=== PATIENT | female | born 1970 | race Caucasian/White ===

== ENCOUNTER 2023-05-10 13:56 | Emergency (ER) | payer OTHER, SELFPAY ==
[2023-05-10 13:59] VITALS: BP 140/86; PULSE 85; RESP 20; TEMP 37; O2SAT 98; BMI 35.7
--- NOTE | 2023-05-10 14:07 | XR_ITS ---
The [address] [address] Patient Name: GAIL GIBBS MRN: [id number] date: 1970 Sex: F Assigned Patient Location: ER Current Patient Location: Accession/Order Number: [id number] Exam Date: 05/10/2023 14:30 Report Date: 05/10/2023 15:11 At the request of: KETURAH RIVERA Procedure: XR toe RT min 2V EXAM: XR toe RT min 2V HISTORY: Purple second digit COMPARISON: None. TECHNIQUE: 3 views FINDINGS: IMPRESSION: Dorsal angulated fracture of the second proximal phalanx base. Associated soft tissue edema. Joint spaces are unremarkable. Atherosclerosis of the vascular structures. Electronically authenticated by: OWEN SINGH Date: 05/10/2023 15:11
--- NOTE | 2023-05-10 14:09 | ED_ITS ---
HPI - Extremity Injury (Lower) General Chief Complaint: Extremity Injury, Lower Stated Complaint: LOWER EXTREMITY BRUISE ON FOOT Time Seen by Provider: 05/10/23 14:07 Source: patient Mode of arrival: walk-in Limitations: no limitations History of Present Illness HPI Narrative: 52-year-old female presents with discoloration to her right second toe that she noticed today. She has neuropathy in her bilateral lower extremities and states that she does not have feeling, so she is not sure if she had injury. She called her family doctor today and they directed her to the ER. Denies swelling, temp or sensation changes Relieving factors: Reports nothing Exacerbating factors: Reports nothing Related Data Home Medications Medication Instructions Recorded Confirmed amlodipine 5 mg tablet 5 mg PO DAILY 05/10/23 05/10/23 atorvastatin 80 mg tablet 80 mg PO DAILY 05/10/23 05/10/23 empagliflozin 10 mg tablet 10 mg PO DAILY 05/10/23 05/10/23 (Jardiance) fluoxetine 20 mg capsule 20 mg PO DAILY 05/10/23 05/10/23 gabapentin 100 mg capsule 100 mg PO Q12H 05/10/23 05/10/23 gabapentin 300 mg capsule 300 mg PO Q8H 05/10/23 05/10/23 insulin glargine 100 unit/mL (3 10 unit subcut .am 05/10/23 05/10/23 mL) subcutaneous pen (Lantus Solostar U-100 Insulin) lisinopril 10 mg tablet 10 mg PO DAILY 05/10/23 05/10/23 Allergies Allergy/AdvReac Type Severity Reaction Status Date / Time Penicillins Allergy Intermediate Verified 05/10/23 14:10 Review of Systems ROS Status of ROS 10 or more systems reviewed and unremarkable except as noted in history and below [facility] Medical History (Updated 05/10/23 @ 14:53 by CAMPBELL Márquez) Exam Narrative Exam Narrative: General: A&Ox3, no distress, talking in full an complete sentences skin: warm, dry, intact, right second toe with a sharply demarcated blue ecchymosis from the proximal to mid toe, distal phalanx of the right second toe excluding ecchymosis, minimally delayed capillary refill, but this is consistent throughout both feet head: normocephalic, atraumatic eyes: EOMI nose: nares patent neck: supple, trachea midline respiratory: non-labored extremities: FROM x 4, strength +5/5 neuro: A&Ox3 psych: appropriate mood and affect, cooperative MDM - Extremity Injury (Lower) MDM Narrative Medical decision making narrative: Prelim x-ray shows a fracture to the right proximal phalanx of the second toe will be kermit taped and follow-up family doctor and Ortho. Fracture care initiated in ER and neurovascular intact. afebrile, not tachycardic, not hypoxic, tolerating PO, non toxic appearing and ambulating at baseline and hemodynamically stable to be d/c. answered all questions. pt in agreement with tx. educated when to return to ER. Differential Diagnosis Differential diagnosis: Likely other (toe strain) Discharge Plan Discharge Chief Complaint: Extremity Injury, Lower Clinical Impression: Fracture of toe of right foot Qualifiers: Encounter type: initial encounter Toe: lesser toe Fracture type: closed Phalanx: proximal Fracture alignment: nondisplaced Qualified Code(s): S92.514A - Nondisplaced fracture of proximal phalanx of right lesser toe(s), initial encounter for closed fracture Patient Disposition: Home, Self-Care Time of Disposition Decision: 14:53 Condition: Good Mode of Transportation: Private Vehicle Prescriptions / Home Meds: No Action amlodipine 5 mg tablet 5 mg PO DAILY atorvastatin 80 mg tablet 80 mg PO DAILY Jardiance 10 mg tablet 10 mg PO DAILY fluoxetine 20 mg capsule 20 mg PO DAILY gabapentin 100 mg capsule 100 mg PO Q12H gabapentin 300 mg capsule 300 mg PO Q8H insulin glargine [Lantus Solostar U-100 Insulin] 100 unit/mL (3 mL) insulin pen 10 unit SUBCUT .am lisinopril 10 mg tablet 10 mg PO DAILY Instructions: Toe Fracture (ED) Stand Alone Forms: Portal Instructions Referrals: Physician,Non-Staff, MD [Primary Care Provider] - 1 week
== END 2023-05-10 15:07 | disposition home or self-care (01) ==
PROVIDERS: Emergency Provider Emergency Medicine Emergency Medical Services
DX: S92.514A Nondisplaced fracture of proximal phalanx of right lesser toe(s), initial encounter for closed fracture (principal); G62.9 Polyneuropathy, unspecified; Z79.899 Other long term (current) drug therapy; Z79.4 Long term (current) use of insulin; X58.XXXA Exposure to other specified factors, initial encounter
CPT/HCPCS: 73660; 99283

== ENCOUNTER 2023-05-18 12:45 | Observation (INO) | payer OTHER, SELFPAY ==
[2023-05-18] VITALS (13 sets, daily range): BP systolic 118–180; BP diastolic 73–105; PULSE 78–94; RESP 16–18; TEMP 36.4–36.6; O2SAT 94–98; BMI 35.7; BMI 36.7
--- NOTE | 2023-05-18 13:05 | ECG_ITS ---
The [facility] Test Date: 2023-05-18 Pat Name: GAIL GIBBS Department: Room: - Gender: Female Manager User Experience: : 1970 Requested By: [id number] Order Number: [id number] Reading MD: JANIS GROSS Measurements Intervals [place] Rate: 84 P: 53 RI: 182 QRS: -22 QRSD: 80 T: 75 QT: 394 QTc: 434 Interpretive Statements 1100 Sinus rhythm 4068 Nonspecific [place] abnormality 7202 Moderate left axis deviation 9130 borderline ECG No previous ECG available for comparison Electronically Signed On 05-19-2023 7:33:23 EDT by JANIS GROSS
--- NOTE | 2023-05-18 13:13 | XR_ITS ---
The [address] [address] Patient Name: GAIL GIBBS MRN: [id number] date: 1970 Sex: F Assigned Patient Location: ER Current Patient Location: ER Accession/Order Number: [id number] Exam Date: 05/18/2023 13:35 Report Date: 05/18/2023 14:04 At the request of: STAN HERRING Procedure: XR chest 2V EXAMINATION: XR chest 2V HISTORY: Syncope COMPARISON: 08/02/2021 TECHNIQUE: PA and lateral FINDINGS: LUNGS: No significant pulmonary parenchymal abnormalities. VASCULATURE: No increased pulmonary vasculature. PLEURA: No pneumothorax, effusion, or pleural thickening. CARDIAC: No cardiomegaly or cardiac silhouette abnormality. MEDIASTINUM: No visible mass or adenopathy. BONES: No fracture or visible bone lesion. OTHER: Negative. XR/XR chest 2V IMPRESSION: No acute disease. Electronically authenticated by: OWEN HOWELL Date: 05/18/2023 14:04
--- NOTE | 2023-05-18 13:13 | CT_ITS ---
The [address] [address] Patient Name: GAIL GIBBS MRN: [id number] date: 1970 Sex: F Assigned Patient Location: ER Current Patient Location: ER Accession/Order Number: [id number] Exam Date: 05/18/2023 13:35 Report Date: 05/18/2023 14:11 At the request of: STAN HERRING Procedure: CT head/brain wo con EXAMINATION: CT head/brain wo con, 05/18/2023 1:35 PM EDT HISTORY: Syncope COMPARISON: None. TECHNIQUE: CT scan of the head was performed without IV contrast. CT dose reduction technique was used, including Automated Exposure Control. HISTORY: Syncope FINDINGS: BRAIN: Moderate white matter hypoattenuation with scattered areas of lacunar infarcts primarily on the left. No acute hemorrhage or mass. CSF SPACES: No hydrocephalus, subarachnoid hemorrhage, or mass. Appropriate for age. SKULL: No fracture, mass, or other significant visible lesion. SINUSES: No significant mucosal thickening or fluid on the limited views. ORBITS: No appreciable abnormality on the limited views. OTHER: Negative CT/CT head/brain wo con IMPRESSION: Moderate white matter disease. Chronic small vessel ischemic changes are favored Electronically authenticated by: OWEN HOWELL Date: 05/18/2023 14:11
[2023-05-18] MEDS: 0.9 % SODIUM CHLORIDE 1,000 ML 1000 ML IV (13:22)
--- NOTE | 2023-05-18 13:24 | ED_ITS ---
HPI - Syncope General Chief Complaint: Syncope Stated Complaint: FALL Time Seen by Provider: 05/18/23 13:12 Source: patient Mode of arrival: ambulance Limitations: no limitations History of Present Illness HPI narrative: patient is a 52-year-old female to history of diabetes who presents to the emergency department for the evaluation of a syncopal episode and dizziness that occurred prior to arrival. Patient states for the last two days she has had abnormal blood sugars that are running high. She has not had any fevers, chills, vomiting or diarrhea. She states she does feel nauseous. Today she was sitting at a table when she went to stand up to get her shorts and felt dizzy, she states she fell back into her chair and passed out for several seconds. She called an ambulance for herself. She had no fall to the ground or associated injuries. She denies chest pain, shortness of breath. No headache or visual changes. She has chronic peripheral paresthesia to the lower extremities. She states she feels weak, mildly dizzy and has a dry mouth at arrival to the Emergency Room. Related Data Home Medications Medication Instructions Recorded Confirmed amlodipine 5 mg tablet 5 mg PO DAILY 05/10/23 05/10/23 atorvastatin 80 mg tablet 80 mg PO DAILY 05/10/23 05/10/23 empagliflozin 10 mg tablet 10 mg PO DAILY 05/10/23 05/10/23 (Jardiance) fluoxetine 20 mg capsule 20 mg PO DAILY 05/10/23 05/10/23 gabapentin 100 mg capsule 100 mg PO Q12H 05/10/23 05/10/23 gabapentin 300 mg capsule 300 mg PO Q8H 05/10/23 05/10/23 insulin glargine 100 unit/mL (3 10 unit subcut .am 05/10/23 05/10/23 mL) subcutaneous pen (Lantus Solostar U-100 Insulin) lisinopril 10 mg tablet 10 mg PO DAILY 05/10/23 05/10/23 Allergies Allergy/AdvReac Type Severity Reaction Status Date / Time Penicillins Allergy Intermediate Verified 05/10/23 14:10 Review of Systems 2 ROS Constitutional Denies: fever or chills Ears, nose, mouth, and throat Denies: throat pain Cardiovascular Denies: chest pain Respiratory Denies: shortness of breath or cough Gastrointestinal Reports: nausea; Denies: abdominal pain or vomiting Genitourinary Denies: painful urination Musculoskeletal Denies: back pain Integumentary/Breast Denies: rash Neurological Reports: dizziness; Denies: headache Endocrine Reports: excessive thirst; Denies: excessive urination Hematologic/Lymphatic Denies: easy bruising [facility] Medical History (Updated 05/18/23 @ 15:31 by CAMPBELL Salas) Social History Smoking status: Former smoker Exam Narrative Exam Narrative: Gen.: Awake, alert, in no distress Head: Normocephalic, atraumatic ENT: Moist mucous membranes, no evidence of facial or dental injury, C-spine nontender Respiratory: No respiratory distress, lungs clear bilaterally Cardio: Regular rate and rhythm Gastrointestinal: Abdomen is soft, nondistended and nontender to palpation Extremities: Moves extremities equally, no injuries noted Psych: Normal mood and affect Neuro: No focal neuro deficit Skin: Warm, dry, intact Constitutional Vital Signs, click to edit/add: Last Vital Signs Temp 97.8 F 05/18/23 12:46 Pulse 79 05/18/23 12:46 Resp 16 05/18/23 12:46 BP 180/105 H 05/18/23 14:30 Pulse Ox 98 05/18/23 13:18 O2 Del Method Room Air 05/18/23 13:18 Course Vital Signs Vital signs: Vital Signs Temperature 97.8 F 05/18/23 12:46 Pulse Rate 79 05/18/23 12:46 Respiratory Rate 16 05/18/23 12:46 Blood Pressure 139/88 H 05/18/23 12:46 Pulse Oximetry 97 05/18/23 12:46 Oxygen Delivery Method Room Air 05/18/23 12:46 Temperature 97.8 F 05/18/23 12:46 Pulse Rate 79 05/18/23 12:46 Respiratory Rate 16 05/18/23 12:46 Blood Pressure 180/105 H 05/18/23 14:30 Pulse Oximetry 98 05/18/23 13:18 Oxygen Delivery Method Room Air 05/18/23 13:18 MDM - Syncope MDM Narrative Medical decision making narrative: patient noted to have stable vital signs on arrival to the Emergency Room, treated with IV fluids. She had no episodes of emesis in the Emergency Room, she complains of generalized weakness and lightheadedness with no vertigo-type symptoms. Zofran given as well. CT of the rain, chest x-ray, lab studies show mild urinary tract infection with stable, chronic kidney disease and mild hyperkalemia. Patient will be treated with Rocephin and Kayexalate. We attempted to ambulate the patient to determine if she could be discharged home, patient is unable to ambulate due to generalized weakness and lightheadedness. She is admitted for IV fluids, antibiotics. Stable at time of admission to hospitalist. Medical Records Attestation: I reviewed the patient's medical records. Lab Data Attestation: I reviewed the patient's lab results. Labs: Lab Results 05/18/23 05/18/23 Range/Units 13:30 13:33 WBC 8.5 (4.0-11.0) 10^3/uL RBC 4.90 (4.20-5.40) 10^6/uL Hgb 13.5 (12.0-16.0) g/dL Hct 42.3 (36.0-48.0) % MCV 86.3 (81.0-99.0) fL MCH 27.6 (26.7-34.0) pg MCHC 31.9 (29.9-35.2) g/dL RDW 15.1 H (11.0-15.0) % Plt Count 337 (150-450) 10^3/uL MPV 10.6 (9.5-13.5) fL Neut % (Auto) 80.4 H (43.0-75.0) % Lymph % (Auto) 15.7 L (20.5-60.0) % [place] % (Auto) 2.8 (1.7-12.0) % Eos % (Auto) 0.7 L (0.9-7.0) % Baso % (Auto) 0.2 (0.2-2.0) % Neut # (Auto) 6.8 H (1.4-6.5) 10^3/uL Lymph # (Auto) 1.3 (1.2-3.8) 10^3/uL [place] # (Auto) 0.2 L (0.3-0.8) 10^3/uL Eos # (Auto) 0.1 (0.0-0.7) 10^3/uL Baso # (Auto) 0.0 (0.0-0.1) 10^3/uL Abs Immat Gran (auto) 0.02 (0.00-0.03) 10^3/uL Imm/Tot Granulo (auto) 0.2 (0.0-0.5) % Sodium 135 L (136-145) mmol/L Potassium 5.8 H (3.5-5.1) mmol/L Chloride 102 (98-107) mmol/L Carbon Dioxide 25.2 (21.0-32.0) mmol/L Anion Gap 13.6 BUN 46.0 H (7.0-18.0) mg/dL Creatinine 1.99 H (0.55-1.02) mg/dL Est GFR ( Amer) 32 L (>=60) Est GFR (Non-Af Amer) 26 L (>=60) BUN/Creatinine Ratio 23.1 Glucose 288 H (74-106) mg/dL Lactate 1.7 (0.4-2.0) mmol/L Calcium 9.5 (8.5-10.1) mg/dL Total Bilirubin 0.7 (0.2-1.0) mg/dL AST 33 (15-37) U/L ALT 20 (14-59) U/L Alkaline Phosphatase 95 (46-116) U/L Troponin I High Sens 14.4 (4.0-51.3) pg/mL Total Protein 8.5 H (6.4-8.2) g/dL Albumin 3.9 (3.4-5.0) g/dL Globulin 4.6 g/dL Albumin/Globulin Ratio 0.8 TSH 0.725 (0.358-3.740) uIU/mL Urine Color Lt. yellow (YELLOW) Urine Clarity Clear (CLEAR) Urine pH 5.5 (5.0-9.0) Ur Specific [place] 1.020 (1.005-1.025) Urine Protein 100 A (NEG/TRACE) mg/dL Urine Glucose (UA) >=1000 A (NEGATIVE) mg/dL Urine Ketones Negative (NEGATIVE) mg/dL Urine Occult Blood Trace-i (NEGATIVE) Urine Nitrite Negative (NEGATIVE) Urine Bilirubin Negative (NEGATIVE) Urine Urobilinogen 0.2 (0.2-1.0) EU/dL Ur Leukocyte Esterase Small A (NEGATIVE) Urine RBC 2-5 A (0-2) #/HPF Urine WBC 10-20 A (NONE SEEN) #/HPF Ur Squamous Epith Cells Moderate A (NONE/RARE) #/LPF Urine Crystals None seen (None Seen) #/HPF Urine Bacteria Trace A (NONE SEEN) #/HPF Urine Casts None seen (NONE SEEN) #/LPF Urine Mucus None seen (NONE SEEN) Ur Culture Indicated? Yes Acetone, Qual Negative (NEGATIVE) Imaging Data Chest x-ray: Attestation: I have reviewed the pertinent imaging results. Radiologist's impression: ? MRN: [id number]? ? date: 1970? ? Sex: F Assigned Patient Location: ER Current Patient Location: ER Accession/Order Number: [id number] Exam Date: 05/18/2023? 13:35? ? Report Date: 05/18/2023? 14:04 ? At the request of: STAN? NIMA? ? Procedure:? XR chest 2V ? EXAMINATION: XR chest 2V ? HISTORY: Syncope ? COMPARISON: 08/02/2021 ? TECHNIQUE: PA and lateral ? FINDINGS: LUNGS: No significant pulmonary parenchymal abnormalities. VASCULATURE: No increased pulmonary vasculature. PLEURA: No pneumothorax, effusion, or pleural thickening. CARDIAC: No cardiomegaly or cardiac silhouette abnormality. MEDIASTINUM: No visible mass or adenopathy. BONES: No fracture or visible bone lesion. OTHER: Negative. ? XR/XR chest 2V IMPRESSION: ? No acute disease. ? CT scan - head: Attestation: I have reviewed the pertinent imaging results. Radiologist's impression: Procedure: CT head/brain wo con EXAMINATION: CT head/brain wo con, 05/18/2023 1:35 PM EDT HISTORY: Syncope COMPARISON: None. TECHNIQUE: CT scan of the head was performed without IV contrast. CT dose reduction technique was used, including Automated Exposure Control. HISTORY: Syncope FINDINGS: BRAIN: Moderate white matter hypoattenuation with scattered areas of lacunar infarcts primarily on the left. No acute hemorrhage or mass. CSF SPACES: No hydrocephalus, subarachnoid hemorrhage, or mass. Appropriate for age. SKULL: No fracture, mass, or other significant visible lesion. SINUSES: No significant mucosal thickening or fluid on the limited views. ORBITS: No appreciable abnormality on the limited views. OTHER: Negative IMPRESSION: Moderate white matter disease. Chronic small vessel ischemic changes are favored Electronically authenticated by: OWEN HOWELL Date: 05/18/2023 14:11 ECG Data Attestation: I personally reviewed and interpreted this ECG as follows: (normal sinus rhythm at a rate of eighty-four, no acute ST elevation or ectopy. EKG reviewed by attending physician) ECG interpretation date: 05/18/23 ECG interpretation time: 14:00 Discharge Plan Discharge Chief Complaint: Syncope Clinical Impression: UTI (urinary tract infection), Syncope, Weakness, Acute hyperkalemia Patient Disposition: Admitted as Observation Time of Disposition Decision: 15:31 Condition: Good
[2023-05-18 13:40] LABS: Hematocrit 42.3 % (36.0-48.0); Hemoglobin 13.5 g/dL (12.0-16.0); Mean Corpuscular HGB Conc 31.9 g/dL (29.9-35.2); Mean Corpuscular Hemoglobin 27.6 pg (26.7-34.0); Mean Corpuscular Volume 86.3 fL (81.0-99.0); Mean Platelet Volume 10.6 fL (9.5-13.5); Neutrophils Percent Auto 80.4 % (43.0-75.0); Platelet Count 337 10^3/uL (150-450); Red Cell Distribution Width 15.1 % (11.0-15.0); White Blood Count 8.5 10^3/uL (4.0-11.0)
[2023-05-18 13:41] LABS: Basophils Percent Auto 0.2 % (0.2-2.0); Eosinophils Absolute Auto 0.1 10^3/uL (0.0-0.7); Eosinophils Percent Auto 0.7 % (0.9-7.0); Immature Granulocytes Abs Auto 0.02 10^3/uL (0.00-0.03); Immature Granulocytes Pct Auto 0.2 % (0.0-0.5); Lymphocytes Absolute Auto 1.3 10^3/uL (1.2-3.8); Lymphocytes Percent Auto 15.7 % (20.5-60.0); Monocytes Absolute Auto 0.2 10^3/uL (0.3-0.8); Monocytes Percent Auto 2.8 % (1.7-12.0); Neutrophils Absolute Auto 6.8 10^3/uL (1.4-6.5)
[2023-05-18 13:48] LABS: Bilirubin Urine NEGATIVE (NEGATIVE); Blood Urine TRACE-I (NEGATIVE); Clarity Urine CLEAR (CLEAR); Color Urine LT. YELLOW (YELLOW); Glucose Urine UA >=1000 mg/dL (NEGATIVE); Ketones Urine NEGATIVE (NEGATIVE); Leukocyte Esterase Urine SMALL (NEGATIVE); Nitrite Urine NEGATIVE (NEGATIVE); Protein Urine 100 mg/dL (NEG/TRACE); Urobilinogen Urine 0.2 EU/dL (0.2-1.0); pH Urine 5.5 (5.0-9.0)
[2023-05-18] MEDS: ONDANSETRON PF 4 MG/2 ML VIAL IV (13:49)
[2023-05-18 13:50] LABS: Acetone NEGATIVE (NEGATIVE)
[2023-05-18 13:50] LABS: Urine Microscopic Indicated YES
[2023-05-18 13:57] LABS: Bacteria Urine TRACE #/HPF (NONE SEEN); Mucus Urine NONE SEEN (NONE SEEN)
[2023-05-18 13:58] LABS: Cast Seen? NONE SEEN #/LPF (NONE SEEN); Crystals Seen? None Seen #/HPF (None Seen); Squamous Epithelial Cell Urine MODERATE #/LPF (NONE/RARE); Urine Culture Indicated YES
[2023-05-18 13:59] LABS: Lactate/Lactic Acid 1.7 mmol/L (0.4-2.0)
[2023-05-18 14:06] LABS: Alanine Aminotransferase 20 U/L (14-59); Albumin Globulin Ratio 0.8; Albumin Level 3.9 g/dL (3.4-5.0); Alkaline Phosphatase 95 U/L (46-116); Anion Gap 13.6; Aspartate Amino Transferase 33 U/L (15-37); BUN Creatinine Ratio 23.1; Bilirubin Total 0.7 mg/dL (0.2-1.0); Calcium 9.5 mg/dL (8.5-10.1); Carbon Dioxide 25.2 mmol/L (21.0-32.0); Chloride 102 mmol/L (98-107); Estimated GFR (African America 32 (>=60); Estimated GFR (Non-African Ame 26 (>=60); Globulin 4.6 g/dL; Glucose 288 mg/dL (74-106); Potassium 5.8 mmol/L (3.5-5.1); Sodium 135 mmol/L (136-145); Total Protein 8.5 g/dL (6.4-8.2)
[2023-05-18 14:07] LABS: Thyroid Stimulating Hormone 0.725 uIU/mL (0.358-3.740); Troponin I High Sensitivity 14.4 pg/mL (4.0-51.3)
--- NOTE | 2023-05-18 14:57 | PC.NURSE ---
pt unable to stand at length to attempt to ambulate down the hallway states she feels too wobbly pa notified and
[2023-05-18] MEDS: CEFTRIAXONE 1,000 MG in 0.9 % SODIUM CHLORIDE 50 ML 100 MG IV (15:40)
--- NOTE | 2023-05-18 16:29 | P.HP_ITS ---
H&P: HPI History of Present Illness Chief complaint: FALL, Syncope, UTI, Hyperkalemia, Weakness Narrative: patient is a 52 y.o with past medical history of insulin dep type 2 diabetes, HTN, HLD, neuropathy, depression who presented to the ER today for weakness and some AMS. In the ER she was found to have UTI, DANISHA, elevated potassium and could not walk without assistance. She was admitted for further evaluation. She reports she felt unsteady on her feet when standing and transitioning from her chair to her bed. She fell back into her bed, No LOC, no bladder incontinence, no head trauma. She states she frequently gets dizzy when she stands and has to take it slow . she denies any chest pain, shortness of breath, says sugars have been running higher. She sees Endocrinology and her PCP regularly. Review of Systems ROS Narrative ROS: a complete review of systems were reviewed with patient and are positive as below or listed in History of Chief Complaint. General: no fever, chills, night sweats Head: no headache, trauma, visual changes, nausea or vomiting Skin: no reported rashes, itching or sores Eyes: no blurriness of vision Ears: no reported hearing loss, vertigo, earache, or tinnitus Throat: no sore throat, hoarseness, swelling of neck, or tongue pain Heart: no chest pain Lungs: no shortness of breath or cough GI: no diarrhea or vomiting/nausea Urinary:no urinary urgency, some frequency no pain Neuro: no numbness or tingling HEM: no bleeding issues or bruising ENDO: no thyroid problems Psych: anxiety or depression PFSH PFSH Medical History (Updated 05/18/23 @ 16:35 by Kait Munguia DO) Family History (Updated 05/18/23 @ 16:44 by Janette Ribeiro) Father Family history of cancer Family history of CHF (congestive heart failure) Family history of diabetes mellitus Mother Family history of diabetes mellitus Family history of hypertension Social History Smoking status: Former smoker Meds Home Medications and Allergies Home Medications Medication Instructions Recorded Confirmed Type amlodipine 5 mg tablet 5 mg PO DAILY 05/10/23 05/18/23 History atorvastatin 80 mg tablet 80 mg PO DAILY 05/10/23 05/18/23 History empagliflozin 10 mg tablet 10 mg PO DAILY 05/10/23 05/18/23 History (Jardiance) fluoxetine 20 mg capsule 20 mg PO DAILY 05/10/23 05/18/23 History gabapentin 100 mg capsule 100 mg PO Q12H 05/10/23 05/18/23 History gabapentin 300 mg capsule 300 mg PO Q8H 05/10/23 05/18/23 History insulin glargine 100 unit/mL (3 10 unit subcut .am 05/10/23 05/18/23 History mL) subcutaneous pen (Lantus Solostar U-100 Insulin) lisinopril 10 mg tablet 10 mg PO DAILY 05/10/23 05/18/23 History lisinopril 20 mg tablet mg 05/18/23 History Allergies Allergy/AdvReac Type Severity Reaction Status Date / Time Penicillins Allergy Intermediate Verified 05/10/23 14:10 Exam Narrative Exam Narrative: General: Patient is alert, and oriented to person, place and time with normal affect, proper hygiene Skin: no visible rashes, or ulcers Head: atraumatic, acephalic Eyes: PERRLA, no nystagmus present, conjunctiva clear, no scleral icterus Ears: normal Tympanic Membrane, normal gross auditory acuity Nose: symmetric, no discharge, no maxillary or frontal sinus tenderness Mouth/Throat: no erythema, exudate, or tonsillar enlargement, normal dentition Neck: no masses palpated, normal thyroid, no JVD or audible carotid bruits Heart: Normal rate and rhythm, no murmurs/rubs/gallops Lungs: no audible wheezes, crackles and normal breath sounds all lung molina Abdomen: Normal audible bowel sounds, no distension, No palpable masses, no organomegaly, no rebound/guarding/ or rigidity Musculoskeletal: muscle atrophy noted, ROM is limited due to being in hospital bed, no swelling bilateral lower extremities Vascular: Normal carotid, radial, femoral, posterior tibial, and dorsalis pedis pulses Lymph: no supraclavicular, axillary, or anterior/posterior cervical adenopathy Neuro: CN II-X grossly intact, normal sensation upper and lower extremities Constitutional Vital Signs, click to edit/add: Last Vital Signs Temp 97.8 F 05/18/23 12:46 Pulse 87 05/18/23 16:01 Resp 18 05/18/23 16:01 BP 144/76 H 05/18/23 16:01 Pulse Ox 98 05/18/23 16:01 O2 Del Method Room Air 05/18/23 16:01 Results Labs Labs: Short CBC 05/18/23 Range/Units 13:30 WBC 8.5 (4.0-11.0) 10^3/uL Hgb 13.5 (12.0-16.0) g/dL Hct 42.3 (36.0-48.0) % Plt Count 337 (150-450) 10^3/uL BMP 05/18/23 13:30 Sodium 135 L Potassium 5.8 H Chloride 102 Carbon Dioxide 25.2 BUN 46.0 H Creatinine 1.99 H Glucose 288 H Calcium 9.5 Liver Function 05/18/23 Range/Units 13:30 Total Bilirubin 0.7 (0.2-1.0) mg/dL AST 33 (15-37) U/L ALT 20 (14-59) U/L Alkaline Phosphatase 95 (46-116) U/L Albumin 3.9 (3.4-5.0) g/dL Urine 05/18/23 Range/Units 13:33 Urine Color Lt. yellow (YELLOW) Urine Clarity Clear (CLEAR) Urine pH 5.5 (5.0-9.0) Ur Specific [place] 1.020 (1.005-1.025) Urine Protein 100 A (NEG/TRACE) mg/dL Urine Glucose (UA) >=1000 A (NEGATIVE) mg/dL Assessment and Plan Assessment and Plan (1) UTI (urinary tract infection): Assessment and Plan: will place on rocephin, pending urine culture (2) DANISHA (acute kidney injury): Assessment and Plan: IVF with LR at 125 ml/hr; may have ckd, but no baseline (3) Acute hyperkalemia: Assessment and Plan: 5.8, will give kayexalate, hold lisinopril (4) Weakness: Assessment and Plan: most likely secondary to #1, normal CT head (5) Diabetes: Assessment and Plan: continue SSI and long acting insulin, FSBS qachs (6) High cholesterol: Assessment and Plan: continue statin (7) Hypertension: Assessment and Plan: continue amlodipine Plan full code lovenox for DVT prophylaxis patient is observation status and is not expected to stay more than 2 midnights
[2023-05-18] MEDS: SODIUM POLYSTYRENE SULFON 15 GM/60 ML ORAL.SUSP KAYEXALATE 30 GM PO (17:46)
[2023-05-18] MEDS: LACTATED RINGER'S SOLUTION 1,000 ML 125 ML IV (17:47)
[2023-05-18] MEDS: ENOXAPARIN SODIUM 40 MG/0.4 ML SYRINGE SUBQ (18:13)
--- NOTE | 2023-05-18 19:44 | PC.NURSE ---
Patient has dexcom on her L arm
--- NOTE | 2023-05-18 20:44 | PC.NURSE ---
Ambulation/ d/t patient unsteadiness she will be using the bed hawkins until evaluated with PT/OT.
--- NOTE | 2023-05-18 20:47 | PC.NURSE ---
Eye Doctor-Was told by PCP needed to make an Eye doctor appointment d/t catarcts.
[2023-05-18] MEDS: INSULIN ASPART 300 UNIT/3 ML PEN SUBQ (21:05)
[2023-05-18] MEDS: ACETAMINOPHEN 325 MG TABLET 650 MG PO (21:06)
[2023-05-18] MEDS: GABAPENTIN 100 MG CAPSULE PO (21:07)
[2023-05-19] VITALS (13 sets, daily range): BP systolic 128–154; BP diastolic 80–88; PULSE 72–88; RESP 18; TEMP 36.5; O2SAT 91; BMI 36.7
[2023-05-19] MEDS: LACTATED RINGER'S SOLUTION 1,000 ML 125 ML IV ×2 (01:36→10:25)
[2023-05-19 04:44] LABS: Basophils Absolute Auto 0.1 10^3/uL (0.0-0.1); Basophils Percent Auto 0.8 % (0.2-2.0); Eosinophils Absolute Auto 0.2 10^3/uL (0.0-0.7); Hematocrit 35.1 % (36.0-48.0); Hemoglobin 11.3 g/dL (12.0-16.0); Immature Granulocytes Abs Auto 0.01 10^3/uL (0.00-0.03); Immature Granulocytes Pct Auto 0.1 % (0.0-0.5); Lymphocytes Absolute Auto 2.8 10^3/uL (1.2-3.8); Lymphocytes Percent Auto 36.5 % (20.5-60.0); Mean Corpuscular HGB Conc 32.2 g/dL (29.9-35.2); Mean Corpuscular Hemoglobin 28.3 pg (26.7-34.0); Mean Corpuscular Volume 87.8 fL (81.0-99.0); Mean Platelet Volume 10.9 fL (9.5-13.5); Monocytes Absolute Auto 0.5 10^3/uL (0.3-0.8); Monocytes Percent Auto 6.6 % (1.7-12.0); Platelet Count 280 10^3/uL (150-450); Red Cell Distribution Width 15.5 % (11.0-15.0); White Blood Count 7.6 10^3/uL (4.0-11.0)
[2023-05-19 05:04] LABS: Estimated Average Glucose 174 mg/dL; Glycohemoglobin A1C 7.7 % (4.5-6.2)
[2023-05-19 05:10] LABS: Alanine Aminotransferase 21 U/L (14-59); Albumin Globulin Ratio 0.7; Albumin Level 2.8 g/dL (3.4-5.0); Alkaline Phosphatase 79 U/L (46-116); Anion Gap 13.6; Aspartate Amino Transferase 14 U/L (15-37); BUN Creatinine Ratio 25.2; Bilirubin Total 0.3 mg/dL (0.2-1.0); Calcium 8.3 mg/dL (8.5-10.1); Carbon Dioxide 25.3 mmol/L (21.0-32.0); Chloride 109 mmol/L (98-107); Estimated GFR (African America 40 (>=60); Estimated GFR (Non-African Ame 33 (>=60); Globulin 3.9 g/dL; Glucose 162 mg/dL (74-106); Potassium 3.9 mmol/L (3.5-5.1); Sodium 144 mmol/L (136-145); Total Protein 6.7 g/dL (6.4-8.2)
[2023-05-19] MEDS: CEFTRIAXONE 1,000 MG in 0.9 % SODIUM CHLORIDE 50 ML 100 MG IV (05:28)
--- NOTE | 2023-05-19 09:19 | P.DS_ITS ---
DS: Providers Provider Date of admission: 05/18/23 16:17 Primary care physician: Non-Staff Physician, Admitting clinician: Kait Munguia Consults: 05/18/23 16:04 Occupational Therapy Eval and Treat Routine Physical Therapy Eval and Treat Routine Attending physician on discharge: Kait Munguia DS: Diagnosis Discharge Diagnosis (1) UTI (urinary tract infection): (2) DANISHA (acute kidney injury): (3) Acute hyperkalemia: (4) Weakness: (5) Diabetes: (6) High cholesterol: (7) Hypertension: DS: Summary Hospital Course Hospital Course: patient was placed on rocephin for UTI, cultures negative but seemed to improve on this. WBC's normal this morning. Will place on cipro as outpatient. DANISHA seemed to improve with IVF. Potassium level was 3.8 down from 5.8 with kayexalate, continue to hold lisinopril as outpatient. resume all other home meds. Patient feels much better today. Weakness has improved. up in chair and asking to go home. Status at Discharge Functional status at discharge: independent ambulation Overall status at discharge: patient is back to baseline Time Spent with Patient Time attestation: Total time spent providing and/or coordinating discharge services: Exam Narrative Exam Narrative: General: Patient is alert, and oriented to person, place and time with normal affect, proper hygiene Skin: no visible rashes, or ulcers Head: atraumatic, acephalic Eyes: PERRLA, no nystagmus present, conjunctiva clear, no scleral icterus Ears: normal Tympanic Membrane, normal gross auditory acuity Nose: symmetric, no discharge, no maxillary or frontal sinus tenderness Mouth/Throat: no erythema, exudate, or tonsillar enlargement, normal dentition Neck: no masses palpated, normal thyroid, no JVD or audible carotid bruits Heart: Normal rate and rhythm, no murmurs/rubs/gallops Lungs: no audible wheezes, crackles and normal breath sounds all lung molina Abdomen: Normal audible bowel sounds, no distension, No palpable masses, no organomegaly, no rebound/guarding/ or rigidity Musculoskeletal: muscle atrophy noted, ROM is limited due to being in hospital bed, no swelling bilateral lower extremities Vascular: Normal carotid, radial, femoral, posterior tibial, and dorsalis pedis pulses Lymph: no supraclavicular, axillary, or anterior/posterior cervical adenopathy Neuro: CN II-X grossly intact, normal sensation upper and lower extremities Constitutional Vital Signs, click to edit/add: Last Vital Signs Temp 97.7 F 05/19/23 05:41 Pulse 79 05/19/23 08:14 Resp 18 05/19/23 05:41 BP 128/80 H 05/19/23 05:41 Pulse Ox 91 L 05/19/23 05:41 O2 Del Method Room Air 05/19/23 05:41 DS: Data Data Completed and Pending Labs on day of discharge: Labs from last 24 hours 05/19/23 05/18/23 05/18/23 04:00 13:33 13:30 WBC 7.6 8.5 RBC 4.00 L 4.90 Hgb 11.3 L 13.5 Hct 35.1 L 42.3 MCV 87.8 86.3 MCH 28.3 27.6 MCHC 32.2 31.9 RDW 15.5 H 15.1 H Plt Count 280 337 MPV 10.9 10.6 Neut % (Auto) 53.0 80.4 H Lymph % (Auto) 36.5 15.7 L [place] % (Auto) 6.6 2.8 Eos % (Auto) 3.0 0.7 L Baso % (Auto) 0.8 0.2 Neut # (Auto) 4.0 6.8 H Lymph # (Auto) 2.8 1.3 [place] # (Auto) 0.5 0.2 L Eos # (Auto) 0.2 0.1 Baso # (Auto) 0.1 0.0 Abs Immat Gran (auto) 0.01 0.02 Imm/Tot Granulo (auto) 0.1 0.2 Sodium 144 135 L Potassium 3.9 5.8 H Chloride 109 H 102 Carbon Dioxide 25.3 25.2 Anion Gap 13.6 13.6 BUN 41.0 H 46.0 H Creatinine 1.63 H 1.99 H Est GFR ( Amer) 40 L 32 L Est GFR (Non-Af Amer) 33 L 26 L BUN/Creatinine Ratio 25.2 23.1 Glucose 162 H 288 H Estimat Average Glucose 174 Hemoglobin A1c 7.7 H Lactate 1.7 Calcium 8.3 L 9.5 Total Bilirubin 0.3 0.7 AST 14 L 33 ALT 21 20 Alkaline Phosphatase 79 95 Troponin I High Sens 14.4 Total Protein 6.7 8.5 H Albumin 2.8 L 3.9 Globulin 3.9 4.6 Albumin/Globulin Ratio 0.7 0.8 TSH 0.725 Urine Color Lt. yellow Urine Clarity Clear Urine pH 5.5 Ur Specific [place] 1.020 Urine Protein 100 A Urine Glucose (UA) >=1000 A Urine Ketones Negative Urine Occult Blood Trace-i Urine Nitrite Negative Urine Bilirubin Negative Urine Urobilinogen 0.2 Ur Leukocyte Esterase Small A Urine RBC 2-5 A Urine WBC 10-20 A Ur Squamous Epith Cells Moderate A Urine Crystals None seen Urine Bacteria Trace A Urine Casts None seen Urine Mucus None seen Ur Culture Indicated? Yes Acetone, Qual Negative Discharge Plan Discharge Disposition: Home, Self-Care (OBS FBC) Condition: Good Discharge Medications: New ciprofloxacin HCl 500 mg tablet 500 mg PO Q12H 7 Days Qty: 14 0RF Continued amlodipine 5 mg tablet 5 mg PO DAILY atorvastatin 80 mg tablet 80 mg PO DAILY Jardiance 10 mg tablet 10 mg PO DAILY fluoxetine 20 mg capsule 20 mg PO DAILY gabapentin 100 mg capsule 100 mg PO Q12H gabapentin 300 mg capsule 300 mg PO Q8H insulin glargine [Lantus Solostar U-100 Insulin] 100 unit/mL (3 mL) insulin pen 18 unit SUBCUT .am Discontinued lisinopril 20 mg tablet lisinopril 10 mg tablet 10 mg PO DAILY Activity: increase activity as tolerated Diet: advance to your usual diet and diabetic diet Follow Up Appointments: Follow up appt. with Dr. Garcia on May 23 @ 2pm Office #: [phone] please discuss medication alternatives to Lisinopril
[2023-05-19] MEDS: AMLODIPINE BESYLATE 5 MG TABLET PO (10:26)
[2023-05-19] MEDS: ATORVASTATIN CALCIUM 40 MG TABLET 80 MG PO (10:26)
[2023-05-19] MEDS: CANAGLIFLOZIN 100 MG TABLET PO (10:26)
[2023-05-19] MEDS: FLUOXETINE HCL 20 MG CAPSULE PO (10:27)
[2023-05-19] MEDS: GABAPENTIN 100 MG CAPSULE PO (10:32)
[2023-05-19] MEDS: INSULIN DETEMIR 300 UNIT/3 ML INSULN.PEN 10 UNIT SUBQ (10:42)
--- NOTE | 2023-05-19 13:42 | CM.NOTE ---
Rounds made with Dr. Munguia. Ms. Tao states feels much better today. Plan for discharge to home. Ms. Tao in agreement.
[2023-05-19] MEDS: INSULIN ASPART 300 UNIT/3 ML PEN SUBQ (14:42)
--- NOTE | 2023-05-23 15:12 | CM.DCFOLLOWU ---
Second attempt at discharge follow up call made. No answer.
--- NOTE | 2023-05-24 12:52 | CM.DCFOLLOWU ---
Person spoke with: patient How are you feeling? ok How is your pain? none Did you understand your discharge instructions? yes but i was not given any paper instructions. I had two nurses doing my stuff and I think they both thought the other one gave them to me. Do you have any questions about your discharge instructions? not based on what they told me Were you given any prescriptions at discharge? yes Were you able to get your prescriptions filled? yes Do you understand how to take your medications as ordered? yes Do you have any questions about your follow up appointment and do you plan to keep your follow up appointment? appointment was yesterday and the person I saw did not understand why they took me off my BP meds. Explained why the patient came in and they wanted this to be addressed at the follow up appointment. Pt. states her primary care provider did not put her on anything else at this. I informed the patient that we had made attempts prior to today to contact her to review her discharge instructions with no answer on phone. I highly encouraged her to re-contact her primary care provider to discuss her concerns regarding her blood pressure medications. The patient voiced understanding. Is there anything else that you would like to discuss? Complained that she was not given a denture cup or denture glue. Questions/Comments/Concerns/Other: none.
== END 2023-05-19 18:12 | disposition home or self-care (01) ==
LOC: ER 15:31 → MS 16:24
PROVIDERS: Physician Assistant; Admitting Provider Family Medicine; Emergency Provider Emergency Medicine Emergency Medical Services; Visit Provider Family Medicine
DX: N39.0 Urinary tract infection, site not specified (principal); N17.9 Acute kidney failure, unspecified; E87.5 Hyperkalemia; R53.1 Weakness; E11.9 Type 2 diabetes mellitus without complications; E78.00 Pure hypercholesterolemia, unspecified; I10 Essential (primary) hypertension; R55 Syncope and collapse; Z79.899 Other long term (current) drug therapy; Z79.4 Long term (current) use of insulin; Z87.891 Personal history of nicotine dependence
CPT/HCPCS: 36415; 70450; 71046; 80053; 81003; 81015; 82009; 83036; 83605; 84443; 84484; 85025; 87086; 93005; 96361; 96365; 96366; 96372; 96375; 97162; 97165; 97530; 99285; G0378

== ENCOUNTER 2023-12-30 15:05 | Emergency (ER) | payer MEDICARE, MEDICAID, SELFPAY ==
[2023-12-30] VITALS (29 sets, daily range): BP systolic 130–185; BP diastolic 80–110; PULSE 78–92; RESP 9–35; TEMP 37.5; O2SAT 91–99; BMI 34.8
--- NOTE | 2023-12-30 15:26 | ECG_ITS ---
[facility] Test Date: 2023-12-30 Pat Name: GAIL GIBBS Department: Room: - Gender: Female Mortgage Or Loan Underwriter: : 1970 Requested By: [id number] Order Number: [id number] Reading MD: CONNOR JACKSON Measurements Intervals [place] Rate: 84 P: 31 [place]: 160 QRS: -17 QRSD: 82 T: 85 QT: 394 QTc: 435 Interpretive Statements 1100 Sinus rhythm [address] depression 4564 [place] abnormality, possible High lateral ischemia 9150 abnormal ECG Compared to ECG 05/18/2023 12:57:01 ST (T wave) deviation now present Possible ischemia now present Left-axis deviation no longer present Electronically Signed On 01-02-2024 5:55:23 EST by CONNOR JACKSON
--- NOTE | 2023-12-30 15:33 | ED_ITS ---
Documented by User: CAMPBELL Salas 12/30/23 18:22 HPI - Nausea/Vomiting/Diarrhea General Chief complaint: Nausea/Vomiting/Diarrhea Stated complaint: POSS MS FLARE UP Time Seen by Provider: 12/30/23 15:26 Source: patient Mode of arrival: ambulance Limitations: no limitations History of Present Illness HPI Narrative: Patient is a 53-year-old female with a history of MS who presents to the emergency department for the evaluation of vomiting and diarrhea with generalized weakness that began last night. She believes she is having an MS exacerbation in addition to illness. She has had hot and cold chills with no objective fevers. Multiple family members are sick with upper respiratory symptoms. Patient denies abdominal pain, difficulty breathing, significant cough or chest congestion. She states she has had equal vomiting and diarrhea since last night, her urine is dark but she has not had any burning or blood with her urination. No falls or injuries. No medications taken prior to arrival. Related Data Home Medications Medication Instructions Recorded Confirmed amlodipine 5 mg tablet 5 mg PO DAILY 05/10/23 05/18/23 atorvastatin 80 mg tablet 80 mg PO DAILY 05/10/23 12/30/23 empagliflozin 10 mg tablet 10 mg PO DAILY 05/10/23 05/18/23 (Jardiance) fluoxetine 20 mg capsule 20 mg PO DAILY 05/10/23 12/30/23 gabapentin 100 mg capsule 100 mg PO Q12H 05/10/23 12/30/23 gabapentin 300 mg capsule 300 mg PO Q8H 05/10/23 12/30/23 insulin glargine 100 unit/mL (3 18 unit subcut .am 05/10/23 05/19/23 mL) subcutaneous pen (Lantus Solostar U-100 Insulin) aspirin 81 mg chewable tablet 1 tab PO DAILY 12/30/23 12/30/23 bumetanide 1 mg tablet 1 mg PO DAILY 12/30/23 12/30/23 calcium carbonate 500 mg calcium 500 mg PO BID 12/30/23 12/30/23 (1,250 mg) tablet (Oyster Shell Calcium 500) clopidogrel 75 mg tablet 75 mg PO DAILY 12/30/23 12/30/23 hydralazine 50 mg tablet 50 mg PO Q8H 12/30/23 12/30/23 insulin aspart U-100 100 unit/mL subcut 12/30/23 (3 mL) subcutaneous pen isosorbide dinitrate 20 mg tablet 20 mg PO DAILY 12/30/23 12/30/23 magnesium oxide 400 mg (241.3 mg 400 mg PO DAILY 12/30/23 12/30/23 magnesium) tablet metoprolol succinate 50 mg 50 mg PO DAILY 12/30/23 12/30/23 tablet,extended release 24 hr spironolactone 25 mg tablet 25 mg PO DAILY 12/30/23 12/30/23 Previous Rx's Medication Instructions Recorded ciprofloxacin HCl 500 mg tablet 500 mg PO Q12H 7 days #14 tabs 05/19/23 cephalexin 500 mg capsule 500 mg PO Q8H 10 days #30 caps 12/30/23 ondansetron 4 mg disintegrating 4 mg PO Q6H PRN nausea and 12/30/23 tablet vomiting #12 tabs Allergies Allergy/AdvReac Type Severity Reaction Status Date / Time Penicillins Allergy Intermediate Verified 05/10/23 14:10 Review of Systems ROS Constitutional Reports: chills; Denies: fever Eyes Denies: change in vision Ears, nose, mouth, and throat Denies: throat pain or nasal congestion Cardiovascular Denies: chest pain Respiratory Denies: shortness of breath or cough Gastrointestinal Reports: nausea, vomiting and diarrhea; Denies: abdominal pain Genitourinary Denies: painful urination Musculoskeletal Denies: back pain or neck pain Integumentary/Breast Denies: rash Neurological Denies: headache Endocrine Denies: excessive urination [facility] Medical History (Updated 12/30/23 @ 18:20 by CAMPBELL Salas) High cholesterol ?E78.00 - Pure hypercholesterolemia, unspecified (ICD-10) Hypertension ?I10 - Essential (primary) hypertension (ICD-10) Diabetes ?E11.9 - Type 2 diabetes mellitus without complications (ICD-10) Family History (Updated 05/18/23 @ 16:44 by Janette Ribeiro) Father Family history of cancer Family history of CHF (congestive heart failure) Family history of diabetes mellitus Mother Family history of diabetes mellitus Family history of hypertension Social History Smoking status: Current every day smoker Exam Narrative Exam Narrative: Gen.: Awake, alert, in no distress Head: Normocephalic, atraumatic ENT: Dry mucous membranes Respiratory: No respiratory distress, lungs clear bilaterally Cardio: Regular rate and rhythm Gastrointestinal: Abdomen is soft, nondistended and nontender to palpation Extremities: Moves extremities equally Psych: Normal mood and affect Neuro: No focal neuro deficit Skin: Warm, dry, intact Constitutional Vital Signs, click to edit/add: Last Vital Signs Temp 99.5 F 12/30/23 15:09 Pulse 86 12/30/23 18:20 Resp 14 12/30/23 18:20 BP 156/80 H 12/30/23 18:19 Pulse Ox 96 12/30/23 18:20 O2 Del Method Room Air 12/30/23 15:21 Course Vital Signs Vital signs: Vital Signs Temperature 99.5 F 12/30/23 15:09 Pulse Rate 84 12/30/23 15:09 Respiratory Rate 18 12/30/23 15:09 Blood Pressure 165/105 H 12/30/23 15:09 Pulse Oximetry 96 12/30/23 15:09 Oxygen Delivery Method Room Air 12/30/23 15:09 Temperature 99.5 F 12/30/23 15:09 Pulse Rate 86 12/30/23 18:20 Respiratory Rate 14 12/30/23 18:20 Blood Pressure 156/80 H 12/30/23 18:19 Pulse Oximetry 96 12/30/23 18:20 Oxygen Delivery Method Room Air 12/30/23 15:21 MDM - Nausea/Vomiting/Diarrhea MDM Narrative Medical decision making narrative: Labs show the patient has slightly elevated white blood cell count, she is positive for strep. The remainder of viral testing is negative. Chest x-ray with no evidence of significant fluid overload or pleural effusions. Patient did initially have an elevated troponin, she has no complaints of chest pain or shortness of breath in the ER. She has not had any dizziness or syncope. She has no EKG changes, she maintains normal cardiac monitoring and a repeat troponin with the addition of a BNP shows elevated BNP, patient was recently jenny ad on Bumex and spironolactone and she told me that she is also on fluid restrictions at home. She has no wheezing or shortness of breath. Repeat troponin has decreased significantly. Patient was reevaluated by attending physician. She feels better after IV fluids and Zofran and will be discharged home on antibiotics, nausea medication for home. First dose of antibiotics for strep throat given in the ER. Medical Records Attestation: I reviewed the patient's medical records. Lab Data Attestation: I reviewed the patient's lab results. Labs: Lab Results 12/30/23 12/30/23 12/30/23 Range/Units 15:15 15:37 17:06 WBC 15.0 H (4.0-11.0) 10^3/uL RBC 5.17 (4.20-5.40) 10^6/uL Hgb 14.7 (12.0-16.0) g/dL Hct 46.0 (36.0-48.0) % MCV 89.0 (81.0-99.0) fL MCH 28.4 (26.7-34.0) pg MCHC 32.0 (29.9-35.2) g/dL RDW 15.8 H (11.0-15.0) % Plt Count 212 (150-450) 10^3/uL MPV 11.5 (9.5-13.5) fL Neut % (Auto) 80.5 H (43.0-75.0) % Lymph % (Auto) 12.7 L (20.5-60.0) % [place] % (Auto) 6.2 (1.7-12.0) % Eos % (Auto) 0.0 L (0.9-7.0) % Baso % (Auto) 0.2 (0.2-2.0) % Neut # (Auto) 12.1 H (1.4-6.5) 10^3/uL Lymph # (Auto) 1.9 (1.2-3.8) 10^3/uL [place] # (Auto) 0.9 H (0.3-0.8) 10^3/uL Eos # (Auto) 0.0 (0.0-0.7) 10^3/uL Baso # (Auto) 0.0 (0.0-0.1) 10^3/uL Abs Immat Gran (auto) 0.06 H (0.00-0.03) 10^3/uL Imm/Tot Granulo (auto) 0.4 (0.0-0.5) % ESR 96 H (<=30) mm/hr PT 10.3 (9.0-11.6) sec INR 0.97 Sodium 138 (136-145) mmol/L Potassium 4.2 (3.5-5.1) mmol/L Chloride 103 (98-107) mmol/L Carbon Dioxide 24.3 (21.0-32.0) mmol/L Anion Gap 14.9 BUN 36.0 H (7.0-18.0) mg/dL Creatinine 1.86 H (0.55-1.02) mg/dL Est GFR ( Amer) 34 L (>=60) Est GFR (Non-Af Amer) 28 L (>=60) BUN/Creatinine Ratio 19.4 Glucose 243 H (74-106) mg/dL Lactate 2.0 (0.4-2.0) mmol/L Calcium 9.6 (8.5-10.1) mg/dL Magnesium 2.2 (1.8-2.4) mg/dL Total Bilirubin 0.5 (0.2-1.0) mg/dL AST 35 (15-37) U/L ALT 41 (14-59) U/L Alkaline Phosphatase 81 (46-116) U/L Troponin I High Sens 107.0 H* 89.8 H* (4.0-51.3) pg/mL C-Reactive Protein 6.17 H (<=0.50) mg/dL NT-Pro-B Natriuret Pep 6104.0 H* (<=900.0) pg/mL Total Protein 8.9 H (6.4-8.2) g/dL Albumin 3.5 (3.4-5.0) g/dL Globulin 5.4 g/dL Albumin/Globulin Ratio 0.6 TSH 0.774 (0.358-3.740) uIU/mL Influenza Type A Ag Negative Influenza Type B Ag Negative SARS-CoV-2 Ag (CV2AG) Negative (NEGATIVE) Streptococcus Screen Positive A Imaging Data Chest x-ray: Attestation: I personally reviewed and interpreted this imaging study as follows: My impression: NAD Radiologist's impression: ITS Impressions Chest X-Ray 12/30/23 16:44 Impression: No radiographic evidence of acute cardiopulmonary process. Electronically authenticated by: ANANT TURNER Date: 12/30/2023 18:53 ECG Data Attestation: I personally reviewed and interpreted this ECG as follows: (Normal sinus rhythm at a rate of 84, minimal ST depression with no acute ST elevation or ectopy. EKG reviewed by attending physician) Discharge Plan Discharge Chief Complaint: Nausea/Vomiting/Diarrhea Clinical Impression: Nausea, vomiting and diarrhea, Elevated brain natriuretic peptide (BNP) level, Elevated troponin, Weakness, Acute streptococcal pharyngitis Patient Disposition: Home, Self-Care Time of Disposition Decision: 18:20 Condition: Good Prescriptions / Home Meds: New cephalexin 500 mg capsule 500 mg PO Q8H 10 Days Qty: 30 0RF ondansetron 4 mg tablet,disintegrating 4 mg PO Q6H PRN (Reason: nausea and vomiting) Qty: 12 0RF No Action ciprofloxacin HCl 500 mg tablet 500 mg PO Q12H 7 Days Qty: 14 0RF aspirin 81 mg tablet,chewable 1 tab PO DAILY bumetanide 1 mg tablet 1 mg PO DAILY calcium carbonate [Oyster Shell Calcium 500] 500 mg calcium (1,250 mg) tablet 500 mg PO BID clopidogrel 75 mg tablet 75 mg PO DAILY hydralazine 50 mg tablet 50 mg PO Q8H isosorbide dinitrate 20 mg tablet 20 mg PO DAILY insulin aspart U-100 100 unit/mL (3 mL) insulin pen SUBCUT magnesium oxide 400 mg (241.3 mg magnesium) tablet 400 mg PO DAILY metoprolol succinate 50 mg tablet extended release 24 hr 50 mg PO DAILY spironolactone 25 mg tablet 25 mg PO DAILY amlodipine 5 mg tablet 5 mg PO DAILY atorvastatin 80 mg tablet 80 mg PO DAILY Jardiance 10 mg tablet 10 mg PO DAILY fluoxetine 20 mg capsule 20 mg PO DAILY gabapentin 100 mg capsule 100 mg PO Q12H gabapentin 300 mg capsule 300 mg PO Q8H insulin glargine [Lantus Solostar U-100 Insulin] 100 unit/mL (3 mL) insulin pen 18 unit SUBCUT .am Instructions: Strep Throat (ED), Acute Nausea and Vomiting (ED), Weakness (ED) Referrals: Physician,Non-Staff, MD [Primary Care Provider] - 1 week Discharge Date/Time: 12/30/23 18:58 Stand Alone Forms: Portal Instructions Documented by User: Leonides Moore MD 12/30/23 19:49 HPI - Nausea/Vomiting/Diarrhea General Chief complaint: Nausea/Vomiting/Diarrhea Stated complaint: POSS MS FLARE UP Time Seen by Provider: 12/30/23 15:26 Related Data Home Medications Medication Instructions Recorded Confirmed amlodipine 5 mg tablet 5 mg PO DAILY 05/10/23 05/18/23 atorvastatin 80 mg tablet 80 mg PO DAILY 05/10/23 12/30/23 empagliflozin 10 mg tablet 10 mg PO DAILY 05/10/23 05/18/23 (Jardiance) fluoxetine 20 mg capsule 20 mg PO DAILY 05/10/23 12/30/23 gabapentin 100 mg capsule 100 mg PO Q12H 05/10/23 12/30/23 gabapentin 300 mg capsule 300 mg PO Q8H 05/10/23 12/30/23 insulin glargine 100 unit/mL (3 18 unit subcut .am 05/10/23 05/19/23 mL) subcutaneous pen (Lantus Solostar U-100 Insulin) aspirin 81 mg chewable tablet 1 tab PO DAILY 12/30/23 12/30/23 bumetanide 1 mg tablet 1 mg PO DAILY 12/30/23 12/30/23 calcium carbonate 500 mg calcium 500 mg PO BID 12/30/23 12/30/23 (1,250 mg) tablet (Oyster Shell Calcium 500) clopidogrel 75 mg tablet 75 mg PO DAILY 12/30/23 12/30/23 hydralazine 50 mg tablet 50 mg PO Q8H 12/30/23 12/30/23 insulin aspart U-100 100 unit/mL subcut 12/30/23 (3 mL) subcutaneous pen isosorbide dinitrate 20 mg tablet 20 mg PO DAILY 12/30/23 12/30/23 magnesium oxide 400 mg (241.3 mg 400 mg PO DAILY 12/30/23 12/30/23 magnesium) tablet metoprolol succinate 50 mg 50 mg PO DAILY 12/30/23 12/30/23 tablet,extended release 24 hr spironolactone 25 mg tablet 25 mg PO DAILY 12/30/23 12/30/23 Previous Rx's Medication Instructions Recorded ciprofloxacin HCl 500 mg tablet 500 mg PO Q12H 7 days #14 tabs 05/19/23 cephalexin 500 mg capsule 500 mg PO Q8H 10 days #30 caps 12/30/23 ondansetron 4 mg disintegrating 4 mg PO Q6H PRN nausea and 12/30/23 tablet vomiting #12 tabs Allergies Allergy/AdvReac Type Severity Reaction Status Date / Time Penicillins Allergy Intermediate Verified 05/10/23 14:10 PFSH PFSH Medical History (Updated 12/30/23 @ 18:20 by CAMPBELL Salas) High cholesterol ?E78.00 - Pure hypercholesterolemia, unspecified (ICD-10) Hypertension ?I10 - Essential (primary) hypertension (ICD-10) Diabetes ?E11.9 - Type 2 diabetes mellitus without complications (ICD-10) Family History (Updated 05/18/23 @ 16:44 by Janette Ribeiro) Father Family history of cancer Family history of CHF (congestive heart failure) Family history of diabetes mellitus Mother Family history of diabetes mellitus Family history of hypertension Social History Smoking status: Current every day smoker Exam Constitutional Vital Signs, click to edit/add: Last Vital Signs Temp 99.5 F 12/30/23 15:09 Pulse 86 12/30/23 18:20 Resp 14 12/30/23 18:20 BP 156/80 H 12/30/23 18:19 Pulse Ox 96 12/30/23 18:20 O2 Del Method Room Air 12/30/23 15:21 Course Vital Signs Vital signs: Vital Signs Temperature 99.5 F 12/30/23 15:09 Pulse Rate 84 12/30/23 15:09 Respiratory Rate 18 12/30/23 15:09 Blood Pressure 165/105 H 12/30/23 15:09 Pulse Oximetry 96 12/30/23 15:09 Oxygen Delivery Method Room Air 12/30/23 15:09 Temperature 99.5 F 12/30/23 15:09 Pulse Rate 86 12/30/23 18:20 Respiratory Rate 14 12/30/23 18:20 Blood Pressure 156/80 H 12/30/23 18:19 Pulse Oximetry 96 12/30/23 18:20 Oxygen Delivery Method Room Air 12/30/23 15:21 MDM - Nausea/Vomiting/Diarrhea MDM Narrative Medical decision making narrative: Labs show the patient has slightly elevated white blood cell count, she is positive for strep. The remainder of viral testing is negative. Chest x-ray with no evidence of significant fluid overload or pleural effusions. Patient did initially have an elevated troponin, she has no complaints of chest pain or shortness of breath in the ER. She has not had any dizziness or syncope. She has no EKG changes, she maintains normal cardiac monitoring and a repeat troponin with the addition of a BNP shows elevated BNP, patient was recently placed on Bumex and spironolactone and she told me that she is also on fluid restrictions at home. She has no wheezing or shortness of breath. Repeat troponin has decreased significantly. Patient was reevaluated by attending physician. She feels better after IV fluids and Zofran and will be discharged home on antibiotics, nausea medication for home. First dose of antibiotics for strep throat given in the ER. I, Dr Moore, have reviewed the above progress note and course of action in the ER; agree with the above. I have personally seen and evaluated this patient, gone over history and physical, and discussed disposition and treatment plan with the patient. Patient feels much better at discharge. Patient asked for a gabapentin prior to discharge which is a normal medication that she takes at home. Patient feels much better after IV fluids. Patient has chronic kidney disease. Patient's troponin improved, she has no chest pain or shortness of breath. Patient does not appear to be in any type of MS flare, no steroids indicated at this time. Patient will follow-up with her specialist. Patient will be sent home with antibiotic for positive strep test. Lab Data Labs: Lab Results 12/30/23 12/30/23 12/30/23 Range/Units 15:15 15:37 17:06 WBC 15.0 H (4.0-11.0) 10^3/uL RBC 5.17 (4.20-5.40) 10^6/uL Hgb 14.7 (12.0-16.0) g/dL Hct 46.0 (36.0-48.0) % MCV 89.0 (81.0-99.0) fL MCH 28.4 (26.7-34.0) pg MCHC 32.0 (29.9-35.2) g/dL RDW 15.8 H (11.0-15.0) % Plt Count 212 (150-450) 10^3/uL MPV 11.5 (9.5-13.5) fL Neut % (Auto) 80.5 H (43.0-75.0) % Lymph % (Auto) 12.7 L (20.5-60.0) % [place] % (Auto) 6.2 (1.7-12.0) % Eos % (Auto) 0.0 L (0.9-7.0) % Baso % (Auto) 0.2 (0.2-2.0) % Neut # (Auto) 12.1 H (1.4-6.5) 10^3/uL Lymph # (Auto) 1.9 (1.2-3.8) 10^3/uL [place] # (Auto) 0.9 H (0.3-0.8) 10^3/uL Eos # (Auto) 0.0 (0.0-0.7) 10^3/uL Baso # (Auto) 0.0 (0.0-0.1) 10^3/uL Abs Immat Gran (auto) 0.06 H (0.00-0.03) 10^3/uL Imm/Tot Granulo (auto) 0.4 (0.0-0.5) % ESR 96 H (<=30) mm/hr PT 10.3 (9.0-11.6) sec INR 0.97 Sodium 138 (136-145) mmol/L Potassium 4.2 (3.5-5.1) mmol/L Chloride 103 (98-107) mmol/L Carbon Dioxide 24.3 (21.0-32.0) mmol/L Anion Gap 14.9 BUN 36.0 H (7.0-18.0) mg/dL Creatinine 1.86 H (0.55-1.02) mg/dL Est GFR ( Amer) 34 L (>=60) Est GFR (Non-Af Amer) 28 L (>=60) BUN/Creatinine Ratio 19.4 Glucose 243 H (74-106) mg/dL Lactate 2.0 (0.4-2.0) mmol/L Calcium 9.6 (8.5-10.1) mg/dL Magnesium 2.2 (1.8-2.4) mg/dL Total Bilirubin 0.5 (0.2-1.0) mg/dL AST 35 (15-37) U/L ALT 41 (14-59) U/L Alkaline Phosphatase 81 (46-116) U/L Troponin I High Sens 107.0 H* 89.8 H* (4.0-51.3) pg/mL C-Reactive Protein 6.17 H (<=0.50) mg/dL NT-Pro-B Natriuret Pep 6104.0 H* (<=900.0) pg/mL Total Protein 8.9 H (6.4-8.2) g/dL Albumin 3.5 (3.4-5.0) g/dL Globulin 5.4 g/dL Albumin/Globulin Ratio 0.6 TSH 0.774 (0.358-3.740) uIU/mL Influenza Type A Ag Negative Influenza Type B Ag Negative SARS-CoV-2 Ag (CV2AG) Negative (NEGATIVE) Streptococcus Screen Positive A Imaging Data Chest x-ray: Radiologist's impression: ITS Impressions Chest X-Ray 12/30/23 16:44 Impression: No radiographic evidence of acute cardiopulmonary process. Electronically authenticated by: ANANT TURNER Date: 12/30/2023 18:53 Discharge Plan Discharge Chief Complaint: Nausea/Vomiting/Diarrhea Clinical Impression: Nausea, vomiting and diarrhea, Elevated brain natriuretic peptide (BNP) level, Elevated troponin, Weakness, Acute streptococcal pharyngitis Patient Disposition: Home, Self-Care Time of Disposition Decision: 18:20 Condition: Good Prescriptions / Home Meds: New cephalexin 500 mg capsule 500 mg PO Q8H 10 Days Qty: 30 0RF ondansetron 4 mg tablet,disintegrating 4 mg PO Q6H PRN (Reason: nausea and vomiting) Qty: 12 0RF No Action ciprofloxacin HCl 500 mg tablet 500 mg PO Q12H 7 Days Qty: 14 0RF aspirin 81 mg tablet,chewable 1 tab PO DAILY bumetanide 1 mg tablet 1 mg PO DAILY calcium carbonate [Oyster Shell Calcium 500] 500 mg calcium (1,250 mg) tablet 500 mg PO BID clopidogrel 75 mg tablet 75 mg PO DAILY hydralazine 50 mg tablet 50 mg PO Q8H isosorbide dinitrate 20 mg tablet 20 mg PO DAILY insulin aspart U-100 100 unit/mL (3 mL) insulin pen SUBCUT magnesium oxide 400 mg (241.3 mg magnesium) tablet 400 mg PO DAILY metoprolol succinate 50 mg tablet extended release 24 hr 50 mg PO DAILY spironolactone 25 mg tablet 25 mg PO DAILY amlodipine 5 mg tablet 5 mg PO DAILY atorvastatin 80 mg tablet 80 mg PO DAILY Jardiance 10 mg tablet 10 mg PO DAILY fluoxetine 20 mg capsule 20 mg PO DAILY gabapentin 100 mg capsule 100 mg PO Q12H gabapentin 300 mg capsule 300 mg PO Q8H insulin glargine [Lantus Solostar U-100 Insulin] 100 unit/mL (3 mL) insulin pen 18 unit SUBCUT .am Instructions: Strep Throat (ED), Acute Nausea and Vomiting (ED), Weakness (ED) Referrals: Physician,Non-Staff, MD [Primary Care Provider] - 1 week Discharge Date/Time: 12/30/23 18:58 Stand Alone Forms: Portal Instructions
[2023-12-30] MEDS: ONDANSETRON PF 4 MG/2 ML VIAL IV (15:46)
[2023-12-30] MEDS: 0.9 % SODIUM CHLORIDE 1,000 ML 1000 ML IV (15:46)
[2023-12-30 15:47] LABS: Internal Control Within Normal Limits; SARS-CoV-2 Ag NEGATIVE (NEGATIVE); Strep A Antigen Screen Positive
[2023-12-30 15:51] LABS: Basophils Percent Auto 0.2 % (0.2-2.0); Hemoglobin 14.7 g/dL (12.0-16.0); Immature Granulocytes Abs Auto 0.06 10^3/uL (0.00-0.03); Immature Granulocytes Pct Auto 0.4 % (0.0-0.5); Lymphocytes Absolute Auto 1.9 10^3/uL (1.2-3.8); Lymphocytes Percent Auto 12.7 % (20.5-60.0); Mean Corpuscular Hemoglobin 28.4 pg (26.7-34.0); Mean Platelet Volume 11.5 fL (9.5-13.5); Monocytes Absolute Auto 0.9 10^3/uL (0.3-0.8); Monocytes Percent Auto 6.2 % (1.7-12.0); Neutrophils Absolute Auto 12.1 10^3/uL (1.4-6.5); Neutrophils Percent Auto 80.5 % (43.0-75.0); Platelet Count 212 10^3/uL (150-450); Red Blood Count 5.17 10^6/uL (4.20-5.40); Red Cell Distribution Width 15.8 % (11.0-15.0)
[2023-12-30 15:56] LABS: Influenza Virus A Antigen Negative; Influenza Virus B Antigen Negative; Internal Control Within Normal Limits
[2023-12-30 16:00] LABS: INR 0.97; Prothrombin Time 10.3 sec (9.0-11.6)
[2023-12-30 16:01] LABS: Erythrocyte Sedimentation Rate 96 mm/hr (<=30)
[2023-12-30 16:03] LABS: Alanine Aminotransferase 41 U/L (14-59); Albumin Globulin Ratio 0.6; Albumin Level 3.5 g/dL (3.4-5.0); Alkaline Phosphatase 81 U/L (46-116); Anion Gap 14.9; Aspartate Amino Transferase 35 U/L (15-37); BUN Creatinine Ratio 19.4; Bilirubin Total 0.5 mg/dL (0.2-1.0); Calcium 9.6 mg/dL (8.5-10.1); Carbon Dioxide 24.3 mmol/L (21.0-32.0); Chloride 103 mmol/L (98-107); Estimated GFR (African America 34 (>=60); Estimated GFR (Non-African Ame 28 (>=60); Globulin 5.4 g/dL; Glucose 243 mg/dL (74-106); Potassium 4.2 mmol/L (3.5-5.1); Sodium 138 mmol/L (136-145); Total Protein 8.9 g/dL (6.4-8.2)
[2023-12-30 16:12] LABS: C Reactive Protein 6.17 mg/dL (<=0.50); Magnesium 2.2 mg/dL (1.8-2.4); Thyroid Stimulating Hormone 0.774 uIU/mL (0.358-3.740)
--- NOTE | 2023-12-30 16:44 | XR_ITS ---
The [address] [address] Patient Name: GAIL GIBBS MRN: [id number] date: 1970 Sex: F Assigned Patient Location: ER Current Patient Location: ED.MAIN Accession/Order Number: [id number] Exam Date: 12/30/2023 18:00 Report Date: 12/30/2023 18:53 At the request of: STNA HERRIGN Procedure: XR chest 1V EXAM: XR chest 1V HISTORY: Weakness COMPARISON: 05/18/2023 TECHNIQUE: Chest X-ray AP, 1 view FINDINGS: Support devices: None. Lungs/pleura: No consolidation, effusion, or pneumothorax. Heart and mediastinum: Normal contours. Bones: No acute abnormality identified. XR/XR chest 1V Impression: No radiographic evidence of acute cardiopulmonary process. Electronically authenticated by: ANANT TURNER Date: 12/30/2023 18:53
[2023-12-30 17:53] LABS: Troponin I High Sensitivity 89.8 pg/mL (4.0-51.3)
[2023-12-30] MEDS: GABAPENTIN 300 MG CAPSULE PO (18:17)
[2023-12-30] MEDS: CEPHALEXIN 500 MG CAPSULE PO (18:24)
== END 2023-12-30 18:58 | disposition home or self-care (01) ==
PROVIDERS: Physician Assistant; Emergency Provider Emergency Medicine
DX: J02.0 Streptococcal pharyngitis (principal); R11.2 Nausea with vomiting, unspecified; R19.7 Diarrhea, unspecified; R79.89 Other specified abnormal findings of blood chemistry; R53.1 Weakness; G35 Multiple sclerosis; Z79.899 Other long term (current) drug therapy; Z79.4 Long term (current) use of insulin; E78.00 Pure hypercholesterolemia, unspecified; I10 Essential (primary) hypertension; E11.9 Type 2 diabetes mellitus without complications; F17.210 Nicotine dependence, cigarettes, uncomplicated; Z20.822 Contact with and (suspected) exposure to COVID-19
CPT/HCPCS: 36415; 71045; 80053; 83605; 83735; 83880; 84443; 84484; 85025; 85610; 85652; 86140; 87804; 87811; 87880; 93005; 96361; 96374; 99285

== ENCOUNTER 2024-03-14 15:19 | Emergency (ER) | payer MEDICARE, MEDICAID, SELFPAY ==
[2024-03-14 15:29] VITALS: BP 194/120; PULSE 98; TEMP 37; O2SAT 98; BMI 32.9
--- NOTE | 2024-03-14 15:50 | ED.LOWEXI1 ---
HPI HPI - Extremity Injury (Lower) General Chief Complaint: Extremity Injury, Lower Stated Complaint: fall last 2 days Time Seen by Provider: 03/14/24 15:31 Source: patient Mode of arrival: walk-in Limitations: physical limitation History of Present Illness HPI Narrative: Patient is a 53-year-old female with a history of MS who drove herself to the emergency department for an abrasion on the back of her right calf. She states that she slipped in the shower yesterday and scraped the back of her ankle. She has no bony tenderness and is not concerned for any fractures. She states she is concerned because she had a wound just inferior to this area That was very slow to heal. She does not want this abrasion to progress to that point. She has not had any fevers or drainage from the area. No medications taken prior to arrival. Related Data Home Medications ?Medication ?Instructions ?Recorded ?Confirmed amlodipine 5 mg tablet 5 mg PO DAILY 05/10/23 05/18/23 atorvastatin 80 mg tablet 80 mg PO DAILY 05/10/23 12/30/23 empagliflozin 10 mg tablet 10 mg PO DAILY 05/10/23 05/18/23 (Jardiance) fluoxetine 20 mg capsule 20 mg PO DAILY 05/10/23 12/30/23 gabapentin 100 mg capsule 100 mg PO Q12H 05/10/23 12/30/23 gabapentin 300 mg capsule 300 mg PO Q8H 05/10/23 12/30/23 insulin glargine 100 unit/mL (3 18 unit subcut .am 05/10/23 05/19/23 mL) subcutaneous pen (Lantus Solostar U-100 Insulin) aspirin 81 mg chewable tablet 1 tab PO DAILY 12/30/23 12/30/23 bumetanide 1 mg tablet 1 mg PO DAILY 12/30/23 12/30/23 calcium carbonate (Oyster Shell 500 mg PO BID 12/30/23 12/30/23 Calcium 500) clopidogrel 75 mg tablet 75 mg PO DAILY 12/30/23 12/30/23 hydralazine 50 mg tablet 50 mg PO Q8H 12/30/23 12/30/23 insulin aspart U-100 100 unit/mL subcut 12/30/23 (3 mL) subcutaneous pen isosorbide dinitrate 20 mg tablet 20 mg PO DAILY 12/30/23 12/30/23 magnesium oxide 400 mg (241.3 mg 400 mg PO DAILY 12/30/23 12/30/23 magnesium) tablet metoprolol succinate 50 mg 50 mg PO DAILY 12/30/23 12/30/23 tablet,extended release 24 hr spironolactone 25 mg tablet 25 mg PO DAILY 12/30/23 12/30/23 Previous Rx's ?Medication ?Instructions ?Recorded ciprofloxacin HCl 500 mg tablet 500 mg PO Q12H 7 days #14 tabs 05/19/23 cephalexin 500 mg capsule 500 mg PO Q8H 10 days #30 caps 12/30/23 ondansetron 4 mg disintegrating 4 mg PO Q6H PRN nausea and 12/30/23 tablet vomiting #12 tabs cephalexin 500 mg capsule 500 mg PO Q8H 10 days #30 caps 03/14/24 hydrocodone 5 mg-acetaminophen 325 1 tab PO Q6H PRN pain 2 days #8 03/14/24 mg tablet tabs Allergies Allergy/AdvReac Type Severity Reaction Status Date / Time Penicillins Allergy Intermediate Verified 03/14/24 15:34 Opioid HPI Opioid Management Most Recent Pain and Opioid Data: Last Pain Scale 2 05/18/23 22:08 Review of Systems ROS Constitutional Denies: fever or chills Ears, nose, mouth, and throat Denies: throat pain or nasal congestion Respiratory Denies: shortness of breath Gastrointestinal Denies: nausea or vomiting Musculoskeletal Denies: back pain Integumentary/Breast Denies: rash Hematologic/Lymphatic Denies: easy bruising or easy bleeding PFS PFSH Medical History (Updated 03/14/24 @ 15:45 by CAMPBELL Salas) High cholesterol ?E78.00 - Pure hypercholesterolemia, unspecified (ICD-10) Hypertension ?I10 - Essential (primary) hypertension (ICD-10) Diabetes ?E11.9 - Type 2 diabetes mellitus without complications (ICD-10) Family History (Updated 05/18/23 @ 16:44 by Janette Ribeiro) Father Family history of cancer Family history of CHF (congestive heart failure) Family history of diabetes mellitus Mother Family history of diabetes mellitus Family history of hypertension Social History Smoking status: Current every day smoker Exam Narrative Exam Narrative: Gen.: Awake, alert, in no distress Head: Normocephalic, atraumatic ENT: Moist mucous membranes Respiratory: No respiratory distress Extremities: Moves extremities equally, No bony tenderness of the medial or lateral malleolus. No bony tenderness of the right tibia. No obvious deformity of the right lower extremity. Patient with a 1 x 2 cm abrasion and superficial skin avulsion over the posterior right ankle, just superior to a well-healed wound. There is no surrounding redness, no subcutaneous tissue exposure or laceration. Psych: Normal mood and affect Neuro: No focal neuro deficit Skin: Warm, dry, intact Constitutional Vital Signs, click to edit/add: Last Vital Signs Temp 98.6 F 03/14/24 15:29 Pulse 98 H 03/14/24 15:29 Resp 16 03/14/24 15:29 BP 194/120 H 03/14/24 15:29 Pulse Ox 98 03/14/24 15:29 Course Vital Signs Vital signs: Vital Signs Temperature 98.6 F 03/14/24 15:29 Pulse Rate 98 H 03/14/24 15:29 Respiratory Rate 16 03/14/24 15:29 Blood Pressure 194/120 H 03/14/24 15:29 Pulse Oximetry 98 03/14/24 15:29 Temperature 98.6 F 03/14/24 15:29 Pulse Rate 98 H 03/14/24 15:29 Respiratory Rate 16 03/14/24 15:29 Blood Pressure 194/120 H 03/14/24 15:29 Pulse Oximetry 98 03/14/24 15:29 MDM - Extremity Injury (Lower) MDM Narrative Medical decision making narrative: Patient with no bony tenderness on exam, soft tissue abrasion noted and the patient will be treated with topical analgesia and antibiotic ointment, dressing applied And the patient remains neurovascularly intact. A short course of analgesics and antibiotics given for home. She was strongly encouraged to follow-up with wound care and return to the ER if symptoms change or worsen. Medical Records Attestation: I reviewed the patient's medical records. Discharge Plan Discharge Stand Alone Forms: Portal Instructions Chief Complaint: Extremity Injury, Lower Clinical Impression: Abrasion of leg, right Patient Disposition: Home, Self-Care Time of Disposition Decision: 15:45 Condition: Good Prescriptions / Home Meds: New cephalexin 500 mg capsule 500 mg PO Q8H 10 Days Qty: 30 0RF hydrocodone-acetaminophen 5-325 mg tablet 1 tab PO Q6H PRN (Reason: pain) 2 Days Qty: 8 0RF Rx Instructions: DX: M25.571 No Action ciprofloxacin HCl 500 mg tablet 500 mg PO Q12H 7 Days Qty: 14 0RF aspirin 81 mg tablet,chewable 1 tab PO DAILY bumetanide 1 mg tablet 1 mg PO DAILY calcium carbonate [Oyster Shell Calcium 500] 500 mg calcium (1,250 mg) tablet 500 mg PO BID clopidogrel 75 mg tablet 75 mg PO DAILY hydralazine 50 mg tablet 50 mg PO Q8H isosorbide dinitrate 20 mg tablet 20 mg PO DAILY insulin aspart U-100 100 unit/mL (3 mL) insulin pen SUBCUT magnesium oxide 400 mg (241.3 mg magnesium) tablet 400 mg PO DAILY metoprolol succinate 50 mg tablet extended release 24 hr 50 mg PO DAILY spironolactone 25 mg tablet 25 mg PO DAILY cephalexin 500 mg capsule 500 mg PO Q8H 10 Days Qty: 30 0RF ondansetron 4 mg tablet,disintegrating 4 mg PO Q6H PRN (Reason: nausea and vomiting) Qty: 12 0RF amlodipine 5 mg tablet 5 mg PO DAILY atorvastatin 80 mg tablet 80 mg PO DAILY Jardiance 10 mg tablet 10 mg PO DAILY fluoxetine 20 mg capsule 20 mg PO DAILY gabapentin 100 mg capsule 100 mg PO Q12H gabapentin 300 mg capsule 300 mg PO Q8H insulin glargine [Lantus Solostar U-100 Insulin] 100 unit/mL (3 mL) insulin pen 18 unit SUBCUT .am Print Language: Mongolian Instructions: Abrasion (ED) Referrals: Physician,Non-Staff, MD [Primary Care Provider] - 1 week Benedicto Fuchs DPM [Physician] - 1 week
--- OUTSIDE RECORDS SUMMARY | 2024-03-14 16:02 | XMS_ITS | CCD ---
Author Organization [facility] Care Team Providers Care Shop Teacher Name Role Phone ROMULOESPINOZA Attending Unavailable Leonides Gann Unavailable KORINA PICKERING Admitting Unavailable KORINA PICKERING Consulting Unavailable KORINA PICKERING Attending Unavailable MISC, DR IRBY Primary Care Unavailable MISC, DR IRBY Consulting Unavailable MISC, DR IRBY Attending Unavailable MISC, DR IRBY Admitting Unavailable MISC, DR IRBY Primary Care Unavailable ZIEBER, DR TAHIRA Olea Consulting Unavailable MISC, DR IRBY Primary Care Unavailable KUBITZ, DR KAREN Olea Attending Unavailable KUBITZ, DR KAREN Olea Admitting Unavailable KUBITMindy, DR KAREN Olea Consulting Unavailable DO Marcos Garcia Attending Provider Nory Galdamez Unavailable DAVID LAM Referring Unavailable PCP, NOT IN SYSTEM Primary Care Unavailable MAMADOU, ESTEFANY Referring Unavailable PCP, NOT IN SYSTEM Primary Care Unavailable MAMADOU, ESTEFANY Referring Unavailable PCP, NOT IN SYSTEM Primary Care Unavailable PREETI SALAZAR A Attending Unavailable MICHEAL SALAZARAMED A Referring Unavailable PCP, NOT IN SYSTEM Primary Care Unavailable JOMAR QUINONES Referring Unavailable PCP, NOT IN SYSTEM Primary Care Unavailable PREETI SALAZAR A Attending Unavailable MICHEAL SALAZARAMED A Referring Unavailable PCP, NOT IN SYSTEM Primary Care Unavailable LUMA BLACKWOOD Referring Unavailable PCP, NOT IN SYSTEM Primary Care Unavailable FARHAN LYMAN Referring Unavailable PCP, NOT IN SYSTEM Primary Care Unavailable MICHEAL SALAZARAMED A Attending Unavailable MARIE, MOHAMED A Referring Unavailable PCP, NOT IN SYSTEM Primary Care Unavailable MELISSA WHITTEN Referring Unavailable PCP, NOT IN SYSTEM Primary Care Unavailable LUMA BLACKWOOD N Referring Unavailable AUSTYN RASCON Referring Unavailable PCP, NOT IN SYSTEM Primary Care Unavailable ADEOLA MIRANDA Referring Unavailable PCP, NOT IN SYSTEM Primary Care Unavailable JOSÉ MANUEL YANG Referring Unavailable PCP, NOT IN SYSTEM Primary Care Unavailable DANIEL, BARRETT R. Admitting Unavailable DANIEL BARRETT RKylah Attending Unavailable LAM, RUQIYYA T Referring Unavailable PCP, NOT IN SYSTEM Primary Care Unavailable BELKIS CHO Consulting Unavailable EDOUARD, SABEENA PRADO Consulting Unavailable PERAZA, AYDE Consulting Unavailable ABDELWASEAN AHMAD W Consulting Unavailable BRONSON, EHAD Consulting Unavailable KUCWAY, BRADY P Consulting Unavailable Pcp, Not In System Primary Care Provider Unavail able Marcos Garcia MD Primary Care Provider RADHA QUIGLEY Attending Unavailable PCP, NOT IN SYSTEM Primary Care Unavailable ISIS SEN Consulting Unavailable OWEN GLASER Attending Unavailable LAM, RUQIYYA Admitting Unavailable PCP, NOT IN SYSTEM Primary Care Unavailable DANIA RICH Consulting Unavailable EDOUARD, SABEENA PRADO Consulting Unavailable [facility] Consulting Unavailable OWEN GLASER Attending Unavailable OWEN GLASER Referring Unavailable PCP, NOT IN SYSTEM Primary Care Unavailable OWEN GLASER Attending Unavailable GLASER, OWEN Referring Unavailable PCP, NOT IN SYSTEM Primary Care Unavailable MICHELLE AGUILAR Attending Unavailable KROTONUR MICHELLE Cecilia Referring Unavailable PCP, NOT IN SYSTEM Primary Care Unavailable MICHELLE AGUILAR Attending Unavailable KRESTEBAN, MICHELLE D Referring Unavailable PCP, NOT IN SYSTEM Primary Care Unavailable DO Marcos Garcia Attending Provider [phone] [facility], Services Primary Care Provider CLYDE STANFORD Attending Unavailable Osorio Lucas Attending Unavailable Osorio Lucas Admitting Unavailable [facility] Primary Care Unavaila ble [facility], Services Primary Care Unavaila Marcos Couch Attending Unavailable Marcos Garcia Admitting Unavailable Mast - FHSEnrico Attending Unavailable Perry - [facility], Enrico Admitting Unavailable Marcos Garcia Referring Unavailable Osorio Lucas Admitting Unavailable Osorio Lucas Attending Unavailable Ronit Alejo Consulting Unavailable [facility], Services Primary Care Unavaila ble Gearheart, Lisa Consulting Unavailable Mattie Holland Consulting Unavailable eYsi Thomas Consulting Unavailable Safia Herbert Consulting Unavailable Essie García Consulting Unavailable Kevin Cohen Consulting Unavailable Kelly Rodriguez Consulting Unavailable Ami Chapin Consulting Unavailable Chet Lomeli Consulting Unavailable Nathen Lopez Consulting UnavailTa Lagunas Consulting Unavailable Hemrila Branham Consulting Unavailable Stephanie Martinez Consulting UnavailKatlyn Alicia Consulting Unavailable Benjamin Rodriguez Consulting Unavailable Irvin Mcelroy Consulting Unavailable Cecil López Consulting Unavailable Blaine Colon Consulting Unavailable Jerome Ortiz Consulting Unavailable Jesus Saravia Consulting Unavailable Destiney Freeman Consulting Unavailable Nitesh Ceballos Consulting UnavailRudy Mercedes Consulting Unavailable Sean Yang Consulting Unavailable Keith Ahn Consulting Unavailable Carol Blackwell Consulting Unavailable Hua Hooks Consulting Unavailable Gregorio Ray Consulting Unavailable Nelsy Rutledge Consulting Unavailable Richard Ceballos Consulting Unavailable RandyomaBlaine oela Consulting Unavailable Nakia David Consulting Unavailable Cori Nina Consulting Unavailable Alahmad, Alaa Consulting Unavailable Marcos Hart Consulting Unavailable Roseanne Summers Consulting Unavailable Colin Null Consulting Unavailable Tania Maya Consulting Unavailable Anastasiia Retana Consulting Unavailable Erika Parry Consulting Unavailable Efrain Edwards Consulting Unavailable Dilan Thorne Consulting Unavailable Chace Brady Consulting Unavailable [facility] Primary Care Provider MD Osorio Lucas Attending Provider Allergies Allergy Classification Reported Allergen(s) Allergy Type Date of Onset Reaction(s) Facility (1 source) Penicillin V Drug Allergy RASH [facility] Other (5 sources) Penicillins; Translations: [PENICILLINS] Drug allergy (disorder) 5 Rash [facility] Repository (1 source) Penicillin Drug Allergy RASH [facility] [employer] Other (3 sources) Penicillins Propensity to adverse reactions to drug 2 Rash [facility] (1 source) Penicillins Drug allergy (disorder) 3 [facility] Rep[facility] Medications Current Medications Medication Drug Class(es) Dates Sig (Normalized) Sig (Original) acetaminophen 500 mg oral tablet (2 sources) Start: 11-20-2023 take 500 mg by mouth every four hours Acetaminophen Active 500 MG PO Q4H 60 November 20, 2023 1:00am amLODIPine 10 mg oral tablet (1 source) Dihydropyridine Calcium Channel Stormy take 1 tablet by mouth once daily amLODIPine Besylate 10 MG 1 tablet Orally Once a day Active aspirin 81 mg chewable tablet (7 sources) Platelet Aggregation Inhibitor, Nonsteroidal Anti-inflammatory Drug Start: 11-07-2023 End: 11-20-2023 take 1 tablet by mouth once daily Aspirin (Children's Aspirin) 81 mg Tablet,Chewable Active 81 MG PO Daily November 20, 2023 1:00am atorvastatin 80 mg oral tablet (10 sources) HMG-CoA Reductase Inhibitor Start: 11-20-2023 take 80 mg by mouth once daily Atorvastatin Active 80 MG PO Daily November 20, 2023 1:00am Start: 08-30-2021 End: 11-20-2023 take 80 mg by mouth once daily Atorvastatin Discontinu ed 80 MG PO Daily August 30, 2021 12:00am November 20, 2023 3:07pm Start: 08-30-2021 take 20 mg by mouth once daily Atorvastatin Active 20 MG PO Daily August 30, 2021 12:00am Atorvastatin Malick cium Active bacitracin 0.5 unt/mg topical ointment (2 sources) Start: 11-20-2023 Bacitracin Act maria 1 APPLIC TOPICAL Daily November 20, 2023 1:00am bumetanide 1 mg oral tablet (7 sources) Loop Diuretic Start: 11-20-2023 take 1 mg by mouth once daily Bumetanide Active 1 MG PO Daily November 20, 2023 1:00am Start: 11-07-2023 End: 11-20-2023 take 1 tablet by mouth once daily Bumetanide (Bumex) 2 mg Tablet Discontinued 2 MG PO Daily November 07, 2023 1:00am November 20, 2023 3:07pm calcium carbonate 1250 mg or al tablet (3 sources) Start: 11-20-2023 Calcium Carbon ate (Oyster Shell Calcium 500) 500 mg calcium (1,250 mg) Tablet Active 500 MG PO After breakfast and supper 60 November 20, 2023 1:00am take 1 tablet by mouth every twe lve hours Calcium 600 MG 1 tablet with meals Orally Twice a day Active clopidogrel 75 mg oral tablet (7 sources) P2Y12 Platelet Inhibitor Start: 11-07-2023 End: 11-20-2023 take 75 mg by mouth once daily Clopidogrel Active 75 MG PO Daily November 20, 2023 1:00am Dexcom G5 Mob/G4 Plat Sensor - (1 source) Dexcom G5 Mob/G4 Plat Sensor - as directed Active Diclofenac (1 source) Nonsteroidal Anti-inflammatory Drug Voltaren 1 % as directed Externally Active empagliflozin 10 mg oral tablet (1 source) Sodium-Glucose Cotransporter 2 Inhibitor take 10 mg by mouth once daily JARDIANCE 10 mg daily orally Active FLUoxetine 20 mg oral capsule (10 sources) Serotonin Reuptake Inhibitor Start: 08-30-2021 End: 11-20-2023 take 20 mg by mouth once daily Fluoxetine Active 20 MG PO Daily November 20, 2023 1:00am PROzac Active gabapentin 100 mg oral capsule (9 sources) Anti-epileptic Agent Start: 11-20-2023 take 100 mg by mouth twice daily Gabapentin Active 100 MG PO BID@0800,1400 60 November 20, 2023 1:00am Start: 11-20-2023 take 300 mg by mouth once daily at bedtime Gabapentin Active 300 MG PO Daily at bedtime November 20, 2023 1:00am Start: 08-30-2021 take 300 mg by mouth three times daily Gabapentin Active 300 MG PO Three times daily August 30, 2021 12:00am Start: 08-30-2021 End: 11-20-2023 take 100 mg by mouth three times daily Gabapentin Discontinued 100 MG PO Three times daily August 30, 2021 12:00am November 20, 2023 3:07pm Gabapentin Activ e hydrALAZINE hydrochloride 50 mg oral tablet (7 sources) Arteriolar Vasodilator Start: 11-20-2023 take 50 mg by mouth every eight hours Hydralazine Active 50 MG PO Every 8 hours 90 November 20, 2023 1:00am Start: 11-07-2023 End: 11-20-2023 take 100 mg by mouth every eight hours Hydralazine Discontinued 100 MG PO Every 8 hours November 07, 2023 1:00am November 20, 2023 3:07pm Insulin Aspart U-100 (Novolog Flexpen U-100 Insulin) 100 unit/mL (3 mL) Insulin Pen (2 sources) Start: 11-20-2023 inject 1 dose by subcutaneous injection before mealtime Insulin Aspart U-100 (Novolog Flexpen U-100 Insulin) 100 unit/mL (3 mL) Insulin Pen Active 1 sliding scale dose SUBCUT Before meals 15 November 20, 2023 1:00am Start: 11-20-2023 inject 1 dose by sub cutaneous injection before mealtime Insulin Aspart U-100 (Novolog Flexpen U-100 Insulin) 100 unit/mL (3 mL) Insulin Pen Active 1 sliding scale dose SUBCUT Before meals 15 November 20, 2023 12:00am 3 ml insulin glargine 100 unt/ml pen injector (10 sources) Insulin Analog Start: 11-20-2023 Insulin Glargi ne (Lantus Solostar U-100 Insulin) 100 unit/mL (3 mL) Insulin Pen Active 37 UNIT SUBCUT Daily 11.1 November 20, 2023 1:00am Start: 11-07-2023 insulin glargi ne (LANTUS, SEMGLEE) 100 unit/mL (3 mL) insulin pen Inject 35 Units under the skin every morning before breakfast. 0 11/07/2023 Active Start: 08-30-2021 End: 01-05-2022 inject 4 [IU] by subcutaneous injection twice daily Insulin Glargine (Lantus Solostar U-100 Insulin) 100 unit/mL (3 mL) Insulin Pen Discontinued 4 UNIT SUBCUT Twice daily August 30, 2021 12:00am January 05, 2022 1:38pm inject 0.1 mL by sub cutaneous injection once daily Lantus 100 UNIT/ML 0.1 ml Subcutaneous Once a day for 30 day(s) Active 3 ml insulin lispro 100 unt/ml pen injector (11 sources) Insulin Analog Start: 11-07-2023 inject 2-8 [IU] by subcutaneous injection once daily insulin lispro (HumaLOG) 100 unit/mL insulin pen Inject 2-8 Units under the skin nightly. 0 11/07/2023 Active Start: 11-07-2023 insulin lispro (HumaLOG) 100 unit/mL insulin pen Inject 4-12 Units under the skin in the morning and 4-12 Units at noon and 4-12 Units in the evening. Inject with meals. 0 11/07/2023 Active Start: 11-07-2023 inject 3-15 [IU] by subcutaneous injection four times daily at mealtime insulin lispro (HumaLOG) 100 unit/mL insulin pen Inject 3-15 Units under the skin 4 (four) times a day with meals and nightly. 0 11/07/2023 Active HumaLOG 100 UNIT /ML as directed Subcutaneous Active isosorbide dinitrate 20 mg oral tablet (7 sources) Nitrate Vasodilator Start: 11-07-2023 End: 11-20-2023 take 20 mg by mouth three times daily Isosorbide Dinitrate Active 20 MG PO Three times daily November 20, 2023 1:00am lidocaine 0.04 mg/mg medicated patch (7 sources) Antiarrhythmic, Amide Local Anesthetic Start: 11-20-2023 apply 1 dose topically once daily Lidocaine (Lidocaine Pain Relief) 4 % Adhesive Patch,Medicated Active 1 PATCH TOPICAL Daily November 20, 2023 1:00am Start: 11-07-2023 apply 1 dose transde rmal route once daily as needed for pain, then apply 1 dose transdermal route every twelve hours as needed for pain lidocaine (LIDODERM) 5 % Place 1 patch on the skin daily as needed for pain. Remove & Discard patch within 12 hours or as directed by 0 11/07/2023 Active Start: 11-07-2023 End: 11-20-2023 apply 1 dose topically once daily Lidocaine Discontinu ed 1 PATCH TOPICAL Daily November 07, 2023 1:00am November 20, 2023 3:07pm leave on most painful area for up to 12 hrs magnesium oxide 400 mg oral tablet (7 sources) Start: 11-07-2023 End: 11-20-2023 take 400 mg by mouth once daily Magnesium Oxide Active 400 MG PO Daily November 20, 2023 1:00am 24 hr metoprolol succinate 50 mg extended release oral tablet (7 sources) beta-Adrenergic Stormy Start: 11-07-2023 take 1 tablet by mouth every twenty-four hours in the morning, then take 1 tablet by mouth at bedtime metoprolol succinate XL (TOPROL XL) 50 mg 24 hr tablet Take 1 tablet (50 mg total) by mouth in the morning and 1 tablet (50 mg total) before bedtime. 0 11/07/2023 Active Start: 11-07-2023 End: 11-20-2023 take 50 mg by mouth twice daily Metoprolol Succinate A ctive 50 MG PO Twice daily 60 November 20, 2023 1:00am nitroglycerin 0.4 mg sublingual tablet (8 sources) Nitrate Vasodilator Start: 11-07-2023 End: 12-07-2023 Nitroglycerin Active 0.4 MG SUBLINGUAL Q5M 0 November 20, 2023 1:00am spironolactone 25 mg oral tablet (7 sources) Aldosterone Antagonist Start: 11-07-2023 End: 11-20-2023 take 25 mg by mouth once daily Spironolactone Active 25 MG PO Daily November 20, 2023 1:00am tiZANidine 4 mg oral tablet (1 source) Central alpha-2 Adrenergic Agonist take 1 tablet by mouth every eight hours tiZANidine HCl 4 MG 1 tablet as needed Orally Three times a day Active Completed/Discontinued Medications Medication Drug Class(es) Dates Sig (Normalized) Sig (Original) azithromycin 250 mg oral tablet (2 sources) Macrolide Antimicrobial Start: 02-05-2015 Zithromax Z-Ronald 250 MG 2 tablets on the first day, then 1 tablet daily for 4 days Orally Once a day for 5 day(s) Jan, Not-Taking benzonatate 100 mg oral capsule (2 sources) Non-narcotic Antitussive Start: 02-05-2015 take 1 capsule by mouth three times daily as needed Tessalon Perles 100 mg 1 capsule as needed Orally Three times a day for 7 days Jan, Not-Taking calcium carbonate 1250 mg / cholecalciferol 600 unt oral tablet (5 sources) Vitamin D Start: 11-07-2023 End: 11-20-2023 take 1 tablet by mouth after breakfast Calcium Carbonate-Vitamin D3 Discontinued 1 TAB PO After breakfast and supper November 07, 2023 1:00am November 20, 2023 3:07pm canagliflozin 300 mg oral tablet (5 sources) Sodium-Glucose Cotransporter 2 Inhibitor Start: 08-30-2021 End: 11-07-2023 take 1 tablet by mouth once daily Canagliflozin (Invokana) 300 mg Tablet Discontinued 300 MG PO Daily August 30, 2021 12:00am November 07, 2023 5:43pm Invokana Active cephalexin 500 mg oral capsule (7 sources) Cephalosporin Antibacterial Start: 10-30-2021 End: 12-22-2021 take 1000 mg by mouth twice daily Cephalexin Discontinued 1000 MG PO Twice daily 28 7 October 30, 2021 1:00am December 22, 2021 3:01pm Start: 06-14-2015 take 1 capsule by mo [facility] four times daily Keflex 500 MG 1 capsule Orally Four times a day,with probiotics for 10 day(s) May, Not-Taking Keflex Not-Takin g Keflex Active citalopram 20 mg oral tablet (2 sources) Serotonin Reuptake Inhibitor take 1 tablet by mouth every twenty-four hours CeleXA 20 MG 1 tablet Orally Once a day for 30 day(s) Not-Taking hydroCHLOROthiazide 12.5 mg / lisinopril 20 mg oral tablet (5 sources) Thiazide Diuretic, Angiotensin Converting Enzyme Inhibitor Start: 2020 End: 2023 Lisinopril-Hydroch lorothiazide Discontinued 0.5 TAB PO Daily August 30, 2021 12:00am November 07, 2023 5:43pm Half a tablet daily take 1 tablet by [facility] every twenty-four hours Lisinopril-hydroCHLOROthiazide 20-25 MG 1 tablet Orally Once a day for 8 days Not-Taking insulin aspart, human (5 sources) Insulin Analog Start: 11-07-2023 End: 11-20-2023 inject 1 dose by subcutaneous injection at bedtime Insulin Aspart U-100 Discontinued 1 sliding scale dose SUBCUT Bedtime November 07, 2023 1:00am November 20, 2023 3:07pm Start: 11-07-2023 End: 11-20-2023 inject 1 dose by subcutaneous injection at bedtime Insulin Aspart U-100 Discontinued 1 sliding scale dose SUBCUT Bedtime November 07, 2023 12:00am November 20, 2023 2:07pm Start: 08-30-2021 End: 11-20-2023 inject 1 dose by subcutaneous injection before mealtime Insulin Aspart U-100 Discontinued 0 sliding scale dose SUBCUT Before meals August 30, 2021 12:00am November 20, 2023 3:07pm Start: 08-30-2021 End: 11-20-2023 inject 1 dose by subcutaneous injection before mealtime Insulin Aspart U-100 Discontinued 0 sliding scale dose SUBCUT Before meals August 29, 2021 11:00pm November 20, 2023 2:07pm Start: 08-30-2021 inject 10 [IU] by morales bcutaneous injection three times daily Insulin Aspart U-100 Active 10 UNIT SUBCUT Three times daily August 30, 2021 12:00am insulin detemir 100 unt/ml injectable solution (3 sources) Insulin Analog Start: 10-30-2021 End: 11-20-2023 inject 35 [IU] by subcutaneous injection once daily Insulin Detemir U-100 (Levemir U-100 Insulin) 100 unit/mL Solution Discontinued 35 UNIT SUBCUT Daily October 30, 2021 1:00am November 20, 2023 3:07pm Start: 10-30-2021 inject 20 [IU] by morales bcutaneous injection once daily Insulin Detemir U-100 (Levemir U-100 Insulin) 100 unit/mL Solution Active 20 UNIT SUBCUT Daily October 30, 2021 1:00am insulin isophane / insulin, regular, human (2 sources) Insulin NovoLIN 70/30 Not-Taking Lisinopril (2 sources) Angiotensin Converting Enzyme Inhibitor Lisinopril Not-Takin g lovastatin 40 mg oral tablet (2 sources) HMG-CoA Reductase Inhibitor take 1 tablet by mouth every twenty-four hours Lovastatin 40 MG 1 tablet with a meal Orally Once a day for 30 day(s) Not-Taking metFORMIN (4 sources) Biguanide take 1 tablet by mouth every twelve hours metFORMIN HCl 1000 MG 1 tablet with meals Orally Twice a day for 30 day(s) Not-Taking metFORMIN HCl No t-Taking Nystatin (2 sources) Polyene Antifungal Start: 06-10-2015 Nystatin [id number] as directed Externally bid for 10 day(s) May, Not-Taking oxyCODONE hydrochloride 5 mg oral tablet (3 sources) Opioid Agonist Start: 10-30-2021 End: 01-05-2022 take 5 mg by mouth every six hours Oxycodone Discontinued 5 MG PO Q6H 15 4 October 30, 2021 January 05, 2022 1:38pm phenazopyridine hydrochloride 200 mg oral tablet (4 sources) Start: 04-05-2018 take 1 tablet by mouth every eight hours Pyridium 200 MG 1 tablet after meals Orally Three times a day for 2 day(s) Mar, Not-Taking Start: 01-10-2015 take 1 tablet by isaac th every eight hours after mealtime as needed Pyridium 100 MG 1 tablet after meals Orally every 8 hours as needed for burning with urination, may discolor her urine for 2 days Dec, Not-Taking pioglitazone 30 mg oral tablet (2 sources) Peroxisome Proliferator Receptor alpha Agonist, Peroxisome Proliferator Receptor gamma Agonist, Thiazolidinedione take 1 tablet by mouth every twenty-four hours Actos 30 MG 1 tablet Orally Once a day for 30 day(s) Not-Taking sulfamethoxazole 800 mg / trimethoprim 160 mg oral tablet (6 sources) Dihydrofolate Reductase Inhibitor Antibacterial, Sulfonamide Antimicrobial Start: 2014 take 1 tablet by mouth every twelve hours Bactrim DS 800-160 MG 1 tablet Orally Twice a day for 7 days Mar, Not-Taking Problems Active Problems Problem Classification Problem Date Documented Da te Episodic/Chronic Acute cerebrovascular disease (4 sources) Cerebrovascular accident; Translations: [Cerebral infarction, unspecified] Onset: 10-20-2023 Resolved: 10-20-2023 10-20-2023 Chronic Acute myocardial infarction (6 sources) Myocardial infarction; Translations: [Non-ST elevation (NSTEMI) myocardial infarction] Onset: 10-20-2023 10-22-2023 Chronic Anxiety disorders (3 sources) Anxiety; Translations: [Anxiety disorder, unspecified] Onset: 10-20-2023 10-22-2023 Chronic Cardiac dysrhythmias (1 source) Tachycardia, unspecified; Translations: [Tachycardia, unspecified] Onset: 10-20-2023 Episodic Chronic kidney disease (6 sources) Chronic kidney disease stage 3B ; Translations: [Stage 3b chronic kidney disease] Onset: 10-20-2023 10-22-2023 Chronic Chronic kidney disease (2 sources) Chronic kidney disease; Translations: [Chronic kidney disease, stage 3b] Onset: 10-22-2023 Chronic ulcer of skin (6 sources) Non-pressure chronic ulcer of other part of right foot with necrosis of muscle; Translations: [Non-pressure chronic ulcer of right heel and midfoot with necrosis of muscle] Onset: 04-07-2022 2 Chronic Congestive heart failure; nonhypertensive (10 sources) Acute on chronic systolic heart failure; Translations: [Acute on chronic systolic (congestive) heart failure] Onset: 10-20-2023 10-22-2023 Chronic Coronary atherosclerosis and other heart disease (10 sources) History of non-ST segment elevation myocardial infarction; Translations: [Old myocardial infarction] Onset: 11-07-2023 12-06-2023 Chronic Deficiency and other anemia (2 sources) Anemia; Translations: [Anemia, unspecified] 11-21-2023 Episodic Diabetes mellitus with complications (15 sources) Type 2 diabetes mellitus with hyperglycemia; Translations: [Type 2 diabetes mellitus with other skin ulcer] Onset: 04-04-2022 Chronic Diabetes mellitus without complication (7 sources) Diabetes mellitus; Translations: [Diabetes mellitus without mention of complication, type II or unspecified, not stated as uncontrolled] Onset: 11-07-2023 10-30-2021 Chronic Diabetes mellitus without complication (1 source) Hyperglycemia, unspecified; Translations: [Hyperglycemia, unspecified] Onset: 11-12-2018 Episodic Disorders of lipid metabolism (9 sources) Mixed hyperlipidemia; Translations: [Hyperlipidemia] Onset: 02-03-2023 09-29-2021 Chronic Essential hypertension (6 sources) Essential (primary) hypertension; Translations: [Hypertensive disorder] Onset: 11-12-2018 10-22-2023 Chronic Genitourinary symptoms and ill-defined conditions (3 sources) Female stress incontinence; Translations: [Stress incontinence (female) (male)] Onset: 10-20-2023 10-22-2023 Chronic Heart valve disorders (2 sources) Non-rheumatic mitral regurgitation ; Translations: [Nonrheumatic mitral (valve) insufficiency] Onset: 12-07-2023 12-06-2023 Chronic Mood disorders (2 sources) Depressive disorder; Translations: [Depression] 11-29-2023 Chronic Multiple sclerosis (9 sources) Multiple sclerosis; Translations: [Multiple sclerosis] Onset: 10-20-2023 10-21-2023 Chronic Nonspecific chest pain (2 sources) Chest pain, unspecified; Translations: [Chest pain, unspecified] Onset: 11-12-2018 Episodic Other aftercare (1 source) long term (current) use of insulin; Translations: [LONG-TERM CURRENT USE OF INSULIN] Onset: 02-03-2023 Episodic Other circulatory disease (1 source) Elevated blood-pressure reading, without diagnosis of hypertension Episodic Other connective tissue disease (3 sources) Pain of right lower leg; Translations: [Pain in right lower leg] 10-30-2021 Episodic Other connective tissue disease (2 sources) Muscle weakness; Translations: [Muscle weakness (generalized)] 11-29-2023 Episodic Other gastrointestinal disorders (3 sources) Diarrhea; Translations: [Diarrhea, unspecified] 07-27-2021 Episodic Other nervous system disorders (3 sources) Neuropathy; Translations: [Polyneuropathy, unspecified] 10-30-2021 Chronic Other nervous system disorders (2 sources) Polyneuropathy, unspecified; Translations: [Mononeuritis of unspecified site] Onset: 11-07-2023 11-07-2023 Chronic Other nutritional; endocrine; and metabolic disorders (3 sources) Obesity caused by energy imbalance; Translations: [Other obesity due to excess calories] Onset: 10-20-2023 10-22-2023 Chronic Other upper respiratory infections (1 source) Acute upper respiratory infection, unspecified Episodic Paralysis (4 sources) Right hemiplegia; Translations: [Hemiplegia, unspecified affecting right dominant side] Onset: 11-07-2023 11-29-2023 Chronic Peripheral and visceral atherosclerosis (5 sources) Peripheral vascular disease, unspecified; Translations: [Peripheral arterial disease] Onset: 12-13-2021 Resolved: 12-13-2021 Chronic Pneumonia (except that caused by tuberculosis or sexually transmitted disease) (3 sources) Infective pneumonia; Translations: [Pneumonia, unspecified organism] Onset: 10-25-2023 10-25-2023 Episodic Residual codes; unclassified (1 source) Patient's noncompliance with other medical treatment and regimen; Translations: [Patient's noncompliance with other medical treatment and regimen] Onset: 11-12-2018 Episodic Residual codes; unclassified (3 sources) Pain; Translations: [Pain, unspecified] 09-29-2021 Episodic Residual codes; unclassified (3 sources) Tobacco user; Translations: [Tobacco use] 08-30-2021 Episodic Respiratory failure; insufficiency; arrest (adult) (4 sources) Acute respiratory failure with hypoxia; Translations: [Acute respiratory failure] Onset: 10-24-2023 10-24-2023 Episodic Screening and history of mental health and substance abuse codes (2 sources) Tobacco use and exposure - finding; Translations: [Personal history of nicotine dependence] Onset: 12-07-2023 12-06-2023 Episodic Unclassified (1 source) LOW BACK PAIN, UNSPECIFIED; Translations: [LOW BACK PAIN, UNSPECIFIED] Onset: 02-03-2023 Unclassified (1 source) new onset ms, elevated troponin Onset: 10-21-2023 Unclassified (1 source) Weakness - Generalized Onset: 10-20-2023 Unclassified (1 source) EMS Onset: 10-20-2023 Unclassified (1 source) Pain in right shoulder; Translations: [Pain in right shoulder] Onset: 10-19-2023 Unclassified (1 source) Encounter for screening for other viral diseases; Translations: [Encounter for screening for other viral diseases] Onset: 04-18-2023 Past or Other Problems Problem Classification Problem Date Documented Date Episodic/Chronic Acute and unspecified renal failure (4 sources) Acute renal failure syndrome; Translations: [Acute kidney failure, unspecified] Onset: 11-07-2023 11-29-2023 Episodic Administrative/socia l admission (4 sources) Other reduced mobility; Translations: [Impaired mobility and activities of daily living] Onset: 11-07-2023 11-29-2023 Episodic Deficiency and other anemia (1 source) Anemia, unspecified; Translations: [Anemia, unspecified] Onset: 11-07-2023 Episodic Immunizations and screening for infectious disease (1 source) Encounter for screening for human immunodeficiency virus [HIV]; Translations: [Encounter for screening for human immunodeficiency virus [HIV]] Onset: 04-18-2023 Episodic Mood disorders (3 sources) Mood disorders Onset: 10-21-2023 10-21-2023 Other connective tissue disease (2 sources) Muscle weakness (generalized); Translations: [Muscle weakness (generalized)] Onset: 11-07-2023 11-07-2023 Episodic Other screening for suspected conditions (not mental disorders or infectious disease) (7 sources) Other specified abnormal findings of blood chemistry; Translations: [Other abnormal blood chemistry] Onset: 04-18-2023 10-22-2023 Episodic Residual codes; unclassified (1 source) Other specified health status; Translations: [Other specified health status] Onset: 11-07-2023 Episodic Residual codes; unclassified (1 source) Flushing; Translations: [Flushing] Onset: 04-18-2023 Episodic Unclassified (3 sources) Wound ; Translations: [Traumatic wound] 09-29-2021 Unclassified (1 source) Contact with and (suspected) exposure to covid-19 Z20.822 Results Test Name Value Interpretation Reference Range Facility Glucose Poct Glucometerson 0 11-21-2023 Glucose [Mass/Vol] 91 mg/dL Normal [facility] Comment on above: Result Comment: [facility] Glucose Reference Range is dependent on time and content of last meal. Glucose of more than 200 mg/dL in a nonstressed, ambulatory subject supports the diagnosis of Diabetes Mellitus. PERFORMED BY: [place] [address] PATHOLOGIST [employer] KELLI LOPEZ M.D. Performed By: #### G LULS #### Point of Care testing , Glucose [Mass/Vol] 113 mg/dL Normal [facility] Comment on above: Result Comment: [facility] Glucose Reference Range is dependent on time and content of last meal. Glucose of more than 200 mg/dL in a nonstressed, ambulatory subject supports the diagnosis of Diabetes Mellitus. PERFORMED BY: [place] [address] PATHOLOGIST [employer] KELLI LOPEZ M.D. Performed By: #### G LULS #### Point of Care testing , Commemt1 Glu2: Cleaned Meter Normal [facility] Comment on above: Result Comment: PERF ORMED BY: [place] [address] PATHOLOGIST [employer] KELLI LOPEZ M.D. Performed By: #### C MP, CBC, PAB #### [address] Glucose [Mass/Vol] 92 mg/dL Normal [facility] Comment on above: Result Comment: [place] Glucose Reference Range is dependent on time and content of last meal. Glucose of more than 200 mg/dL in a nonstressed, ambulatory subject supports the diagnosis of Diabetes Mellitus. Performed By: #### C MP, CBC, PAB #### [facility] [address] [place] [address] Glucose [Mass/Vol] 102 mg/dL Normal [facility] Comment on above: Result Comment: [place] [facility] Glucose Reference Range is dependent on time and content of last meal. Glucose of more than 200 mg/dL in a nonstressed, ambulatory subject supports the diagnosis of Diabetes Mellitus. PERFORMED BY: [place] [address] PATHOLOGIST [employer] KELLI LOPEZ M.D. Performed By: #### G LULS #### Point of Care testing , Glucose [Mass/Vol] 69 mg/dL Normal [facility] Comment on above: Result Comment: [place] [facility] Glucose Reference Range is dependent on time and content of last meal. Glucose of more than 200 mg/dL in a nonstressed, ambulatory subject supports the diagnosis of Diabetes Mellitus. PERFORMED BY: [place] [address] PATHOLOGIST [employer] KELLI LOPEZ M.D. Performed By: #### G LULS #### Point of Care testing , Glucose Poct Glucometerson 0 11-20-2023 Glucose [Mass/Vol] 131 mg/dL Normal [facility] Comment on above: Result Comment: [place] [facility] Glucose Reference Range is dependent on time and content of last meal. Glucose of more than 200 mg/dL in a nonstressed, ambulatory subject supports the diagnosis of Diabetes Mellitus. PERFORMED BY: [place] [address] PATHOLOGIST [employer] KELLI LOPEZ M.D. Performed By: #### C MP, CBC, PAB #### [address] Commemt1 Glu2: Cleaned Meter Normal [facility] Comment on above: Result Comment: PERF ORMED BY: [place] [address] PATHOLOGIST [employer] KELLI LOPEZ M.D. Performed By: #### G LULS #### Point of Care testing , Glucose [Mass/Vol] 82 mg/dL Normal [facility] Comment on above: Result Comment: [place] [facility] Glucose Reference Range is dependent on time and content of last meal. Glucose of more than 200 mg/dL in a nonstressed, ambulatory subject supports the diagnosis of Diabetes Mellitus. Performed By: #### G LULS #### Point of Care testing , Commemt1 Glu2: Cleaned Meter Normal [facility] Comment on above: Result Comment: PERF ORMED BY: [place] [address] PATHOLOGIST [employer] KELLI LOPEZ M.D. Performed By: #### G LULS #### Point of Care testing , Glucose [Mass/Vol] 76 mg/dL Normal [facility] Comment on above: Result Comment: [place] [facility] Glucose Reference Range is dependent on time and content of last meal. Glucose of more than 200 mg/dL in a nonstressed, ambulatory subject supports the diagnosis of Diabetes Mellitus. Performed By: #### G LULS #### Point of Care testing , Commemt1 Glu2: Cleaned Meter Normal [facility] Comment on above: Result Comment: PERF ORMED BY: [place] [address] PATHOLOGIST [employer] KELLI LOPEZ M.D. Performed By: #### G LULS #### Point of Care testing , Glucose [Mass/Vol] 82 mg/dL Normal [facility] Comment on above: Result Comment: [place] [facility] Glucose Reference Range is dependent on time and content of last meal. Glucose of more than 200 mg/dL in a nonstressed, ambulatory subject supports the diagnosis of Diabetes Mellitus. Performed By: #### G LULS #### Point of Care testing , Commemt1 Normal The [facility] Comment on above: Result Comment: Glu2 : WILL NOTIFY DR/RN Performed By: #### C MP, CBC, PAB #### [address] Commemt2 Cleaned Meter Normal The [facility] Comment on above: Performed By: #### C MP, CBC, PAB #### [facility] [address] Commemt3 Will Repeat Test Normal [facility] Comment on above: Result Comment: PERF ORMED BY: [place] [address] PATHOLOGIST [employer] KELLI LOPEZ M.D. Performed By: #### C MP, CBC, PAB #### [address] Glucose [Mass/Vol] 62 mg/dL Normal [facility] Comment on above: Result Comment: [facility] Glucose Reference Range is dependent on time and content of last meal. Glucose of more than 200 mg/dL in a nonstressed, ambulatory subject supports the diagnosis of Diabetes Mellitus. Performed By: #### C MP, CBC, PAB #### [address] Renal Function Panelon 11-20 Albumin [Mass/Vol] 3.7 g/dL Normal 3.5-5.7 [facility] Comment on above: Performed By: #### G LULS #### Point of Care testing , Anion gap [Moles/Vol] 8.7 mmol/L Normal 6.0-15.0 [facility] Comment on above: Performed By: #### G LULS #### Point of Care testing , Calcium [Mass/Vol] 9.2 mg/dL Normal 8.6-10.3 [facility] Comment on above: Performed By: #### G LULS #### Point of Care testing , Chloride [Moles/Vol] 108 mmol/L High 98-107 [facility] Comment on above: Performed By: #### G LULS #### Point of Care testing , CO2 [Moles/Vol] 26.7 mmol/L Normal 21.0-31.0 [facility] Comment on above: Performed By: #### G LULS #### Point of Care testing , Creatinine [Mass/Vol] 1.51 mg/dL High 0.60-1.20 [facility] Comment on above: Performed By: #### G LULS #### Point of Care testing , Creatinine Clr Calc Pharmacy 45.95 Normal [facility] Comment on above: Result Comment: PERF ORMED BY: [facility] [address] PATHOLOGIST [employer] KELLI LOPEZ M.D. Performed By: #### G LULS #### Point of Care testing , GFR/1.73 sq M.predicted MDRD (S/P/Bld) [Vol rate/Area] 41.339 mL/min/{1.73_m2} Normal [facility] Comment on above: Performed By: #### G LULS #### Point of Care testing , Glucose [Mass/Vol] 66 mg/dL Low 70-100 [facility] Comment on above: Result Comment: [facility] Glucose Reference Range is dependent on time and content of last meal. Glucose of more than 200 mg/dL in a nonstressed, ambulatory subject supports the diagnosis of Diabetes Mellitus. ADA recommended reference range Performed By: #### G LULS #### Point of Care testing , Phosphate [Mass/Vol] 4.0 mg/dL Normal 2.5-4.5 [facility] Comment on above: Performed By: #### G LULS #### Point of Care testing , Potassium [Moles/Vol] 4.4 mmol/L Normal 3.5-5.1 [facility] Comment on above: Performed By: #### G LULS #### Point of Care testing , Sodium [Moles/Vol] 139 mmol/L Normal 136-145 [facility] Comment on above: Performed By: #### G LULS #### Point of Care testing , Urea nitrogen [Mass/Vol] 47 mg/dL High 7-25 [facility] Comment on above: Performed By: #### G LULS #### Point of Care testing , Glucose Poct Glucometerson 0 11-19-2023 Glucose [Mass/Vol] 150 mg/dL Normal [facility] Comment on above: Result Comment: [place] [facility] Glucose Reference Range is dependent on time and content of last meal. Glucose of more than 200 mg/dL in a nonstressed, ambulatory subject supports the diagnosis of Diabetes Mellitus. PERFORMED BY: [place] [address] PATHOLOGIST [employer] KELLI LOPEZ M.D. Performed By: #### G LULS #### Point of Care testing , Commemt1 Glu2: Cleaned Meter Normal [facility] Comment on above: Result Comment: PERF ORMED BY: [place] [address] PATHOLOGIST [employer] KELLI LOPEZ M.D. Performed By: #### C MP, CBC, PAB #### [address] Glucose [Mass/Vol] 109 mg/dL Normal [facility] Comment on above: Result Comment: [place] [facility] Glucose Reference Range is dependent on time and content of last meal. Glucose of more than 200 mg/dL in a nonstressed, ambulatory subject supports the diagnosis of Diabetes Mellitus. Performed By: #### C MP, CBC, PAB #### [address] Commemt1 Glu2: Cleaned Meter Normal [facility] Comment on above: Result Comment: PERF ORMED BY: [place] [address] PATHOLOGIST [employer] KELLI LOPEZ M.D. Performed By: #### G LULS #### Point of Care testing , Glucose [Mass/Vol] 117 mg/dL Normal [facility] Comment on above: Result Comment: [place] [facility] Glucose Reference Range is dependent on time and content of last meal. Glucose of more than 200 mg/dL in a nonstressed, ambulatory subject supports the diagnosis of Diabetes Mellitus. Performed By: #### G LULS #### Point of Care testing , Commemt1 Glu2: Cleaned Meter Normal [facility] Comment on above: Result Comment: PERF ORMED BY: [place] [address] PATHOLOGIST [employer] KELLI LOPEZ M.D. Performed By: #### C MP, CBC, PAB #### [address] Glucose [Mass/Vol] 76 mg/dL Normal [facility] Comment on above: Result Comment: [place] [facility] Glucose Reference Range is dependent on time and content of last meal. Glucose of more than 200 mg/dL in a nonstressed, ambulatory subject supports the diagnosis of Diabetes Mellitus. Performed By: #### C MP, CBC, PAB #### [address] Glucose Poct Glucometerson 0 11-18-2023 Glucose [Mass/Vol] 147 mg/dL Normal [facility] Comment on above: Result Comment: [place] [facility] Glucose Reference Range is dependent on time and content of last meal. Glucose of more than 200 mg/dL in a nonstressed, ambulatory subject supports the diagnosis of Diabetes Mellitus. PERFORMED BY: [place] [phone] PATHOLOGIST [employer] KELLI LOPEZ M.D. Performed By: #### C MP, CBC, PAB #### [address] Commemt1 Glu2: Cleaned Meter Normal [facility] Comment on above: Result Comment: PERF ORMED BY: [place] [phone] PATHOLOGIST [employer] KELLI LOPEZ M.D. Performed By: #### G LULS #### Point of Care testing , Glucose [Mass/Vol] 101 mg/dL Normal [facility] Comment on above: Result Comment: [place] [facility] Glucose Reference Range is dependent on time and content of last meal. Glucose of more than 200 mg/dL in a nonstressed, ambulatory subject supports the diagnosis of Diabetes Mellitus. Performed By: #### G LULS #### Point of Care testing , Commemt1 Glu2: Cleaned Meter Normal [facility] Comment on above: Result Comment: PERF ORMED BY: [place] [address] PATHOLOGIST [employer] KELLI LOPEZ M.D. Performed By: #### G LULS #### Point of Care testing , Glucose [Mass/Vol] 90 mg/dL Normal [facility] Comment on above: Result Comment: [place] [facility] Glucose Reference Range is dependent on time and content of last meal. Glucose of more than 200 mg/dL in a nonstressed, ambulatory subject supports the diagnosis of Diabetes Mellitus. Performed By: #### G LULS #### Point of Care testing , Glucose [Mass/Vol] 93 mg/dL Normal [facility] Comment on above: Result Comment: [place] [facility] Glucose Reference Range is dependent on time and content of last meal. Glucose of more than 200 mg/dL in a nonstressed, ambulatory subject supports the diagnosis of Diabetes Mellitus. PERFORMED BY: [place] [address] PATHOLOGIST [employer] KELLI LOPEZ M.D. Performed By: #### C MP, CBC, PAB #### [address] Basic Metabolic Panelon 10-30 Anion gap [Moles/Vol] 10.3 mmol/L Normal 6.0-15.0 [facility] Comment on above: Performed By: #### G LULS #### Point of Care testing , Calcium [Mass/Vol] 8.9 mg/dL Normal 8.6-10.3 [facility] Comment on above: Performed By: #### G LULS #### Point of Care testing , Chloride [Moles/Vol] 110 mmol/L High 98-107 [facility] Comment on above: Performed By: #### G LULS #### Point of Care testing , CO2 [Moles/Vol] 24.4 mmol/L Normal 21.0-31.0 [facility] Comment on above: Performed By: #### G LULS #### Point of Care testing , Creatinine [Mass/Vol] 1.49 mg/dL High 0.60-1.20 [facility] Comment on above: Performed By: #### G LULS #### Point of Care testing , Creatinine Clr Calc Pharmacy 46.39 Normal [facility] Comment on above: Result Comment: PERF ORMED BY: [place] [address] [place] [address] PATHOLOGIST [employer] KELLI LOPEZ M.D. Performed By: #### G LULS #### Point of Care testing , GFR/1.73 sq M.predicted MDRD (S/P/Bld) [Vol rate/Area] 42.006 mL/min/{1.73_m2} Normal [facility] Comment on above: Performed By: #### G LULS #### Point of Care testing , Glucose [Mass/Vol] 70 mg/dL Normal 70-100 [facility] Comment on above: Result Comment: [facility] Glucose Reference Range is dependent on time and content of last meal. Glucose of more than 200 mg/dL in a nonstressed, ambulatory subject supports the diagnosis of Diabetes Mellitus. ADA recommended reference range Performed By: #### G LULS #### Point of Care testing , Potassium [Moles/Vol] 4.7 mmol/L Normal 3.5-5.1 [facility] Comment on above: Performed By: #### G LULS #### Point of Care testing , Sodium [Moles/Vol] 140 mmol/L Normal 136-145 [facility] Comment on above: Performed By: #### G LULS #### Point of Care testing , Urea nitrogen [Mass/Vol] 49 mg/dL High 7-25 [facility] Comment on above: Performed By: #### G LULS #### Point of Care testing , Complete Blood Count Auto Di ffon 11-17-2023 Basophils (Bld) [#/Vol] 0.0 10*3/uL Normal 0.0-0.2 [facility] Comment on above: Result Comment: PERF ORMED BY: [place] [address] [place] [address] PATHOLOGIST [employer] KELLI LOPEZ M.D. Performed By: #### B MP, CBC #### [place] [address] [place] Basophils/100 WBC (Bld) 0.5 % Normal . T dianna [facility] Comment on above: Performed By: #### B MP, CBC #### [address] Eosinophils (Bld) [#/Vol] 0.2 10*3/uL Normal 0.0-0.45 [facility] Comment on above: Performed By: #### B MP, CBC #### [place] [address] [place] Eosinophils/100 WBC (Bld) 4.2 % Normal . The [facility] Comment on above: Performed By: #### B MP, CBC #### [address] Erythrocyte distribution width (RBC) [Ratio] 17.3 % High 11.9-15.[address] [facility] Comment on above: Performed By: #### B MP, CBC #### [address] Hematocrit (Bld) [Volume fraction] 27.4 % Low 34.0-46.4 [facility] Comment on above: Performed By: #### B MP, CBC #### [address] Hemoglobin (Bld) [Mass/Vol] 8.9 g/dL Low 11.8-15.4 [facility] Comment on above: Performed By: #### B MP, CBC #### [place] [address] [place] Lymphocytes (Bld) [#/Vol] 1.6 10*3/uL Normal 1.00-4.8 [facility] Comment on above: Performed By: #### B MP, CBC #### [place] [address] [place] Lymphocytes/100 WBC (Bld) 27.2 % Normal . The [facility] Comment on above: Performed By: #### B MP, CBC #### [address] [place] [address] [place] MCH (RBC) [Entitic mass] 29.0 pg Normal 24.7-34.3 [facility] Comment on above: Performed By: #### B MP, CBC #### [address] MCV (RBC) [Entitic vol] 89.2 fL Normal 80-100 T [facility] Comment on above: Performed By: #### B MP, CBC #### [address] Mean Corpuscular HGB Conc 32.5 g/dL Normal 32.0-35.0 [facility] Comment on above: Performed By: #### B MP, CBC #### [address] Monocytes (Bld) [#/Vol] 0.5 10*3/uL Normal 0.0-0.8 [facility] Comment on above: Performed By: #### B MP, CBC #### [address] Monocytes/100 WBC (Bld) 9.4 % Normal . T [facility] Comment on above: Performed By: #### B MP, CBC #### [address] Neutrophils (Bld) [#/Vol] 3.4 10*3/uL Normal 1.8-7.7 [facility] Comment on above: Performed By: #### B MP, CBC #### [address] Neutrophils/100 WBC (Bld) 58.7 % Normal . The [facility] Comment on above: Performed By: #### B MP, CBC #### [address] NRBC% 0.1 /100{WBC} Normal 0-0.5 The [facility] Comment on above: Performed By: #### B MP, CBC #### [address] Platelet mean volume (Bld) [Entitic vol] 9.0 fL Normal 6.3-10.[address] [facility] Comment on above: Performed By: #### B MP, CBC #### [facility] [address] Platelets (Bld) [#/Vol] 205 10*3/uL Normal 150-450 The [facility] Comment on above: Performed By: #### B MP, CBC #### [address] RBC (Bld) [#/Vol] 3.07 10*6/uL Low 3.60-5.00 The [facility] Comment on above: Performed By: #### B MP, CBC #### [address] WBC (Bld) [#/Vol] 5.8 10*3/uL Normal 3.8-11.6 The [facility] Comment on above: Performed By: #### B MP, CBC #### [address] Glucose Poct Glucometerson 0 11-17-2023 Glucose [Mass/Vol] 161 mg/dL Normal The [facility] Comment on above: Result Comment: [place] Glucose Reference Range is dependent on time and content of last meal. Glucose of more than 200 mg/dL in a nonstressed, ambulatory subject supports the diagnosis of Diabetes Mellitus. PERFORMED BY: [place] [address] PATHOLOGIST ATTENDANT [employer] KELLI LOPEZ M.D. Performed By: #### G MAMIE #### Point of Care testing , Glucose [Mass/Vol] 90 mg/dL Normal The [facility] Comment on above: Result Comment: [facility] Glucose Reference Range is dependent on time and content of last meal. Glucose of more than 200 mg/dL in a nonstressed, ambulatory subject supports the diagnosis of Diabetes Mellitus. PERFORMED BY: [place] [address] PATHOLOGIST ATTENDANT [employer] KELLI LOPEZ M.D. Performed By: #### G LULS #### Point of Care testing , Commemt1 Glu2: Cleaned Meter Normal The [facility] Comment on above: Result Comment: PERF ORMED BY: [place] [address] PATHOLOGIST ATTENDANT [employer] KELLI LOPEZ M.D. Performed By: #### G LULS #### Point of Care testing , Glucose [Mass/Vol] 86 mg/dL Normal The [facility] Comment on above: Result Comment: [place] Glucose Reference Range is dependent on time and content of last meal. Glucose of more than 200 mg/dL in a nonstressed, ambulatory subject supports the diagnosis of Diabetes Mellitus. Performed By: #### G LULS #### Point of Care testing , Glucose [Mass/Vol] 84 mg/dL Normal The [facility] Comment on above: Result Comment: [place] Glucose Reference Range is dependent on time and content of last meal. Glucose of more than 200 mg/dL in a nonstressed, ambulatory subject supports the diagnosis of Diabetes Mellitus. PERFORMED BY: [place] [address] PATHOLOGIST ATTENDANT [employer] KELLI LOPEZ M.D. Performed By: #### G LULS #### Point of Care testing , Glucose Poct Glucometerson 0 11-16-2023 Glucose [Mass/Vol] 178 mg/dL Normal The [facility] Comment on above: Result Comment: [place] Glucose Reference Range is dependent on time and content of last meal. Glucose of more than 200 mg/dL in a nonstressed, ambulatory subject supports the diagnosis of Diabetes Mellitus. PERFORMED BY: [place] [address] PATHOLOGIST ATTENDANT [employer] KELLI LOPEZ M.D. Performed By: #### C MP, CBC, PAB #### [place] [address] [place] Commemt1 Normal The [facility] Comment on above: Result Comment: Glu2 : WILL NOTIFY DR/RN Performed By: #### G LULS #### Point of Care testing , Commemt2 Cleaned Meter Normal The [facility] Comment on above: Result Comment: PERF ORMED BY: [place] [address] PATHOLOGIST ATTENDANT [employer] KELLI LOPEZ M.D. Performed By: #### G LULS #### Point of Care testing , Glucose [Mass/Vol] 123 mg/dL Normal The [facility] Comment on above: Result Comment: [place] Glucose Reference Range is dependent on time and content of last meal. Glucose of more than 200 mg/dL in a nonstressed, ambulatory subject supports the diagnosis of Diabetes Mellitus. Performed By: #### G LULS #### Point of Care testing , Commemt1 Glu2: Cleaned Meter Normal The [facility] Comment on above: Result Comment: PERF ORMED BY: [place] [address] PATHOLOGIST ATTENDANT [employer] KELLI LOPEZ M.D. Performed By: #### C MP, CBC, PAB #### [address] Glucose [Mass/Vol] 130 mg/dL Normal The [facility] Comment on above: Result Comment: [place] Glucose Reference Range is dependent on time and content of last meal. Glucose of more than 200 mg/dL in a nonstressed, ambulatory subject supports the diagnosis of Diabetes Mellitus. Performed By: #### C MP, CBC, PAB #### [address] Glucose [Mass/Vol] 108 mg/dL Normal The [facility] Comment on above: Result Comment: [place] Glucose Reference Range is dependent on time and content of last meal. Glucose of more than 200 mg/dL in a nonstressed, ambulatory subject supports the diagnosis of Diabetes Mellitus. PERFORMED BY: [place] [address] PATHOLOGIST ATTENDANT [employer] KELLI LOPEZ M.D. Performed By: #### C MP, CBC, PAB #### [address] Glucose Poct Glucometerson 0 11-15-2023 Glucose [Mass/Vol] 180 mg/dL Normal The [facility] Comment on above: Result Comment: [place] Glucose Reference Range is dependent on time and content of last meal. Glucose of more than 200 mg/dL in a nonstressed, ambulatory subject supports the diagnosis of Diabetes Mellitus. PERFORMED BY: [place] [address] PATHOLOGIST ATTENDANT [employer] KELLI LOPEZ M.D. Performed By: #### G LULS #### Point of Care testing , Glucose [Mass/Vol] 100 mg/dL Normal The [facility] Comment on above: Result Comment: [facility] Glucose Reference Range is dependent on time and content of last meal. Glucose of more than 200 mg/dL in a nonstressed, ambulatory subject supports the diagnosis of Diabetes Mellitus. PERFORMED BY: [place] [address] PATHOLOGIST ATTENDANT [employer] KELLI LOPEZ M.D. Performed By: #### G LULS #### Point of Care testing , Commemt1 Glu2: Cleaned Meter Normal The [facility] Comment on above: Result Comment: PERF ORMED BY: [place] [address] PATHOLOGIST ATTENDANT [employer] KELLI LOPEZ M.D. Performed By: #### G LULS #### Point of Care testing , Glucose [Mass/Vol] 117 mg/dL Normal The [facility] Comment on above: Result Comment: [place] Glucose Reference Range is dependent on time and content of last meal. Glucose of more than 200 mg/dL in a nonstressed, ambulatory subject supports the diagnosis of Diabetes Mellitus. Performed By: #### G LULS #### Point of Care testing , Commemt1 Glu2: Cleaned Meter Normal The [facility] Comment on above: Result Comment: PERF ORMED BY: [place] [address] PATHOLOGIST ATTENDANT [employer] KELLI LOPEZ M.D. Performed By: #### C MP, CBC, PAB #### [address] [place] [address] [place] Glucose [Mass/Vol] 85 mg/dL Normal The [facility] Comment on above: Result Comment: [facility] Glucose Reference Range is dependent on time and content of last meal. Glucose of more than 200 mg/dL in a nonstressed, ambulatory subject supports the diagnosis of Diabetes Mellitus. Performed By: #### C MP, CBC, PAB #### [address] Renal Function Panelon 11-15 Albumin [Mass/Vol] 3.9 g/dL Normal 3.5-5.7 The [facility] Comment on above: Performed By: #### G LULS #### Point of Care testing , Anion gap [Moles/Vol] 12.5 mmol/L Normal 6.0-15.0 Th e [facility] Comment on above: Performed By: #### G LULS #### Point of Care testing , Calcium [Mass/Vol] 9.4 mg/dL Normal 8.6-10.3 The [facility] Comment on above: Performed By: #### G LULS #### Point of Care testing , Chloride [Moles/Vol] 107 mmol/L Normal 98-107 The [facility] Comment on above: Performed By: #### G LULS #### Point of Care testing , CO2 [Moles/Vol] 26.2 mmol/L Normal 21.0-31.0 The [facility] Comment on above: Performed By: #### G LULS #### Point of Care testing , Creatinine [Mass/Vol] 1.67 mg/dL High 0.60-1.20 The [facility] Comment on above: Performed By: #### G LULS #### Point of Care testing , Creatinine Clr Calc Pharmacy 41.02 Normal The [facility] Comment on above: Result Comment: PERF ORMED BY: [place] [address] PATHOLOGIST ATTENDANT [employer] KELLI LOPEZ M.D. Performed By: #### G LULS #### Point of Care testing , GFR/1.73 sq M.predicted MDRD (S/P/Bld) [Vol rate/Area] 36.634 mL/min/{1.73_m2} Normal The [facility] Comment on above: Performed By: #### G LULS #### Point of Care testing , Glucose [Mass/Vol] 115 mg/dL High 70-100 The [facility] Comment on above: Result Comment: [place] Glucose Reference Range is dependent on time and content of last meal. Glucose of more than 200 mg/dL in a nonstressed, ambulatory subject supports the diagnosis of Diabetes Mellitus. ADA recommended reference range Performed By: #### G LULS #### Point of Care testing , Phosphate [Mass/Vol] 4.3 mg/dL Normal 2.5-4.5 The [facility] Comment on above: Performed By: #### G LULS #### Point of Care testing , Potassium [Moles/Vol] 4.7 mmol/L Normal 3.5-5.1 The [facility] Comment on above: Performed By: #### G LULS #### Point of Care testing , Sodium [Moles/Vol] 141 mmol/L Normal 136-145 The [facility] Comment on above: Performed By: #### G LULS #### Point of Care testing , Urea nitrogen [Mass/Vol] 49 mg/dL High 7-25 The [facility] Comment on above: Performed By: #### G LULS #### Point of Care testing , Glucose Poct Glucometerson 0 11-14-2023 Glucose [Mass/Vol] 203 mg/dL Normal The [facility] Comment on above: Result Comment: [facility] Glucose Reference Range is dependent on time and content of last meal. Glucose of more than 200 mg/dL in a nonstressed, ambulatory subject supports the diagnosis of Diabetes Mellitus. PERFORMED BY: [place] [address] [place] [address] PATHOLOGIST ATTENDANT [employer] KELLI LOPEZ M.D. Performed By: #### G LULS #### Point of Care testing , Glucose [Mass/Vol] 104 mg/dL Normal The [facility] Comment on above: Result Comment: [place] Glucose Reference Range is dependent on time and content of last meal. Glucose of more than 200 mg/dL in a nonstressed, ambulatory subject supports the diagnosis of Diabetes Mellitus. PERFORMED BY: [facility] [address] [place] [address] PATHOLOGIST ATTENDANT [employer] KELLI LOPEZ M.D. Performed By: #### C MP, CBC, PAB #### [address] Commemt1 Glu2: Cleaned Meter Normal The [facility] Comment on above: Result Comment: PERF ORMED BY: [facility] [address] [place] [address] PATHOLOGIST ATTENDANT [employer] KELLI LOPEZ M.D. Performed By: #### G LULS #### Point of Care testing , Glucose [Mass/Vol] 101 mg/dL Normal [facility] Comment on above: Result Comment: [place] Glucose Reference Range is dependent on time and content of last meal. Glucose of more than 200 mg/dL in a nonstressed, ambulatory subject supports the diagnosis of Diabetes Mellitus. Performed By: #### G LULS #### Point of Care testing , Glucose [Mass/Vol] 75 mg/dL Normal [facility] Comment on above: Result Comment: [place] Glucose Reference Range is dependent on time and content of last meal. Glucose of more than 200 mg/dL in a nonstressed, ambulatory subject supports the diagnosis of Diabetes Mellitus. PERFORMED BY: [place] [address] PATHOLOGIST ATTENDANT [employer] KELLI LOPEZ M.D. Performed By: #### G LULS #### Point of Care testing , Glucose Poct Glucometerson 0 11-13-2023 Glucose [Mass/Vol] 130 mg/dL Normal [facility] Comment on above: Result Comment: [place] om Glucose Reference Range is dependent on time and content of last meal. Glucose of more than 200 mg/dL in a nonstressed, ambulatory subject supports the diagnosis of Diabetes Mellitus. PERFORMED BY: [facility] [address] [place] [address] PATHOLOGIST ATTENDANT [employer] KELLI LOPEZ M.D. Performed By: #### G LULS #### Point of Care testing , Glucose [Mass/Vol] 99 mg/dL Normal [facility] Comment on above: Result Comment: [place] Glucose Reference Range is dependent on time and content of last meal. Glucose of more than 200 mg/dL in a nonstressed, ambulatory subject supports the diagnosis of Diabetes Mellitus. PERFORMED BY: [address] [place] [address] PATHOLOGIST ATTENDANT [employer] KELLI LOPEZ M.D. Performed By: #### G LULS #### Point of Care testing , Commemt1 Glu2: Cleaned Meter Normal The [facility] Comment on above: Result Comment: PERF ORMED BY: [address] [place] [address] PATHOLOGIST ATTENDANT [employer] KELLI LOPEZ M.D. Performed By: #### G LULS #### Point of Care testing , Glucose [Mass/Vol] 103 mg/dL Normal The [facility] Comment on above: Result Comment: [place] Glucose Reference Range is dependent on time and content of last meal. Glucose of more than 200 mg/dL in a nonstressed, ambulatory subject supports the diagnosis of Diabetes Mellitus. Performed By: #### G LULS #### Point of Care testing , Glucose [Mass/Vol] 97 mg/dL Normal The [facility] Comment on above: Result Comment: [place] Glucose Reference Range is dependent on time and content of last meal. Glucose of more than 200 mg/dL in a nonstressed, ambulatory subject supports the diagnosis of Diabetes Mellitus. PERFORMED BY: [address] [place] [id number] PATHOLOGIST ATTENDANT [employer]IES KELLI LOPEZ M.D. Performed By: #### G LULS #### Point of Care testing , Renal Function Panelon 11-13 Albumin [Mass/Vol] 3.8 g/dL Normal 3.5-5.7 The [facility] Comment on above: Performed By: #### G LULS #### Point of Care testing , Anion gap [Moles/Vol] 10.5 mmol/L Normal 6.0-15.0 Th e [facility] Comment on above: Performed By: #### G LULS #### Point of Care testing , Calcium [Mass/Vol] 9.4 mg/dL Normal 8.6-10.3 The [facility] Comment on above: Performed By: #### G LULS #### Point of Care testing , Chloride [Moles/Vol] 107 mmol/L Normal 98-107 The [facility] Comment on above: Performed By: #### G LULS #### Point of Care testing , CO2 [Moles/Vol] 27.2 mmol/L Normal 21.0-31.0 The [facility] Comment on above: Performed By: #### G LULS #### Point of Care testing , Creatinine [Mass/Vol] 1.64 mg/dL High 0.60-1.20 The [facility] Comment on above: Performed By: #### G LULS #### Point of Care testing , Creatinine Clr Calc Pharmacy 40.86 Normal The [facility] Comment on above: Result Comment: PERF ORMED BY: [address] [address] PATHOLOGIST ATTENDANT [employer] KELLI LOPEZ M.D. Performed By: #### G LULS #### Point of Care testing , GFR/1.73 sq M.predicted MDRD (S/P/Bld) [Vol rate/Area] 37.438 mL/min/{1.73_m2} Normal The [facility] Comment on above: Performed By: #### G LULS #### Point of Care testing , Glucose [Mass/Vol] 106 mg/dL High 70-100 [facility] Comment on above: Result Comment: [place] Glucose Reference Range is dependent on time and content of last meal. Glucose of more than 200 mg/dL in a nonstressed, ambulatory subject supports the diagnosis of Diabetes Mellitus. ADA recommended reference range Performed By: #### G LULS #### Point of Care testing , Phosphate [Mass/Vol] 4.2 mg/dL Normal 2.5-4.5 The [facility] Comment on above: Performed By: #### G LULS #### Point of Care testing , Potassium [Moles/Vol] 4.7 mmol/L Normal 3.5-5.1 The [facility] Comment on above: Performed By: #### G LULS #### Point of Care testing , Sodium [Moles/Vol] 140 mmol/L Normal 136-145 [facility] Comment on above: Performed By: #### G LULS #### Point of Care testing , Urea nitrogen [Mass/Vol] 60 mg/dL High 7-25 The [facility] Comment on above: Performed By: #### G LULS #### Point of Care testing , Basic Metabolic Panel 10-30 Anion gap [Moles/Vol] 11.1 mmol/L Normal 6.0-15.0 e [facility] Comment on above: Performed By: #### C MP, CBC, PAB #### [facility] [address] Calcium [Mass/Vol] 9.0 mg/dL Normal 8.6-10.3 [facility] Comment on above: Performed By: #### C MP, CBC, PAB #### [facility] [address] [place] [address] [place] Chloride [Moles/Vol] 106 mmol/L Normal 98-107 The [facility] Comment on above: Performed By: #### C MP, CBC, PAB #### [facility] [address] [place] [id number] [place] CO2 [Moles/Vol] 24.5 mmol/L Normal 21.0-31.0 The [facility] Comment on above: Performed By: #### C MP, CBC, PAB #### [facility] [address] [place] [id number] [place] Creatinine [Mass/Vol] 1.84 mg/dL High 0.60-1.20 The [facility] Comment on above: Performed By: #### C MP, CBC, PAB #### [facility] [address] [place] [id number] [place] Creatinine Clr Calc Pharmacy 36.44 Normal The [facility] Comment on above: Result Comment: PERF ORMED BY: [place] [address] PATHOLOGIST ATTENDANT [employer] KELLI LOPEZ M.D. Performed By: #### C MP, CBC, PAB #### [facility] [address] [place] [address] [place] GFR/1.73 sq M.predicted MDRD (S/P/Bld) [Vol rate/Area] 32.610 mL/min/{1.73_m2} Normal The [facility] Comment on above: Performed By: #### C MP, CBC, PAB #### [address] Glucose [Mass/Vol] 163 mg/dL High 70-100 The [facility] Comment on above: Result Comment: [place] Glucose Reference Range is dependent on time and content of last meal. Glucose of more than 200 mg/dL in a nonstressed, ambulatory subject supports the diagnosis of Diabetes Mellitus. ADA recommended reference range Performed By: #### C MP, CBC, PAB #### [address] Potassium [Moles/Vol] 4.6 mmol/L Normal 3.5-5.1 The [facility] Comment on above: Performed By: #### C MP, CBC, PAB #### [address] Sodium [Moles/Vol] 137 mmol/L Normal 136-145 [facility] Comment on above: Performed By: #### C MP, CBC, PAB #### [place] [address] [place] Urea nitrogen [Mass/Vol] 71 mg/dL High 7-25 The [facility] Comment on above: Performed By: #### C MP, CBC, PAB #### [address] Glucose Poct Glucometerson 0 11-12-2023 Commemt1 Glu2: Cleaned Meter Normal The [facility] Comment on above: Result Comment: PERF ORMED BY: [address] [place] [address] PATHOLOGIST ATTENDANT [employer] KELLI LOPEZ M.D. Performed By: #### G LULS #### Point of Care testing , Glucose [Mass/Vol] 83 mg/dL Normal The [facility] Comment on above: Result Comment: [place] Glucose Reference Range is dependent on time and content of last meal. Glucose of more than 200 mg/dL in a nonstressed, ambulatory subject supports the diagnosis of Diabetes Mellitus. Performed By: #### G LULS #### Point of Care testing , Commemt1 Glu2: Cleaned Meter Normal [facility] Comment on above: Result Comment: PERF ORMED BY: [address] [place] [address] PATHOLOGIST ATTENDANT [employer]IES KELLI LOPEZ M.D. Performed By: #### G LULS #### Point of Care testing , Glucose [Mass/Vol] 110 mg/dL Normal The [facility] Comment on above: Result Comment: [place] Glucose Reference Range is dependent on time and content of last meal. Glucose of more than 200 mg/dL in a nonstressed, ambulatory subject supports the diagnosis of Diabetes Mellitus. Performed By: #### G LULS #### Point of Care testing , Commemt1 Glu2: Cleaned Meter Normal [facility] Comment on above: Result Comment: PERF ORMED BY: [address] [place] [place] [address] PATHOLOGIST ATTENDANT [employer]IES KELLI LOPEZ M.D. Performed By: #### G LULS #### Point of Care testing , Glucose [Mass/Vol] 227 mg/dL Normal The [facility] Comment on above: Result Comment: [place] Glucose Reference Range is dependent on time and content of last meal. Glucose of more than 200 mg/dL in a nonstressed, ambulatory subject supports the diagnosis of Diabetes Mellitus. Performed By: #### G LULS #### Point of Care testing , Glucose [Mass/Vol] 158 mg/dL Normal The [facility] Comment on above: Result Comment: [place] Glucose Reference Range is dependent on time and content of last meal. Glucose of more than 200 mg/dL in a nonstressed, ambulatory subject supports the diagnosis of Diabetes Mellitus. PERFORMED BY: [facility] [place] [address] PATHOLOGIST ATTENDANT [employer] KELLI LOPEZ M.D. Performed By: #### G LULS #### Point of Care testing , Basic Metabolic Panel 10-30 Anion gap [Moles/Vol] 12.8 mmol/L Normal 6.0-15.0 Th e [facility] Comment on above: Performed By: #### G LULS #### Point of Care testing , Calcium [Mass/Vol] 9.3 mg/dL Normal 8.6-10.3 [facility] Comment on above: Performed By: #### G LULS #### Point of Care testing , Chloride [Moles/Vol] 105 mmol/L Normal 98-107 The [facility] Comment on above: Performed By: #### G LULS #### Point of Care testing , CO2 [Moles/Vol] 26.4 mmol/L Normal 21.0-31.0 The [facility] Comment on above: Performed By: #### G LULS #### Point of Care testing , Creatinine [Mass/Vol] 1.89 mg/dL High 0.60-1.20 The [facility] Comment on above: Performed By: #### G LULS #### Point of Care testing , Creatinine Clr Calc Pharmacy 35.52 Normal The [facility] Comment on above: Performed By: #### G LULS #### Point of Care testing , GFR/1.73 sq M.predicted MDRD (S/P/Bld) [Vol rate/Area] 31.577 mL/min/{1.73_m2} Normal The [facility] Comment on above: Performed By: #### G LULS #### Point of Care testing , Glucose [Mass/Vol] 165 mg/dL High 70-100 The [facility] Comment on above: Result Comment: [facility] Glucose Reference Range is dependent on time and content of last meal. Glucose of more than 200 mg/dL in a nonstressed, ambulatory subject supports the diagnosis of Diabetes Mellitus. ADA recommended reference range Performed By: #### G LULS #### Point of Care testing , Potassium [Moles/Vol] 5.2 mmol/L High 3.5-5.1 The [facility] Comment on above: Performed By: #### G LULS #### Point of Care testing , Sodium [Moles/Vol] 139 mmol/L Normal 136-145 The [facility] Comment on above: Performed By: #### G LULS #### Point of Care testing , Urea nitrogen [Mass/Vol] 78 mg/dL High 7-25 The [facility] Comment on above: Performed By: #### G LULS #### Point of Care testing , Ferritinon 11-11-2023 Ferritin [Mass/Vol] 43.1 ng/mL Normal 11.0-306.8 The [facility] Comment on above: Performed By: #### G LULS #### Point of Care testing , Glucose Poct Glucometerson 0 11-11-2023 Glucose [Mass/Vol] 180 mg/dL Normal The [facility] Comment on above: Result Comment: [facility] Glucose Reference Range is dependent on time and content of last meal. Glucose of more than 200 mg/dL in a nonstressed, ambulatory subject supports the diagnosis of Diabetes Mellitus. PERFORMED BY: [place] [address] PATHOLOGIST ATTENDANT [employer] KELLI LOPEZ M.D. Performed By: #### G LULS #### Point of Care testing , Glucose [Mass/Vol] 131 mg/dL Normal The [facility] Comment on above: Result Comment: [facility] Glucose Reference Range is dependent on time and content of last meal. Glucose of more than 200 mg/dL in a nonstressed, ambulatory subject supports the diagnosis of Diabetes Mellitus. PERFORMED BY: [place] [address] PATHOLOGIST ATTENDANT [employer] KELLI LOPEZ M.D. Performed By: #### C MP, CBC, PAB #### [address] Commemt1 Glu2: Cleaned Meter Normal The [facility] Comment on above: Result Comment: PERF ORMED BY: [place] [address] PATHOLOGIST ATTENDANT [employer] KELLI LOPEZ M.D. Performed By: #### C MP, CBC, PAB #### [place] [address] [place] Glucose [Mass/Vol] 182 mg/dL Normal The [facility] Comment on above: Result Comment: [place] [facility] Glucose Reference Range is dependent on time and content of last meal. Glucose of more than 200 mg/dL in a nonstressed, ambulatory subject supports the diagnosis of Diabetes Mellitus. Performed By: #### C MP, CBC, PAB #### [address] Glucose [Mass/Vol] 170 mg/dL Normal The [facility] Comment on above: Result Comment: [place] [facility] Glucose Reference Range is dependent on time and content of last meal. Glucose of more than 200 mg/dL in a nonstressed, ambulatory subject supports the diagnosis of Diabetes Mellitus. PERFORMED BY: [place] [address] PATHOLOGIST ATTENDANT [employer] KELLI LOPEZ M.D. Performed By: #### G MAMIE #### Point of Care testing , Hemogram CBC Without Diffon 11-11-2023 Erythrocyte distribution width (RBC) [Ratio] 16.6 % High 11.9-15.[address] [facility] Comment on above: Performed By: #### C MP, CBC, PAB #### [place] [address] [place] Hematocrit (Bld) [Volume fraction] 29.2 % Low 34.0-46.4 The [facility] Comment on above: Performed By: #### C MP, CBC, PAB #### [address] Hemoglobin (Bld) [Mass/Vol] 9.4 g/dL Low 11.8-15.4 The [facility] Comment on above: Performed By: #### C MP, CBC, PAB #### [facility] [address] MCH (RBC) [Entitic mass] 28.2 pg Normal 24.7-34.3 The [facility] Comment on above: Performed By: #### C MP, CBC, PAB #### [address] MCV (RBC) [Entitic vol] 87.3 fL Normal 80-100 T [facility] Comment on above: Performed By: #### C MP, CBC, PAB #### [facility] [address] Mean Corpuscular HGB Conc 32.3 g/dL Normal 32.0-35.0 The [facility] Comment on above: Performed By: #### C MP, CBC, PAB #### [address] Platelet mean volume (Bld) [Entitic vol] 9.6 fL Normal 6.3-10.[address] [facility] Comment on above: Result Comment: PERF ORMED BY: [place] [address] PATHOLOGIST ATTENDANT [employer] KELLI LOPEZ M.D. Performed By: #### C MP, CBC, PAB #### [place] [address] [place] Platelets (Bld) [#/Vol] 391 10*3/uL Normal 150-450 The [facility] Comment on above: Performed By: #### C MP, CBC, PAB #### [place] [address] [place] RBC (Bld) [#/Vol] 3.34 10*6/uL Low 3.60-5.00 The [facility] Comment on above: Performed By: #### C MP, CBC, PAB #### [place] [address] [place] WBC (Bld) [#/Vol] 6.5 10*3/uL Normal 3.8-11.6 The [facility] Comment on above: Performed By: #### C MP, CBC, PAB #### [facility] [address] Iron and TIBC Profileon 10-30 % Iron Saturation 10.1 % Low 20-50 The [facility] Comment on above: Performed By: #### G LULS #### Point of Care testing , Iron [Mass/Vol] 34 ug/dL Low 50-212 The [facility] Comment on above: Performed By: #### G LULS #### Point of Care testing , Total Iron Binding Capacity 336 ug/dL Normal 255-450 The [facility] Comment on above: Performed By: #### G LULS #### Point of Care testing , Transferrin [Mass/Vol] 240 mg/dL Normal 203-362 Th [facility] Comment on above: Performed By: #### G LULS #### Point of Care testing , Vit. B12/Folate Profileon Cobalamin (Vitamin B12) [Mass/Vol] 485 pg/mL Normal 180-914 The [facility] Comment on above: Performed By: #### G LULS #### Point of Care testing , Folate 10.2 ng/mL Normal >5.9 The [facility] Comment on above: Result Comment: Danay te reference range: >5.9 ng/ml The WHO technical consultation on folate and vitamin b12 deficiencies has determined that folate concentrations less than 4 ng/ml are considered deficient. PERFORMED BY: [place] [address] PATHOLOGIST ATTENDANT [employer] KELLI LOPEZ M.D. Performed By: #### G LULS #### Point of Care testing , Basic Metabolic Panelon 10-30 Anion gap [Moles/Vol] 12.9 mmol/L Normal 6.0-15.0 [facility] Comment on above: Performed By: #### C MP, CBC, PAB #### [facility] [address] [place] [id number] [facility] Calcium [Mass/Vol] 9.9 mg/dL Normal 8.6-10.3 The [facility] Comment on above: Performed By: #### C MP, CBC, PAB #### [facility] [address] [place] [address] [place] Chloride [Moles/Vol] 101 mmol/L Normal 98-107 The [facility] Comment on above: Performed By: #### C MP, CBC, PAB #### [address] CO2 [Moles/Vol] 28.8 mmol/L Normal 21.0-31.0 The [facility] Comment on above: Performed By: #### C MP, CBC, PAB #### [address] Creatinine [Mass/Vol] 2.02 mg/dL High 0.60-1.20 The [facility] Comment on above: Performed By: #### C MP, CBC, PAB #### [place] [address] [place] Creatinine Clr Calc Pharmacy 33.21 Normal The [facility] Comment on above: Result Comment: PERF ORMED BY: [place] [address] PATHOLOGIST ATTENDANT [employer] KELLI LOPEZ M.D. Performed By: #### C MP, CBC, PAB #### [place] [address] [place] GFR/1.73 sq M.predicted MDRD (S/P/Bld) [Vol rate/Area] 29.155 mL/min/{1.73_m2} Normal The [facility] Comment on above: Performed By: #### C MP, CBC, PAB #### [place] [address] [place] Glucose [Mass/Vol] 107 mg/dL High 70-100 The [facility] Comment on above: Result Comment: [place] Glucose Reference Range is dependent on time and content of last meal. Glucose of more than 200 mg/dL in a nonstressed, ambulatory subject supports the diagnosis of Diabetes Mellitus. ADA recommended reference range Performed By: #### C MP, CBC, PAB #### [place] [address] [place] Potassium [Moles/Vol] 4.7 mmol/L Normal 3.5-5.1 The [facility] Comment on above: Performed By: #### C MP, CBC, PAB #### [facility] [address] Sodium [Moles/Vol] 138 mmol/L Normal 136-145 The [facility] Comment on above: Performed By: #### C MP, CBC, PAB #### [facility] [address] Urea nitrogen [Mass/Vol] 88 mg/dL High 7-25 The [facility] Comment on above: Performed By: #### C MP, CBC, PAB #### [address] Glucose Poct Glucometerson 0 11-10-2023 Glucose [Mass/Vol] 188 mg/dL Normal The [facility] Comment on above: Result Comment: [facility] Glucose Reference Range is dependent on time and content of last meal. Glucose of more than 200 mg/dL in a nonstressed, ambulatory subject supports the diagnosis of Diabetes Mellitus. PERFORMED BY: [place] [address] PATHOLOGIST ATTENDANT [employer] KELLI LOPEZ M.D. Performed By: #### C MP, CBC, PAB #### [address] Glucose [Mass/Vol] 258 mg/dL Normal The [facility] Comment on above: Result Comment: [place] Glucose Reference Range is dependent on time and content of last meal. Glucose of more than 200 mg/dL in a nonstressed, ambulatory subject supports the diagnosis of Diabetes Mellitus. PERFORMED BY: [place] [address] PATHOLOGIST ATTENDANT [employer] KELLI LOPEZ M.D. Performed By: #### C MP, CBC, PAB #### [facility] [address] Glucose [Mass/Vol] 214 mg/dL Normal The [facility] Comment on above: Result Comment: [place] [facility] Glucose Reference Range is dependent on time and content of last meal. Glucose of more than 200 mg/dL in a nonstressed, ambulatory subject supports the diagnosis of Diabetes Mellitus. PERFORMED BY: [place] [address] PATHOLOGIST ATTENDANT [employer] KELLI LOPEZ M.D. Performed By: #### C MP, CBC, PAB #### [address] Commemt1 Glu2: Cleaned Meter Normal The [facility] Comment on above: Result Comment: PERF ORMED BY: [place] [address] PATHOLOGIST ATTENDANT [employer] KELLI LOPEZ M.D. Performed By: #### C MP, CBC, PAB #### [address] Glucose [Mass/Vol] 139 mg/dL Normal The [facility] Comment on above: Result Comment: [place] [facility] Glucose Reference Range is dependent on time and content of last meal. Glucose of more than 200 mg/dL in a nonstressed, ambulatory subject supports the diagnosis of Diabetes Mellitus. Performed By: #### C MP, CBC, PAB #### [address] Glucose [Mass/Vol] 112 mg/dL Normal The [facility] Comment on above: Result Comment: [place] [facility] Glucose Reference Range is dependent on time and content of last meal. Glucose of more than 200 mg/dL in a nonstressed, ambulatory subject supports the diagnosis of Diabetes Mellitus. PERFORMED BY: [place] [address] PATHOLOGIST ATTENDANT [employer] KELLI LOPEZ M.D. Performed By: #### C MP, CBC, PAB #### [address] Basic Metabolic Panelon 10-30 Anion gap [Moles/Vol] 14.0 mmol/L Normal 6.0-15.0 Th e [facility] Comment on above: Performed By: #### C MP, CBC, PAB #### [address] Calcium [Mass/Vol] 9.4 mg/dL Normal 8.6-10.3 The [facility] Comment on above: Performed By: #### C MP, CBC, PAB #### [facility] [address] [place] [address] [place] Chloride [Moles/Vol] 101 mmol/L Normal 98-107 The [facility] Comment on above: Performed By: #### C MP, CBC, PAB #### [address] CO2 [Moles/Vol] 27.5 mmol/L Normal 21.0-31.0 The [facility] Comment on above: Performed By: #### C MP, CBC, PAB #### [address] Creatinine [Mass/Vol] 1.96 mg/dL High 0.60-1.20 The [facility] Comment on above: Performed By: #### C MP, CBC, PAB #### [place] [address] [place] Creatinine Clr Calc Pharmacy 34.25 Normal The [facility] Comment on above: Result Comment: PERF ORMED BY: [place] [address] PATHOLOGIST ATTENDANT [employer] KELLI LOPEZ M.D. Performed By: #### C MP, CBC, PAB #### [address] GFR/1.73 sq M.predicted MDRD (S/P/Bld) [Vol rate/Area] 30.229 mL/min/{1.73_m2} Normal The [facility] Comment on above: Performed By: #### C MP, CBC, PAB #### [address] Glucose [Mass/Vol] 107 mg/dL High 70-100 The [facility] Comment on above: Result Comment: [place] Glucose Reference Range is dependent on time and content of last meal. Glucose of more than 200 mg/dL in a nonstressed, ambulatory subject supports the diagnosis of Diabetes Mellitus. ADA recommended reference range Performed By: #### C MP, CBC, PAB #### [facility] [address] Potassium [Moles/Vol] 4.5 mmol/L Normal 3.5-5.1 The [facility] Comment on above: Performed By: #### C MP, CBC, PAB #### [facility] [address] [place] [address] [place] Sodium [Moles/Vol] 138 mmol/L Normal 136-145 The [facility] Comment on above: Performed By: #### C MP, CBC, PAB #### [facility] [address] [place] [address] [place] Urea nitrogen [Mass/Vol] 85 mg/dL High 7-25 The [facility] Comment on above: Performed By: #### C MP, CBC, PAB #### [facility] [address] Glucose Poct Glucometerson 0 11-09-2023 Glucose [Mass/Vol] 215 mg/dL Normal The [facility] Comment on above: Result Comment: [facility] Glucose Reference Range is dependent on time and content of last meal. Glucose of more than 200 mg/dL in a nonstressed, ambulatory subject supports the diagnosis of Diabetes Mellitus. PERFORMED BY: [place] [address] PATHOLOGIST ATTENDANT [employer] KELLI LOPEZ M.D. Performed By: #### C MP, CBC, PAB #### [facility] [address] Glucose [Mass/Vol] 138 mg/dL Normal The [facility] Comment on above: Result Comment: [facility] Glucose Reference Range is dependent on time and content of last meal. Glucose of more than 200 mg/dL in a nonstressed, ambulatory subject supports the diagnosis of Diabetes Mellitus. PERFORMED BY: [place] [address] PATHOLOGIST ATTENDANT [employer] KELLI LOPEZ M.D. Performed By: #### C MP, CBC, PAB #### [address] Glucose [Mass/Vol] 112 mg/dL Normal The [facility] Comment on above: Result Comment: [place] [facility] Glucose Reference Range is dependent on time and content of last meal. Glucose of more than 200 mg/dL in a nonstressed, ambulatory subject supports the diagnosis of Diabetes Mellitus. PERFORMED BY: [place] [address] PATHOLOGIST ATTENDANT [employer] KELLI LOPEZ M.D. Performed By: #### C MP, CBC, PAB #### [address] Glucose [Mass/Vol] 124 mg/dL Normal The [facility] Comment on above: Result Comment: [place] [facility] Glucose Reference Range is dependent on time and content of last meal. Glucose of more than 200 mg/dL in a nonstressed, ambulatory subject supports the diagnosis of Diabetes Mellitus. PERFORMED BY: [place] [address] PATHOLOGIST ATTENDANT [employer] KELLI LOPEZ M.D. Performed By: #### G LULS #### Point of Care testing , Glucose [Mass/Vol] 118 mg/dL Normal The [facility] Comment on above: Result Comment: [place] [facility] Glucose Reference Range is dependent on time and content of last meal. Glucose of more than 200 mg/dL in a nonstressed, ambulatory subject supports the diagnosis of Diabetes Mellitus. PERFORMED BY: [place] [address] PATHOLOGIST ATTENDANT [employer] KELLI LOPEZ M.D. Performed By: #### G LULS #### Point of Care testing , Complete Blood Count Auto Di ffon 11-08-2023 Basophils (Bld) [#/Vol] 0.1 10*3/uL Normal 0.0-0.2 The [facility] Comment on above: Result Comment: PERF ORMED BY: [place] [address] PATHOLOGIST ATTENDANT [employer] KELLI LOPEZ M.D. Performed By: #### C MP, CBC, PAB #### [facility] [address] [place] [address] [place] Basophils/100 WBC (Bld) 0.5 % Normal . Francis bustamante [facility] Comment on above: Performed By: #### C MP, CBC, PAB #### [facility] [address] Eosinophils (Bld) [#/Vol] 0.2 10*3/uL Normal 0.0-0.45 The [facility] Comment on above: Performed By: #### C MP, CBC, PAB #### [address] Eosinophils/100 WBC (Bld) 1.7 % Normal . The [facility] Comment on above: Performed By: #### C MP, CBC, PAB #### [address] Erythrocyte distribution width (RBC) [Ratio] 16.1 % High 11.9-15.[address] [facility] Comment on above: Performed By: #### C MP, CBC, PAB #### [address] Hematocrit (Bld) [Volume fraction] 28.3 % Low 34.0-46.4 The [facility] Comment on above: Performed By: #### C MP, CBC, PAB #### [address] Hemoglobin (Bld) [Mass/Vol] 9.2 g/dL Low 11.8-15.4 The [facility] Comment on above: Performed By: #### C MP, CBC, PAB #### [place] [address] [place] Lymphocytes (Bld) [#/Vol] 1.9 10*3/uL Normal 1.00-4.8 The [facility] Comment on above: Performed By: #### C MP, CBC, PAB #### [place] [address] [place] Lymphocytes/100 WBC (Bld) 20.2 % Normal . The [facility] Comment on above: Performed By: #### C MP, CBC, PAB #### [address] MCH (RBC) [Entitic mass] 28.2 pg Normal 24.7-34.3 The [facility] Comment on above: Performed By: #### C MP, CBC, PAB #### [address] MCV (RBC) [Entitic vol] 86.5 fL Normal 80-100 T [facility] Comment on above: Performed By: #### C MP, CBC, PAB #### [address] Mean Corpuscular HGB Conc 32.6 g/dL Normal 32.0-35.0 The [facility] Comment on above: Performed By: #### C MP, CBC, PAB #### [address] Monocytes (Bld) [#/Vol] 0.6 10*3/uL Normal 0.0-0.8 The [facility] Comment on above: Performed By: #### C MP, CBC, PAB #### [address] Monocytes/100 WBC (Bld) 6.5 % Normal . T [facility] Comment on above: Performed By: #### C MP, CBC, PAB #### [address] Neutrophils (Bld) [#/Vol] 6.8 10*3/uL Normal 1.8-7.7 The [facility] Physician [facility] Comment on above: Performed By: #### C MP, CBC, PAB #### [address] Neutrophils/100 WBC (Bld) 71.1 % Normal . The [facility] Comment on above: Performed By: #### C MP, CBC, PAB #### [address] NRBC% 0.1 /100{WBC} Normal 0-0.5 The [facility] Comment on above: Performed By: #### C MP, CBC, PAB #### [address] Platelet mean volume (Bld) [Entitic vol] 9.7 fL Normal 6.3-10.[address] [facility] Comment on above: Performed By: #### C MP, CBC, PAB #### [address] Platelets (Bld) [#/Vol] 401 10*3/uL Normal 150-450 The [facility] Comment on above: Performed By: #### C MP, CBC, PAB #### [address] RBC (Bld) [#/Vol] 3.27 10*6/uL Low 3.60-5.00 The [facility] Comment on above: Performed By: #### C MP, CBC, PAB #### [address] WBC (Bld) [#/Vol] 9.6 10*3/uL Normal 3.8-11.6 The [facility] Comment on above: Performed By: #### C MP, CBC, PAB #### [address] Comprehensive Metabolic Pane chang 11-08-2023 Albumin [Mass/Vol] 3.6 g/dL Normal 3.5-5.7 The [facility] Comment on above: Performed By: #### C MP, CBC, PAB #### [address] Albumin/Globulin [Mass ratio] 1.1 {ratio} Normal The [facility] Comment on above: Performed By: #### C MP, CBC, PAB #### [address] ALP [Catalytic activity/Vol] 81 U/L Normal 34-104 The [facility] Comment on above: Performed By: #### C MP, CBC, PAB #### [address] ALT [Catalytic activity/Vol] 15 U/L Normal 7-52 The [facility] Comment on above: Performed By: #### C MP, CBC, PAB #### [facility] [address] Anion gap [Moles/Vol] 14.6 mmol/L Normal 6.0-15.0 Th [facility] Comment on above: Performed By: #### C MP, CBC, PAB #### [facility] [address] AST [Catalytic activity/Vol] 14 U/L Normal 13-39 The [facility] Comment on above: Performed By: #### C MP, CBC, PAB #### [facility] [address] Bilirubin [Mass/Vol] 0.8 mg/dL Normal 0.3-1.0 The [facility] Comment on above: Performed By: #### C MP, CBC, PAB #### [facility] [address] [place] [address] [place] Calcium [Mass/Vol] 9.4 mg/dL Normal 8.6-10.3 The [facility] Comment on above: Performed By: #### C MP, CBC, PAB #### [facility] [address] [place] [address] [place] Chloride [Moles/Vol] 102 mmol/L Normal 98-107 The [facility] Comment on above: Performed By: #### C MP, CBC, PAB #### [facility] [address] [place] [address] [place] CO2 [Moles/Vol] 27.1 mmol/L Normal 21.0-31.0 The [facility] Comment on above: Performed By: #### C MP, CBC, PAB #### [facility] [address] [place] [id number] [place] Creatinine [Mass/Vol] 1.87 mg/dL High 0.60-1.20 The [facility] Comment on above: Performed By: #### C MP, CBC, PAB #### [facility] [address] [place] [address] [place] Creatinine Clr Calc Pharmacy 35.90 Normal The [facility] Comment on above: Performed By: #### C MP, CBC, PAB #### [facility] [address] GFR/1.73 sq M.predicted MDRD (S/P/Bld) [Vol rate/Area] 31.983 mL/min/{1.73_m2} Normal The [facility] Comment on above: Performed By: #### C MP, CBC, PAB #### [address] Globulin (S) [Mass/Vol] 3.2 g/dL Normal T he [facility] Comment on above: Performed By: #### C MP, CBC, PAB #### [address] Glucose [Mass/Vol] 160 mg/dL High 70-100 [facility] Comment on above: Result Comment: [facility] Glucose Reference Range is dependent on time and content of last meal. Glucose of more than 200 mg/dL in a nonstressed, ambulatory subject supports the diagnosis of Diabetes Mellitus. ADA recommended reference range Performed By: #### C MP, CBC, PAB #### [address] Potassium [Moles/Vol] 4.7 mmol/L Normal 3.5-5.1 [facility] Comment on above: Performed By: #### C MP, CBC, PAB #### [address] Protein [Mass/Vol] 6.8 g/dL Normal 6.4-8.9 [facility] Comment on above: Performed By: #### C MP, CBC, PAB #### [place] [address] [place] Sodium [Moles/Vol] 139 mmol/L Normal 136-145 [facility] Comment on above: Performed By: #### C MP, CBC, PAB #### [place] [address] [place] Urea nitrogen [Mass/Vol] 86 mg/dL High 7-25 [facility] Comment on above: Performed By: #### C MP, CBC, PAB #### [address] Glucose Poct Glucometerson 0 11-08-2023 Glucose [Mass/Vol] 214 mg/dL Normal [facility] Comment on above: Result Comment: [place] [facility] Glucose Reference Range is dependent on time and content of last meal. Glucose of more than 200 mg/dL in a nonstressed, ambulatory subject supports the diagnosis of Diabetes Mellitus. PERFORMED BY: [place] [address] PATHOLOGIST ATTENDANT [employer] KELLI LOPEZ M.D. Performed By: #### G LULS #### Point of Care testing , Glucose [Mass/Vol] 152 mg/dL Normal [facility] Comment on above: Result Comment: [place] [facility] Glucose Reference Range is dependent on time and content of last meal. Glucose of more than 200 mg/dL in a nonstressed, ambulatory subject supports the diagnosis of Diabetes Mellitus. PERFORMED BY: [place] [address] PATHOLOGIST ATTENDANT [employer] KELLI LOPEZ M.D. Performed By: #### G LULS #### Point of Care testing , Glucose [Mass/Vol] 161 mg/dL Normal [facility] Comment on above: Result Comment: [place] [facility] Glucose Reference Range is dependent on time and content of last meal. Glucose of more than 200 mg/dL in a nonstressed, ambulatory subject supports the diagnosis of Diabetes Mellitus. PERFORMED BY: [place] [address] PATHOLOGIST ATTENDANT [employer] KELLI LOPEZ M.D. Performed By: #### G LULS #### Point of Care testing , Commemt1 Glu2: Cleaned Meter Normal The [facility] Comment on above: Result Comment: PERF ORMED BY: [place] [address] PATHOLOGIST ATTENDANT [employer] KELLI LOPEZ M.D. Performed By: #### G LULS #### Point of Care testing , Glucose [Mass/Vol] 166 mg/dL Normal [facility] Comment on above: Result Comment: [place] [facility] Glucose Reference Range is dependent on time and content of last meal. Glucose of more than 200 mg/dL in a nonstressed, ambulatory subject supports the diagnosis of Diabetes Mellitus. Performed By: #### G LULS #### Point of Care testing , Glucose [Mass/Vol] 105 mg/dL Normal [facility] Comment on above: Result Comment: [place] [facility] Glucose Reference Range is dependent on time and content of last meal. Glucose of more than 200 mg/dL in a nonstressed, ambulatory subject supports the diagnosis of Diabetes Mellitus. PERFORMED BY: [facility] [address] [place] [address] PATHOLOGIST ATTENDANT [employer] KELLI LOPEZ M.D. Performed By: #### G LUDYLON #### Point of Care testing , Prealbuminon 11-08-2023 Prealbumin [Mass/Vol] 29.6 mg/dL Normal 17.0-34.0 [facility] Comment on above: Result Comment: PERF ORMED BY: [facility] [address] [place] [address] PATHOLOGIST ATTENDANT [employer] KELLI LOPEZ M.D. Performed By: #### C MP, CBC, PAB #### [address] BASIC METABOLIC PANLon 11-07 Anion gap [Moles/Vol] 10 mmol/L Normal 5-15 [facility] Comment on above: Performed By: #### B ROSALINA, , 2776-10, CBC ####[facility] ([id number])[address] [address] Calcium [Mass/Vol] 9.1 mg/dL Normal 8.5-10.5 [facility] Comment on above: Performed By: #### B ROSALINA, , 2776-10, CBC ####[facility] ([id number])[address] [address] Chloride [Moles/Vol] 103 mmol/L Normal 98-109 [facility] Comment on above: Performed By: #### B ROSALINA, , 2776-10, CBC ####[facility] ([id number])[address], [address], [place] [address] CO2 [Moles/Vol] 24 mmol/L Normal 22-32 [facility] Comment on above: Performed By: #### B ROSALINA, , 2776-10, CBC ####[facility] ([id number])[address], [address] [place] [address] Creatinine [Mass/Vol] 1.65 mg/dL High 0.40-1.00 [facility] Comment on above: Result Comment: METH OD TRACEABLE TO IDMS STANDARD Performed By: #### B ROSALINA, , 2776-10, CBC ####[facility] ([id number])[address], [address] [address] GFR/1.73 sq M.predicted among non-blacks MDRD (S/P/Bld) [Vol rate/Area] 37 mL/min/{1.73_m2} Low >59 [facility] Comment on above: Result Comment: Reported eGFR is based on the CKD-EPI 2020 equation that does not use a race coefficient. Performed By: #### B ROSALINA, , 2776-10, CBC ####[facility] ([id number])[address], [address] [place] [address] Glucose [Mass/Vol] 160 mg/dL High 65-99 [facility] Comment on above: Performed By: #### B ROSALINA, , 2776-10, CBC ####[facility] ([id number])[address], [address] [place] [address] Potassium [Moles/Vol] 4.0 mmol/L Normal 3.5-5.0 [facility] Comment on above: Performed By: #### B ROSALINA, , 2776-10, CBC ####[facility] ([id number])[address] [address] [address] Sodium [Moles/Vol] 137 mmol/L Normal 134-146 [facility] Comment on above: Performed By: #### B ROSALINA, , 2776-10, CBC ####[facility] ([id number])[address] [address] [address] Urea nitrogen [Mass/Vol] 77 mg/dL High 5-23 [facility] Comment on above: Performed By: #### B ROSALINA, , 2776-10, CBC ####[facility] ([id number])[address] [address] [place] [address] COMPLETE BLOOD COUNTon 11-07 Erythrocyte distribution width (RBC) [Ratio] 16.0 % High 11.5-15.0 [facility] Comment on above: Performed By: #### B ROSALINA, , 2776-10, CBC ####[facility] ([id number])[address] [address] [place] [address] Hematocrit (Bld) [Volume fraction] 25.9 % Low 35-47 [facility] Comment on above: Performed By: #### B ROSALINA, , 2776-10, CBC ####[facility] ([id number])[address] [address] Hemoglobin (Bld) [Mass/Vol] 8.7 g/dL Low 11.7-15.5 [facility] Comment on above: Performed By: #### B ROSALINA, , 2776-10, CBC ####[facility] ([id number])[address] [address] [address] MCH (RBC) [Entitic mass] 29.0 pg Normal 27-34 [facility] Comment on above: Performed By: #### B ROSALINA, , 2776-10, CBC ####[facility] ([id number])[address], [address] [place] [address] MCHC (RBC) [Mass/Vol] 33.5 g/dL Normal 32-36 [facility] Comment on above: Performed By: #### B ROSALINA, , 2776-10, CBC ####[facility] ([id number])[address], [address] [place] [address] MCV (RBC) [Entitic vol] 87 fL Normal 80-100 [facility] Comment on above: Performed By: #### B ROSALINA, , 2776-10, CBC ####[facility] ([id number])[address], [address] [place] [address] Platelet mean volume (Bld) [Entitic vol] 9.5 fL Normal 7-12 [facility] Comment on above: Performed By: #### B ROSALINA, , 2776-10, CBC ####[facility] ([id number])[address], [address] [place] [address] Platelets (Bld) [#/Vol] 347 10*3/uL Normal 150-450 [facility] Comment on above: Performed By: #### B ROSALINA, , 2776-10, CBC ####[facility] ([id number])[address], [address] [place] [address] RBC COUNT 2.99 X10E12/L Low 3.80-5.20 [facility] Comment on above: Performed By: #### B ROSALINA, , 2776-10, CBC ####[facility] ([id number])[address], [address] [place] [address] WBC (Bld) [#/Vol] 9.5 10*3/uL Normal 4.0-11.0 [facility] Comment on above: Performed By: #### [place], [address]-3, 2777-1, CBC ####[facility] ([id number])[address], [address] [place] [address] Calcium.ionized (Bld) [Mass/ Vol]on 11-07-2023 IONIZED CALCIUM 4.8 mg/dL Normal 4.5-5.3 [facility] Comment on above: Performed By: #### 3 8230-9 ####[facility] ([id number])[address], [address] [place] [address] Glucose Glucometer (BldC) [M ass/Vol]on 11-07-2023 Glucose [Mass/Vol] 192 mg/dL High 65-99 [facility] Glucose Poct Glucometerson 0 11-07-2023 Glucose [Mass/Vol] 166 mg/dL Normal [facility] Comment on above: Result Comment: [facility] Glucose Reference Range is dependent on time and content of last meal. Glucose of more than 200 mg/dL in a nonstressed, ambulatory subject supports the diagnosis of Diabetes Mellitus. PERFORMED BY: [address] [address] PATHOLOGIST ATTENDANT [employer] KELLI LOPEZ M.D. Performed By: #### G LULS #### Point of Care testing , Glucose [Mass/Vol] 168 mg/dL Normal [facility] Comment on above: Result Comment: [facility] Glucose Reference Range is dependent on time and content of last meal. Glucose of more than 200 mg/dL in a nonstressed, ambulatory subject supports the diagnosis of Diabetes Mellitus. PERFORMED BY: [address] [place] [address] PATHOLOGIST ATTENDANT [employer] KELLI LOPEZ M.D. Performed By: #### G LULS #### Point of Care testing , MAGNESIUMon 11-07-2023 Magnesium [Mass/Vol] 2.1 mg/dL Normal 1.8-2.6 [facility] Comment on above: Performed By: #### B ROSALINA, , 2776-10, CBC ####[facility] ([id number])[address], [address] [place] [address] Natriuretic peptide B [Mass/ Vol]on 11-07-2023 Natriuretic peptide B (Bld) [Mass/Vol] 568 pg/mL High <100.0 [facility] Comment on above: Performed By: #### 3 0934-4 ####[facility] ([id number])[address], [address] [address] PHOSPHORUSon 11-07-2023 Phosphate [Mass/Vol] 5.3 mg/dL High 2.4-4.9 [facility] Comment on above: Performed By: #### B ROSALINA, , 2776-10, CBC ####[facility] ([id number])[address], [address], [place] [address] BASIC METABOLIC PANLon 11-06 Anion gap [Moles/Vol] 7 mmol/L Normal 5-15 [facility] Comment on above: Performed By: #### 1 9122-9, 2777-, BMP, CBC ####[facility] ([id number])[address], [address], [place] [address] Calcium [Mass/Vol] 9.0 mg/dL Normal 8.5-10.5 [facility] Comment on above: Performed By: #### 1 23-9, 2777-, BMP, CBC ####[facility] ([id number])[address], [address], [place] [address] Chloride [Moles/Vol] 104 mmol/L Normal 98-109 [facility] Comment on above: Performed By: #### 1 9123-9, 2777-, BMP, CBC ####[facility] ([id number])[address] [address], [place] [address] CO2 [Moles/Vol] 24 mmol/L Normal 22-32 [facility] Comment on above: Performed By: #### 1 9123-9, 27704-29, [place], CBC ####[facility] ([id number])[address], [address], [place] [address] Creatinine [Mass/Vol] 1.74 mg/dL High 0.40-1.00 [facility] Comment on above: Result Comment: METH OD TRACEABLE TO IDMS STANDARD Performed By: #### 1 9123-9, 2776-10, [place], CBC ####[facility] ([id number])[address] [address], [place] [address] GFR/1.73 sq M.predicted among non-blacks MDRD (S/P/Bld) [Vol rate/Area] 35 mL/min/{1.73_m2} Low >59 [facility] Comment on above: Result Comment: Reported eGFR is based on the CKD-EPI 2020 equation that does not use a race coefficient. Performed By: #### 1 9123-9, 2776-10, [place], CBC ####[facility] ([id number])[address] [address], [place] [address] Glucose [Mass/Vol] 188 mg/dL High 65-99 [facility] Comment on above: Performed By: #### 1 9123-9, 2776-10, [place], CBC ####[facility] ([id number])[address] [address], [place] [address] Potassium [Moles/Vol] 3.8 mmol/L Normal 3.5-5.0 [facility] Comment on above: Performed By: #### 1 9123-9, 277-, [place], CBC ####[facility] ([id number])[address], [address], [place] [address] Sodium [Moles/Vol] 135 mmol/L Normal 134-146 [facility] Comment on above: Performed By: #### 1 9123-06, 2776-10, BMP, CBC ####[facility] ([id number])[address] [address] [place] [address] Urea nitrogen [Mass/Vol] 74 mg/dL High 5-23 [facility] Comment on above: Performed By: #### 1 9123-06, 2776-10, BMP, CBC ####[facility] ([id number])[address] [address] COMPLETE BLOOD COUNTon 11-06 Erythrocyte distribution width (RBC) [Ratio] 15.6 % High 11.5-15.0 [facility] Comment on above: Performed By: #### 1 9123-06, 2776-10, BMP, CBC ####[facility] ([id number])[address] [address] Hematocrit (Bld) [Volume fraction] 25.2 % Low 35-47 [facility] Comment on above: Performed By: #### 1 9123-06, 2776-10, BMP, CBC ####[facility] ([id number])[address] [address] Hemoglobin (Bld) [Mass/Vol] 8.3 g/dL Low 11.7-15.5 [facility] Comment on above: Performed By: #### 1 9122-, 2776-10, BMP, CBC ####[facility] ([id number])[address] [address] MCH (RBC) [Entitic mass] 28.5 pg Normal 27-34 [facility] Comment on above: Performed By: #### 1 9122-, 2776-10, BMP, CBC ####[facility] ([id number])[address], [address] [place] [address], [place] [address] MCHC (RBC) [Mass/Vol] 33.1 g/dL Normal 32-36 [facility] Comment on above: Performed By: #### 1 9123-9, 27704-29, BMP, CBC ####[facility] ([id number])[address], [address] [place] [address] MCV (RBC) [Entitic vol] 86 fL Normal 80-100 [facility] Comment on above: Performed By: #### 1 91-, 2776-10, BMP, CBC ####[facility] ([id number])[address], [address] [place] [address], [place] [address] Platelet mean volume (Bld) [Entitic vol] 9.3 fL Normal 7-12 [facility] Comment on above: Performed By: #### 1 9123-06, 2776-10, BMP, CBC ####[facility] ([id number])[address] [address] [place] [address] Platelets (Bld) [#/Vol] 351 10*3/uL Normal 150-450 [facility] Comment on above: Performed By: #### 1 91-, 2776-10, BMP, CBC ####[facility] ([id number])[address] [address] [place] [address] RBC COUNT 2.92 X10E12/L Low 3.80-5.20 [facility] Comment on above: Performed By: #### 1 9123-, 2776-10, BMP, CBC ####[facility] ([id number])[address] [address] [place] [address], [place] [address] WBC (Bld) [#/Vol] 9.2 10*3/uL Normal 4.0-11.0 [facility] Comment on above: Performed By: #### 1 9123-, 2776-10, BMP, CBC ####[facility] ([id number])[address] [address] Calcium.ionized (Bld) [Mass/ Vol]on 11-06-2023 IONIZED CALCIUM 5.0 mg/dL Normal 4.5-5.3 [facility] Comment on above: Performed By: #### 3 8230-9 ####[facility] ([id number])[address], [address] [place] [address] Glucose Glucometer (BldC) [M ass/Vol]on 11-06-2023 Glucose [Mass/Vol] 165 mg/dL High 65-99 [facility] Glucose [Mass/Vol] 129 mg/dL High 65-99 [facility] Glucose [Mass/Vol] 188 mg/dL High 65-99 [facility] MAGNESIUMon 11-06-2023 Magnesium [Mass/Vol] 2.1 mg/dL Normal 1.8-2.6 [facility] Comment on above: Performed By: #### 1 9123-9, 2777-1, BMP, CBC ####[facility] ([id number])[address] [address] PHOSPHORUSon 11-06-2023 Phosphate [Mass/Vol] 4.5 mg/dL Normal 2.4-4.9 [facility] Comment on above: Performed By: #### 1 9123-9, 2777-1, BMP, CBC ####[facility] ([id number])[address] [place] [address] BASIC METABOLIC PANLon 11-05 Anion gap [Moles/Vol] 12 mmol/L Normal 5-15 [facility] Comment on above: Performed By: #### 1 9123-9, CBC, BMP, 2777-1 ####[facility] ([id number])[address] [place] [address] Calcium [Mass/Vol] 9.0 mg/dL Normal 8.5-10.5 [facility] Comment on above: Performed By: #### 1 9123-9, CBC, BMP, 2776-10 ####[facility] ([id number])[address] [address] Chloride [Moles/Vol] 104 mmol/L Normal 98-109 [facility] Comment on above: Performed By: #### 1 9123-9, CBC, BMP, 2776-10 ####[facility] ([id number])[address] [address] CO2 [Moles/Vol] 23 mmol/L Normal 22-32 [facility] Comment on above: Performed By: #### 1 9123-9, CBC, BMP, 2776-10 ####[facility] ([id number])[address] [place] [address] Creatinine [Mass/Vol] 1.83 mg/dL High 0.40-1.00 [facility] Comment on above: Result Comment: METH OD TRACEABLE TO IDMS STANDARD Performed By: #### 1 9123-9, CBC, BMP, 2776-10 ####[facility] ([id number])[address], [place] [address] GFR/1.73 sq M.predicted among non-blacks MDRD (S/P/Bld) [Vol rate/Area] 33 mL/min/{1.73_m2} Low >59 [facility] Comment on above: Result Comment: Reported eGFR is based on the CKD-EPI 2020 equation that does not use a race coefficient. Performed By: #### 1 9123-9, CBC, BMP, 2776-10 ####[facility] ([id number])[address] [place] [address] Glucose [Mass/Vol] 153 mg/dL High 65-99 [facility] Comment on above: Performed By: #### 1 9123-9, CBC, BMP, 2776-10 ####[facility] ([id number])[address] [address], [place] [address] Potassium [Moles/Vol] 4.1 mmol/L Normal 3.5-5.0 [facility] Comment on above: Performed By: #### 1 9123-9, CBC, BMP, 2776-10 ####[facility] ([id number])[address] [address], [place] [address] Sodium [Moles/Vol] 139 mmol/L Normal 134-146 [facility] Comment on above: Performed By: #### 1 91-9, CBC, BMP, 2776-10 ####[facility] ([id number])[address] [address] [address] Urea nitrogen [Mass/Vol] 77 mg/dL High 5-23 [facility] Comment on above: Performed By: #### 1 9123-9, CBC, BMP, 2776-10 ####[facility] ([id number])[address] [address] [place] [address] COMPLETE BLOOD COUNTon 11-05 Erythrocyte distribution width (RBC) [Ratio] 15.8 % High 11.5-15.0 [facility] Comment on above: Performed By: #### 1 9123-9, CBC, BMP, 2776-10 ####[facility] ([id number])[address] [address] [place] [address] Hematocrit (Bld) [Volume fraction] 27.0 % Low 35-47 [facility] Comment on above: Performed By: #### 1 9123-9, CBC, BMP, 2776-10 ####[facility] ([id number])[address] [address], [place] [address] Hemoglobin (Bld) [Mass/Vol] 8.9 g/dL Low 11.7-15.5 [facility] Comment on above: Performed By: #### 1 9123-9, CBC, BMP, 2776- ####[facility] ([id number])[address] [address] MCH (RBC) [Entitic mass] 28.5 pg Normal 27-34 [facility] Comment on above: Performed By: #### 1 9123-9, CBC, BMP, 2776- ####[facility] ([id number])[address] [address] MCHC (RBC) [Mass/Vol] 32.9 g/dL Normal 32-36 [facility] Comment on above: Performed By: #### 1 9123-9, CBC, BMP, 2776-10 ####[facility] ([id number])[address] [place] [address] MCV (RBC) [Entitic vol] 87 fL Normal 80-100 [facility] Comment on above: Performed By: #### 1 9123-9, CBC, BMP, 2776- ####[facility] ([id number])[address] [address] [place] [address] Platelet mean volume (Bld) [Entitic vol] 9.5 fL Normal 7-12 [facility] Comment on above: Performed By: #### 1 9123-9, CBC, BMP, 2776-10 ####[facility] ([id number])[address] [address] [place] [address] Platelets (Bld) [#/Vol] 376 10*3/uL Normal 150-450 [facility] Comment on above: Performed By: #### 1 9123-9, CBC, BMP, 2776- ####[facility] ([id number])[address], [address] [place] [address] RBC COUNT 3.11 X10E12/L Low 3.80-5.20 [facility] Comment on above: Performed By: #### 1 9123-9, CBC, BMP, 277-1 ####[facility] ([id number])[address], [address] [place] [address] WBC (Bld) [#/Vol] 9.0 10*3/uL Normal 4.0-11.0 [facility] Comment on above: Performed By: #### 1 9123-9, CBC, BMP, 2776-1 ####[facility] ([id number])[address] [facility], [address] [place] [address] Calcium.ionized (Bld) [Mass/ Vol]on 11-05-2023 IONIZED CALCIUM 5.0 mg/dL Normal 4.5-5.3 [facility] Comment on above: Performed By: #### 3 8230-9 ####[facility] ([id number])[address], [address] [place] [address] Glucose Glucometer (BldC) [M ass/Vol]on 11-05-2023 Glucose [Mass/Vol] 192 mg/dL High 65-99 [facility] Glucose [Mass/Vol] 138 mg/dL High 65-99 [facility] Glucose [Mass/Vol] 140 mg/dL High 65-99 [facility] Glucose [Mass/Vol] 177 mg/dL High 65-99 [facility] MAGNESIUMon 11-05-2023 Magnesium [Mass/Vol] 2.1 mg/dL Normal 1.8-2.6 [facility] Comment on above: Performed By: #### 1 9123-9, CBC, BMP, 2771 ####[facility] ([id number])[address], [address] [place] [address] PHOSPHORUSon 11-05-2023 Phosphate [Mass/Vol] 5.0 mg/dL High 2.4-4.9 [facility] Comment on above: Performed By: #### 1 9123-9, CBC, BMP, 2776-1 ####[facility] ([id number])[address], [address] [place] [address] BASIC METABOLIC PANLon 11-04 Anion gap [Moles/Vol] 9 mmol/L Normal 5-15 [facility] Comment on above: Performed By: #### 1 9123-9, 2776-10, BMP, CBC ####[facility] ([id number])[address], [address], [place] [address] Calcium [Mass/Vol] 9.0 mg/dL Normal 8.5-10.5 [facility] Comment on above: Performed By: #### 1 91-9, 2776-10, BMP, CBC ####[facility] ([id number])[address], [address], [place] [address] Chloride [Moles/Vol] 103 mmol/L Normal 98-109 [facility] Comment on above: Performed By: #### 1 91-9, 2776-10, BMP, CBC ####[facility] ([id number])[address] [address], [place] [address] CO2 [Moles/Vol] 23 mmol/L Normal 22-32 [facility] Comment on above: Performed By: #### 1 9123-9, 2776-10, BMP, CBC ####[facility] ([id number])[address] [address] [place] [address] Creatinine [Mass/Vol] 1.96 mg/dL High 0.40-1.00 [facility] Comment on above: Result Comment: METH OD TRACEABLE TO IDMS STANDARD Performed By: #### 1 9123-9, 277-, BMP, CBC ####[facility] ([id number])[address] [address] [place] [address] GFR/1.73 sq M.predicted among non-blacks MDRD (S/P/Bld) [Vol rate/Area] 30 mL/min/{1.73_m2} Low >59 [facility] Comment on above: Result Comment: Reported eGFR is based on the CKD-EPI 2020 equation that does not use a race coefficient. Performed By: #### 1 9123-9, 2777-, BMP, CBC ####[facility] ([id number])[address], [address], [place] [address] Glucose [Mass/Vol] 244 mg/dL High 65-99 [facility] Comment on above: Performed By: #### 1 9123-9, 27704-29, BMP, CBC ####[facility] ([id number])[address], [address], [place] [address] Potassium [Moles/Vol] 4.2 mmol/L Normal 3.5-5.0 [facility] Comment on above: Performed By: #### 1 91-9, 2776-10, BMP, CBC ####[facility] ([id number])[address], [address], [place] [address] Sodium [Moles/Vol] 135 mmol/L Normal 134-146 [facility] Comment on above: Performed By: #### 1 9123-9, 2777, BMP, CBC ####[facility] ([id number])[address], [address], [place] [address] Urea nitrogen [Mass/Vol] 84 mg/dL High 5-23 [facility] Comment on above: Performed By: #### 1 9123-9, 2777-, BMP, CBC ####[facility] ([id number])[address], [address], [place] [address] COMPLETE BLOOD COUNTon 11-04 Erythrocyte distribution width (RBC) [Ratio] 15.5 % High 11.5-15.0 [facility] Comment on above: Performed By: #### 1 91, 04-29, BMP, CBC ####[facility] ([id number])[address] [address] [place] [address] Hematocrit (Bld) [Volume fraction] 26.2 % Low 35-47 [facility] Comment on above: Performed By: #### 1 91-, 2776-10, BMP, CBC ####[facility] ([id number])[address], [address] [place] [address] Hemoglobin (Bld) [Mass/Vol] 8.6 g/dL Low 11.7-15.5 [facility] Comment on above: Performed By: #### 1 91-, 2776-10, BMP, CBC ####[facility] ([id number])[address], [address] [place] [address] MCH (RBC) [Entitic mass] 28.3 pg Normal 27-34 [facility] Comment on above: Performed By: #### 1 91-, 2776-10, BMP, CBC ####[facility] ([id number])[address] [address] [place] [address] MCHC (RBC) [Mass/Vol] 33.0 g/dL Normal 32-36 [facility] Comment on above: Performed By: #### 1 9123-9, 2776-10, BMP, CBC ####[facility] ([id number])[address] [address] [place] [address] MCV (RBC) [Entitic vol] 86 fL Normal 80-100 [facility] Comment on above: Performed By: #### 1 9123-, 2776-10, BMP, CBC ####[facility] ([id number])[address], [address] [place] [address], [place] [address] Platelet mean volume (Bld) [Entitic vol] 9.2 fL Normal 7-12 [facility] Comment on above: Performed By: #### 1 9123-9, 2777-1, BMP, CBC ####[facility] ([id number])[address], [address] [place] [address] Platelets (Bld) [#/Vol] 372 10*3/uL Normal 150-450 [facility] Comment on above: Performed By: #### 1 9123-9, 2777-, BMP, CBC ####[facility] ([id number])[address], [address] [place] [address] RBC COUNT 3.05 X10E12/L Low 3.80-5.20 [facility] Comment on above: Performed By: #### 1 9123-9, 2777-, BMP, CBC ####[facility] ([id number])[address], [address] [place] [address]59 WBC (Bld) [#/Vol] 10.0 10*3/uL Normal 4.0-11.0 [facility] Comment on above: Performed By: #### 1 9123-9, 2777-, BMP, CBC ####[facility] ([id number])[address], [address] [place] [address] Calcium.ionized (Bld) [Mass/ Vol]on 11-04-2023 IONIZED CALCIUM 4.6 mg/dL Normal 4.5-5.3 [facility] Comment on above: Performed By: #### 3 8230-9 ####[facility] ([id number])[address], [address] [place] [address] Glucose Glucometer (BldC) [M ass/Vol]on 11-04-2023 Glucose [Mass/Vol] 146 mg/dL High 65-99 [facility] Glucose [Mass/Vol] 249 mg/dL High 65-99 [facility] Glucose [Mass/Vol] 345 mg/dL High 65-99 [facility] Glucose [Mass/Vol] 271 mg/dL High 65-99 [facility] Glucose [Mass/Vol] 294 mg/dL High 65-99 [facility] MAGNESIUMon 11-04-2023 Magnesium [Mass/Vol] 2.3 mg/dL Normal 1.8-2.6 [facility] Comment on above: Performed By: #### 1 9122-9, 2776-10, BMP, CBC ####[facility] ([id number])[address], [address], [place] [address] PHOSPHORUSon 11-04-2023 Phosphate [Mass/Vol] 3.7 mg/dL Normal 2.4-4.9 [facility] Comment on above: Performed By: #### 1 9123-06, 2776-10, BMP, CBC ####[facility] ([id number])[address], [address], [place] [address] BASIC METABOLIC PANLon 11-03 Anion gap [Moles/Vol] 11 mmol/L Normal 5-15 [facility] Comment on above: Performed By: #### B ROSALINA, , 2776-10, CBC ####[facility] ([id number])[address], [address], [place] [address] Calcium [Mass/Vol] 8.9 mg/dL Normal 8.5-10.5 [facility] Comment on above: Performed By: #### B ROSALINA, , 2776-10, CBC ####[facility] ([id number])[address], [address], [place] [address] Chloride [Moles/Vol] 102 mmol/L Normal 98-109 [facility] Comment on above: Performed By: #### B ROSALINA, , 2776-10, CBC ####[facility] ([id number])[address], [address], [place] [address] CO2 [Moles/Vol] 24 mmol/L Normal 22-32 [facility] Comment on above: Performed By: #### B ROSALINA, , 2776-10, CBC ####[facility] ([id number])[address], [address], [place] [address] Creatinine [Mass/Vol] 1.86 mg/dL High 0.40-1.00 [facility] Comment on above: Result Comment: METH OD TRACEABLE TO IDMS STANDARD Performed By: #### B ROSALINA, , 2776-10, CBC ####[facility] ([id number])[address] [address] [address] GFR/1.73 sq M.predicted among non-blacks MDRD (S/P/Bld) [Vol rate/Area] 32 mL/min/{1.73_m2} Low >59 [facility] Comment on above: Result Comment: Reported eGFR is based on the CKD-EPI 2020 equation that does not use a race coefficient. Performed By: #### B ROSALINA, , 2776-10, CBC ####[facility] ([id number])[address] [address] [address] Glucose [Mass/Vol] 186 mg/dL High 65-99 [facility] Comment on above: Performed By: #### B ROSALINA, , 2776-10, CBC ####[facility] ([id number])[address] [address], [place] [address] Potassium [Moles/Vol] 3.8 mmol/L Normal 3.5-5.0 [facility] Comment on above: Performed By: #### B ROSALINA, , 2776-10, CBC ####[facility] ([id number])[address] [address] [place] [address] Sodium [Moles/Vol] 137 mmol/L Normal 134-146 [facility] Comment on above: Performed By: #### B ROSALINA, , 2776-10, CBC ####[facility] ([id number])[address], [address] [address] Urea nitrogen [Mass/Vol] 78 mg/dL High 5-23 [facility] Comment on above: Performed By: #### B ROSALINA, , 2776-10, CBC ####[facility] ([id number])[address], [address] [place] [address] COMPLETE BLOOD COUNTon 11-03 Erythrocyte distribution width (RBC) [Ratio] 14.7 % Normal 11.5-15.0 [facility] Comment on above: Performed By: #### B ROSALINA, , 2776-10, CBC ####[facility] ([id number])[address] [address] [place] [address] Hematocrit (Bld) [Volume fraction] 26.1 % Low 35-47 [facility] Comment on above: Performed By: #### B ROSALINA, , 2776-10, CBC ####[facility] ([id number])[address] [address] [place] [address] Hemoglobin (Bld) [Mass/Vol] 8.8 g/dL Low 11.7-15.5 [facility] Comment on above: Performed By: #### B ROSALINA, , 2776-10, CBC ####[facility] ([id number])[address] [address] [place] [address] MCH (RBC) [Entitic mass] 28.4 pg Normal 27-34 [facility] Comment on above: Performed By: #### B ROSALINA, , 2776-10, CBC ####[facility] ([id number])[address] [address] [place] [address]54 MCHC (RBC) [Mass/Vol] 33.8 g/dL Normal 32-36 [facility] Comment on above: Performed By: #### B ROSALINA, , 2776-10, CBC ####[facility] ([id number])[address], [address], [place] [address] MCV (RBC) [Entitic vol] 84 fL Normal 80-100 [facility] Comment on above: Performed By: #### B ROSALINA, , 2776-10, CBC ####[facility] ([id number])[address], [address], [place] [address] Platelet mean volume (Bld) [Entitic vol] 9.0 fL Normal 7-12 [facility] Comment on above: Performed By: #### B ROSALINA, , 2776-10, CBC ####[facility] ([id number])[address] [address] [address] Platelets (Bld) [#/Vol] 389 10*3/uL Normal 150-450 [facility] Comment on above: Performed By: #### B ROSALINA, , 2776-10, CBC ####[facility] ([id number])[address] [address] [place] [address], [place] [address] RBC COUNT 3.10 X10E12/L Low 3.80-5.20 [facility] Comment on above: Performed By: #### B ROSALINA, , 2776-10, CBC ####[facility] ([id number])[address] [address] [place] [address], [place] [address] WBC (Bld) [#/Vol] 8.1 10*3/uL Normal 4.0-11.0 [facility] Comment on above: Performed By: #### B ROSALINA, , 2776-10, CBC ####[facility] ([id number])[address], [address], [place] [address] Calcium.ionized (Bld) [Mass/ Vol]on 11-03-2023 IONIZED CALCIUM 4.6 mg/dL Normal 4.5-5.3 [facility] Comment on above: Performed By: #### 3 8230-9 ####[facility] ([id number])[address], [address] [place] [address] Glucose Glucometer (BldC) [M ass/Vol]on 11-03-2023 Glucose [Mass/Vol] 126 mg/dL High 65-99 [facility] Glucose [Mass/Vol] 258 mg/dL High 65-99 [facility] Glucose [Mass/Vol] 189 mg/dL High 65-99 [facility] MAGNESIUMon 11-03-2023 Magnesium [Mass/Vol] 2.1 mg/dL Normal 1.8-2.6 [facility] Comment on above: Performed By: #### B ROSALINA, , 2776-10, CBC ####[facility] ([id number])[address], [address] [place] [address] PHOSPHORUSon 11-03-2023 Phosphate [Mass/Vol] 4.2 mg/dL Normal 2.4-4.9 [facility] Comment on above: Performed By: #### B ROSALINA, , 2776-10, CBC ####[facility] ([id number])[address], [address] [place] [address] BASIC METABOLIC PANLon 11-02 Anion gap [Moles/Vol] 11 mmol/L Normal 5-15 [facility] Comment on above: Performed By: #### B ROSALINA, 2776-10, CBC, ####[facility] ([id number])[address], [address] [place] [address]63 Calcium [Mass/Vol] 9.0 mg/dL Normal 8.5-10.5 [facility] Comment on above: Performed By: #### B ROSALINA, 2777-1, CBC, ####[facility] ([id number])[address] [address], [place] [address] Chloride [Moles/Vol] 99 mmol/L Normal 98-109 [facility] Comment on above: Performed By: #### B ROSALINA, 2777-1, CBC, ####[facility] ([id number])[address], [address], [place] [address] CO2 [Moles/Vol] 26 mmol/L Normal 22-32 [facility] Comment on above: Performed By: #### B ROSALINA, 277-, CBC, ####[facility] ([id number])[address] [address] [address] Creatinine [Mass/Vol] 1.78 mg/dL High 0.40-1.00 [facility] Comment on above: Result Comment: METH OD TRACEABLE TO IDMS STANDARD Performed By: #### B ROSALINA, 2776-, CBC, ####[facility] ([id number])[address] [address] GFR/1.73 sq M.predicted among non-blacks MDRD (S/P/Bld) [Vol rate/Area] 34 mL/min/{1.73_m2} Low >59 [facility] Comment on above: Result Comment: Reported eGFR is based on the CKD-EPI 2020 equation that does not use a race coefficient. Performed By: #### B ROSALINA, 2777-1, CBC, ####[facility] ([id number])[address] [address] [place] [address] Glucose [Mass/Vol] 143 mg/dL High 65-99 [facility] Comment on above: Performed By: #### B ROSALINA, 277-1, CBC, ####[facility] ([id number])[address] [place] [address] Potassium [Moles/Vol] 3.8 mmol/L Normal 3.5-5.0 [facility] Comment on above: Performed By: #### B ROSALINA, 2776-, CBC, ####[facility] ([id number])[address], [address] [address] Sodium [Moles/Vol] 136 mmol/L Normal 134-146 [facility] Comment on above: Performed By: #### B ROSALINA, 2776-, CBC, ####[facility] ([id number])[address] [address] [place] [address] Urea nitrogen [Mass/Vol] 77 mg/dL High 5-23 [facility] Comment on above: Performed By: #### B ROSALINA, 2776-, CBC, ####[facility] ([id number])[address] [address] COMPLETE BLOOD COUNTon 11-02 Erythrocyte distribution width (RBC) [Ratio] 14.7 % Normal 11.5-15.0 [facility] Comment on above: Performed By: #### B ROSALINA, 2776-, CBC, ####[facility] ([id number])[address] [address] Hematocrit (Bld) [Volume fraction] 27.5 % Low 35-47 [facility] Comment on above: Performed By: #### B ROSALINA, 2776-, CBC, ####[facility] ([id number])[address] [address] Hemoglobin (Bld) [Mass/Vol] 9.0 g/dL Low 11.7-15.5 [facility] Comment on above: Performed By: #### B ROSALINA, 2776-, CBC, ####[facility] ([id number])[address] [address], [place] [address] MCH (RBC) [Entitic mass] 28.1 pg Normal 27-34 [facility] Comment on above: Performed By: #### B ROSALINA, 2777-1, CBC, ####[facility] ([id number])[address], [address], [place] [address] MCHC (RBC) [Mass/Vol] 32.8 g/dL Normal 32-36 [facility] Comment on above: Performed By: #### B ROSALINA, 277-, CBC, ####[facility] ([id number])[address] [address], [place] [address] MCV (RBC) [Entitic vol] 86 fL Normal 80-100 [facility] Comment on above: Performed By: #### B ROSALINA, 2776-, CBC, ####[facility] ([id number])[address] [address], [place] [address] Platelet mean volume (Bld) [Entitic vol] 9.3 fL Normal 7-12 [facility] Comment on above: Performed By: #### Adam ROMANO, 2776-, CBC, ####[facility] ([id number])[address] [place] [address] Platelets (Bld) [#/Vol] 365 10*3/uL Normal 150-450 [facility] Comment on above: Performed By: #### B ROSALINA, 277-, CBC, ####[facility] ([id number])[address] [address] [place] [address] RBC COUNT 3.21 X10E12/L Low 3.80-5.20 [facility] Comment on above: Performed By: #### B ROSALINA, 277-, CBC, ####[facility] ([id number])[address], [address] [place] [address] WBC (Bld) [#/Vol] 8.9 10*3/uL Normal 4.0-11.0 [facility] Comment on above: Performed By: #### B MP, 7-1, CBC, 50868-2 ####[facility] ([id number])[address], [address] [place] [address] Calcium.ionized (Bld) [Mass/ Vol]on 11-02-2023 IONIZED CALCIUM 4.6 mg/dL Normal 4.5-5.3 [facility] Comment on above: Performed By: #### 3 8230-9 ####[facility] ([id number])[address], [address] [place] [address] Glucose Glucometer (BldC) [M ass/Vol]on 11-02-2023 Glucose [Mass/Vol] 237 mg/dL High 65-99 [facility] Glucose [Mass/Vol] 225 mg/dL High 65-99 [facility] Glucose [Mass/Vol] 228 mg/dL High 65-99 [facility] Glucose [Mass/Vol] 198 mg/dL High 65-99 [facility] MAGNESIUMon 11-02-2023 Magnesium [Mass/Vol] 2.4 mg/dL Normal 1.8-2.6 [facility] Comment on above: Performed By: #### B MP, 2776-1, CBC, 88887-5 ####[facility] ([id number])[address], [address] [place] [address] MR CARDIAC FOR MORPH W WO CO Non 11-02-2023 MR CARDIAC FOR MORPH W WO CON MR CARDIAC FOR MORPH W WO CON STUDY: Cardiac MRI with and without contrast CLINICAL HISTORY: Left?Ventricle: Systolic function is mildly decreased with an ejection fraction of 45-50%. 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 Recommend cardiac mri for further characterization. COMPARISON: Cardiac echo 10/20/2023. TECHNIQUE: Cardiac MRI was performed utilizing gated steady state free precession imaging prior to and following the uneventful administration of 36 cc ProHance intravenous gadolinium contrast for evaluation of delayed myocardial enhancement. Multiplanar multisequence imaging was performed. FINDINGS: The left ventricle is normal in size. Global systolic left ventricular function is mildly diminished. Global hypokinesis, apical akinesis.. 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 Left ventricular quantitative parameters as follows: Ejection Fraction 44% (normal: male = 49-79 %; female = 52-79 %). End Diastolic Diameter is 51 mm (normal: Male: 42-62-mm, female = 39-59 mm). Stroke Volume 64 mL. End Diastolic Volume 144 mL (normal: male = 95-215 ml; female = 78-167 ml). End Systolic Volume 80 mL (normal: male = 25-85 ml, female = 21-64 ml). Anteroseptal wall thickness: 1.0 cm. Posterolateral wall thickness: 0.8 cm. No significant edema on STIR imaging. Uniform first pass perfusion. Focal transmural apical septal, apical lateral, mid anterior delayed myocardial enhancement. Small focus of subendocardial, mid wall LGE basal inferolateral wall. Left atrium is normal in size. Mild mitral regurgitation. Right ventricle is normal in size. No focal right ventricular wall motion abnormality is identified. No evidence of fibrofatty infiltration of the right ventricular wall. Right atrium is normal in size. No evidence of tricuspid regurgitation. IMPRESSION: Mildly diminished left ventricular function, apical akinesis. Small apical septal aneurysm. Ischemic cardiomyopathy with regions apical, basal inferolateral LGE. The exam was read in conjunction with Dr. Gilliland of the cardiology Department. Finalized by Tahira Huber MD on 11/02/2023 11:23 AM Normal [facility] PHOSPHORUSon 11-02-2023 Phosphate [Mass/Vol] 3.7 mg/dL Normal 2.4-4.9 [facility] Comment on above: Performed By: #### B MP, 2777-1, CBC, 21941-3 ####[facility] ([id number] [facility], [address], [place] [address] BASIC METABOLIC PANLon 11-01 Anion gap [Moles/Vol] 11 mmol/L Normal 5-15 [facility] Comment on above: Performed By: #### 1 9123-9, [place], 2776-, CBC ####[facility] ([id number])[address], [address], [place] [address] Calcium [Mass/Vol] 9.0 mg/dL Normal 8.5-10.5 [facility] Comment on above: Performed By: #### 1 9123-9, [place], 2776-, CBC ####[facility] ([id number])[address], [address], [place] [address] Chloride [Moles/Vol] 95 mmol/L Low 98-109 [facility] Comment on above: Performed By: #### 1 9123-9, [place], 2776-, CBC ####[facility] ([id number])[address], [address], [place] [address] CO2 [Moles/Vol] 28 mmol/L Normal 22-32 [facility] Comment on above: Performed By: #### 1 9123-9, [place], 2776-, CBC ####[facility] ([id number])[address], [address] [address] Creatinine [Mass/Vol] 1.95 mg/dL High 0.40-1.00 [facility] Comment on above: Result Comment: METH OD TRACEABLE TO IDMS STANDARD Performed By: #### 1 9123-9, [place], 2776-, CBC ####[facility] ([id number])[address], [address] [place] [address], [place] [address] GFR/1.73 sq M.predicted among non-blacks MDRD (S/P/Bld) [Vol rate/Area] 30 mL/min/{1.73_m2} Low >59 [facility] Comment on above: Result Comment: Reported eGFR is based on the CKD-EPI 2020 equation that does not use a race coefficient. Performed By: #### 1 91-9, [place], 2776-, CBC ####[facility] ([id number])[address], [address], [place] [address] Glucose [Mass/Vol] 158 mg/dL High 65-99 [facility] Comment on above: Performed By: #### 1 9122-9, [place], 2776-, CBC ####[facility] ([id number])[address] [address] [address] Potassium [Moles/Vol] 3.6 mmol/L Normal 3.5-5.0 [facility] Comment on above: Performed By: #### 1 9122-9, [place], 2776-, CBC ####[facility] ([id number])[address] [address] [address] Sodium [Moles/Vol] 134 mmol/L Normal 134-146 [facility] Comment on above: Performed By: #### 1 9122-9, [place], 2776-10, CBC ####[facility] ([id number])[address] [address], [place] [address] Urea nitrogen [Mass/Vol] 85 mg/dL High 5-23 [facility] Comment on above: Performed By: #### 1 9123-9, [place], 2776-10, CBC ####[facility] ([id number])[address] [address], [place] [address] COMPLETE BLOOD COUNTon 11-01 Erythrocyte distribution width (RBC) [Ratio] 14.5 % Normal 11.5-15.0 [facility] Comment on above: Performed By: #### 1 9123-9, [place], 2776-, CBC ####[facility] ([id number])[address] [place] [address] Hematocrit (Bld) [Volume fraction] 27.1 % Low 35-47 [facility] Comment on above: Performed By: #### 1 9122-9, [facility], 2776-10, CBC ####[facility] ([id number])[address], [address] [place] [address], [place] [address] Hemoglobin (Bld) [Mass/Vol] 9.1 g/dL Low 11.7-15.5 [facility] Comment on above: Performed By: #### 1 9122-9, [facility], 2776-10, CBC ####[facility] ([id number])[address], [address] [address] MCH (RBC) [Entitic mass] 27.8 pg Normal 27-34 [facility] Comment on above: Performed By: #### 1 9122-9, [facility], 2776-10, CBC ####[facility] ([id number])[address], [address] [place] [address] MCHC (RBC) [Mass/Vol] 33.5 g/dL Normal 32-36 [facility] Comment on above: Performed By: #### 1 9122-9, [facility], 2776-10, CBC ####[facility] ([id number])[address] [address] MCV (RBC) [Entitic vol] 83 fL Normal 80-100 [facility] Comment on above: Performed By: #### 1 23-9, [facility], 2776-10, CBC ####[facility] ([id number])[address] [place] [address] Platelet mean volume (Bld) [Entitic vol] 9.3 fL Normal 7-12 [facility] Comment on above: Performed By: #### 1 9122-9, BMP, 2776-10, CBC ####[facility] ([id number])[address] [address] [place] [address] Platelets (Bld) [#/Vol] 359 10*3/uL Normal 150-450 [facility] Comment on above: Performed By: #### 1 9123-9, [facility], 2776-10, CBC ####[facility] ([id number])[address] [address] RBC COUNT 3.27 X10E12/L Low 3.80-5.20 [facility] Comment on above: Performed By: #### 1 9123-9, [facility], 2776-10, CBC ####[facility] ([id number])[address] [address] WBC (Bld) [#/Vol] 8.9 10*3/uL Normal 4.0-11.0 [facility] Comment on above: Performed By: #### 1 9123-9, [facility], 2776-10, CBC ####[facility] ([id number])[address] [address] Calcium.ionized (Bld) [Mass/ Vol]on 11-01-2023 IONIZED CALCIUM 4.7 mg/dL Normal 4.5-5.3 [facility] Comment on above: Performed By: #### 3 8230-9 ####[facility] ([id number])[address] [address] Glucose Glucometer (BldC) [M ass/Vol]on 11-01-2023 Glucose [Mass/Vol] 246 mg/dL High 65-99 [facility] Glucose [Mass/Vol] 197 mg/dL High 65-99 [facility] Glucose [Mass/Vol] 291 mg/dL High 65-99 [facility] Glucose [Mass/Vol] 202 mg/dL High 65-99 [facility] MAGNESIUMon 11-01-2023 Magnesium [Mass/Vol] 2.3 mg/dL Normal 1.8-2.6 [facility] Comment on above: Performed By: #### 1 9123-9, BMP, 2776-, CBC ####[facility] ([id number])[address], [address] [place] [address] PHOSPHORUSon 11-01-2023 Phosphate [Mass/Vol] 3.3 mg/dL Normal 2.4-4.9 [facility] Comment on above: Performed By: #### 1 91-9, BMP, 2776-, CBC ####[facility] ([id number])[address], [address] [place] [address] POTASSIUMon 11-01-2023 Potassium [Moles/Vol] 3.9 mmol/L Normal 3.5-5.0 [facility] Comment on above: Performed By: #### 2 823-3 ####[facility] ([id number])[address], [address] [place] [address] BASIC METABOLIC PANLon 10-31 Anion gap [Moles/Vol] 11 mmol/L Normal 5-15 [facility] Comment on above: Performed By: #### 1 9123-9, BMP, CBC, 2776- ####[facility] ([id number])[address], [address] [place] [address] Calcium [Mass/Vol] 8.7 mg/dL Normal 8.5-10.5 [facility] Comment on above: Performed By: #### 1 9123-9, BMP, CBC, 2776- ####[facility] ([id number])[address], [address] [place] [address] Chloride [Moles/Vol] 95 mmol/L Low 98-109 [facility] Comment on above: Performed By: #### 1 9123-9, BMP, CBC, 2776-1 ####[facility] ([id number])[address], [address] [place] [address] CO2 [Moles/Vol] 27 mmol/L Normal 22-32 [facility] Comment on above: Performed By: #### 1 9123-9, BMP, CBC, 2776- ####[facility] ([id number])[address], [address] [place] [address] Creatinine [Mass/Vol] 2.60 mg/dL High 0.40-1.00 [facility] Comment on above: Result Comment: METH OD TRACEABLE TO IDMS STANDARD Performed By: #### 1 9123-9, [place], CBC, 2776- ####[facility] ([id number])[address] [place] [address] GFR/1.73 sq M.predicted among non-blacks MDRD (S/P/Bld) [Vol rate/Area] 22 mL/min/{1.73_m2} Low >59 [facility] Comment on above: Result Comment: Reported eGFR is based on the CKD-EPI 2020 equation that does not use a race coefficient. Performed By: #### 1 9123-9, [place], CBC, 2776- ####[facility] ([id number])[address] [address], [place] [address] Glucose [Mass/Vol] 170 mg/dL High 65-99 [facility] Comment on above: Performed By: #### 1 9123-9, BMP, CBC, 2776- ####[facility] ([id number])[address] [address] [place] [address] Potassium [Moles/Vol] 4.7 mmol/L Normal 3.5-5.0 [facility] Comment on above: Performed By: #### 1 9123-9, BMP, CBC, 2776-1 ####[facility] ([id number])[address] [address] [place] [address] Sodium [Moles/Vol] 133 mmol/L Low 134-146 [facility] Comment on above: Performed By: #### 1 9122-9, BMP, CBC, 2776- ####[facility] ([id number])[address], [address], [place] [address] Urea nitrogen [Mass/Vol] 91 mg/dL High 5-23 [facility] Comment on above: Performed By: #### 1 9122-9, BMP, CBC, 2776- ####[facility] ([id number])[address], [address], [place] [address] COMPLETE BLOOD COUNTon 10-31 Erythrocyte distribution width (RBC) [Ratio] 14.5 % Normal 11.5-15.0 [facility] Comment on above: Performed By: #### 1 9122-9, BMP, CBC, 2776- ####[facility] ([id number])[address], [place] [address] Hematocrit (Bld) [Volume fraction] 27.0 % Low 35-47 [facility] Comment on above: Performed By: #### 1 9122-9, BMP, CBC, 2776- ####[facility] ([id number])[address] [address], [place] [address] Hemoglobin (Bld) [Mass/Vol] 9.2 g/dL Low 11.7-15.5 [facility] Comment on above: Performed By: #### 1 9122-9, BMP, CBC, 2776- ####[facility] ([id number])[address], [address], [place] [address] MCH (RBC) [Entitic mass] 28.6 pg Normal 27-34 [facility] Comment on above: Performed By: #### 1 9122-9, BMP, CBC, 2776- ####[facility] ([id number])[address], [address], [place] [address] MCHC (RBC) [Mass/Vol] 34.3 g/dL Normal 32-36 [facility] Comment on above: Performed By: #### 1 9123-9, BMP, CBC, 2776- ####[facility] ([id number])[address], [address], [place] [address] MCV (RBC) [Entitic vol] 83 fL Normal 80-100 [facility] Comment on above: Performed By: #### 1 9122-9, BMP, CBC, 2776- ####[facility] ([id number])[address], [address] [address] Platelet mean volume (Bld) [Entitic vol] 9.2 fL Normal 7-12 [facility] Comment on above: Performed By: #### 1 9122-9, BMP, CBC, 2776- ####[facility] ([id number])[address] [address] [place] [address] Platelets (Bld) [#/Vol] 320 10*3/uL Normal 150-450 [facility] Comment on above: Performed By: #### 1 9123-9, BMP, CBC, 2776-10 ####[facility] ([id number])[address] [address] [place] [address], [place] [address] RBC COUNT 3.23 X10E12/L Low 3.80-5.20 [facility] Comment on above: Performed By: #### 1 9123-9, BMP, CBC, 2776- ####[facility] ([id number])[address] [address] [place] [address] WBC (Bld) [#/Vol] 8.4 10*3/uL Normal 4.0-11.0 [facility] Comment on above: Performed By: #### 1 9123-9, BMP, CBC, 2776- ####[facility] ([id number])[address], [address] [place] [address] Calcium.ionized (Bld) [Mass/ Vol]on 10-31-2023 IONIZED CALCIUM 4.0 mg/dL Low 4.5-5.3 [facility] Comment on above: Performed By: #### 3 8230-9 ####[facility] ([id number])[address], [address] [place] [address] Glucose Glucometer (BldC) [M ass/Vol]on 10-31-2023 Glucose [Mass/Vol] 309 mg/dL High 65-99 [facility] Glucose [Mass/Vol] 198 mg/dL High 65-99 [facility] Glucose [Mass/Vol] 210 mg/dL High 65-99 [facility] Glucose [Mass/Vol] 220 mg/dL High 65-99 [facility] Glucose [Mass/Vol] 203 mg/dL High 65-99 [facility] Glucose [Mass/Vol] 162 mg/dL High 65-99 [facility] MAGNESIUMon 10-31-2023 Magnesium [Mass/Vol] 2.3 mg/dL Normal 1.8-2.6 [facility] Comment on above: Performed By: #### 1 9123-9, BMP, CBC, 2777-1 ####[facility] ([id number])[address], [address] [place] [address] PHOSPHORUSon 10-31-2023 Phosphate [Mass/Vol] 4.3 mg/dL Normal 2.4-4.9 [facility] Comment on above: Result Comment: SPEC IMEN HEMOLYZED, RESULTS INCREASED SLIGHTLY HEMOLYZED Performed By: #### 1 9123-9, BMP, CBC, 2777-1 ####[facility] ([id number])[address], [address] [place] [address] XR CHEST 1 VWon 10-31-2023 XR CHEST 1 VW XR CHEST 1 VW Single view chest History: Difficulty breathing, shortness of breath. Comparison: 10/29/2023 Findings: Stable Cardiomediastinal silhouette. Similar patchy and streaky perihilar opacities. Trace effusions. No pneumothorax. Impression: Similar patchy/streaky perihilar opacities Finalized by Blaine Zhou MD on 10/31/2023 5:18 AM Normal [facility] BASIC METABOLIC PANLon 10-30 Anion gap [Moles/Vol] 11 mmol/L Normal 5-15 [facility] Comment on above: Performed By: #### 2 777-1, , CBC, BMP ####[facility] ([id number])[address], [address], [place] [address] Calcium [Mass/Vol] 8.8 mg/dL Normal 8.5-10.5 [facility] Comment on above: Performed By: #### 2 777-1, , CBC, BMP ####[facility] ([id number])[address] [address] Chloride [Moles/Vol] 91 mmol/L Low 98-109 [facility] Comment on above: Performed By: #### 2 777-1, , CBC, BMP ####[facility] ([id number])[address], [place] [address] CO2 [Moles/Vol] 30 mmol/L Normal 22-32 [facility] Comment on above: Performed By: #### 2 777-1, , CBC, BMP ####[facility] ([id number])[address], [address] [address] Creatinine [Mass/Vol] 2.76 mg/dL High 0.40-1.00 [facility] Comment on above: Result Comment: METH OD TRACEABLE TO IDMS STANDARD Performed By: #### 2 777-1, , CBC, BMP ####[facility] ([id number])[address] [address] GFR/1.73 sq M.predicted among non-blacks MDRD (S/P/Bld) [Vol rate/Area] 20 mL/min/{1.73_m2} Low >59 [facility] Comment on above: Result Comment: Reported eGFR is based on the CKD-EPI 2020 equation that does not use a race coefficient. Performed By: #### 2 777-1, , CBC, BMP ####[facility] ([id number])[address] [address] Glucose [Mass/Vol] 162 mg/dL High 65-99 [facility] Comment on above: Performed By: #### 2 777-1, , CBC, BMP ####[facility] ([id number])[address] [address] Potassium [Moles/Vol] 3.7 mmol/L Normal 3.5-5.0 [facility] Comment on above: Performed By: #### 2 777-1, , CBC, BMP ####[facility] ([id number])[address] [address] Sodium [Moles/Vol] 132 mmol/L Low 134-146 [facility] Comment on above: Performed By: #### 2 777-1, , CBC, BMP ####[facility] ([id number])[address] [address] Urea nitrogen [Mass/Vol] 87 mg/dL High 5-23 [facility] Comment on above: Performed By: #### 2 777-1, , CBC, BMP ####[facility] ([id number])[address] [address] COMPLETE BLOOD COUNTon 10-30 Erythrocyte distribution width (RBC) [Ratio] 14.4 % Normal 11.5-15.0 [facility] Comment on above: Performed By: #### 2 777-1, , CBC, BMP ####[facility] ([id number])[address], [address], [place] [address] Hematocrit (Bld) [Volume fraction] 29.4 % Low 35-47 [facility] Comment on above: Performed By: #### 2 777-1, , CBC, BMP ####[facility] ([id number])[address], [address], [place] [address] Hemoglobin (Bld) [Mass/Vol] 9.9 g/dL Low 11.7-15.5 [facility] Comment on above: Performed By: #### 2 777-1, , CBC, BMP ####[facility] ([id number])[address], [address], [place] [address] MCH (RBC) [Entitic mass] 28.2 pg Normal 27-34 [facility] Comment on above: Performed By: #### 2 777-1, , CBC, BMP ####[facility] ([id number])[address], [address] [place] [address], [place] [address] MCHC (RBC) [Mass/Vol] 33.5 g/dL Normal 32-36 [facility] Comment on above: Performed By: #### 2 777-1, , CBC, BMP ####[facility] ([id number])[address], [address], [place] [address] MCV (RBC) [Entitic vol] 84 fL Normal 80-100 [facility] Comment on above: Performed By: #### 2 777-1, , CBC, BMP ####[facility] ([id number])[address] [address] Platelet mean volume (Bld) [Entitic vol] 9.4 fL Normal 7-12 [facility] Comment on above: Performed By: #### 2 777-1, , CBC, BMP ####[facility] ([id number])[address], [address] [place] [address] Platelets (Bld) [#/Vol] 340 10*3/uL Normal 150-450 [facility] Comment on above: Performed By: #### 2 777-1, , CBC, BMP ####[facility] ([id number])[address], [address] [address] RBC COUNT 3.50 X10E12/L Low 3.80-5.20 [facility] Comment on above: Performed By: #### 2 777-1, , CBC, BMP ####[facility] ([id number])[address] [address] [place] [address] WBC (Bld) [#/Vol] 9.8 10*3/uL Normal 4.0-11.0 [facility] Comment on above: Performed By: #### 2 777-1, , CBC, BMP ####[facility] ([id number])[address] [address] Calcium.ionized (Bld) [Mass/ Vol]on 10-30-2023 IONIZED CALCIUM 4.2 mg/dL Low 4.5-5.3 [facility] Comment on above: Performed By: #### 3 8230-9 ####[facility] ([id number])[address] [address] Glucose Glucometer (BldC) [M ass/Vol]on 10-30-2023 Glucose [Mass/Vol] 209 mg/dL High 65-99 [facility] Glucose [Mass/Vol] 290 mg/dL High 65-99 [facility] Glucose [Mass/Vol] 191 mg/dL High 65-99 [facility] Glucose [Mass/Vol] 310 mg/dL High 65-99 [facility] MAGNESIUMon 10-30-2023 Magnesium [Mass/Vol] 2.3 mg/dL Normal 1.8-2.6 [facility] Comment on above: Performed By: #### 2 777-1, 87881-6, CBC, BMP ####[facility] ([id number])[address], [place] [address] PHOSPHORUSon 10-30-2023 Phosphate [Mass/Vol] 5.5 mg/dL High 2.4-4.9 [facility] Comment on above: Performed By: #### 2 777-1, 30461-0, CBC, BMP ####[facility] ([id number])[address] [place] [address] POTASSIUMon 10-30-2023 Potassium [Moles/Vol] 4.1 mmol/L Normal 3.5-5.0 [facility] Comment on above: Performed By: #### 2 823-3 ####[facility] ([id number])[address] [place] [address] Potassium [Moles/Vol] 3.8 mmol/L Normal 3.5-5.0 [facility] Comment on above: Performed By: #### 2 823-3, 63407-8 ####[facility] ([id number])[address] [place] [address] Procalcitonin IA [Mass/Vol]o n 10-30-2023 PROCALCITONIN 0.61 ng/mL High <0.05 [facility] Comment on above: Result Comment: NOTE <0.50 ng/mL - Low risk of severe sepsis and/or septic shock. <2.00 ng/mL - Recommend retesting within 6-24 hours. >2.00 ng/mL - High risk of sepsis and/or septic shock. Performed By: #### 2 823-3, 09603-7 ####[facility] ([id number])[address], [place] [address] BASIC METABOLIC PANLon 10-29 Anion gap [Moles/Vol] 13 mmol/L Normal 5-15 [facility] Comment on above: Performed By: #### Pato VÁZQUEZ, 2776-10, , BMP ####[facility] ([id number])[address] [address] [place] [address] Calcium [Mass/Vol] 8.7 mg/dL Normal 8.5-10.5 [facility] Comment on above: Performed By: #### Pato VÁZQUEZ, 2776-10, , BMP ####[facility] ([id number])[address] [place] [address] Chloride [Moles/Vol] 91 mmol/L Low 98-109 [facility] Comment on above: Performed By: #### Pato VÁZQUEZ, 2776-10, , BMP ####[facility] ([id number])[address] [address], [place] [address] CO2 [Moles/Vol] 32 mmol/L Normal 22-32 [facility] Comment on above: Performed By: #### Pato VÁZQUEZ, 2776-10, , BMP ####[facility] ([id number])[address] [address], [place] [address] Creatinine [Mass/Vol] 2.36 mg/dL High 0.40-1.00 [facility] Comment on above: Result Comment: METH OD TRACEABLE TO IDMS STANDARD Performed By: #### Pato VÁZQUEZ, 2776-10, , BMP ####[facility] ([id number])[address] [address], [place] [address] GFR/1.73 sq M.predicted among non-blacks MDRD (S/P/Bld) [Vol rate/Area] 24 mL/min/{1.73_m2} Low >59 [facility] Comment on above: Result Comment: Reported eGFR is based on the CKD-EPI 2020 equation that does not use a race coefficient. Performed By: #### C , 2776-10, , BMP ####[facility] ([id number])[address], [place] [address] Glucose [Mass/Vol] 134 mg/dL High 65-99 [facility] Comment on above: Performed By: #### Pato VÁZQUEZ, 2776-10, , BMP ####[facility] ([id number])[address] [address], [place] [address] Potassium [Moles/Vol] 3.6 mmol/L Normal 3.5-5.0 [facility] Comment on above: Performed By: #### Pato , 2776-10, , BMP ####[facility] ([id number])[address] [address], [place] [address] Sodium [Moles/Vol] 136 mmol/L Normal 134-146 [facility] Comment on above: Performed By: #### Pato VÁZQUEZ, 2776-10, , BMP ####[facility] ([id number])[address] [address], [place] [address] Urea nitrogen [Mass/Vol] 70 mg/dL High 5-23 [facility] Comment on above: Performed By: #### Pato VÁZQUEZ, 2776-10, , BMP ####[facility] ([id number])[address] [address], [place] [address] COMPLETE BLOOD COUNTon 10-29 Erythrocyte distribution width (RBC) [Ratio] 14.8 % Normal 11.5-15.0 [facility] Comment on above: Performed By: #### Pato , 2776-10, , BMP ####[facility] ([id number])[address] [address] Hematocrit (Bld) [Volume fraction] 27.7 % Low 35-47 [facility] Comment on above: Performed By: #### Pato VÁZQUEZ, 2776-10, , BMP ####[facility] ([id number])[address], [address] [address] Hemoglobin (Bld) [Mass/Vol] 9.2 g/dL Low 11.7-15.5 [facility] Comment on above: Performed By: #### Pato VÁZQUEZ, 2776-10, , BMP ####[facility] ([id number])[address] [address] MCH (RBC) [Entitic mass] 27.9 pg Normal 27-34 [facility] Comment on above: Performed By: #### Pato VÁZQUEZ, 2776-10, , BMP ####[facility] ([id number])[address] [address] [place] [address] MCHC (RBC) [Mass/Vol] 33.2 g/dL Normal 32-36 [facility] Comment on above: Performed By: #### Pato VÁZQUEZ, 2776-10, , BMP ####[facility] ([id number])[address], [address], [place] [address] MCV (RBC) [Entitic vol] 84 fL Normal 80-100 [facility] Comment on above: Performed By: #### Pato VÁZQUEZ, 2776-10, , BMP ####[facility] ([id number])[address], [address], [place] [address] Platelet mean volume (Bld) [Entitic vol] 9.5 fL Normal 7-12 [facility] Comment on above: Performed By: #### Pato , 2776-10, , BMP ####[facility] ([id number])[address], [address] [place] [address] Platelets (Bld) [#/Vol] 274 10*3/uL Normal 150-450 [facility] Comment on above: Performed By: #### Pato VÁZQUEZ, 2776-10, , BMP ####[facility] ([id number])[address], [address] [place] [address] RBC COUNT 3.29 X10E12/L Low 3.80-5.20 [facility] Comment on above: Performed By: #### Pato VÁZQUEZ, 2776-10, , BMP ####[facility] ([id number])[address], [address] [place] [address] WBC (Bld) [#/Vol] 5.4 10*3/uL Normal 4.0-11.0 [facility] Comment on above: Performed By: #### Pato VÁZQUEZ, 2776-10, , BMP ####[facility] ([id number])[address], [address] [place] [address] Calcium.ionized (Bld) [Mass/ Vol]on 10-29-2023 IONIZED CALCIUM 4.4 mg/dL Low 4.5-5.3 [facility] Comment on above: Performed By: #### 3 8230-9 ####[facility] ([id number])[address], [address] [place] [address] Glucose Glucometer (BldC) [M ass/Vol]on 10-29-2023 Glucose [Mass/Vol] 223 mg/dL High 65-99 [facility] Glucose [Mass/Vol] 185 mg/dL High 65-99 [facility] Glucose [Mass/Vol] 133 mg/dL High 65-99 [facility] Glucose [Mass/Vol] 334 mg/dL High 65-99 [facility] MAGNESIUMon 10-29-2023 Magnesium [Mass/Vol] 2.2 mg/dL Normal 1.8-2.6 [facility] Comment on above: Performed By: #### [place], [address]-29, 04187-2, BMP ####[facility] ([id number])[address], [address] [place] [address] PHOSPHORUSon 10-29-2023 Phosphate [Mass/Vol] 4.8 mg/dL Normal 2.4-4.9 [facility] Comment on above: Performed By: #### C BC, 2776-10, , BMP ####[facility] ([id number])[address], [address] [place] [address] POTASSIUMon 10-29-2023 Potassium [Moles/Vol] 4.0 mmol/L Normal 3.5-5.0 [facility] Comment on above: Performed By: #### 2 823-3 ####[facility] ([id number])[address], [address] [place] [address] XR CHEST 1 VWon 10-29-2023 XR CHEST 1 VW XR CHEST 1 VW Clinical History: Pulmonary edema Portable Upright chest: 10/29/2023 Comparison: 10/28/2023 Findings: A single portable view of the chest was obtained. There is vascular prominence centrally with indistinct vascular margins. There is no confluent opacity peripherally. No pneumothorax or pleural effusion is present. IMPRESSION: Pulmonary vascular congestion with no focal infiltrate. Finalized by Jefry Urbina MD on 10/29/2023 7:02 AM Normal [facility] COMPLETE BLOOD COUNTon 10-28 Erythrocyte distribution width (RBC) [Ratio] 14.6 % Normal 11.5-15.0 [facility] Comment on above: Performed By: #### 1 9123-9, 2776-, CMP, CBC ####[facility] ([id number])[address] [address] [place] [address], [place] [address] Hematocrit (Bld) [Volume fraction] 27.4 % Low 35-47 [facility] Comment on above: Performed By: #### 1 91-, 277-, CMP, CBC ####[facility] ([id number])[address] [address] [place] [address] Hemoglobin (Bld) [Mass/Vol] 9.2 g/dL Low 11.7-15.5 [facility] Comment on above: Performed By: #### 1 9122-, 2776-10, CMP, CBC ####[facility] ([id number])[address] [address] MCH (RBC) [Entitic mass] 28.4 pg Normal 27-34 [facility] Comment on above: Performed By: #### 1 9123-06, 2776-10, CMP, CBC ####[facility] ([id number])[address] [address] MCHC (RBC) [Mass/Vol] 33.5 g/dL Normal 32-36 [facility] Comment on above: Performed By: #### 1 91-, 277-, CMP, CBC ####[facility] ([id number])[address] [address] MCV (RBC) [Entitic vol] 85 fL Normal 80-100 [facility] Comment on above: Performed By: #### 1 91-, 27704-29, CMP, CBC ####[facility] ([id number])[address] [address] [place] [address], [place] [address] Platelet mean volume (Bld) [Entitic vol] 10.0 fL Normal 7-12 [facility] Comment on above: Performed By: #### 1 91-, 277-, CMP, CBC ####[facility] ([id number])[address], [address], [place] [address] Platelets (Bld) [#/Vol] 240 10*3/uL Normal 150-450 [facility] Comment on above: Performed By: #### 1 9123-9, 2777-1, CMP, CBC ####[facility] ([id number])[address], [address], [place] [address] RBC COUNT 3.24 X10E12/L Low 3.80-5.20 [facility] Comment on above: Performed By: #### 1 9123-9, 2777-, CMP, CBC ####[facility] ([id number])[address] [address] [place] [address], [place] [address] WBC (Bld) [#/Vol] 7.8 10*3/uL Normal 4.0-11.0 [facility] Comment on above: Performed By: #### 1 9123-9, 2777-, CMP, CBC ####[facility] ([id number])[address], [place] [address] COMPREHENSIVE METABOLIC PANE Chang 10-28-2023 Albumin [Mass/Vol] 3.3 g/dL Normal 3.2-5.3 [facility] Comment on above: Performed By: #### 1 9123-9, 2777-, CMP, CBC ####[facility] ([id number])[address], [address], [place] [address] ALP [Catalytic activity/Vol] 59 U/L Normal 39-130 [facility] Comment on above: Performed By: #### 1 9123-9, 2777-, CMP, CBC ####[facility] ([id number])[address], [address], [place] [address] ALT [Catalytic activity/Vol] 18 U/L Normal 0-31 [facility] Comment on above: Performed By: #### 1 9123-9, 2777-, CMP, CBC ####[facility] ([id number])[address], [address], [place] [address] Anion gap [Moles/Vol] 11 mmol/L Normal 5-15 [facility] Comment on above: Performed By: #### 1 9123-9, 277-, CMP, CBC ####[facility] ([id number])[address], [address], [place] [address] AST [Catalytic activity/Vol] 25 U/L Normal 0-41 [facility] Comment on above: Performed By: #### 1 9123-, 277-, CMP, CBC ####[facility] ([id number])[address], [address], [place] [address] Bilirubin [Mass/Vol] 1.0 mg/dL Normal 0.3-1.2 [facility] Comment on above: Performed By: #### 1 9123-9, 277-, CMP, CBC ####[facility] ([id number])[address], [address], [place] [address] Calcium [Mass/Vol] 9.0 mg/dL Normal 8.5-10.5 [facility] Comment on above: Performed By: #### 1 9123-9, 2777-, CMP, CBC ####[facility] ([id number])[address], [address], [place] [address] Chloride [Moles/Vol] 93 mmol/L Low 98-109 [facility] Comment on above: Performed By: #### 1 9123-, 277-, CMP, CBC ####[facility] ([id number])[address], [address], [place] [address] CO2 [Moles/Vol] 31 mmol/L Normal 22-32 [facility] Comment on above: Performed By: #### 1 9123-9, 2777-, CMP, CBC ####[facility] ([id number])[address] [address], [place] [address] Creatinine [Mass/Vol] 2.20 mg/dL High 0.40-1.00 [facility] Comment on above: Result Comment: METH OD TRACEABLE TO IDMS STANDARD Performed By: #### 1 9123-9, 27704-29, CMP, CBC ####[facility] ([id number])[address] [address], [place] [address] GFR/1.73 sq M.predicted among non-blacks MDRD (S/P/Bld) [Vol rate/Area] 26 mL/min/{1.73_m2} Low >59 [facility] Comment on above: Result Comment: Reported eGFR is based on the CKD-EPI 2020 equation that does not use a race coefficient. Performed By: #### 1 9123-9, 277-, CMP, CBC ####[facility] ([id number])[address] [address], [place] [address] Glucose [Mass/Vol] 176 mg/dL High 65-99 [facility] Comment on above: Performed By: #### 1 9123-9, 277-, CMP, CBC ####[facility] ([id number])[address] [address] [place] [address] Potassium [Moles/Vol] 4.2 mmol/L Normal 3.5-5.0 [facility] Comment on above: Performed By: #### 1 9123-9, 277-, CMP, CBC ####[facility] ([id number])[address] [address] [address] Protein [Mass/Vol] 6.8 g/dL Normal 6.0-8.0 [facility] Comment on above: Performed By: #### 1 9123-9, 277-1, CMP, CBC ####[facility] ([id number])[address], [address], [place] [address] Sodium [Moles/Vol] 135 mmol/L Normal 134-146 [facility] Comment on above: Performed By: #### 1 9123-9, 2777-1, CMP, CBC ####[facility] ([id number])[address], [address], [place] [address] Urea nitrogen [Mass/Vol] 64 mg/dL High 5-23 [facility] Comment on above: Performed By: #### 1 9123-9, 2777-1, CMP, CBC ####[facility] ([id number])[address], [address], [place] [address] Calcium.ionized (Bld) [Mass/ Vol]on 10-28-2023 IONIZED CALCIUM 4.7 mg/dL Normal 4.5-5.3 [facility] Comment on above: Performed By: #### 3 8230-9 ####[facility] ([id number])[address], [place] [address] ELECTROLYTESon 10-28-2023 Anion gap [Moles/Vol] 10 mmol/L Normal 5-15 [facility] Comment on above: Performed By: #### E LEC ####[facility] ([id number])[address], [address], [place] [address] Chloride [Moles/Vol] 92 mmol/L Low 98-109 [facility] Comment on above: Performed By: #### E LEC ####[facility] ([id number])[address], [address], [place] [address] CO2 [Moles/Vol] 29 mmol/L Normal 22-32 [facility] Comment on above: Performed By: #### E LEC ####[facility] ([id number])[address], [address], [place] [address] Potassium [Moles/Vol] 3.7 mmol/L Normal 3.5-5.0 [facility] Comment on above: Performed By: #### E LEC ####[facility] ([id number])[address], [address] [place] [address] Sodium [Moles/Vol] 131 mmol/L Low 134-146 [facility] Comment on above: Performed By: #### E LEC ####[facility] ([id number])[address], [address] [place] [address] Glucose Glucometer (BldC) [M ass/Vol]on 10-28-2023 Glucose [Mass/Vol] 165 mg/dL High 65-99 [facility] Glucose [Mass/Vol] 164 mg/dL High 65-99 [facility] Glucose [Mass/Vol] 177 mg/dL High 65-99 [facility] MAGNESIUMon 10-28-2023 Magnesium [Mass/Vol] 2.2 mg/dL Normal 1.8-2.6 [facility] Comment on above: Performed By: #### 1 9123-9, 2777-1, CMP, CBC ####[facility] ([id number])[address], [address] [place] [address] MR MRA HEAD WO CONTon 2022 MR MRA HEAD WO CONT MR MRA HEAD WO CONT HISTORY: A 53-year-old female with the history of TIA. Technique: MR cerebral angiogram is performed by using 3-D apkd-ro-ynohzl technique. Maximum intensity intensity projection and 3-D images are reformatted. COMPARISON: Comparison is made with MRI examination of brain of 10/22/2023. FINDINGS: Examination is compromised due to poor scfloc-wj-twjar ratio. Both internal carotid and cavernous carotid arteries are patent without evidence of significant stenosis. Both vertebral and basilar arteries are patent without evidence of significant stenosis. The anterior, middle and posterior cerebral arteries are patent without evidence of significant stenosis. There is no evidence of aneurysm or arteriovenous malformation. IMPRESSION: 1. No evidence of significant stenosis or occlusion of the large vessels. 2. No evidence of aneurysm or arteriovenous malformation. Finalized by Arash Hillman MD on 10/28/2023 4:41 PM Normal [facility] PHOSPHORUSon 10-28-2023 Phosphate [Mass/Vol] 4.5 mg/dL Normal 2.4-4.9 [facility] Comment on above: Performed By: #### 1 9123-9, 2777-1, CMP, CBC ####[facility] ([id number])[address], [address] [place] [address] XR CHEST 1 VWon 10-28-2023 XR CHEST 1 VW XR CHEST 1 VW History: CHF Technique: A portable single frontal view the chest was obtained. Comparison: 08/25/2023 Findings: Congestive changes persist and appear to have increased slightly since the prior study. Underlying infiltrate cannot be excluded. The heart size is enlarged and appears of increased in size since the prior study. Impression: Worsening congestive changes and increasing cardiomegaly since the previous examination dated 08/25/2023. Finalized by Owen Guntre MD on 10/28/2023 4:34 AM Normal [facility] COMPLETE BLOOD COUNTon 10-27 Erythrocyte distribution width (RBC) [Ratio] 14.7 % Normal 11.5-15.0 [facility] Comment on above: Performed By: #### 3 274-8 #### [facility] ([id number]) [address] [address] [place] [address] Hematocrit (Bld) [Volume fraction] 26.3 % Low 35-47 [facility] Comment on above: Performed By: #### 3 274-8 #### [facility] ([id number]) [address] [facility] [address] [place] [address] Hemoglobin (Bld) [Mass/Vol] 8.7 g/dL Low 11.7-15.5 [facility] Comment on above: Performed By: #### 3 274-8 #### [facility] ([id number]) [address], [address] [place] [address] MCH (RBC) [Entitic mass] 28.1 pg Normal 27-34 [facility] Comment on above: Performed By: #### 3 274-8 #### [facility] ([id number]) [address], [address] [place] [address] MCHC (RBC) [Mass/Vol] 33.3 g/dL Normal 32-36 [facility] Comment on above: Performed By: #### 3 274-8 #### [facility] ([id number]) [address], [address] [place] [address] MCV (RBC) [Entitic vol] 84 fL Normal 80-100 [facility] Comment on above: Performed By: #### 3 274-8 #### [facility] ([id number]) [address], [address] [place] [address] Platelet mean volume (Bld) [Entitic vol] 9.8 fL Normal 7-12 [facility] Comment on above: Performed By: #### 3 274-8 #### [facility] ([id number]) [address], [address] [place] [address] Platelets (Bld) [#/Vol] 189 10*3/uL Normal 150-450 [facility] Comment on above: Performed By: #### 3 274-8 #### [facility] ([id number]) [address], [address] [place] [address] RBC COUNT 3.11 X10E12/L Low 3.80-5.20 [facility] Comment on above: Performed By: #### 3 274-8 #### [facility] ([id number]) [address], [address] [place] [address] WBC (Bld) [#/Vol] 8.6 10*3/uL Normal 4.0-11.0 [facility] Comment on above: Performed By: #### 3 274-8 #### [facility] ([id number]) [address], [address] [place] [address] COMPREHENSIVE METABOLIC PANE Chang 10-27-2023 Albumin [Mass/Vol] 3.2 g/dL Normal 3.2-5.3 [facility] Comment on above: Performed By: #### [place], [address]-8, CMP, 2777-1 ####[facility] ([id number])[address], [address], [place] [address] ALP [Catalytic activity/Vol] 52 U/L Normal 39-130 [facility] Comment on above: Performed By: #### Pato VÁZQUEZ, 41137-8, CMP, 2777-1 ####[facility] ([id number])[address], [place] [address] ALT [Catalytic activity/Vol] 19 U/L Normal 0-31 [facility] Comment on above: Performed By: #### Pato VÁZQUEZ, 74049-6, CMP, 2777-1 ####[facility] ([id number])[address], [address], [place] [address] Anion gap [Moles/Vol] 10 mmol/L Normal 5-15 [facility] Comment on above: Performed By: #### Pato VÁZQUEZ, 73846-9, CMP, 2777-1 ####[facility] ([id number])[address], [address], [place] [address] AST [Catalytic activity/Vol] 19 U/L Normal 0-41 [facility] Comment on above: Performed By: #### [place], [address]-9, CMP, 2777-1 ####[facility] ([id number])[address], [address], [place] [address] Bilirubin [Mass/Vol] 1.1 mg/dL Normal 0.3-1.2 [facility] Comment on above: Performed By: #### Pato VÁZQUEZ, , CMP, 2776- ####[facility] ([id number])[address] [address], [place] [address] Calcium [Mass/Vol] 8.7 mg/dL Normal 8.5-10.5 [facility] Comment on above: Performed By: #### Pato VÁZQUEZ, , CMP, 2776- ####[facility] ([id number])[address] [address] [place] [address] Chloride [Moles/Vol] 95 mmol/L Low 98-109 [facility] Comment on above: Performed By: #### Pato VÁZQUEZ, , CMP, 2776- ####[facility] ([id number])[address] [address] [place] [address] CO2 [Moles/Vol] 30 mmol/L Normal 22-32 [facility] Comment on above: Performed By: #### Pato VÁZQUEZ, , CMP, 2776- ####[facility] ([id number])[address] [address], [place] [address] Creatinine [Mass/Vol] 2.07 mg/dL High 0.40-1.00 [facility] Comment on above: Result Comment: METH OD TRACEABLE TO IDMS STANDARD Performed By: #### Pato VÁZQUEZ, , CMP, 2776- ####[facility] ([id number])[address] [address] [place] [address] GFR/1.73 sq M.predicted among non-blacks MDRD (S/P/Bld) [Vol rate/Area] 28 mL/min/{1.73_m2} Low >59 [facility] Comment on above: Result Comment: Reported eGFR is based on the CKD-EPI 2020 equation that does not use a race coefficient. Performed By: #### Pato VÁZQUEZ, , CMP, 2776- ####[facility] ([id number])[address], [place] [address] Glucose [Mass/Vol] 203 mg/dL High 65-99 [facility] Comment on above: Performed By: #### Pato VÁZQUEZ, 53285-0, CMP, 2777-1 ####[facility] ([id number])[address], [place] [address] Potassium [Moles/Vol] 3.3 mmol/L Low 3.5-5.0 [facility] Comment on above: Performed By: #### Pato VÁZQUEZ, , CMP, 277- ####[facility] ([id number])[address], [place] [address] Protein [Mass/Vol] 6.5 g/dL Normal 6.0-8.0 [facility] Comment on above: Performed By: #### Pato VÁZQUEZ, , CMP, 2776- ####[facility] ([id number])[address], [place] [address] Sodium [Moles/Vol] 135 mmol/L Normal 134-146 [facility] Comment on above: Performed By: #### Pato VÁZQUEZ, , CMP, 277- ####[facility] ([id number])[address], [place] [address] Urea nitrogen [Mass/Vol] 57 mg/dL High 5-23 [facility] Comment on above: Performed By: #### Pato VÁZQUEZ, , CMP, 277- ####[facility] ([id number])[address], [place] [address] Calcium.ionized (Bld) [Mass/ Vol]on 10-27-2023 IONIZED CALCIUM 4.5 mg/dL Normal 4.5-5.3 [facility] Comment on above: Performed By: #### 3 8230-9 ####[facility] ([id number])[address], [place] [address] ELECTROLYTESon 10-27-2023 Anion gap [Moles/Vol] 10 mmol/L Normal 5-15 [facility] Comment on above: Performed By: #### E LEC ####[facility] ([id number])[address], [place] [address] Chloride [Moles/Vol] 92 mmol/L Low 98-109 [facility] Comment on above: Performed By: #### E LEC ####[facility] ([id number])[address], [place] [address] CO2 [Moles/Vol] 29 mmol/L Normal 22-32 [facility] Comment on above: Performed By: #### E LEC ####[facility] ([id number])[address], [place] [address] Potassium [Moles/Vol] 3.8 mmol/L Normal 3.5-5.0 [facility] Comment on above: Performed By: #### E LEC ####[facility] ([id number])[address], [place] [address] Sodium [Moles/Vol] 131 mmol/L Low 134-146 [facility] Comment on above: Performed By: #### E LEC ####[facility] ([id number])[address], [place] [address] Glucose Glucometer (BldC) [M ass/Vol]on 10-27-2023 Glucose [Mass/Vol] 393 mg/dL High 65-99 [facility] Glucose [Mass/Vol] 284 mg/dL High 65-99 [facility] Glucose [Mass/Vol] 184 mg/dL High 65-99 [facility] MAGNESIUMon 10-27-2023 Magnesium [Mass/Vol] 2.1 mg/dL Normal 1.8-2.6 [facility] Comment on above: Performed By: #### C KATHIE, , CMP, 2777-1 ####[facility] ([id number])[address], [place] [address] PHOSPHORUSon 10-27-2023 Phosphate [Mass/Vol] 3.1 mg/dL Normal 2.4-4.9 [facility] Comment on above: Performed By: #### C KATHIE, , CMP, 277-1 ####[facility] ([id number])[address] [address] POTASSIUMon 10-27-2023 Potassium [Moles/Vol] 3.7 mmol/L Normal 3.5-5.0 [facility] Comment on above: Performed By: #### 2 823-3 ####[facility] ([id number])[address], [address], [place] [address] COMPLETE BLOOD COUNTon 10-26 Erythrocyte distribution width (RBC) [Ratio] 15.1 % High 11.5-15.0 [facility] Comment on above: Performed By: #### Pato VÁZQUEZ, , CMP, 2777-1 ####[facility] ([id number])[address] [address] [address] Hematocrit (Bld) [Volume fraction] 28.2 % Low 35-47 [facility] Comment on above: Performed By: #### C KATHIE, , CMP, 2777-1 ####[facility] ([id number])[address] [address], [place] [address] Hemoglobin (Bld) [Mass/Vol] 9.4 g/dL Low 11.7-15.5 [facility] Comment on above: Performed By: #### Pato VÁZQUEZ, , CMP, 277-1 ####[facility] ([id number])[address] [address], [place] [address] MCH (RBC) [Entitic mass] 28.3 pg Normal 27-34 [facility] Comment on above: Performed By: #### Pato VÁZQUEZ, 50538-8, CMP, 2777- ####[facility] ([id number])[address], [address], [place] [address] MCHC (RBC) [Mass/Vol] 33.3 g/dL Normal 32-36 [facility] Comment on above: Performed By: #### Pato VÁZQUEZ, 93988-7, CMP, 2776- ####[facility] ([id number])[address] [address], [place] [address] MCV (RBC) [Entitic vol] 85 fL Normal 80-100 [facility] Comment on above: Performed By: #### Pato VÁZQUEZ, , CMP, 2776- ####[facility] ([id number])[address] [address], [place] [address] Platelet mean volume (Bld) [Entitic vol] 10.0 fL Normal 7-12 [facility] Comment on above: Performed By: #### Pato VÁZQUEZ, , CMP, 2776- ####[facility] ([id number])[address] [address], [place] [address] Platelets (Bld) [#/Vol] 179 10*3/uL Normal 150-450 [facility] Comment on above: Performed By: #### Pato VÁZQUEZ, 36642-3, CMP, 2776- ####[facility] ([id number])[address] [address] [place] [address] RBC COUNT 3.31 X10E12/L Low 3.80-5.20 [facility] Comment on above: Performed By: #### Pato VÁZQUEZ, 98068-7, CMP, 2776- ####[facility] ([id number])[address] [place] [address] WBC (Bld) [#/Vol] 10.1 10*3/uL Normal 4.0-11.0 [facility] Comment on above: Performed By: #### Pato VÁZQUEZ, 33743-1, CMP, 277-1 ####[facility] ([id number])[address], [place] [address] COMPREHENSIVE METABOLIC PANE Chang 10-26-2023 Albumin [Mass/Vol] 3.6 g/dL Normal 3.2-5.3 [facility] Comment on above: Performed By: #### Pato VÁZQUEZ, 24953-1, CMP, 2776- ####[facility] ([id number])[address] [place] [address] ALP [Catalytic activity/Vol] 54 U/L Normal 39-130 [facility] Comment on above: Performed By: #### Pato VÁZQUEZ, 21258-3, CMP, 2776- ####[facility] ([id number])[address], [address], [place] [address] ALT [Catalytic activity/Vol] 21 U/L Normal 0-31 [facility] Comment on above: Performed By: #### Pato VÁZQUEZ, 31367-8, CMP, 2776- ####[facility] ([id number])[address], [address], [place] [address] Anion gap [Moles/Vol] 11 mmol/L Normal 5-15 [facility] Comment on above: Performed By: #### Pato VÁZQUEZ, 27941-1, CMP, 2776- ####[facility] ([id number])[address], [address], [place] [address] AST [Catalytic activity/Vol] 26 U/L Normal 0-41 [facility] Comment on above: Performed By: #### Pato VÁZQUEZ, , CMP, 2776- ####[facility] ([id number])[address], [address], [place] [address] Bilirubin [Mass/Vol] 1.0 mg/dL Normal 0.3-1.2 [facility] Comment on above: Performed By: #### Pato VÁZQUEZ, , CMP, 2776- ####[facility] ([id number])[address], [address], [place] [address] Calcium [Mass/Vol] 9.1 mg/dL Normal 8.5-10.5 [facility] Comment on above: Performed By: #### Pato VÁZQUEZ, , CMP, 2776- ####[facility] ([id number])[address] [address], [place] [address] Chloride [Moles/Vol] 103 mmol/L Normal 98-109 [facility] Comment on above: Performed By: #### Pato VÁZQUEZ, , CMP, 2776- ####[facility] ([id number])[address] [address], [place] [address] CO2 [Moles/Vol] 28 mmol/L Normal 22-32 [facility] Comment on above: Performed By: #### Pato VÁZQUEZ, , CMP, 2776- ####[facility] ([id number])[address] [address], [place] [address] Creatinine [Mass/Vol] 1.85 mg/dL High 0.40-1.00 [facility] Comment on above: Result Comment: METH OD TRACEABLE TO IDMS STANDARD Performed By: #### Pato VÁZQUEZ, , CMP, 2776-1 ####[facility] ([id number])[address] [address], [place] [address] GFR/1.73 sq M.predicted among non-blacks MDRD (S/P/Bld) [Vol rate/Area] 32 mL/min/{1.73_m2} Low >59 [facility] Comment on above: Result Comment: Reported eGFR is based on the CKD-EPI 2020 equation that does not use a race coefficient. Performed By: #### Pato VÁZQUEZ, , CMP, 277- ####[facility] ([id number])[address], [address], [place] [address] Glucose [Mass/Vol] 153 mg/dL High 65-99 [facility] Comment on above: Performed By: #### Pato VÁZQUEZ, , [facility], 2776- ####[facility] ([id number])[address], [address], [place] [address] Potassium [Moles/Vol] 3.8 mmol/L Normal 3.5-5.0 [facility] Comment on above: Performed By: #### Pato VÁZQUEZ, , CMP, 2776- ####[facility] ([id number])[address], [address], [place] [address] Protein [Mass/Vol] 6.7 g/dL Normal 6.0-8.0 [facility] Comment on above: Performed By: #### Pato VÁZQUEZ, , CMP, 2776- ####[facility] ([id number])[address], [address], [place] [address] Sodium [Moles/Vol] 142 mmol/L Normal 134-146 [facility] Comment on above: Performed By: #### Ptao VÁZQUEZ, , CMP, 2776- ####[facility] ([id number])[address] [address], [place] [address] Urea nitrogen [Mass/Vol] 50 mg/dL High 5-23 [facility] Comment on above: Performed By: #### Pato VÁZQUEZ, , CMP, 2776- ####[facility] ([id number])[address], [place] [address] Calcium.ionized (Bld) [Mass/ Vol]on 10-26-2023 IONIZED CALCIUM 4.7 mg/dL Normal 4.5-5.3 [facility] Comment on above: Performed By: #### 3 8230-9 ####[facility] ([id number])[address], [place] [address] ELECTROLYTESon 10-26-2023 Anion gap [Moles/Vol] 10 mmol/L Normal 5-15 [facility] Comment on above: Performed By: #### 3 274-8 #### [facility] ([id number]) [address] [place] [address] Chloride [Moles/Vol] 95 mmol/L Low 98-109 [facility] Comment on above: Performed By: #### 3 274-8 #### [facility] ([id number]) [address] [place] [address] CO2 [Moles/Vol] 28 mmol/L Normal 22-32 [facility] Comment on above: Performed By: #### 3 274-8 #### [facility] ([id number]) [address] [place] [address] Potassium [Moles/Vol] 3.5 mmol/L Normal 3.5-5.0 [facility] Comment on above: Performed By: #### 3 274-8 #### [facility] ([id number]) [address] [place] [address] Sodium [Moles/Vol] 133 mmol/L Low 134-146 [facility] Comment on above: Performed By: #### 3 274-8 #### [facility] ([id number]) [address] [place] [address] Anion gap [Moles/Vol] 9 mmol/L Normal 5-15 [facility] Comment on above: Performed By: #### 3 274-8 #### [facility] ([id number]) [address] [place] [address] Chloride [Moles/Vol] 103 mmol/L Normal 98-109 [facility] Comment on above: Performed By: #### 3 274-8 #### [facility] ([id number]) [address] [place] [address] CO2 [Moles/Vol] 28 mmol/L Normal 22-32 [facility] Comment on above: Performed By: #### 3 274-8 #### [facility] ([id number]) [address] [place] [address] Sodium [Moles/Vol] 140 mmol/L Normal 134-146 [facility] Comment on above: Performed By: #### 3 274-8 #### [facility] ([id number]) [address] [place] [address] Glucose Glucometer (dC) [M ass/Vol]on 10-26-2023 Glucose [Mass/Vol] 320 mg/dL High 65-99 [facility] Glucose [Mass/Vol] 230 mg/dL High 65-99 [facility] Glucose [Mass/Vol] 333 mg/dL High 65-99 [facility] Glucose [Mass/Vol] 190 mg/dL High 65-99 [facility] MAGNESIUMon 10-26-2023 Magnesium [Mass/Vol] 2.2 mg/dL Normal 1.8-2.6 [facility] Comment on above: Performed By: #### 3 274-8 #### [facility] ([id number]) [address] [place] [address] PHOSPHORUSon 10-26-2023 Phosphate [Mass/Vol] 3.4 mg/dL Normal 2.4-4.9 [facility] Comment on above: Performed By: #### 3 274-8 #### [facility] ([id number]) [address] [place] [address] POTASSIUMon 10-26-2023 Potassium [Moles/Vol] 4.1 mmol/L Normal 3.5-5.0 [facility] Comment on above: Performed By: #### 3 274-8 #### [facility] ([id number]) [address] [place] [address] COMPLETE BLOOD COUNTon 10-25 Erythrocyte distribution width (RBC) [Ratio] 14.8 % Normal 11.5-15.0 [facility] Comment on above: Performed By: #### C ROSALINA, 2777-1, 47287-4, 72499-7, CBC ####[facility] ([id number])[address] [address] Hematocrit (Bld) [Volume fraction] 29.2 % Low 35-47 [facility] Comment on above: Performed By: #### C ROSALINA, 7-1, 33233-2, 92465-8, CBC ####[facility] ([id number])[address] [address] [address] Hemoglobin (Bld) [Mass/Vol] 9.7 g/dL Low 11.7-15.5 [facility] Comment on above: Performed By: #### C ROSALINA, 2777-1, 10035-9, 43915-2, CBC ####[facility] ([id number])[address] [address] MCH (RBC) [Entitic mass] 28.2 pg Normal 27-34 [facility] Comment on above: Performed By: #### C ROSALINA, 2777-1, 73772-8, 32075-9, CBC ####[facility] ([id number])[address] [address] MCHC (RBC) [Mass/Vol] 33.1 g/dL Normal 32-36 [facility] Comment on above: Performed By: #### C ROSALINA, 2777-1, 76976-3, 11591-5, CBC ####[facility] ([id number])[address], [address] [place] [address] MCV (RBC) [Entitic vol] 85 fL Normal 80-100 [facility] Comment on above: Performed By: #### C ROSALINA, 7-1, 31009-9, 51334-1, CBC ####[facility] ([id number])[address], [address] [place] [address] Platelet mean volume (Bld) [Entitic vol] 10.2 fL Normal 7-12 [facility] Comment on above: Performed By: #### C ROSALINA, 7-, 18404-0, 58358-1, CBC ####[facility] ([id number])[address] [address] [place] [address] Platelets (Bld) [#/Vol] 188 10*3/uL Normal 150-450 [facility] Comment on above: Performed By: #### C ROSALINA, 7-, 20091-3, 49004-0, CBC ####[facility] ([id number])[address], [address] [place] [address] RBC COUNT 3.43 X10E12/L Low 3.80-5.20 [facility] Comment on above: Performed By: #### C ROSALINA, 7-1, 43047-6, 57527-8, CBC ####[facility] ([id number])[address], [address], [place] [address] WBC (Bld) [#/Vol] 12.0 10*3/uL High 4.0-11.0 [facility] Comment on above: Performed By: #### C ROSALINA, 2777-1, 31171-3, 81083-0, CBC ####[facility] ([id number])[address], [address], [place] [address] COMPREHENSIVE METABOLIC PANE Chang 10-25-2023 Albumin [Mass/Vol] 3.2 g/dL Normal 3.2-5.3 [facility] Comment on above: Performed By: #### C ROSALINA, 2777-1, 16209-8, 97325-0, CBC ####[facility] ([id number])[address], [address], [place] [address] ALP [Catalytic activity/Vol] 53 U/L Normal 39-130 [facility] Comment on above: Performed By: #### C ROSALINA, 2777-1, 27249-0, 56010-1, CBC ####[facility] ([id number])[address], [address], [place] [address] ALT [Catalytic activity/Vol] 27 U/L Normal 0-31 [facility] Comment on above: Performed By: #### C ROSALINA, 2777-1, 01033-8, 95178-2, CBC ####[facility] ([id number])[address], [address], [place] [address] Anion gap [Moles/Vol] 7 mmol/L Normal 5-15 [facility] Comment on above: Performed By: #### C ROSALINA, 2777-1, 96662-2, 24614-3, CBC ####[facility] ([id number])[address] [place] [address] AST [Catalytic activity/Vol] 29 U/L Normal 0-41 [facility] Comment on above: Performed By: #### C ROSALINA, 2777-1, 97413-9, 64178-4, CBC ####[facility] ([id number])[address] [place] [address] Bilirubin [Mass/Vol] 0.8 mg/dL Normal 0.3-1.2 [facility] Comment on above: Performed By: #### C ROSALINA, 2777-1, 52492-7, 38189-0, CBC ####[facility] ([id number])[address], [place] [address] Calcium [Mass/Vol] 8.9 mg/dL Normal 8.5-10.5 [facility] Comment on above: Performed By: #### C ROSALINA, 7-, 86468-5, 39180-8, CBC ####[facility] ([id number])[address] [address], [place] [address] Chloride [Moles/Vol] 104 mmol/L Normal 98-109 [facility] Comment on above: Performed By: #### C ROSALINA, 2776-, , 12490-8, CBC ####[facility] ([id number])[address] [address] [address] CO2 [Moles/Vol] 28 mmol/L Normal 22-32 [facility] Comment on above: Performed By: #### C ROSALINA, 7-1, 09128-7, 76167-2, CBC ####[facility] ([id number])[address] [address] [place] [address] Creatinine [Mass/Vol] 1.63 mg/dL High 0.40-1.00 [facility] Comment on above: Result Comment: METH OD TRACEABLE TO IDMS STANDARD Performed By: #### C ROSALINA, 7-, 88791-3, 01097-7, CBC ####[facility] ([id number])[address] [address], [place] [address] GFR/1.73 sq M.predicted among non-blacks MDRD (S/P/Bld) [Vol rate/Area] 38 mL/min/{1.73_m2} Low >59 [facility] Comment on above: Result Comment: Reported eGFR is based on the CKD-EPI 2020 equation that does not use a race coefficient. Performed By: #### C ROSALINA, 2777-1, 77970-5, 08533-0, CBC ####[facility] ([id number])[address], [place] [address] Glucose [Mass/Vol] 201 mg/dL High 65-99 [facility] Comment on above: Performed By: #### C ROSALINA, 7-, , 02301-7, CBC ####[facility] ([id number])[address], [address], [place] [address] Potassium [Moles/Vol] 3.8 mmol/L Normal 3.5-5.0 [facility] Comment on above: Performed By: #### C ROSALINA, 7-, , 30983-2, CBC ####[facility] ([id number])[address], [place] [address] Protein [Mass/Vol] 6.5 g/dL Normal 6.0-8.0 [facility] Comment on above: Performed By: #### C ROSALINA, 7-1, , 91319-9, CBC ####[facility] ([id number])[address], [place] [address] Sodium [Moles/Vol] 139 mmol/L Normal 134-146 [facility] Comment on above: Performed By: #### C ROSALINA, 2777-1, 20516-7, 30539-3, CBC ####[facility] ([id number])[address], [place] [address] Urea nitrogen [Mass/Vol] 53 mg/dL High 5-23 [facility] Comment on above: Performed By: #### C MP, 2777-1, 01060-2, 66664-0, CBC ####[facility] ([id number])[address], [address], [place] [address] Calcium.ionized (Bld) [Mass/ Vol]on 10-25-2023 IONIZED CALCIUM 4.8 mg/dL Normal 4.5-5.3 [facility] Comment on above: Performed By: #### 3 8230-9 ####[facility] ([id number])[address], [place] [address] ELECTROLYTESon 10-25-2023 Anion gap [Moles/Vol] 10 mmol/L Normal 5-15 [facility] Comment on above: Performed By: #### E LEC ####[facility] ([id number])[address], [place] [address] Chloride [Moles/Vol] 105 mmol/L Normal 98-109 [facility] Comment on above: Performed By: #### E LEC ####[facility] ([id number])[address], [place] [address] CO2 [Moles/Vol] 25 mmol/L Normal 22-32 [facility] Comment on above: Performed By: #### E LEC ####[facility] ([id number])[address], [place] [address] Potassium [Moles/Vol] 4.4 mmol/L Normal 3.5-5.0 [facility] Comment on above: Performed By: #### E LEC ####[facility] ([id number])[address], [place] [address] Sodium [Moles/Vol] 140 mmol/L Normal 134-146 [facility] Comment on above: Performed By: #### E LEC ####[facility] ([id number])[address], [address] [place] [address] Glucose Glucometer (BldC) [M ass/Vol]on 10-25-2023 Glucose [Mass/Vol] 161 mg/dL High 65-99 [facility] Glucose [Mass/Vol] 237 mg/dL High 65-99 [facility] Glucose [Mass/Vol] 280 mg/dL High 65-99 [facility] Glucose [Mass/Vol] 268 mg/dL High 65-99 [facility] HEMOGLOBINon 10-25-2023 Hemoglobin (Bld) [Mass/Vol] 9.7 g/dL Low 11.7-15.5 [facility] Comment on above: Performed By: #### 7 18-7 ####[facility] ([id number])[address], [address] [place] [address] Heparin unfractionated Chrom ogenic method Qn (PPP)on 10-25-2023 ANTI XA UFH 0.20 IU/mL Low 0.30-0.70 [facility] Comment on above: Result Comment: Opti mal time for testing is 6 hrs post dosage This test is specific for monitoring patients on UFH, and is not recommended for use with other Anti-Xa medications. Performed By: #### 3 274-8 ####[facility] ([id number])[address] [place] [address] ANTI XA UFH 0.20 IU/mL Low 0.30-0.70 [facility] Comment on above: Result Comment: Opti mal time for testing is 6 hrs post dosage This test is specific for monitoring patients on UFH, and is not recommended for use with other Anti-Xa medications. Performed By: #### 3 274-8 ####[facility] ([id number])[address] [place] [address] MAGNESIUMon 10-25-2023 Magnesium [Mass/Vol] 2.2 mg/dL Normal 1.8-2.6 [facility] Comment on above: Performed By: #### C MP, 2777-1, 42959-7, 87986-0, CBC ####[facility] ([id number])[address], [address] [place] [address] PHOSPHORUSon 10-25-2023 Phosphate [Mass/Vol] 3.6 mg/dL Normal 2.4-4.9 [facility] Comment on above: Performed By: #### C MP, 2777-1, 60345-6, 52941-6, CBC ####[facility] ([id number])[address], [address] [place] [address] POTASSIUMon 10-25-2023 Potassium [Moles/Vol] 4.4 mmol/L Normal 3.5-5.0 [facility] Comment on above: Performed By: #### 2 823-3 ####[facility] ([id number])[address], [address] [place] [address] Procalcitonin IA [Mass/Vol]o n 10-25-2023 PROCALCITONIN 0.32 ng/mL High <0.05 [facility] Comment on above: Result Comment: NOTE <0.50 ng/mL - Low risk of severe sepsis and/or septic shock. <2.00 ng/mL - Recommend retesting within 6-24 hours. >2.00 ng/mL - High risk of sepsis and/or septic shock. Performed By: #### C , 2777-1, 35777-9, 71116-3, CBC ####[facility] ([id number])[address], [address] [place] [address]19 XR CHEST 1 VWon 10-25-2023 XR CHEST 1 VW XR CHEST 1 VW Single view chest History:F/u infiltrates, desaturating and r/o pulm edema Difficulty breathing, shortness of breath Comparison: 10/23/2023 Findings: Single portable view of the chest. Stable cardia mediastinal silhouette. Stable mild vascular congestion and perihilar opacities which may represent atelectasis versus pneumonia. Impression: Mild vascular congestion slightly decreased. Persistent bilateral perihilar atelectasis versus pneumonia. Finalized by Blaine Lui MD on 10/25/2023 7:54 AM Normal [facility] ACT Diatomaceous earth induc ed (Bld)on 10-24-2023 [facility]RN CLOT TIME LR 152 sec Normal 89-169 [facility] Comment on above: Performed By: #### 1 9123-9, CMP, 3274-8, CBCA #### [facility] ([id number]) [address], [address] [place] [address] ARTERIAL BLOOD GASon 023 NOAH'S TEST Pass Normal [facility] Comment on above: Performed By: #### 1 9123-9, CMP, 3274-8, CBCA #### [facility] ([id number]) [address], [address] [place] [address] BASE,DEFICIT 5.0 MMOL/L High 0.0-2.0 [facility] Comment on above: Performed By: #### 1 9123-9, CMP, 3274-8, CBCA #### [facility] ([id number]) [address], [address] [place] [address] Body temperature 98.6 [degF] Normal 37.0 [facility] Comment on above: Performed By: #### 1 9123-9, CMP, 3274-8, CBCA #### [facility] ([id number]) [address], [address] [place] [address] HCO3 (Bld) [Moles/Vol] 21.1 mmol/L Low 22-26 P [facility] Comment on above: Performed By: #### 1 9123-9, CMP, 3274-8, CBCA #### [facility] ([id number]) [address], [address] [place] [address] INSP. O2 CONC. 80 % Normal [facility] Comment on above: Performed By: #### 1 9123-9, CMP, 3274-8, CBCA #### [facility] ([id number]) [address], [address] [place] [address] Oxygen (Bld) [Partial pressure] 180 mm[Hg] High 80-100 [facility] Comment on above: Performed By: #### 1 9123-9, CMP, 3274-8, CBCA #### [facility] ([id number]) [address], [address] [place] [address] Oxygen saturation in Blood 100.0 % Normal >90 [facility] Comment on above: Performed By: #### 1 9123-9, CMP, 3274-8, CBCA #### [facility] ([id number]) [address], [address] [place] [address] OXYGEN SOURCE NPPV Normal [facility] Comment on above: Performed By: #### 1 9123-9, CMP, 3274-8, CBCA #### [facility] ([id number]) [address], [address] [place] [address] PCO2 40.3 MMHG Normal 35-45 [facility] Comment on above: Performed By: #### 1 9123-9, CMP, 3274-8, CBCA #### [facility] ([id number]) [address], [address] [place] [address] pH (Bld) 7.327 [pH] Low 7.350-7.450 [facility] Comment on above: Performed By: #### 1 9123-9, CMP, 3274-8, CBCA #### [facility] ([id number]) [address], [address] [place] [address] SAMPLE SITE LRad Normal [facility] Comment on above: Performed By: #### 1 9123-9, CMP, 3274-8, CBCA #### [facility] ([id number]) [address], [address] [place] [address] SAMPLE TYPE ARTERIAL Normal [facility] Comment on above: Performed By: #### 1 9123-9, CMP, 3274-8, CBCA #### [facility] ([id number]) [address], [address] [place] [address] NOAH'S TEST Pass Normal [facility] Comment on above: Performed By: #### 1 9123-9, CMP, 3274-8, CBCA #### [facility] ([id number]) [address], [address] [place] [address] BASE,DEFICIT 7.0 MMOL/L High 0.0-2.0 [facility] Comment on above: Performed By: #### 1 9123-9, CMP, 3274-8, CBCA #### [facility] ([id number]) [address], [address] [place] [address] Body temperature 98.6 [degF] Normal 37.0 [facility] Comment on above: Performed By: #### 1 9123-9, CMP, 3274-8, CBCA #### [facility] ([id number]) [address], [address] [place] [address] HCO3 (Bld) [Moles/Vol] 20.6 mmol/L Low 22-26 [facility] Comment on above: Performed By: #### 1 9123-9, CMP, 3274-8, CBCA #### [facility] ([id number]) [address], [address] [place] [address] INSP. O2 CONC. 100 % Normal [facility] Comment on above: Performed By: #### 1 9123-9, CMP, 3274-8, CBCA #### [facility] ([id number]) [address], [address] [place] [address] Oxygen (Bld) [Partial pressure] 42 mm[Hg] Critically low 80-100 [facility] Comment on above: Performed By: #### 1 91-9, CMP, 3274-8, CBCA #### [facility] ([id number]) [address], [address] [place] [address] Oxygen saturation in Blood 70.0 % Low >90 [facility] Comment on above: Performed By: #### 1 9122-9, CMP, 3274-8, CBCA #### [facility] ([id number]) [address], [address] [place] [address] OXYGEN SOURCE NRB Normal [facility] Comment on above: Performed By: #### 1 9122-9, CMP, 3274-8, CBCA #### [facility] ([id number]) [address], [address] [place] [address] PCO2 47.2 MMHG High 35-45 [facility] Comment on above: Performed By: #### 1 91-9, CMP, 3274-8, CBCA #### [facility] ([id number]) [address], [address] [place] [address] pH (Bld) 7.247 [pH] Low 7.350-7.450 [facility] Comment on above: Performed By: #### 1 23-9, CMP, 3274-8, CBCA #### [facility] ([id number]) [address], [address] [place] [address] SAMPLE SITE LRad Normal [facility] Comment on above: Performed By: #### 1 23-9, CMP, 3274-8, CBCA #### [facility] ([id number]) [address], [address] [place] [address] SAMPLE TYPE ARTERIAL Normal [facility] Comment on above: Performed By: #### 1 23-9, CMP, 3274-8, CBCA #### [facility] ([id number]) [address], [address] [place] [address] BASIC METABOLIC PANLon 10-24 Anion gap [Moles/Vol] 10 mmol/L Normal 5-15 [facility] Comment on above: Performed By: #### 1 9123-9, CMP, 3274-8, CBCA #### [facility] ([id number]) [address], [address] [place] [address] Calcium [Mass/Vol] 8.6 mg/dL Normal 8.5-10.5 [facility] Comment on above: Performed By: #### 1 9123-9, CMP, 3274-8, CBCA #### [facility] ([id number]) [address], [address] [place] [address] Chloride [Moles/Vol] 104 mmol/L Normal 98-109 [facility] Comment on above: Performed By: #### 1 9123-9, CMP, 3274-8, CBCA #### [facility] ([id number]) [address], [address] [place] [address] CO2 [Moles/Vol] 22 mmol/L Normal 22-32 [facility] Comment on above: Performed By: #### 1 9123-9, CMP, 3274-8, CBCA #### [facility] ([id number]) [address], [address] [place] [address] Creatinine [Mass/Vol] 1.79 mg/dL High 0.40-1.00 [facility] Comment on above: Result Comment: METH OD TRACEABLE TO IDMS STANDARD Performed By: #### 1 9123-9, CMP, 3274-8, CBCA #### [facility] ([id number]) [address], [address] [place] [address] GFR/1.73 sq M.predicted among non-blacks MDRD (S/P/Bld) [Vol rate/Area] 34 mL/min/{1.73_m2} Low >59 [facility] Comment on above: Result Comment: Reported eGFR is based on the CKD-EPI 2020 equation that does not use a race coefficient. Performed By: #### 1 9123-9, CMP, 3274-8, CBCA #### [facility] ([id number]) [address], [facility] [address] [place] [address] Glucose [Mass/Vol] 277 mg/dL High 65-99 [facility] Comment on above: Performed By: #### 1 9123-9, CMP, 3274-8, CBCA #### [facility] ([id number]) [address], [facility] [address] [place] [address] Potassium [Moles/Vol] 4.7 mmol/L Normal 3.5-5.0 [facility] Comment on above: Performed By: #### 1 9123-9, CMP, 3274-8, CBCA #### [facility] ([id number]) [address] [address] Sodium [Moles/Vol] 136 mmol/L Normal 134-146 [facility] Comment on above: Performed By: #### 1 9123-9, CMP, 3274-8, CBCA #### [facility] ([id number]) [address], [address] [address] Urea nitrogen [Mass/Vol] 71 mg/dL High 5-23 [facility] Comment on above: Performed By: #### 1 9123-9, CMP, 3274-8, CBCA #### [facility] ([id number]) [address], [facility] [address] [place] [address] CBC AND AUTO DIFFon 12--20 23 ABSOLUTE BASOPHIL 0.0 X10E9/L Normal 0.0-0.2 [facility] Comment on above: Performed By: #### 1 23-9, CMP, 3274-8, CBCA #### [facility] ([id number]) [address], [address] [place] [address] ABSOLUTE NEUTROPHIL 11.1 X10E9/L High 1.5-6.6 [facility] Comment on above: Performed By: #### 1 23-9, CMP, 4-8, CBCA #### [facility] ([id number]) [address], [address] [place] [address] Basophils/100 WBC (Bld) 0.4 % Normal [facility] Comment on above: Performed By: #### 1 9122-9, CMP, 4-8, CBCA #### [facility] ([id number]) [address], [address] [place] [address] Eosinophils (Bld) [#/Vol] 0.0 10*3/uL Normal 0.0-0.4 [facility] Comment on above: Performed By: #### 1 9122-9, CMP, 3273-8, CBCA #### [facility] ([id number]) [address], [address] [place] [address] Eosinophils/100 WBC (Bld) 0.0 % Normal [facility] Comment on above: Performed By: #### 1 9122-9, CMP, 4-8, CBCA #### [facility] ([id number]) [address], [address] [place] [address] Erythrocyte distribution width (RBC) [Ratio] 15.0 % Normal 11.5-15.0 [facility] Comment on above: Performed By: #### 1 23-9, CMP, 4-8, CBCA #### [facility] ([id number]) [address], [address] [place] [address] Hematocrit (Bld) [Volume fraction] 34.7 % Low 35-47 [facility] Comment on above: Performed By: #### 1 9123-9, CMP, 3274-8, CBCA #### [facility] ([id number]) [address] [address] [place] [address] Hemoglobin (Bld) [Mass/Vol] 11.6 g/dL Low 11.7-15.5 [facility] Comment on above: Performed By: #### 1 9123-9, CMP, 4-8, CBCA #### [facility] ([id number]) [address] [address] [place] [address] Lymphocytes (Bld) [#/Vol] 1.3 10*3/uL Normal 1.0-3.5 [facility] Comment on above: Performed By: #### 1 91-9, CMP, 4-8, CBCA #### [facility] ([id number]) [address] [address] [place] [address] Lymphocytes/100 WBC (Bld) 9.9 % Normal [facility] Comment on above: Performed By: #### 1 9123-9, CMP, 4-8, CBCA #### [facility] ([id number]) [address] [address] [place] [address] MCH (RBC) [Entitic mass] 28.4 pg Normal 27-34 [facility] Comment on above: Performed By: #### 1 9123-9, CMP, 4-8, CBCA #### [facility] ([id number]) [address], [facility] [address] [place] [address] MCHC (RBC) [Mass/Vol] 33.5 g/dL Normal 32-36 [facility] Comment on above: Performed By: #### 1 9123-9, CMP, 3274-8, CBCA #### [facility] ([id number]) [address], [address] [place] [address] MCV (RBC) [Entitic vol] 85 fL Normal 80-100 [facility] Comment on above: Performed By: #### 1 9123-9, CMP, 3274-8, CBCA #### [facility] ([id number]) [address], [address] [place] [address] Monocytes (Bld) [#/Vol] 0.4 10*3/uL Normal 0-0.9 [facility] Comment on above: Performed By: #### 1 23-9, CMP, 3274-8, CBCA #### [facility] ([id number]) [address], [facility] [address] [place] [address] Monocytes/100 WBC (Bld) 3.3 % Normal [facility] Comment on above: Performed By: #### 1 23-9, CMP, 3274-8, CBCA #### [facility] ([id number]) [address] [place] [address] Neutrophils/100 WBC (Bld) 86.4 % Normal [facility] Comment on above: Performed By: #### 1 9123-9, CMP, 3274-8, CBCA #### [facility] ([id number]) [address] [place] [address] Platelet mean volume (Bld) [Entitic vol] 10.2 fL Normal 7-12 [facility] Comment on above: Performed By: #### 1 9123-9, CMP, 3274-8, CBCA #### [facility] ([id number]) [address], [address] [place] [address] Platelets (Bld) [#/Vol] 221 10*3/uL Normal 150-450 [facility] Comment on above: Performed By: #### 1 9123-9, CMP, 3274-8, CBCA #### [facility] ([id number]) [address], [address] [place] [address] RBC COUNT 4.09 X10E12/L Normal 3.80-5.20 [facility] Comment on above: Performed By: #### 1 9123-9, CMP, 3274-8, CBCA #### [facility] ([id number]) [address], [address] [place] [address] WBC (Bld) [#/Vol] 12.8 10*3/uL High 4.0-11.0 [facility] Comment on above: Performed By: #### 1 9123-9, CMP, 3274-8, CBCA #### [facility] ([id number]) [address], [address] [place] [address] CK [Catalytic activity/Vol]o n 10-24-2023 CPK 523 U/L High 24-170 [facility] Comment on above: Performed By: #### 1 9123-9, CMP, 3274-8, CBCA #### [facility] ([id number]) [address], [address] [place] [address] COMPREHENSIVE METABOLIC PANE Chang 10-24-2023 Albumin [Mass/Vol] 3.7 g/dL Normal 3.2-5.3 [facility] Comment on above: Performed By: #### 1 9123-9, CMP, 3274-8, CBCA #### [facility] ([id number]) [address], [address] [place] [address] ALP [Catalytic activity/Vol] 78 U/L Normal 39-130 [facility] Comment on above: Performed By: #### 1 9123-9, CMP, 3274-8, CBCA #### [facility] ([id number]) [address], [address] [place] [address] ALT [Catalytic activity/Vol] 31 U/L Normal 0-31 [facility] Comment on above: Performed By: #### 1 9123-9, CMP, 3274-8, CBCA #### [facility] ([id number]) [address], [address] [place] [address] Anion gap [Moles/Vol] 11 mmol/L Normal 5-15 [facility] Comment on above: Performed By: #### 1 9123-9, CMP, 3274-8, CBCA #### [facility] ([id number]) [address], [address] [place] [address] AST [Catalytic activity/Vol] 36 U/L Normal 0-41 [facility] Comment on above: Performed By: #### 1 9123-9, CMP, 3274-8, CBCA #### [facility] ([id number]) [address], [address] [place] [address] Bilirubin [Mass/Vol] 0.6 mg/dL Normal 0.3-1.2 [facility] Comment on above: Performed By: #### 1 23-9, CMP, 3274-8, CBCA #### [facility] ([id number]) [address], [address] [place] [address] Calcium [Mass/Vol] 8.8 mg/dL Normal 8.5-10.5 [facility] Comment on above: Performed By: #### 1 9123-9, CMP, 3274-8, CBCA #### [facility] ([id number]) [address], [address] [place] [address] Chloride [Moles/Vol] 102 mmol/L Normal 98-109 [facility] Comment on above: Performed By: #### 1 9123-9, CMP, 3274-8, CBCA #### [facility] ([id number]) [address], [address] [place] [address] CO2 [Moles/Vol] 23 mmol/L Normal 22-32 [facility] Comment on above: Performed By: #### 1 9123-9, CMP, 3274-8, CBCA #### [facility] ([id number]) [address], [address] [place] [address] Creatinine [Mass/Vol] 1.76 mg/dL High 0.40-1.00 [facility] Comment on above: Result Comment: METH OD TRACEABLE TO IDMS STANDARD Performed By: #### 1 9123-9, LISA, 3274-8, CBCA #### [facility] ([id number]) [address], [address] [place] [address] GFR/1.73 sq M.predicted among non-blacks MDRD (S/P/Bld) [Vol rate/Area] 34 mL/min/{1.73_m2} Low >59 [facility] Comment on above: Result Comment: Reported eGFR is based on the CKD-EPI 2020 equation that does not use a race coefficient. Performed By: #### 1 9123-9, LISA, 4-8, CBCA #### [facility] ([id number]) [address], [address] [place] [address] Glucose [Mass/Vol] 283 mg/dL High 65-99 [facility] Comment on above: Performed By: #### 1 9123-9, LISA, 4-8, CBCA #### [facility] ([id number]) [address] [address] [place] [address] Potassium [Moles/Vol] 4.7 mmol/L Normal 3.5-5.0 [facility] Comment on above: Performed By: #### 1 9123-9, CMP, 3274-8, CBCA #### [facility] ([id number]) [address] [address] [place] [address] Protein [Mass/Vol] 7.4 g/dL Normal 6.0-8.0 [facility] Comment on above: Performed By: #### 1 9123-9, CMP, 3274-8, CBCA #### [facility] ([id number]) [address], [address] [place] [address] Sodium [Moles/Vol] 136 mmol/L Normal 134-146 [facility] Comment on above: Performed By: #### 1 9123-9, CMP, 3274-8, CBCA #### [facility] ([id number]) [address], [address] [place] [address] Urea nitrogen [Mass/Vol] 66 mg/dL High 5-23 [facility] Comment on above: Performed By: #### 1 9123-9, CMP, 3274-8, CBCA #### [facility] ([id number]) [address], [address] [place] [address] Calcium.ionized (Bld) [Mass/ Vol]on 10-24-2023 IONIZED CALCIUM 4.8 mg/dL Normal 4.5-5.3 [facility] Comment on above: Performed By: #### 1 9123-9, CMP, 3274-8, CBCA #### [facility] ([id number]) [address], [address] [place] [address] Fibrin D-dimer DDU (PPP) [Ma ss/Vol]on 10-24-2023 D DIMER <150 Normal <255 [facility] Comment on above: Result Comment: Results <255 ng/mL DDU: The presence of a VTE can safely be excluded with a negative D-Dimer result and Wells score. A negative result doesn't exclude the possibility of DIC. The test be repeated along with other diagnostic tests if the patient's symptoms persist or worsen. [email or web address] Performed By: #### 1 9123-9, CMP, 3274-8, CBCA #### [facility] ([id number]) [address], [address] [place] [address] Glucose Glucometer (BldC) [M ass/Vol]on 10-24-2023 Glucose [Mass/Vol] 192 mg/dL High 65-99 [facility] Glucose [Mass/Vol] 312 mg/dL High 65-99 [facility] Glucose [Mass/Vol] 283 mg/dL High 65-99 [facility] Glucose [Mass/Vol] 305 mg/dL High 65-99 [facility] Glucose [Mass/Vol] 278 mg/dL High 65-99 [facility] Glucose [Mass/Vol] 268 mg/dL High 65-99 [facility] Heparin unfractionated Chrom ogenic method Qn (PPP)on 10-24-2023 ANTI XA UFH 0.42 IU/mL Normal 0.30-0.70 [facility] Comment on above: Result Comment: Opti mal time for testing is 6 hrs post dosage This test is specific for monitoring patients on UFH, and is not recommended for use with other Anti-Xa medications. Performed By: #### 1 9123-9, CMP, 3274-8, CBCA #### [facility] ([id number]) [address], [address] [place] [address] MAGNESIUMon 10-24-2023 Magnesium [Mass/Vol] 2.3 mg/dL Normal 1.8-2.6 [facility] Comment on above: Performed By: #### 1 9123-9, CMP, 3274-8, CBCA #### [facility] ([id number]) [address], [address] [place] [address] Natriuretic peptide B [Mass/ Vol]on 10-24-2023 Natriuretic peptide B (Bld) [Mass/Vol] 997 pg/mL High <100.0 [facility] Comment on above: Performed By: #### 1 9123-9, CMP, 3274-8, CBCA #### [facility] ([id number]) [address], [address] [place] [address] Natriuretic peptide B (Bld) [Mass/Vol] 1096 pg/mL High <100.0 [facility] Comment on above: Performed By: #### 1 9123-9, CMP, 3274-8, CBCA #### [facility] ([id number]) [address], [address] [place] [address] PHOSPHORUSon 10-24-2023 Phosphate [Mass/Vol] 4.7 mg/dL Normal 2.4-4.9 [facility] Comment on above: Performed By: #### 1 9123-9, CMP, 3274-8, CBCA #### [facility] ([id number]) [address] [place] [address] Procalcitonin IA [Mass/Vol]o n 10-24-2023 PROCALCITONIN 0.14 ng/mL High <0.05 [facility] Comment on above: Result Comment: NOTE <0.50 ng/mL - Low risk of severe sepsis and/or septic shock. <2.00 ng/mL - Recommend retesting within 6-24 hours. >2.00 ng/mL - High risk of sepsis and/or septic shock. Performed By: #### 1 9123-9, CMP, 3274-8, CBCA #### [facility] ([id number]) [address] [place] [address] TROPONIN Ion 10-24-2023 Troponin I.cardiac [Mass/Vol] 1.15 ng/mL Critically high 0.00-0.04 [facility] Comment on above: Result Comment: Concentrations greater than or equal to 0.05 ng/ml are considered elevated. Elevations of Troponin may be due to causes other than myocardial ischemia. Recommend serial Troponin testing be performed. Performed By: #### 1 9123-9, CMP, 3274-8, CBCA #### [facility] ([id number]) [address] [place] [address] US RETROPERITONEAL COMPLETEo n 10-24-2023 US RETROPERITONEAL COMPLETE US RETROPERITONEAL COMPLETE US RETROPERITONEAL COMPLETE HISTORY: 53 years old Female with acute renal failure. COMPARISON: None TECHNIQUE: Grayscale and color Doppler sonographic images of the urinary bladder and both kidneys. FINDINGS: Bladder: * The urinary bladder is within normal limits. * Bilateral ureteral jets not visualized. * Bladder volume = 386 mL. Right kidney: * 10.3 x 5.3 x 4.8 cm. * Cortex: 0.8 cm. * No pelvocaliectasis, mass, or calculi demonstrated. Normal echogenicity. Left kidney: * 11.2 x 4.6 x 5.1 cm. * Cortex: 0.7 cm. * No pelvocaliectasis, mass, or calculi demonstrated. Normal echogenicity. IMPRESSION: * Unremarkable ultrasound of the kidneys and bladder. Approved by Resident Feliciano Henson DO on 10/24/2023 7:24 AM IDeon MD have personally reviewed the image(s) and agree with and/or edited the report Finalized by Deon Wellington MD on 10/24/2023 7:38 AM Normal [facility] XR CHEST 1 VWon 10-24-2023 XR CHEST 1 VW XR CHEST 1 VW XR CHEST 1 VW HISTORY: Hypoxia, dyspnea. COMPARISON: 10/23/2023, 10/20/2023, 07/08/2022 FINDINGS: Minimal pulmonary vascular congestion with subtle peribronchial cuffing. Nonenlarged cardiomediastinal silhouette. No large pleural effusion or focal consolidation. Ability to detect pneumothorax limited on this semiupright view, no discernible pneumothorax. IMPRESSION: Perihilar infiltration which could be suggestive of inflammatory airway disease and/or minimal to mild pulmonary vascular congestion in the appropriate clinical context. Approved by Resident Kitty Mendoza MD on 10/24/2023 12:10 AM Marilin Hernandez MD have personally reviewed the image(s) and agree with and/or edited the report Finalized by Marilin Aguilera MD on 10/24/2023 1:24 AM Normal [facility] ACUTE HEPATITIS PANELon 09-30 ANTI HCV W/PCR REFLX Non-Reactive Normal NRCT Pr [facility] Comment on above: Result Comment: If recent infection suspected, recommend repeat testing (>2 months). Cljwoy-xp-ikrhrd ratio is <0.80. Performed By: #### 1 9123-9, CMP, 3274-8, CBCA #### [facility] ([id number]) [address], [address] [place] [address] HEPATITIS A IGM Non-Reactive Normal NRCT [facility] Comment on above: Performed By: #### 1 9123-9, CMP, 3274-8, CBCA #### [facility] ([id number]) [address], [address] [place] [address] HEPATITIS B CORE IGM Negative Normal NEG [facility] Comment on above: Performed By: #### 1 9123-9, CMP, 3274-8, CBCA #### [facility] ([id number]) [address], [address] [place] [address] HEPATITIS B SURF AG Negative Normal NEG [facility] Comment on above: Performed By: #### 1 9123-9, CMP, 3274-8, CBCA #### [facility] ([id number]) [address], [address] [place] [address] [address] Ig G Qlon 10-23-2023 NMO/AQP4 FACS, Serum Negative Normal Negative [facility] Comment on above: Result Comment: NOTE Recommend repeat testing in 6 months if clinical suspicion is high. Negative result can occur in the setting of immunosuppression. ADDITIONAL INFORMATION This test was developed and its performance characteristics determined by [facility] in a manner consistent with CLIA requirements. This test has not been cleared or approved by the U.S. Food and Drug Administration. Test Performed by: [facility] - [address] [address] Grease Monkey: Zachary Maher M.D. Ph.D.; CLIA# [id number] CBC AND AUTO DIFFon 10-23-20 ABSOLUTE BASOPHIL 0.0 X10E9/L Normal 0.0-0.2 [facility] Comment on above: Performed By: #### F EPR, CMP, 2284-8, CBCA, 84104-2, 6-4, 2131-9, 4-8 ####[facility] ([id number])[address], [address] [place] [address]62 ABSOLUTE NEUTROPHIL 3.7 X10E9/L Normal 1.5-6.6 [facility] Comment on above: Performed By: #### F EPR, CMP, 2284-8, CBCA, 24904-8, 2275-4, 2131-9, 4-8 ####[facility] ([id number])[address], [address] [place] [address] 68348 Basophils/100 WBC (Bld) 0.1 % Normal [facility] Comment on above: Performed By: #### F EPR, CMP, 2284-8, CBCA, 21702-8, 2275-4, 9, 3273-8 ####[facility] ([id number])[address], [address] [place] [address]00 Eosinophils (Bld) [#/Vol] 0.0 10*3/uL Normal 0.0-0.4 [facility] Comment on above: Performed By: #### F EPR, CMP, 2284-8, CBCA, 47087-7, 2275-4, 2131-9, 4-8 ####[facility] ([id number])[address], [address] [place] [address] 18277 Eosinophils/100 WBC (Bld) 0.2 % Normal [facility] Comment on above: Performed By: #### F EPR, CMP, 2284-8, CBCA, 96898-9, 2275-4, 2132-9, 3274-8 ####[facility] ([id number])[address] [address] [place] [address]74 Erythrocyte distribution width (RBC) [Ratio] 14.7 % Normal 11.5-15.0 [facility] Comment on above: Performed By: #### F EPR, CMP, 2284-8, CBCA, 78952-3, 2275-4, 9, 3273-8 ####[facility] ([id number])[address] [address] [place] [address] 6[address]40 Hematocrit (Bld) [Volume fraction] 33.2 % Low 35-47 [facility] Comment on above: Performed By: #### F EPR, CMP, 228-8, CBCA, 64534-9, 2275-, 9, 3273-8 ####[facility] ([id number])[address] [address] [place] [address] 07749 Hemoglobin (Bld) [Mass/Vol] 10.9 g/dL Low 11.7-15.5 [facility] Comment on above: Performed By: #### F EPR, CMP, 228-8, CBCA, 66139-9, 2275-4, 9, 3273-8 ####[facility] ([id number])[address] [address] Lymphocytes (Bld) [#/Vol] 3.0 10*3/uL Normal 1.0-3.5 [facility] Comment on above: Performed By: #### F EPR, CMP, 2284-8, CBCA, 25243-1, 2275-4, 9, 3273-8 ####[facility] ([id number])[address] [address] [place] [address]109 Lymphocytes/100 WBC (Bld) 41.5 % Normal [facility] Comment on above: Performed By: #### F EPR, CMP, 2284-8, CBCA, 85413-0, 6-4, 2131-9, 3273-8 ####[facility] ([id number])[address], [address] [address] MCH (RBC) [Entitic mass] 28.3 pg Normal 27-34 [facility] Comment on above: Performed By: #### F EPR, CMP, 2284-8, CBCA, 99982-1, 2275-4, 9, 3273-8 ####[facility] ([id number])[address] [address], [place] [address] MCHC (RBC) [Mass/Vol] 32.9 g/dL Normal 32-36 [facility] Comment on above: Performed By: #### F EPR, CMP, 2284-8, CBCA, 74719-3, 2275-4, 9, 3273-8 ####[facility] ([id number])[address] [address] [address] MCV (RBC) [Entitic vol] 86 fL Normal 80-100 [facility] Comment on above: Performed By: #### F EPR, CMP, 2284-8, CBCA, 25951-4, 2275-4, 9, 3273-8 ####[facility] ([id number])[address] [address] [place] [address] 10884 Monocytes (Bld) [#/Vol] 0.5 10*3/uL Normal 0-0.9 [facility] Comment on above: Performed By: #### F EPR, CMP, 2284-8, CBCA, 70237-7, 2275-4, 2131-9, 3273-8 ####[facility] ([id number])[address] [address] [address] Monocytes/100 WBC (Bld) 7.5 % Normal P [facility] Comment on above: Performed By: #### F EPR, CMP, 2284-8, CBCA, 25465-6, 2276-4, 2131-9, 3273-8 ####[facility] ([id number])[address] [address] [place] [address] 92844 Neutrophils/100 WBC (Bld) 50.7 % Normal [facility] Comment on above: Performed By: #### F EPR, CMP, 2284-8, CBCA, 62000-6, 6-4, 2131-9, 3273-8 ####[facility] ([id number])[address] [address] [place] [address] Platelet mean volume (Bld) [Entitic vol] 10.0 fL Normal 7-12 [facility] Comment on above: Performed By: #### F EPR, CMP, 2284-8, CBCA, 50440-4, 6-4, 2131-9, 3273-8 ####[facility] ([id number])[address] [address] [place] [address] 24994 Platelets (Bld) [#/Vol] 187 10*3/uL Normal 150-450 [facility] Comment on above: Performed By: #### F EPR, CMP, 2284-8, CBCA, 09302-0, 6-4, 2131-9, 3273-8 ####[facility] ([id number])[address] [address] [place] [address] 76747 RBC COUNT 3.86 X10E12/L Normal 3.80-5.20 [facility] Comment on above: Performed By: #### F EPR, CMP, 2284-8, CBCA, 26063-5, 6-4, 2131-9, 3273-8 ####[facility] ([id number])[address] [address] [place] [address] 93589 WBC (Bld) [#/Vol] 7.3 10*3/uL Normal 4.0-11.0 [facility] Comment on above: Performed By: #### F EPR, CMP, 2284-8, CBCA, 77963-5, 2276-4, 2132-9, 3274-8 ####[facility] ([id number])[address], [address] [place] [address] COMPLEMENT PROFILEon 023 COMPLEMENT C3 120 mg/dL Normal 86-184 [facility] Comment on above: Performed By: #### 1 9123-9, CMP, 3274-8, CBCA #### [facility] ([id number]) [address], [address] [place] [address] COMPLEMENT C4 42 mg/dL Normal 16-47 [facility] Comment on above: Performed By: #### 1 9123-9, CMP, 3274-8, CBCA #### [facility] ([id number]) [address], [address] [place] [address] COMPREHENSIVE METABOLIC PANE [facility] 10-23-2023 Albumin [Mass/Vol] 3.3 g/dL Normal 3.2-5.3 [facility] Comment on above: Performed By: #### F EPR, CMP, 2284-8, CBCA, 39348-7, 2276-4, 2132-9, 3274-8 ####[facility] ([id number])[address], [address] [place] [address] ALP [Catalytic activity/Vol] 64 U/L Normal 39-130 [facility] Comment on above: Performed By: #### F EPR, CMP, 2284-8, CBCA, 61818-7, 2276-4, 2132-9, 3274-8 ####[facility] ([id number])[address], [address] [place] [address] 81036 ALT [Catalytic activity/Vol] 22 U/L Normal 0-31 [facility] Comment on above: Performed By: #### F EPR, CMP, 2284-8, CBCA, 25703-7, 2276-4, 2131-9, 3274-8 ####[facility] ([id number])[address], [address], [place] [address] Anion gap [Moles/Vol] 12 mmol/L Normal 5-15 [facility] Comment on above: Performed By: #### F EPR, CMP, 2284-8, CBCA, 71862-4, 6-4, 2131-9, 4-8 ####[facility] ([id number])[address], [address] [place] [address] AST [Catalytic activity/Vol] 36 U/L Normal 0-41 [facility] Comment on above: Performed By: #### F EPR, CMP, 2284-8, CBCA, 54274-7, 6-4, 2131-9, 3273-8 ####[facility] ([id number])[address], [address] [place] [address] Bilirubin [Mass/Vol] 0.3 mg/dL Normal 0.3-1.2 [facility] Comment on above: Performed By: #### F EPR, CMP, 2284-8, CBCA, 48188-6, 6-4, 2131-9, 3274-8 ####[facility] ([id number])[address], [address] [place] [address] Calcium [Mass/Vol] 8.2 mg/dL Low 8.5-10.5 [facility] Comment on above: Performed By: #### F EPR, CMP, 2284-8, CBCA, 81388-0, 6-4, 2131-9, 4-8 ####[facility] ([id number])[address], [address] [place] [address] Chloride [Moles/Vol] 102 mmol/L Normal 98-109 [facility] Comment on above: Performed By: #### F EPR, CMP, 2284-8, CBCA, 37915-6, 2276-4, 2131-9, 3273-8 ####[facility] ([id number])[address], [address] [place] [address] 49768 CO2 [Moles/Vol] 22 mmol/L Normal 22-32 [facility] Comment on above: Performed By: #### F EPR, CMP, 2284-8, CBCA, 85080-0, 2276-4, 2131-9, 3273-8 ####[facility] ([id number])[address], [address] [place] [address] 11389 Creatinine [Mass/Vol] 2.24 mg/dL High 0.40-1.00 [facility] Comment on above: Result Comment: METH OD TRACEABLE TO IDMS STANDARD Performed By: #### F EPR, CMP, 2284-8, CBCA, 94336-4, 6-4, 2131-9, 3273-8 ####[facility] ([id number])[address], [address] [place] [address] 04893 GFR/1.73 sq M.predicted among non-blacks MDRD (S/P/Bld) [Vol rate/Area] 26 mL/min/{1.73_m2} Low >59 [facility] Comment on above: Result Comment: Reported eGFR is based on the CKD-EPI 2020 equation that does not use a race coefficient. Performed By: #### F EPR, CMP, 2284-8, CBCA, 52948-8, 2276-4, 2131-9, 3273-8 ####[facility] ([id number])[address], [address] [place] [address]282 Glucose [Mass/Vol] 226 mg/dL High 65-99 [facility] Comment on above: Performed By: #### F EPR, CMP, 2284-8, CBCA, 38878-7, 2276-4, 2132-9, 3274-8 ####[facility] ([id number])[address], [address] [address] Potassium [Moles/Vol] 4.2 mmol/L Normal 3.5-5.0 [facility] Comment on above: Performed By: #### F EPR, CMP, 2284-8, CBCA, 37377-7, 2276-4, 2131-9, 4-8 ####[facility] ([id number])[address], [address] [place] [address] 73358 Protein [Mass/Vol] 6.2 g/dL Normal 6.0-8.0 [facility] Comment on above: Performed By: #### F EPR, CMP, 2284-8, CBCA, 51303-7, 6-4, 2131-9, 4-8 ####[facility] ([id number])[address] [address] [place] [address] 23694 Sodium [Moles/Vol] 136 mmol/L Normal 134-146 [facility] Comment on above: Performed By: #### F EPR, CMP, 2284-8, CBCA, 50996-6, 6-4, 2131-9, 4-8 ####[facility] ([id number])[address] [address] [place] [address] 53684 Urea nitrogen [Mass/Vol] 82 mg/dL High 5-23 [facility] Comment on above: Performed By: #### F EPR, CMP, 2284-8, CBCA, 26232-2, 6-4, 2131-9, 3274-8 ####[facility] ([id number])[address], [address] [place] [address] 13738 Clinical Pathologyon 023 Clinical Pathology Normal [facility] Comment on above: Result Comment: [facility] [address] [place], [place] [address] Clinical Pathology Report Patient Name:GAIL GIBBS:1970 (Age: 53)Gender:FTaken:10/23/2023Reported:10/24/2023hysician(s):Jose Luis Salazar MD ([phone])Copy To: Rec. #:[id number]: #[id number] Final Pathologic Diagnosis Polyclonal pattern, no monoclonal bands. Elevated free kappa and lambda light chains suggestive of renal impairment. Report Electronically Signed Out sps/10/24/2023Sucelia Jensen MD Interpretation performed at [facility], [address] [place] [address], License number: [id number]. Clinical History G35, R79.89, R17 SERUM IEP SAMPLE NUMBER: [id number] IMMUNOGLOBULIN LEVELS (mg/dL): IgG : 1171 IgA : 453 IgM : 106 Free [place]: 12.90 Free Lambda: 4.94 Free [place]/Lambda ratio: 2.61 Specimen(s) Received Serum IEP Fee Codes(s): 1; 93476-54 Creatinine (U) [Mass/Vol]on 10-23-2023 URINE CREATININE,RDM 87.65 mg/dL Normal [facility] Comment on above: Performed By: #### 1 9123-9, CMP, 3274-8, CBCA #### [facility] ([id number]) [address] [place] [address], [address] [place] [address] DNA double strand Ab Qn (S)o n 10-23-2023 DOUBLE STRANDED DNA 5 IU/ML High <5 [facility] Comment on above: Result Comment: Interpretation-------- <5 Negative 5-9 Indeterminate >9 Positive Performed By: #### 1 9123-9, CMP, 3274-8, CBCA #### [facility] ([id number]) [address], [address] [place] [address] FERRITINon 10-23-2023 Ferritin [Mass/Vol] 58 ng/mL Normal 11-307 [facility] Comment on above: Performed By: #### F EPR, CMP, 2284-8, CBCA, 03339-5, 2276-4, 2-9, 4-8 ####[facility] ([id number])[address], [address] [address] Folate [Mass/Vol]on 10-23-20 23 FOLIC ACID 7.0 ng/mL Normal >5.8 [facility] Comment on above: Result Comment: NEW REFERENCE RANGE Performed By: #### F EPR, CMP, 2284-8, CBCA, 14954-3, 6-4, 2131-9, 4-8 ####[facility] ([id number])[address], [address] [place] [address]709 Glomerular basement membrane IgG Qn (S)on 10-23-2023 GBM IgG Ab <0.2 Normal <1.0 [facility] Comment on above: Performed By: #### 1 9123-9, CMP, 4-8, CBCA #### [facility] ([id number]) [address], [address] [place] [address] Glucose Glucometer (BldC) [M ass/Vol]on 10-23-2023 Glucose [Mass/Vol] 221 mg/dL High 65-99 [facility] Glucose [Mass/Vol] 253 mg/dL High 65-99 [facility] Glucose [Mass/Vol] 224 mg/dL High 65-99 [facility] Glucose [Mass/Vol] 223 mg/dL High 65-99 [facility] HGB A1C (GLYCO-HGB)on 2022 Glucose [Mass/Vol] 180 mg/dL Normal [facility] Comment on above: Performed By: #### 1 9123-9, CMP, 3274-8, CBCA #### [facility] ([id number]) [address], [address] [place] [address] HbA1c (Bld) [Mass fraction] 7.9 % High 4.4-5.6 [facility] Comment on above: Result Comment: NOTE ADA Guidelines Result HgbA1c Normal : less than 5.7 % Prediabetes : 5.7 % to 6.4 % Diabetes : > 6.4 % Use with caution in patients with abnormal hemoglobin variants as the half-life of red blood cells and in vivo glycation rates are affected. Performed By: #### 1 9123-9, LISA, 3274-8, CBCA #### [facility] ([id number]) [address], [address] [address] HIV 1+2 Ab+HIV1 p24 Ag IA Ql on 10-23-2023 HIV 1 and 2 Ab/Ag Screen Non-Reactive Normal NRCT [facility] Comment on above: Result Comment: This information has been disclosed to you from confidential records protected from disclosure by state law. You shall make no further disclosure of this information without the specific, written and informed release of the individual to whom it pertains, or as otherwise permitted by state law. A general authorization for the release of medical or other information is not sufficient for the purpose of the release of HIV test results or diagnoses. Performed By: #### 1 9123-9, LISA, 3274-8, CBCA #### [facility] ([id number]) [address] [facility], [address] [place] [address] Heparin unfractionated Chrom ogenic method Qn (PPP)on 10-23-2023 ANTI XA UFH 0.51 IU/mL Normal 0.30-0.70 [facility] Comment on above: Result Comment: Opti mal time for testing is 6 hrs post dosage This test is specific for monitoring patients on UFH, and is not recommended for use with other Anti-Xa medications. Performed By: #### F EPR, CMP, 2284-8, CBCA, 74657-8, 2276-4, 2132-9, 3274-8 ####[facility] ([id number])[address], [address] [place] [address]858 ANTI XA UFH 0.55 IU/mL Normal 0.30-0.70 [facility] Comment on above: Result Comment: Opti mal time for testing is 6 hrs post dosage This test is specific for monitoring patients on UFH, and is not recommended for use with other Anti-Xa medications. Performed By: #### 3 274-8 ####[facility] ([id number])[address], [address] [place] [address] IMMUNOELECTROPHORESIS FOR TH ERAPY MONITORINGon 10-23-2023 FREE ABDIRIZAK/LAMBD RATIO 2.61 High 0.26-1.65 [facility] Comment on above: Performed By: #### 1 9123-9, [facility], 3273-8, CBCA #### [facility] ([id number]) [address], [address] [place] [address] FREE KAPPA LT CHAINS 12.90 mg/dL High 0.33-1.94 [facility] Comment on above: Performed By: #### 1 9123-9, CMP, 3273-8, CBCA #### [facility] ([id number]) [address], [address] [place] [address] FREE LAMBDA LT CHAINS 4.94 mg/dL High 0.57-2.63 [facility] Comment on above: Performed By: #### 1 9123-9, CMP, 3274-8, CBCA #### [facility] ([id number]) [address], [address] [place] [address] IgA [Mass/Vol] 453 mg/dL High 68-378 [facility] Comment on above: Performed By: #### 1 9123-9, CMP, 3274-8, CBCA #### [facility] ([id number]) [address], [address] [place] [address] IgG [Mass/Vol] 1171 mg/dL Normal 635-1741 [facility] Comment on above: Performed By: #### 1 9123-9, CMP, 3274-8, CBCA #### [facility] ([id number]) [address], [address] [place] [address] IgM [Mass/Vol] 106 mg/dL Normal 45-281 [facility] Comment on above: Performed By: #### 1 9123-9, CMP, 3274-8, CBCA #### [facility] ([id number]) [address], [address] [place] [address] IMMUNE PROFILE INTERP SEE SEPARATE REPORT Normal [facility] Comment on above: Performed By: #### 1 9123-9, CMP, 3274-8, CBCA #### [facility] ([id number]) [address], [address] [place] [address] IRON PROFILEon 10-23-2023 Iron [Mass/Vol] 56 ug/dL Normal 50-170 [facility] Comment on above: Performed By: #### F EPR, CMP, 2284-8, CBCA, 33986-5, 2276-4, 2131-9, 3274-8 ####[facility] ([id number])[address], [address] [address] IRON BINDING 281 ug/dL Normal 250-425 [facility] Comment on above: Performed By: #### F EPR, CMP, 2284-8, CBCA, 69618-0, 2276-4, 2-9, 3274-8 ####[facility] ([id number])[address], [address] [address] IRON SATURATION 20 % SATURATION Normal 15-50 [facility] Comment on above: Performed By: #### F EPR, CMP, 2284-8, CBCA, 25901-1, 6-4, 2132-06, 3273-8 ####[facility] ([id number])[address], [address] [address] MAGNESIUMon 10-23-2023 Magnesium [Mass/Vol] 2.3 mg/dL Normal 1.8-2.6 [facility] Comment on above: Performed By: #### F EPR, CMP, 2284-8, CBCA, 11988-5, 2276-01, 2132-06, 8 ####[facility] ([id number])[address], [address] [place] [address] MICROALBUMIN - ALBUMIN:CREAT ININE URINE RATIOon 10-23-2023 ALB/CREAT RATIO 1428.1 mg/g creat High 0.0-30.0 [facility] Comment on above: Performed By: #### M ALBU, UPCR, 2955-3, UA ####[facility] ([id number])[address], [address] [place] [address]146 Albumin DL <= 20 mg/L (U) [Mass/Vol] 125.9 mg/dL High 0.0-1.9 [facility] Comment on above: Performed By: #### M ALBU, UPCR, 2955-3, UA ####[facility] ([id number])[address], [address] [place] [address]79[address] URINE CREAT 88.16 mg/dL Normal [facility] Comment on above: Performed By: #### M ALBU, UPCR, 2955-3, UA ####[facility] ([id number])[address], [address] [place] [address]000 MR BRAIN W WO CONTon 023 MR BRAIN W WO CONT MR BRAIN W WO CONT Clinical history: Right upper and lower extremity weakness. Abnormal MRI brain. TECHNIQUE: Multiplanar multisequence imaging the brain was performed before and after the intravenous administration of 19 mL ProHance gadolinium contrast material. Sagittal FLAIR images were included as well. COMPARISON: Noncontrast enhanced MRI brain 10/20/2023. FINDINGS: Abnormal foci of increased signal intensity on the T2 and FLAIR images are again noted within subcortical and periventricular white matter. Many of the periventricular lesions are oval/flame shaped radiating away from the ependymal surface similar to the prior exam. Some involvement of the corpus callosum is again identified. None of these lesions demonstrate abnormal gadolinium enhancement. There is no pathologic parenchymal nor leptomeningeal enhancement elsewhere. There is no focal intracranial mass nor mass effect. Ventricular system appears within normal limits. Basal cisterns and fourth ventricle are patent. There is no restricted diffusion. There are no signal abnormalities present to suggest parenchymal nor extra-axial hemorrhage. IMPRESSION: 1. Redemonstration of white matter lesions which have characteristics appearance of demyelinating disease such as multiple sclerosis. 2. No pathologic gadolinium enhancement. 3. No intracranial mass effect, hemorrhage, nor acute infarct. Finalized by Yun Hernandez MD on 10/22/2023 11:58 PM Normal [facility] MR CERVICAL SPINE W WO CONTo n 10-23-2023 MR CERVICAL SPINE W WO CONT MR CERVICAL SPINE W WO CONT Study: Cervical spine MRI without and with contrast. History: Cervical neck pain, acute cervical myelopathy, right-sided weakness. Comparison: None. Technique: Routine multiplanar multisequence MR imaging of the cervical spine performed prior to and following uneventful administration of ProHance intravenous gadolinium contrast. Contrast. Findings: The cervical spine is visualized from skull base to T2. There is no prevertebral soft tissue swelling. No vertebral body height loss. No abnormal enhancement. Craniocervical junction appears be unremarkable. Cervical levels are as follows: C2-C3: Mild uncovertebral joint degenerative change. No disc bulge or herniation. No central canal stenosis or neural foraminal narrowing. C3-C4: Mild broad-based diffuse disc bulge and uncovertebral joint degenerative change of mild flattening of anterior thecal sac. Mild to moderate left and mild right neural foraminal narrowing. C4-C5: Broad-based diffuse disc bulge and uncovertebral joint degenerative change with mild flattening of anterior thecal sac and mild to moderate central canal stenosis. Moderate right greater than left neural foraminal narrowing. C5-C6 Broad-based diffuse disc bulge and disc osteophyte complex resulting in moderate severe central canal stenosis. Moderate right and raee-wp-vdodcurf left neural foraminal narrowing. C6-C7: Broad-based right paracentral disc bulge with mild flattening of anterior thecal sac. There is mild bilateral neural foraminal narrowing. C7-T1: Uncovertebral degenerative change without central canal stenosis. Mild bilateral neural foraminal narrowing. Impression: 1. Multilevel degenerative disc disease as above with central canal stenosis or neural foraminal narrowing most pronounced at C4-C5 and C5-C6. Finalized by Blaine Lui MD on 10/23/2023 10:29 AM Normal [facility] MR THORACIC SPINE W WO CONTo n 10-23-2023 MR THORACIC SPINE W WO CONT MR THORACIC SPINE W WO CONT MR THORACIC SPINE W WO CONT Clinical history:Myelopathy, acute, thoracic spine acute thoracic back pain Comparison: None. TECHNIQUE: Multiplanar multisequence MRI of thoracic spine performed prior to and following uneventful administration of ProHance gadolinium contrast. Findings: No pathologic bone marrow signal. No vertebral body height loss. There is no intracanalicular mass lesion. There is no cord compression. There is mild central disc protrusion at T7-T8 without significant canal compromise or cord compression. No abnormal enhancement identified. No abnormal spinal cord signal. Impression: Multilevel degenerative disc disease with mild central disc protrusion at T7-T8. No cord compression or central canal stenosis. Finalized by Blaine Lui MD on 10/23/2023 10:31 AM Normal [facility] Neutrophil cytoplasmic Ab IF Ql (S)on 10-23-2023 ANCA See Below Normal [facility] Comment on above: Result Comment: NOTE TEST RESULT FLAG UNIT REF.RANGE --------- C-ANCA by Immunofluorescence Negative Negative P-ANCA by Immunofluorescence Negative Negative INTERPRETATION (ANCA) See below Negative for C-ANCA and P-ANCA by indirect immunofluorescence. STAFF REVIEW (ANCA) See below No review performed. This test is used as an aid in diagnosis of patients with autoimmune vasculitidies. The final interpretation should be done in conjunction with ANCA test results and clinical correlation. Test Performed By: [place] [address] Crew Lead: Aneudy Castelan III, M.D. IA #[id number] Nuclear Ab IA Ql (S)on 10-23 XAVIER Screen w/reflex Negative Normal NEG [facility] Comment on above: Result Comment: Testing performed using multiplex flow immunoassay. Eleven different antigens associated with systemic autoimmune diseases (dsDNA,Sm,Sm/ICT BUSINESS DEVELOPMENT MANAGER,ICT BUSINESS DEVELOPMENT MANAGER,Chromatin, SSA,SSB,Destini-1,Scl70,Ribo P,Centromere B) are included in this screening test. Performed By: #### 1 9123-9, CMP, 3274-8, CBCA #### [facility] ([id number]) [address], [address] [place] [address] PROTEIN CREAT RATIOon 2022 RANDOM URINE PROTEIN 2260 mg/L High <120 [facility] Comment on above: Performed By: #### M ALBU, UPCR, 2955-3, UA ####[facility] ([id number])[address], [address] [place] [address] U/PRO/TRANSIT BUS OPERATOR RATIO CALC 2.58 High <0.2 [facility] Comment on above: Result Comment: Neph rotic Syndrome is associated with ratios >3.5 Performed By: #### M ALBU, UPCR, 2955-3, UA ####[facility] ([id number])[address], [address] [place] [address] URINE CREATININE,RDM 87.51 mg/dL Normal Pro [facility] Comment on above: Performed By: #### M ALBU, UPCR, 2955-3, UA ####[facility] ([id number])[address], [address], [place] [address] Rheumatoid factor Nephelomet ry Qn (S)on 10-23-2023 RHEUMATOID FACTOR <10 Normal <20 [facility] Comment on above: Performed By: #### 1 9123-9, CMP, 3274-8, CBCA #### [facility] ([id number]) [address], [address] [place] [address] SERUM PROTEIN ELECTROPHORESI Son 10-23-2023 Albumin [Mass/Vol] 3.1 g/dL Low 3.4-5.3 [facility] Comment on above: Performed By: #### 1 9123-9, CMP, 3274-8, CBCA #### [facility] ([id number]) [address], [address] [place] [address] ALPHA 1 GLOBULIN 0.3 g/dL Normal 0.1-0.4 [facility] Comment on above: Performed By: #### 1 9123-9, CMP, 3274-8, CBCA #### [facility] ([id number]) [address], [address] [place] [address] ALPHA 2 GLOBULIN 0.9 g/dL Normal 0.4-1.1 [facility] Comment on above: Performed By: #### 1 9123-9, CMP, 3274-8, CBCA #### [facility] ([id number]) [address], [address] [place] [address] BETA GLOBULIN 0.9 g/dL Normal 0.5-1.2 [facility] Comment on above: Performed By: #### 1 9123-9, CMP, 3274-8, CBCA #### [facility] ([id number]) [address], [address] [place] [address] GAMMA GLOBULIN 1.2 g/dL Normal 0.5-1.6 [facility] Comment on above: Performed By: #### 1 9123-9, CMP, 3274-8, CBCA #### [facility] ([id number]) [address] [address] PROT. ELECTROPHORESIS INTERP Unremarkable protein distribution, no monoclonal bands. Normal [facility] Comment on above: Performed By: #### 1 9123-9, CMP, 3274-8, CBCA #### [facility] ([id number]) [address], [address] [address] Protein [Mass/Vol] 6.4 g/dL Normal 6.0-8.0 [facility] Comment on above: Performed By: #### 1 9123-9, CMP, 3274-8, CBCA #### [facility] ([id number]) [address] [address] T. pallidum IgG+IgM IA Ql (S )on 10-23-2023 Syphilis Total <0.2 Normal 0.0-0.8 [facility] Comment on above: Result Comment: NON REACTIVE No serologic evidence of infection to Treponema pallidum (syphilis). Repeat testing may be considered in patients with suspected acute or primary syphilis in 2 to 4 weeks. Performed By: #### 1 9123-9, CMP, 3274-8, CBCA #### [facility] ([id number]) [address] [address] URINALYSISon 10-23-2023 Bilirubin Ql (U) Negative Normal NEG [facility] Comment on above: Performed By: #### M ALBU, UPCR, 2955-3, UA ####[facility] ([id number])[address] [address] BLOOD/HGB Large Abnormal NEG [facility] Comment on above: Performed By: #### M ALBU, UPCR, 2955-3, UA ####[facility] ([id number])[address], [address] [place] [address] Color (U) YELLOW Normal YELLOW [facility] Comment on above: Performed By: #### M TERESO UPCR, 2955-3, UA ####[facility] ([id number])[address], [address] [place] [address] Glucose Ql (U) 500 mg/dL Abnormal NEG [facility] Comment on above: Performed By: #### M TERESO UPCR, 2955-3, UA ####[facility] ([id number])[address], [address] [address] Ketones Ql (U) Negative Normal NEG [facility] Comment on above: Performed By: #### Riaz RIDER UPCR, 2955-3, UA ####[facility] ([id number])[address], [address], [place] [address] Leukocyte esterase Test strip Ql (U) Negative Normal NEG [facility] Comment on above: Performed By: #### Riaz RIDER UPCR, 2955-3, UA ####[facility] ([id number])[address], [address] [place] [address] Nitrite Ql (U) Negative Normal NEG [facility] Comment on above: Performed By: #### M TERESO UPCR, 2955-3, UA ####[facility] ([id number])[address], [address] [place] [address] pH (U) 5.5 [pH] Normal 5.0-8.5 [facility] Comment on above: Performed By: #### M ALBMirna UPCR, 2955-3, UA ####[facility] ([id number])[address], [address] [place] [address] Protein Ql (U) 200 mg/dL Abnormal NEG [facility] Comment on above: Performed By: #### M ALBMirna UPCR, 2955-3, UA ####[facility] ([id number])[address] [address] R.B.CELLS 230 /hpf High 0-5 [facility] Comment on above: Performed By: #### M ALBU, UPCR, 2955-3, UA ####[facility] ([id number])[address], [address] [address] Specific gravity (U) [Rel density] 1.015 Normal 1.003-1.035 [facility] Comment on above: Performed By: #### M ALBU, UPCR, 2955-3, UA ####[facility] ([id number])[address] [address] SQUAMOUS EPITHELIUM <1 Normal 0-5 [facility] Comment on above: Performed By: #### M ALBU, UPCR, 2955-3, UA ####[facility] ([id number])[address] [address] TURBIDITY CLEAR Normal CLEAR [facility] Comment on above: Performed By: #### M ALBU, UPCR, 2955-3, UA ####[facility] ([id number])[address] [address] Urinalysis dipstick W Reflex Microscopic panel (U) URINE RECEIVED WITHOUT PRESERVATIVE-DELAYS IN TRANSPORT MAY AFFECT RESULTS.INTERPRET WITH CAUTION AND CLINICAL CORRELATION IS RECOMMENDED. Normal [facility] Comment on above: Performed By: #### M ALBU, UPCR, 2955-3, UA ####[facility] ([id number])[address] [address] Urobilinogen (U) [Mass/Vol] mg/dL Normal <1.1 [facility] Comment on above: Performed By: #### M ALBU, UPCR, 2955-3, UA ####[facility] ([id number])[address], [address] [place] [address] W.B.CELLS 1 /hpf Normal 0-5 [facility] Comment on above: Performed By: #### M ALBU, UPCR, 2955-3, UA ####[facility] ([id number])[address], [address] [place] [address] URINE SODIUM,RANDOMon 2022 Sodium (U) [Moles/Vol] 28 mmol/L Normal Pr [facility] Comment on above: Performed By: #### M ALBU, UP, 2955-3, UA ####[facility] ([id number])[address], [address] [place] [address] VITAMIN B12on 10-23-2023 Cobalamin (Vitamin B12) [Mass/Vol] 472 pg/mL Normal 180-914 [facility] Comment on above: Performed By: #### F EPR, CMP, 2284-8, CBCA, 34991-2, 2276-4, 2132-9, 3274-8 ####[facility] ([id number])[address], [address] [address] XR CHEST 1 VWon 10-23-2023 XR CHEST 1 VW XR CHEST 1 VW XR CHEST 1 VW HISTORY: Congestive heart failure, hypertension COMPARISON: 10/20/2023, not 07/08/2022. FINDINGS: Image quality partially compromised by underpenetration. Interval development of mild pulmonary vascular congestion with peribronchial cuffing and questionable perihilar prominence. The cardiomediastinal silhouette is not enlarged after accounting for patient positioning. No pleural effusion or focal consolidation. No discernible pneumothorax. IMPRESSION: Interval development of peribronchial cuffing and perihilar prominence which could represent mild pulmonary vascular congestion, inflammatory airway disease. Approved by Resident Kitty Mendoza MD on 10/23/2023 7:45 PM Chito Hernandez MD have personally reviewed the image(s) and agree with and/or edited the report Finalized by Chito Nettles MD on 10/23/2023 7:57 PM Normal [facility] CBC AND AUTO DIFFon 10-22-20 ABSOLUTE BASOPHIL 0.0 X10E9/L Normal 0.0-0.2 [facility] Comment on above: Performed By: #### 1 9123-9, CMP, 3274-8, CBCA #### [facility] ([id number]) [address], [address] [place] [address] ABSOLUTE NEUTROPHIL 4.5 X10E9/L Normal 1.5-6.6 [facility] Comment on above: Performed By: #### 1 9123-9, CMP, 3274-8, CBCA #### [facility] ([id number]) [address], [address] [place] [address] Basophils/100 WBC (Bld) 0.1 % Normal [facility] Comment on above: Performed By: #### 1 9123-9, CMP, 4-8, CBCA #### [facility] ([id number]) [address], [address] [place] [address] Eosinophils (Bld) [#/Vol] 0.0 10*3/uL Normal 0.0-0.4 [facility] Comment on above: Performed By: #### 1 9123-9, CMP, 4-8, CBCA #### [facility] ([id number]) [address], [address] [place] [address] Eosinophils/100 WBC (Bld) 0.0 % Normal [facility] Comment on above: Performed By: #### 1 9123-9, CMP, 3274-8, CBCA #### [facility] ([id number]) [address], [address] [place] [address] Erythrocyte distribution width (RBC) [Ratio] 15.1 % High 11.5-15.0 [facility] Comment on above: Performed By: #### 1 9123-9, CMP, 3274-8, CBCA #### [facility] ([id number]) [address], [address] [place] [address] Hematocrit (Bld) [Volume fraction] 35.4 % Normal 35-47 [facility] Comment on above: Performed By: #### 1 23-9, CMP, 3274-8, CBCA #### [facility] ([id number]) [address], [facility] [address] [place] [address] Hemoglobin (Bld) [Mass/Vol] 11.8 g/dL Normal 11.7-15.5 [facility] Comment on above: Performed By: #### 1 9122-9, CMP, 3274-8, CBCA #### [facility] ([id number]) [address], [address] [place] [address] Lymphocytes (Bld) [#/Vol] 1.4 10*3/uL Normal 1.0-3.5 [facility] Comment on above: Performed By: #### 1 9122-9, CMP, 3274-8, CBCA #### [facility] ([id number]) [address], [facility] [address] [place] [address] Lymphocytes/100 WBC (Bld) 21.5 % Normal [facility] Comment on above: Performed By: #### 1 23-9, CMP, 3274-8, CBCA #### [facility] ([id number]) [address], [address] [place] [address] MCH (RBC) [Entitic mass] 28.4 pg Normal 27-34 [facility] Comment on above: Performed By: #### 1 9123-9, CMP, 3274-8, CBCA #### [facility] ([id number]) [address], [address] [place] [address] MCHC (RBC) [Mass/Vol] 33.2 g/dL Normal 32-36 [facility] Comment on above: Performed By: #### 1 9123-9, CMP, 3274-8, CBCA #### [facility] ([id number]) [address], [address] [place] [address] MCV (RBC) [Entitic vol] 85 fL Normal 80-100 P [facility] Comment on above: Performed By: #### 1 23-9, CMP, 3274-8, CBCA #### [facility] ([id number]) [address], [address] [place] [address] Monocytes (Bld) [#/Vol] 0.6 10*3/uL Normal 0-0.9 [facility] Comment on above: Performed By: #### 1 9122-9, CMP, 3274-8, CBCA #### [facility] ([id number]) [address], [address] [place] [address] Monocytes/100 WBC (Bld) 9.5 % Normal P [facility] Comment on above: Performed By: #### 1 91-9, CMP, 3274-8, CBCA #### [facility] ([id number]) [address], [address] [place] [address] Neutrophils/100 WBC (Bld) 68.9 % Normal [facility] Comment on above: Performed By: #### 1 9123-9, CMP, 3274-8, CBCA #### [facility] ([id number]) [address], [address] [place] [address] Platelet mean volume (Bld) [Entitic vol] 9.9 fL Normal 7-12 [facility] Comment on above: Performed By: #### 1 9123-9, CMP, 3274-8, CBCA #### [facility] ([id number]) [address], [address] [place] [address] Platelets (Bld) [#/Vol] 211 10*3/uL Normal 150-450 [facility] Comment on above: Performed By: #### 1 9123-9, CMP, 3274-8, CBCA #### [facility] ([id number]) [address], [address] [place] [address] RBC COUNT 4.15 X10E12/L Normal 3.80-5.20 [facility] Comment on above: Performed By: #### 1 9123-9, CMP, 3274-8, CBCA #### [facility] ([id number]) [address], [address] [place] [address] WBC (Bld) [#/Vol] 6.5 10*3/uL Normal 4.0-11.0 [facility] Comment on above: Performed By: #### 1 9123-9, CMP, 3274-8, CBCA #### [facility] ([id number]) [address], [address] [place] [address] COMPREHENSIVE METABOLIC PANE Chang 10-22-2023 Albumin [Mass/Vol] 3.3 g/dL Normal 3.2-5.3 [facility] Comment on above: Performed By: #### 1 9123-9, CMP, 3274-8, CBCA #### [facility] ([id number]) [address], [address] [place] [address] ALP [Catalytic activity/Vol] 69 U/L Normal 39-130 [facility] Comment on above: Performed By: #### 1 9123-9, CMP, 3274-8, CBCA #### [facility] ([id number]) [address], [address] [place] [address] ALT [Catalytic activity/Vol] 20 U/L Normal 0-31 [facility] Comment on above: Performed By: #### 1 9123-9, CMP, 3274-8, CBCA #### [facility] ([id number]) [address], [address] [place] [address] Anion gap [Moles/Vol] 12 mmol/L Normal 5-15 [facility] Comment on above: Performed By: #### 1 9123-9, CMP, 3274-8, CBCA #### [facility] ([id number]) [address], [address] [place] [address] AST [Catalytic activity/Vol] 40 U/L Normal 0-41 [facility] Comment on above: Performed By: #### 1 9123-9, CMP, 3274-8, CBCA #### [facility] ([id number]) [address], [address] [place] [address] Bilirubin [Mass/Vol] 0.4 mg/dL Normal 0.3-1.2 [facility] Comment on above: Performed By: #### 1 23-9, CMP, 3274-8, CBCA #### [facility] ([id number]) [address], [address] [place] [address] Calcium [Mass/Vol] 8.4 mg/dL Low 8.5-10.5 [facility] Comment on above: Performed By: #### 1 9123-9, CMP, 3274-8, CBCA #### [facility] ([id number]) [address], [address] [place] [address] Chloride [Moles/Vol] 101 mmol/L Normal 98-109 [facility] Comment on above: Performed By: #### 1 9123-9, CMP, 3274-8, CBCA #### [facility] ([id number]) [address], [address] [place] [address] CO2 [Moles/Vol] 23 mmol/L Normal 22-32 [facility] Comment on above: Performed By: #### 1 9123-9, CMP, 3274-8, CBCA #### [facility] ([id number]) [address], [address] [place] [address] Creatinine [Mass/Vol] 2.16 mg/dL High 0.40-1.00 [facility] Comment on above: Result Comment: METH OD TRACEABLE TO IDMS STANDARD Performed By: #### 1 9123-9, CMP, 3274-8, CBCA #### [facility] ([id number]) [address], [address] [place] [address] GFR/1.73 sq M.predicted among non-blacks MDRD (S/P/Bld) [Vol rate/Area] 27 mL/min/{1.73_m2} Low >59 [facility] Comment on above: Result Comment: Reported eGFR is based on the CKD-EPI 2020 equation that does not use a race coefficient. Performed By: #### 1 9123-9, CMP, 4-8, CBCA #### [facility] ([id number]) [address], [address] [place] [address] Glucose [Mass/Vol] 313 mg/dL High 65-99 [facility] Comment on above: Performed By: #### 1 9123-9, CMP, 3274-8, CBCA #### [facility] ([id number]) [address], [address] [place] [address] Potassium [Moles/Vol] 4.3 mmol/L Normal 3.5-5.0 [facility] Comment on above: Performed By: #### 1 9123-9, CMP, 3274-8, CBCA #### [facility] ([id number]) [address], [address] [place] [address] Protein [Mass/Vol] 6.4 g/dL Normal 6.0-8.0 [facility] Comment on above: Performed By: #### 1 9123-9, CMP, 3274-8, CBCA #### [facility] ([id number]) [address], [address] [place] [address] Sodium [Moles/Vol] 136 mmol/L Normal 134-146 [facility] Comment on above: Performed By: #### 1 9123-9, CMP, 3274-8, CBCA #### [facility] ([id number]) [address], [address] [place] [address] Urea nitrogen [Mass/Vol] 68 mg/dL High 5-23 [facility] Comment on above: Performed By: #### 1 9123-9, CMP, 3274-8, CBCA #### [facility] ([id number]) [address], [address] [place] [address] Glucose Glucometer (BldC) [M ass/Vol]on 10-22-2023 Glucose [Mass/Vol] 174 mg/dL High 65-99 [facility] Glucose [Mass/Vol] 319 mg/dL High 65-99 [facility] Glucose [Mass/Vol] 291 mg/dL High 65-99 [facility] Heparin unfractionated Chrom ogenic method Qn (PPP)on 10-22-2023 ANTI XA UFH 0.74 IU/mL High 0.30-0.70 [facility] Comment on above: Result Comment: Opti mal time for testing is 6 hrs post dosage This test is specific for monitoring patients on UFH, and is not recommended for use with other Anti-Xa medications. Performed By: #### 3 274-8 #### [facility] ([id number]) [address], [address] [place] [address] ANTI XA UFH 0.83 IU/mL High 0.30-0.70 [facility] Comment on above: Result Comment: Opti mal time for testing is 6 hrs post dosage This test is specific for monitoring patients on UFH, and is not recommended for use with other Anti-Xa medications. Performed By: #### 1 9123-9, CMP, 3274-8, CBCA #### [facility] ([id number]) [address] [place] [address] MAGNESIUMon 10-22-2023 Magnesium [Mass/Vol] 2.3 mg/dL Normal 1.8-2.6 [facility] Comment on above: Performed By: #### 1 9123-9, CMP, 3274-8, CBCA #### [facility] ([id number]) [address], [address] [place] [address] CBC AND AUTO DIFFon 10-21-20 ABSOLUTE BASOPHIL 0.0 X10E9/L Normal 0.0-0.2 [facility] Comment on above: Performed By: #### Pato CONROY PINR, [id number] #### [facility] ([id number]) [address] [place] [id number] ABSOLUTE NEUTROPHIL 3.9 X10E9/L Normal 1.5-6.6 [facility] Comment on above: Performed By: #### Pato CONROY, PINR, [id number] #### [facility] ([id number]) [address] [place] [address] 41185 Basophils/100 WBC (Bld) 0.1 % Normal [facility] Comment on above: Performed By: #### Pato CONROY, PINR, [id number] #### [facility] ([id number]) [address] [place] [address] 56207 Eosinophils (Bld) [#/Vol] 0.0 10*3/uL Normal 0.0-0.4 [facility] Comment on above: Performed By: #### Pato CONROY, PINR, [id number] #### [facility] ([id number]) [address] [place] [address] 00683 Eosinophils/100 WBC (Bld) 0.0 % Normal [facility] Comment on above: Performed By: #### Pato CONROY, PINR, [id number] #### [facility] ([id number]) [address] [place] [address] 05880 Erythrocyte distribution width (RBC) [Ratio] 15.2 % High 11.5-15.0 [facility] Comment on above: Performed By: #### Pato CONROY PINR, [id number] #### [facility] ([id number]) [address] [place] [address] 76055 Hematocrit (Bld) [Volume fraction] 36.9 % Normal 35-47 [facility] Comment on above: Performed By: #### Pato CONROY PINR, [id number] #### [facility] ([id number]) [address] [place] [address] 73421 Hemoglobin (Bld) [Mass/Vol] 12.1 g/dL Normal 11.7-15.5 [facility] Comment on above: Performed By: #### Pato CONROY PINR, [id number] #### [facility] ([id number]) [address] [place] [address] 29058 Lymphocytes (Bld) [#/Vol] 0.6 10*3/uL Low 1.0-3.5 [facility] Comment on above: Performed By: #### Pato CONROY PINR, [id number] #### [facility] ([id number]) [address] [place] [address] 01222 Lymphocytes/100 WBC (Bld) 12.9 % Normal [facility] Comment on above: Performed By: #### Pato CONROY, PINR, [id number] #### [facility] ([id number]) [address] [place] [address] 99002 MCH (RBC) [Entitic mass] 28.0 pg Normal 27-34 [facility] Comment on above: Performed By: #### Pato CONROY PINR, 87877-4 #### [facility] ([id number]) [address] [place] [address] 04495 MCHC (RBC) [Mass/Vol] 32.7 g/dL Normal 32-36 [facility] Comment on above: Performed By: #### CATARINO Whyte BCAR, 16405-8 #### [facility] ([id number]) [address] [place] [address] 47728 MCV (RBC) [Entitic vol] 86 fL Normal 80-100 [facility] Comment on above: Performed By: #### CATARINO Whyte BCAR, 53473-2 #### [facility] ([id number]) [address] [place] [address] 48795 Monocytes (Bld) [#/Vol] 0.1 10*3/uL Normal 0-0.9 [facility] Comment on above: Performed By: #### MARCELLE Whyte BCA, 63198-6 #### [facility] ([id number]) [address] [place] [address] 22091 Monocytes/100 WBC (Bld) 1.5 % Normal [facility] Comment on above: Performed By: #### CATARINO Whyte BCAR, 54749-2 #### [facility] ([id number]) [address] [place] [address] 99811 Neutrophils/100 WBC (Bld) 85.5 % Normal [facility] Comment on above: Performed By: #### CATARINO Whyte BCAR, 88329-7 #### [facility] ([id number]) [address] [place] [address] 87019 Platelet mean volume (Bld) [Entitic vol] 9.3 fL Normal 7-12 [facility] Comment on above: Performed By: #### Pato CONROY PINR, 57227-3 #### [facility] ([id number]) [address] [place] [address] 33030 Platelets (Bld) [#/Vol] 228 10*3/uL Normal 150-450 [facility] Comment on above: Performed By: #### C MARYCARMEN, PINR, 97239-1 #### [facility] ([id number]) [address] [place] [address] 54375 RBC COUNT 4.31 X10E12/L Normal 3.80-5.20 [facility] Comment on above: Performed By: #### Pato CONROY PINR, 25800-3 #### [facility] ([id number]) [address] [place] [address] 16922 WBC (Bld) [#/Vol] 4.5 10*3/uL Normal 4.0-11.0 [facility] Comment on above: Performed By: #### Pato CONROY PINR, 55303-0 #### [facility] ([id number]) [address] [place] [address] 55449 COMPREHENSIVE METABOLIC PANE [facility] 10-21-2023 Albumin [Mass/Vol] 3.2 g/dL Normal 3.2-5.3 [facility] Comment on above: Performed By: #### Pato CONROY PINR, 21425-1 #### [facility] ([id number]) [address] [place] [address] 43166 ALP [Catalytic activity/Vol] 69 U/L Normal 39-130 [facility] Comment on above: Performed By: #### Pato CONROY PINR, 79293-3 #### [facility] ([id number]) [address] [place] [address] 71649 ALT [Catalytic activity/Vol] 29 U/L Normal 0-31 [facility] Comment on above: Performed By: #### Pato CONROY, PINR, 23571-5 #### [facility] ([id number]) [address] [place] [address] 24662 Anion gap [Moles/Vol] 13 mmol/L Normal 5-15 [facility] Comment on above: Performed By: #### C BCA, PINR, 31485-5 #### [facility] ([id number]) [address] [place] [address] 42937 AST [Catalytic activity/Vol] 52 U/L High 0-41 [facility] Comment on above: Performed By: #### C BCA, PINR, 73294-6 #### [facility] ([id number]) [address] [place] [address] 99804 Bilirubin [Mass/Vol] 1.0 mg/dL Normal 0.3-1.2 [facility] Comment on above: Performed By: #### C BCA, PINR, 63265-1 #### [facility] ([id number]) [address] [place] [address] 16005 Calcium [Mass/Vol] 8.6 mg/dL Normal 8.5-10.5 [facility] Comment on above: Performed By: #### C BCA, PINR, 76638-6 #### [facility] ([id number]) [address] [place] [address] 17214 Chloride [Moles/Vol] 102 mmol/L Normal 98-109 [facility] Comment on above: Performed By: #### C BCA, PINR, 12874-5 #### [facility] ([id number]) [address] [place] [address] 93193 CO2 [Moles/Vol] 19 mmol/L Low 22-32 [facility] Comment on above: Performed By: #### C BCA, PINR, 03219-9 #### [facility] ([id number]) [address] [place] [address] 55103 Creatinine [Mass/Vol] 1.75 mg/dL High 0.40-1.00 [facility] Comment on above: Result Comment: METH OD TRACEABLE TO IDMS STANDARD Performed By: #### C BCA, PINR, 92238-0 #### [facility] ([id number]) [address] [place] [address] 11042 GFR/1.73 sq M.predicted among non-blacks MDRD (S/P/Bld) [Vol rate/Area] 35 mL/min/{1.73_m2} Low >59 [facility] Comment on above: Result Comment: Reported eGFR is based on the CKD-EPI 2020 equation that does not use a race coefficient. Performed By: #### CATARINO Whyte BCAR, 76933-9 #### [facility] ([id number]) [address] [place] [address] 32891 Glucose [Mass/Vol] 254 mg/dL High 65-99 [facility] Comment on above: Performed By: #### MARCELLE Whyte BCA, 22604-6 #### [facility] ([id number]) [address] [place] [address] 62649 Potassium [Moles/Vol] 4.1 mmol/L Normal 3.5-5.0 [facility] Comment on above: Performed By: #### MARCELLE Whyte BCA, 27399-8 #### [facility] ([id number]) [address] [place] [address] 24859 Protein [Mass/Vol] 7.3 g/dL Normal 6.0-8.0 [facility] Comment on above: Performed By: #### CATARINO Whyte BCAR, 05076-1 #### [facility] ([id number]) [address] [place] [address] 85633 Sodium [Moles/Vol] 134 mmol/L Normal 134-146 [facility] Comment on above: Performed By: #### Pato CONROY PINR, 97150-2 #### [facility] ([id number]) [address] [place] [address] 05350 Urea nitrogen [Mass/Vol] 35 mg/dL High 5-23 [facility] Comment on above: Performed By: #### MARCELLE Whyte BCA, 61908-6 #### [facility] ([id number]) [address] [place] [address] 25245 Glucose Glucometer (BldC) [M ass/Vol]on 10-21-2023 Glucose [Mass/Vol] 263 mg/dL High 65-99 [facility] Glucose [Mass/Vol] 269 mg/dL High 65-99 [facility] Glucose [Mass/Vol] 292 mg/dL High 65-99 [facility] Glucose [Mass/Vol] 227 mg/dL High 65-99 [facility] Glucose [Mass/Vol] 257 mg/dL High 65-99 [facility] Heparin unfractionated Chrom ogenic method Qn (PPP)on 10-21-2023 ANTI XA UFH 0.65 IU/mL Normal 0.30-0.70 [facility] Comment on above: Result Comment: Opti mal time for testing is 6 hrs post dosage This test is specific for monitoring patients on UFH, and is not recommended for use with other Anti-Xa medications. Performed By: #### MARCELLE Whyte BCA, 72201-5 #### [facility] ([id number]) [address] [place] [address] 75775 ANTI XA UFH 0.46 IU/mL Normal 0.30-0.70 [facility] Comment on above: Result Comment: Opti mal time for testing is 6 hrs post dosage This test is specific for monitoring patients on UFH, and is not recommended for use with other Anti-Xa medications. Performed By: #### MARCELLE Whyte BCA, 51099-6 #### [facility] ([id number]) [address] [place] [address] 16914 MAGNESIUMon 10-21-2023 Magnesium [Mass/Vol] 2.2 mg/dL Normal 1.8-2.6 [facility] Comment on above: Performed By: #### MARCELLE Whyte BCA, 53392-4 #### [facility] ([id number]) [address] [place] [address] 57842 TROPONIN Ion 10-21-2023 Troponin I.cardiac [Mass/Vol] 6.71 ng/mL Critically high 0.00-0.04 [facility] Comment on above: Result Comment: Concentrations greater than or equal to 0.05 ng/ml are considered elevated. Elevations of Troponin may be due to causes other than myocardial ischemia. Recommend serial Troponin testing be performed. Performed By: #### MARCELLE Whyte BCA, 24680-5 #### [facility] ([id number]) [address] [place] [address] 03527 ACUTE HEPATITIS PANELon 09-30 ANTI HCV W/PCR REFLX Non-Reactive Normal NRCT [facility] Comment on above: Result Comment: If recent infection suspected, recommend repeat testing (>2 months). Umvrbp-tn-nxskau ratio is <0.80. Performed By: #### C MARCELLE CONROY, 34672-8 #### [facility] ([id number]) [address] [place] [address] 06156 HEPATITIS A IGM Non-Reactive Normal NRCT [facility] Comment on above: Performed By: #### Pato CONROY PINR, 10744-3 #### [facility] ([id number]) [address] [place] [address] 31580 HEPATITIS B CORE IGM Negative Normal NEG [facility] Comment on above: Performed By: #### Pato CONROY PINR, 49935-7 #### [facility] ([id number]) [address] [place] [address] 82363 HEPATITIS B SURF AG Negative Normal NEG [facility] Comment on above: Performed By: #### Pato CONROY, PINR, 24039-8 #### [facility] ([id number]) [address] [place] [address] 33076 BASIC METABOLIC PANLon 10-20 Anion gap [Moles/Vol] 6 mmol/L Normal 5-15 [facility] Comment on above: Performed By: #### B ROSALINA LIVR, 51569-6 #### [facility] ([id number]) [address] [place] [address] 05013 Calcium [Mass/Vol] 8.7 mg/dL Normal 8.5-10.5 [facility] Comment on above: Performed By: #### Adam ROMANO, LIVR, 85052-0 #### [facility] ([id number]) [address] [place] [address] 56762 Chloride [Moles/Vol] 105 mmol/L Normal 98-109 [facility] Comment on above: Performed By: #### Adam ROMANO LIVR, 18886-0 #### [facility] ([id number]) [address] [place] [address] 24872 CO2 [Moles/Vol] 26 mmol/L Normal 22-32 [facility] Comment on above: Performed By: #### Adam ROMANO, LIVR, 66069-4 #### [facility] ([id number]) [address] [place] [address] 97634 Creatinine [Mass/Vol] 1.66 mg/dL High 0.40-1.00 [facility] Comment on above: Result Comment: METH OD TRACEABLE TO IDMS STANDARD Performed By: #### Adam ROMANO, LIVR, 25962-3 #### [facility] ([id number]) [address] [place] [address] 06476 GFR/1.73 sq M.predicted among non-blacks MDRD (S/P/Bld) [Vol rate/Area] 37 mL/min/{1.73_m2} Low >59 [facility] Comment on above: Result Comment: Reported eGFR is based on the CKD-EPI 2020 equation that does not use a race coefficient. Performed By: #### B ROSALINA LIVR, 11782-3 #### [facility] ([id number]) [address] [place] [address] 02218 Glucose [Mass/Vol] 133 mg/dL High 65-99 [facility] Comment on above: Performed By: #### B ROSALINA LIVR, 11523-2 #### [facility] ([id number]) [address] [place] [address] 13738 Potassium [Moles/Vol] 3.7 mmol/L Normal 3.5-5.0 [facility] Comment on above: Performed By: #### B ROSALINA LIVR, 86511-1 #### [facility] ([id number]) [address] [place] [address] 67436 Sodium [Moles/Vol] 137 mmol/L Normal 134-146 [facility] Comment on above: Performed By: #### B ROSALINA LIVR, 36622-2 #### [facility] ([id number]) [address] [place] [address] 53662 Urea nitrogen [Mass/Vol] 27 mg/dL High 5-23 [facility] Comment on above: Performed By: #### B ROSALINA LIVR, 63686-3 #### [facility] ([id number]) [address] [place] [address] 01755 CBC AND AUTO DIFFon 10-20-20 23 ABSOLUTE BASOPHIL 0.0 X10E9/L Normal 0.0-0.2 [facility] Comment on above: Performed By: #### C BCA PINR, 46085-6 #### [facility] ([id number]) [address] [place] [address] 75458 ABSOLUTE NEUTROPHIL 2.8 X10E9/L Normal 1.5-6.6 [facility] Comment on above: Performed By: #### C BCA, PINR, 51392-0 #### [facility] ([id number]) [address] [place] [address] 92183 Basophils/100 WBC (Bld) 0.4 % Normal [facility] Comment on above: Performed By: #### Pato CONROY, PINR, 59312-2 #### [facility] ([id number]) [address] [place] [address] 02472 Eosinophils (Bld) [#/Vol] 0.0 10*3/uL Normal 0.0-0.4 [facility] Comment on above: Performed By: #### Pato CONROY, PINR, 32939-9 #### [facility] ([id number]) [address] [place] [address] 54117 Eosinophils/100 WBC (Bld) 0.8 % Normal [facility] Comment on above: Performed By: #### Pato CONROY, PINR, 58642-4 #### [facility] ([id number]) [address] [place] [address] 69644 Erythrocyte distribution width (RBC) [Ratio] 15.1 % High 11.5-15.0 [facility] Comment on above: Performed By: #### Pato CONROY, PINR, 96008-3 #### [facility] ([id number]) [address] [place] [address] 24637 Hematocrit (Bld) [Volume fraction] 35.0 % Normal 35-47 [facility] Comment on above: Performed By: #### Pato CONROY, PINR, 98335-6 #### [facility] ([id number]) [address] [place] [address] 51996 Hemoglobin (Bld) [Mass/Vol] 11.7 g/dL Normal 11.7-15.5 [facility] Comment on above: Performed By: #### Pato CONROY, PINR, 37979-3 #### [facility] ([id number]) [address] [place] [address] 83204 Lymphocytes (Bld) [#/Vol] 0.6 10*3/uL Low 1.0-3.5 [facility] Comment on above: Performed By: #### Pato CONROY, PINR, 57111-2 #### [facility] ([id number]) [address] [place] [address] 67356 Lymphocytes/100 WBC (Bld) 14.7 % Normal [facility] Comment on above: Performed By: #### Pato CONROY, PINR, 81965-0 #### [facility] ([id number]) [address] [place] [address] 75157 MCH (RBC) [Entitic mass] 28.3 pg Normal 27-34 [facility] Comment on above: Performed By: #### Pato CONROY, PINR, 51226-9 #### [facility] ([id number]) [address] [place] [address] 39568 MCHC (RBC) [Mass/Vol] 33.3 g/dL Normal 32-36 [facility] Comment on above: Performed By: #### Pato CONROY, PINR, 00706-7 #### [facility] ([id number]) [address] [place] [address] 33503 MCV (RBC) [Entitic vol] 85 fL Normal 80-100 [facility] Comment on above: Performed By: #### Pato CONROY, PINR, 96953-3 #### [facility] ([id number]) [address] [place] [address] 00815 Monocytes (Bld) [#/Vol] 0.5 10*3/uL Normal 0-0.9 [facility] Comment on above: Performed By: #### Pato CONROY, PINR, 99248-9 #### [facility] ([id number]) [address] [place] [address] 10405 Monocytes/100 WBC (Bld) 13.7 % Normal [facility] Comment on above: Performed By: #### Pato CONROY PINR, 06680-2 #### [facility] ([id number]) [address] [place] [address] 40705 Neutrophils/100 WBC (Bld) 70.4 % Normal [facility] Comment on above: Performed By: #### CATARINO Whyte BCAR, 09947-7 #### [facility] ([id number]) [address] [place] [address] 26805 Platelet mean volume (Bld) [Entitic vol] 9.0 fL Normal 7-12 [facility] Comment on above: Performed By: #### CATARINO Whyte BCAR, 27307-0 #### [facility] ([id number]) [address] [place] [address] 42699 Platelets (Bld) [#/Vol] 229 10*3/uL Normal 150-450 [facility] Comment on above: Performed By: #### Pato CONROY PINR, 86892-9 #### [facility] ([id number]) [address] [place] [address] 74717 RBC COUNT 4.11 X10E12/L Normal 3.80-5.20 [facility] Comment on above: Performed By: #### Pato CONROY PINR, 18841-8 #### [facility] ([id number]) [address] [place] [address] 52586 WBC (Bld) [#/Vol] 4.0 10*3/uL Normal 4.0-11.0 [facility] Comment on above: Performed By: #### Pato CONROY PINR, 67467-7 #### [facility] ([id number]) [address] [place] [address] CTA CAROTIDon 10-20-[address] CTA CAROTID History: Right-sided weakness and slurred speech. Acute neurological disorder. Acute stroke/TIA Exam/Technique: Bolus arterial phase IV contrast. 3-D and multiplanar reconstructions are provided for CTA of the neck. Volume rendered 3 -D Maximum intensity projection reconstructions constructed under concurrent physician supervision on a independent workstation and reviewed for purposes of evaluation of the cervical arterial vasculature. Carotid artery narrowing is assessed using the [place] Symptomatic Carotid Endarterectomy Trial (NASCET) method. Comparison: None Findings: The aortic arch and origins of the great vessels are not included on this study. No stenoses or other significant abnormalities are demonstrated in the portions of the great vessels included Mild calcific plaquing is displayed at the carotid bifurcations. There is no evidence of common or internal carotid artery stenosis at any level, on either side. Vertebral arteries are intact throughout the neck bilaterally, without any evidence of focal stenoses. No evidence of dissection of any of the cervical vessels and no other arterial abnormalities are depicted. There is degenerative change in the cervical spine with apparent moderate stenosis at the C4-C5 and C5-C6 levels IMPRESSION: Negative CTA of the neck All CT scans at this facility use dose modulation, iterative reconstruction, and/or weight based dosing when appropriate to reduce radiation dose to as low as reasonably achievable. Finalized by Christian Agosto MD on 10/20/2023 1:56 PM Normal [facility] CT CTA HEADon 10-20-[address] CTA HEAD CTA BRAIN COMPARISON: CT brain from the same day HISTORY: Stroke, follow-up for large vessel occlusion. Right-sided weakness, slurred speech. TECHNIQUE: 100 mL Omnipaque 350 nonionic contrast injected intravenously without reported complication. Axial images of the brain obtained with sagittal and coronal 2-D reformatted images. Multiplanar reformatted 3-D MIP images of the brain generated under concurrent physician and reviewed for assessment of the cerebral arteries. Arterial blood flow was measured to assist the stroke clinical team in the diagnosis of large vessel occlusion in patients undergoing screening for acute ischemic stroke using Rapid AI software when clinically indicated. Automatic exposure control (AEC) was utilized. FINDINGS: No evidence for an aneurysm, vascular malformation, occlusion, or significant stenosis of the major vessels of the [place]. Calcified plaque with moderate stenosis of the bilateral intracranial internal carotid arteries. Prominent posterior communicating artery on the right. IMPRESSION: 1. No evidence for high-grade stenosis or occlusion of the major vessels of the [place]. 2. Calcified plaque with moderate stenosis of the bilateral intracranial internal carotid arteries. 3. CTA carotid is reported separately. All CT scans at this facility use dose modulation, iterative reconstruction, and/or weight based dosing when appropriate to reduce radiation dose to as low as reasonably achievable. Finalized by Christian Bowie MD on 10/20/2023 2:01 PM Normal [facility] Glucose Glucometer (BldC) [M ass/Vol]on 10-20-2023 Glucose [Mass/Vol] 92 mg/dL Normal 65-99 [facility] Glucose [Mass/Vol] 90 mg/dL Normal 65-99 [facility] Glucose [Mass/Vol] 134 mg/dL High 65-99 [facility] HGB A1C (GLYCO-HGB)on 2022 Glucose [Mass/Vol] 174 mg/dL Normal [facility] Comment on above: Performed By: #### C MARCELLE CONROY, 76690-4 #### [facility] ([id number]) [address] [place] [address] 97747 HbA1c (Bld) [Mass fraction] 7.7 % High 4.4-5.6 [facility] Comment on above: Result Comment: NOTE ADA Guidelines Result HgbA1c Normal : less than 5.7 % Prediabetes : 5.7 % to 6.4 % Diabetes : > 6.4 % Use with caution in patients with abnormal hemoglobin variants as the half-life of red blood cells and in vivo glycation rates are affected. Performed By: #### C MARCELLE CONROY, 82126-5 #### [facility] ([id number]) [address] [place] [address] 70154 LIVER PANELon 10-20-2023 Albumin [Mass/Vol] 3.4 g/dL Normal 3.2-5.3 [facility] Comment on above: Performed By: #### B ROSALINA LIVR, 58551-3 #### [facility] ([id number]) [address] [place] [address] 80087 ALP [Catalytic activity/Vol] 65 U/L Normal 39-130 [facility] Comment on above: Performed By: #### B ROSALINA, LIVR, 59631-1 #### [facility] ([id number]) [address] [place] [address] 03988 ALT [Catalytic activity/Vol] 28 U/L Normal 0-31 [facility] Comment on above: Performed By: #### B ROSALINA, LIVR, 02348-0 #### [facility] ([id number]) [address] [place] [address] 30073 AST [Catalytic activity/Vol] 45 U/L High 0-41 [facility] Comment on above: Performed By: #### Adam ROMANO, LIVR, 58780-9 #### [facility] ([id number]) [address] [place] [address] 21288 Bilirubin [Mass/Vol] 0.5 mg/dL Normal 0.3-1.2 [facility] Comment on above: Performed By: #### Adam ROMANO, LIVR, 03240-8 #### [facility] ([id number]) [address] [place] [address] 82700 Bilirubin.direct [Mass/Vol] 0.1 mg/dL Normal 0.0-0.4 [facility] Comment on above: Performed By: #### Adam ROMANO, LIVR, 36413-0 #### [facility] ([id number]) [address] [place] [address] 49912 Protein [Mass/Vol] 7.2 g/dL Normal 6.0-8.0 [facility] Comment on above: Performed By: #### Adam ROMANO, LIVR, 35438-1 #### [facility] ([id number]) [address] [place] [address] 76736 MR BRAIN WO CONTon 3 MR BRAIN WO CONT MR BRAIN WO CONT EXAM:MR BRAIN WO CONT INDICATION: Neuro deficit, acute, stroke suspected COMPARISON: None TECHNIQUE: Multiplanar multisequence noncontrast MR sequences through the head/brain. BRAIN FINDINGS: Brain Parenchyma: No acute hemorrhage, cerebral edema, or acute infarction. No mass, mass effect, or midline shift. Scattered periventricular, subcortical, and juxtacortical white matter lesions are seen supratentorially. Additional white matter lesions are seen within the mont[place]errat and upper cervical cord on the sagittal T2 FLAIR sequence. Multiple lesions appear to be perpendicular to the corpus callosum and extending to the callosal septal interface. No diffusion restriction is identified. Findings raise suspicion for demyelinating process. Ventricles and Sulci: Normal for age. Extra-Axial Spaces: No extra-axial fluid collection. Intracranial Flow-Voids: Arterial and venous sinus flow voids appear normal. Orbits: Normal Paranasal Sinuses: Normal Mastoid Air Cells: Normal Cranium: Normal Extracranial Soft Tissues: Normal IMPRESSION: No acute or subacute infarct. Findings suspicious for demyelinating process such as multiple sclerosis with multiple T2/flair hyperintensities in the periventricular, subcortical, and juxtacortical white matter. There is likely involvement of the callosal septal interface. Probable FLAIR hyperintensity within the cervical medullary junction as well as the cervical cord at the C3 level. Dedicated MRI of the cervical and thoracic spine is recommended for further characterization. Finalized by Blaine Sutton on 10/20/2023 3:17 PM Normal [facility] Natriuretic peptide B [Mass/ Vol]on 10-20-2023 Natriuretic peptide B (Bld) [Mass/Vol] 999 pg/mL High <100.0 [facility] Comment on above: Performed By: #### C MARCELLE CONROY, 60386-3 #### [facility] ([id number]) [address] [place] [address] [id number] PROTIME AND INRon 10-20-2023 INR Coag (PPP) [Relative time] 1.1 {INR} Normal 0.8-1.1 [facility] Comment on above: Performed By: #### Pato CONROY, PINR, [id number] #### [facility] ([id number]) [address] [place] [id number] PT Coag (PPP) [Time] 12.3 s Normal 9.8-13.2 [facility] Comment on above: Result Comment: NEW REFERENCE RANGE Performed By: #### Pato CONROY, PINR, [id number] #### [facility] ([id number]) [address] [place] [address]9624 TROPONIN Ion 10-20-2023 Troponin I.cardiac [Mass/Vol] 9.33 ng/mL Critically high 0.00-0.04 [facility] Comment on above: Result Comment: Concentrations greater than or equal to 0.05 ng/ml are considered elevated. Elevations of Troponin may be due to causes other than myocardial ischemia. Recommend serial Troponin testing be performed. Performed By: #### Pato CONROY, PINR, [id number] #### [facility] ([id number]) [address] [place] [address]382 Troponin I.cardiac [Mass/Vol] 10.73 ng/mL Critically high 0.00-0.04 [facility] Comment on above: Result Comment: Concentrations greater than or equal to 0.05 ng/ml are considered elevated. Elevations of Troponin may be due to causes other than myocardial ischemia. Recommend serial Troponin testing be performed. Performed By: #### Pato CONROY, PINR, [id number] #### [facility] ([id number]) [address] [place] [address]61 Troponin I.cardiac [Mass/Vol] 8.46 ng/mL Critically high 0.00-0.04 [facility] Comment on above: Result Comment: Concentrations greater than or equal to 0.05 ng/ml are considered elevated. Elevations of Troponin may be due to causes other than myocardial ischemia. Recommend serial Troponin testing be performed. Performed By: #### B MP, LIVR, [id number] #### [facility] ([id number]) [address] [place] [address] [id number] XR CHEST 1 VIEW STROKEon XR CHEST 1 VIEW STROKE XR CHEST 1 VIEW STROKE XR CHEST 1 VIEW STROKE: 10/20/2023 1:30 PM Clinical: CVA Single frontal chest is compared with 07/08/2022. Exam limited by low lung volumes. Heart size appears mildly enlarged. No large pleural effusions or pneumothorax. IMPRESSION: Low lung volumes with possible congestion. Finalized by Cesar Jefferson MD on 10/20/2023 2:00 PM Normal [facility] aPTT Coag (PPP) [Time]on aPTT Coag (Bld) [Time] 33 s Normal 26-37 [facility] Comment on above: Result Comment: NEW REFERENCE RANGE Performed By: #### C BCA, PINR, [id number] #### [facility] ([id number]) [address] [place] [address]35 COVID/FLU/RSV RT-PCRon 08-10 SARS-CoV-2 (COVID-19) RNA RICKI+probe Ql (Unsp spec) Negative [facility] Other COVID/FLU/RSV RT-PCR Negative [facility] Other Cholesterol [Mass/volume] in Serum or PlasmaOrdered By: Marcos Garcia on 04-18-2023 Cholesterol [Mass/Vol] 111 mg/dL 140-200 [facility] Comment on above: Chol less than 200 m g/dl low riskChol 201-239 mg/dl borderline riskChol 240 mg/dl and greater high risk Cholesterol in LDL Calc [Mas s/Vol]Ordered By: Marcos Garcia on 04-18-2023 Cholesterol in LDL [Mass/Vol] 36 mg/dL 0-100 [facility] Comment on above: LDL ATP III CLASSIFI CATIONLDL less than 100 mg/dL OptimalLDL 100-129 mg/dL Near or above optimalLDL 130-159 mg/dL Borderline highLDL 160-189 mg/dL HighLDL greater than 189 mg/dL Very high Cholesterol in VLDL Calc [Ma ss/Vol]Ordered By: Marcos Garcia on 04-18-2023 Cholesterol in VLDL [Mass/Vol] 36 mg/dL [facility] Follicle Stimulating Hormone on 04-18-2023 Follicle Stimulating Hormone 56.1 m[iU]/mL Normal [facility] Comment on above: Order Comment: Reaso n for Exam Screening for lipid disorders Reason for Exam Hot flashes Result Comment: FEMA LE NORMALS (PREMENOPAUSE) MID-FOLLICULAR PHASE: 3.9-8.8 mIU/mL MID-CYCLE PEAK: 4.5-22.5 mIU/mL MID-LUTEAL PHASE: 1.8-5.1 mIU/mL FEMALE NORMALS (POSTMENOPAUSE): 16.7-113.6 mIU/mL MALE NORMALS: 1.3-19.3 mIU/mL PERFORMED BY: [place] [address] PATHOLOGIST ATTENDANT [employer] KELLI LOPEZ M.D. Performed By: #### C MP, CBC, PAB #### [facility] [address] [place] [address] Follitropin [Units/volume] i n Serum or PlasmaOrdered By: Marcos Garcia on 04-18-2023 Follitropin Qn 56.1 m[IU]/mL [facility] Comment on above: FEMALE NORMALS (MOLLY ENOPAUSE) MID-FOLLICULAR PHASE: 3.9-8.8 mIU/mL MID-CYCLE PEAK: 4.5-22.5 mIU/mL MID-LUTEAL PHASE: 1.8-5.1 mIU/mLFEMALE NORMALS (POSTMENOPAUSE): 16.7-113.6 mIU/mLMALE NORMALS: 1.3-19.3 mIU/mL HIV 1/O/2 Antigen/Antibodyon 04-18-2023 HIV Screen 4th Generation Non-Reactive Normal Non Reactive [facility] Comment on above: Order Comment: Reaso n for Exam Screening for HIV (human immunodeficiency virus) Result Comment: HIV Negative HIV-1/HIV-2 antibodies and HIV-1 p24 antigen were NOT detected. There is no laboratory evidence of HIV infection. Performed at: [address] [id number] [employer]: Deon Montiel PhD, Phone: [phone] PERFORMED BY: [place] [address] PATHOLOGIST ATTENDANT [employer] KELLI LOPEZ M.D. Performed By: #### C MP, CBC, PAB #### [address] Hep C Ab wRfx to Qnt PCRon 0 04-18-2023 Hepatitis C Virus Antibody Non-Reactive Normal Non Reactive [facility] Comment on above: Order Comment: Reaso n for Exam Encounter for hepatitis C screening test for low risk patien Performed By: #### C MP, CBC, PAB #### [address] Interpretation Hepatitis C Normal . [facility] Comment on above: Order Comment: Reaso n for Exam Encounter for hepatitis C screening test for low risk patien Result Comment: Not infected with HCV unless early or acute infection is suspected (which may be delayed in an immunocompromised individual), or other evidence exists to indicate HCV infection. Performed at: [address] [id number] [employer]: Deon Montiel PhD, Phone: [phone] PERFORMED BY: [place] [address] PATHOLOGIST ATTENDANT [employer] KELLI LOPEZ M.D. Performed By: #### C MP, CBC, PAB #### [address] [place] [address] [place] Lipid Panelon 04-18-2023 Cholesterol [Mass/Vol] 111 mg/dL Low 140-200 Th [facility] Comment on above: Order Comment: Reaso n for Exam Screening for lipid disorders Reason for Exam Hot flashes Result Comment: Chol less than 200 mg/dl low risk Chol 201-239 mg/dl borderline risk Chol 240 mg/dl and greater high risk Performed By: #### C MP, CBC, PAB #### [facility] [id number] [facility] Cholesterol in HDL [Mass/Vol] 39 mg/dL Normal 23-92 [facility] Comment on above: Order Comment: Reaso n for Exam Screening for lipid disorders Reason for Exam Hot flashes Result Comment: HDL CHOL ATP-III CLASSIFICATION Cardiovascular Risk HDL > or equal to 60 mg/dL LOW HDL < 40 mg/dL HIGH Performed By: #### C MP, CBC, PAB #### [facility] [address] Cholesterol.total/Choles terol in HDL [Mass ratio] 2.8 {ratio} Normal <5.0 [facility] Comment on above: Order Comment: Reaso n for Exam Screening for lipid disorders Reason for Exam Hot flashes Performed By: #### C MP, CBC, PAB #### [facility] [address] LDL Cholesterol,Calculated 36 mg/dL Normal 0-100 [facility] Comment on above: Order Comment: Reaso n for Exam Screening for lipid disorders Reason for Exam Hot flashes Result Comment: LDL ATP III CLASSIFICATION LDL less than 100 mg/dL Optimal LDL 100-129 mg/dL Near or above optimal LDL 130-159 mg/dL Borderline high LDL 160-189 mg/dL High LDL greater than 189 mg/dL Very high Performed By: #### C MP, CBC, PAB #### [facility] [address] [id number] [place] Triglyceride w/Reflex 181 mg/dL High 0-149 [facility] Comment on above: Order Comment: Reaso n for Exam Screening for lipid disorders Reason for Exam Hot flashes Result Comment: TRIG ATP III CLASSIFICATION TRIG less than 150 mg/dL Normal TRIG 150-199 mg/dL Borderline high TRIG 200-500 mg/dL High TRIG greater than 500 mg/dL Very high Standard traceable to the Center for Disease Conrtrol and Prevention (CDC) test method. Performed By: #### C MP, CBC, PAB #### [facility] [address] VLDL CHOLESTEROL 36 mg/dL Normal [facility] Comment on above: Order Comment: Reaso n for Exam Screening for lipid disorders Reason for Exam Hot flashes Performed By: #### C MP, CBC, PAB #### [facility] [address] Serum or plasma high density lipoprotein (HDL) cholesterol measurementOrdered By: Marcos Garcia on 04-18-2023 Cholesterol in HDL [Mass/Vol] 39 mg/dL - [facility] Comment on above: HDL CHOL ATP-III CLA SSIFICATION Cardiovascular RiskHDL > or equal to 60 mg/dL LOWHDL < 40 mg/dL HIGH Serum or plasma total choles terol/high density lipoprotein (HDL) cholesterol mass ratOrdered By: Marcos Garcia on 04-18-2023 Cholesterol.total/Choles terol in HDL [Mass ratio] 2.8 {ratio} <5.0 [facility] Triglyceride [Mass/volume] i n Serum or PlasmaOrdered By: Marcos Garcia on 04-18-2023 Triglyceride [Mass/Vol] 181 mg/dL 0-149 [facility] Comment on above: TRIG ATP III CLASSIF ICATIONTRIG less than 150 mg/dL NormalTRIG 150-199 mg/dL Borderline highTRIG 200-500 mg/dL High TRIG greater than 500 mg/dL Very highStandard traceable to the Center for Disease Conrtrol and Prevention (CDC) test method. C-PEPTIDE, SERUMon 3 C-Peptide, Serum 4.6 ng/mL Critically high 1.1-4.4 [facility] Comment on above: Result Comment: C-Pe ptide reference interval is for fasting patients. Performed By: #### C PEPT #### [facility] [address] [address] [address] Rosina Brown CBC AUTO DIFFon 01-30-2023 BASO # 0.0 103/ul Normal 0.0-0.1 [facility] Comment on above: Performed By: #### C BC #### [facility] [address] [place] [address] Dr. Rosina Brown Basophils/100 WBC (Bld) 0.4 % Normal 0.2-2.0 [facility] Comment on above: Performed By: #### C BC #### [facility] [address] [place] [address] Dr. Rosina Brown EO # 0.3 103/ul Normal 0.0-0.7 [facility] Comment on above: Performed By: #### C BC #### [facility] [address] [place] [address] Dr. Rosina Brown Eosinophils/100 WBC (Bld) 4.5 % Normal 0.9-7.0 [facility] Comment on above: Performed By: #### C BC #### [facility] [address] [place] [address] Dr. Rosina Brown Erythrocyte distribution width (RBC) [Ratio] 14.0 % Normal 11.0-15.0 [facility] Comment on above: Performed By: #### C BC #### [facility] [address] [place] [address] Dr. Rosina Brown Hematocrit (Bld) [Volume fraction] 40.3 % Normal 36.0-48.0 [facility] Comment on above: Performed By: #### C BC #### [facility] [address] [place] [address] Dr. Rosina Brown Hemoglobin (Bld) [Mass/Vol] 12.9 g/dL Normal 12.0-16.0 [facility] Comment on above: Performed By: #### C BC #### [facility] [address] [place] [address] Dr. Rosina Brown IG # 0.01 10e3/ul Normal 0.00-0.03 [facility] Comment on above: Performed By: #### C BC #### [facility] [address] [place] [address] Dr. Rosina Brown IG % 0.1 % Normal 0.0-0.5 [facility] Comment on above: Performed By: #### C BC #### [facility] [address] [place] [address] Dr. Rosina Brown LYMPH # 2.6 103/ul Normal 1.2-3.8 [facility] Comment on above: Performed By: #### C BC #### [facility] [address] [place] [address] Dr. Rosina Brown Lymphocytes/100 WBC (Bld) 37.2 % Normal 20.5-60.0 [facility] Comment on above: Performed By: #### C BC #### [facility] [address] [place] [address] Dr. Rosina Brown MANUAL DIFF REQ NO Normal [facility] Comment on above: Performed By: #### C BC #### [facility] [address] [place] [address] Dr. Rosina Brown MCH (RBC) [Entitic mass] 27.6 pg Normal 26.7-34.0 [facility] Comment on above: Performed By: #### C BC #### [facility] [address] [place] [address] Dr. Rosina Brown MCHC (RBC) [Mass/Vol] 32.0 g/dL Normal 29.9-35.2 [facility] Comment on above: Performed By: #### C BC #### [facility] [address] [place] [address] Dr. Rosina Brown MCV (RBC) [Entitic vol] 86.3 fL Normal 81.0-99.0 [facility] Comment on above: Performed By: #### C BC #### [facility] [address] [place] [address] Dr. Rosina Brown MONO # 0.4 103/ul Normal 0.3-0.8 [facility] Comment on above: Performed By: #### C BC #### [facility] [address] [place] [address] Dr. Rosina Brown Monocytes/100 WBC (Bld) 6.1 % Normal 1.7-12.0 [facility] Comment on above: Performed By: #### C BC #### [facility] [address] [place] [address] Dr. Rosina Brown NEUT # 3.5 103/ul Normal 1.4-6.5 [facility] Comment on above: Performed By: #### C BC #### [facility] [address] [place] [address] Dr. Rosina Brown Neutrophils/100 WBC (Bld) 51.7 % Normal 43.0-75.0 [facility] Comment on above: Performed By: #### C BC #### [facility] [address] [place] [address] Dr. Rosina Brown Platelet mean volume (Bld) [Entitic vol] 11.0 fL Normal 9.5-13.5 [facility] Comment on above: Performed By: #### C BC #### [facility] [address] [place] [address] Dr. Rosina Brown PLT 281 103/ul Normal 150-450 [facility] Comment on above: Performed By: #### C BC #### [facility] [address] [place] [address] Dr. Rosina Brown RBC 4.67 106/ul Normal 4.20-5.40 [facility] Comment on above: Performed By: #### C BC #### [facility] [address] [place] [address] Dr. Rosina Brown WBC 6.9 103/ul Normal 4.0-11.0 [facility] Comment on above: Performed By: #### C BC #### [facility] [address] [place] [address] Dr. Rosina Brown LIPID PROFILEon 01-30-2023 CHOL-HDL RATIO NORM SEE BELOW Normal [facility] Comment on above: Result Comment: 3.3 - 4.4 LOW RISK 4.4 - 7.1 AVERAGE RISK 7.1 - 11.0 MODERATE RISK >11.0 HIGH RISK Performed By: #### R ENAL, LIPID #### [facility] [address] [place] [address] Dr. Rosina Brown Cholesterol [Mass/Vol] 174 mg/dL Normal <=200 [facility] Comment on above: Performed By: #### R ENAL, LIPID #### [facility] [address] [address] [address] Rosina Brown Cholesterol in HDL [Mass/Vol] 50 mg/dL Normal 40-60 [facility] Comment on above: Performed By: #### R ENAL, LIPID #### [facility] [address] [address] [address] Rosina Brown Cholesterol in LDL [Mass/Vol] 102.6 mg/dL Normal [facility] Comment on above: Performed By: #### R ENAL, LIPID #### [facility] [address] [address] [address] Rosina Brown Cholesterol.total/Choles terol in HDL [Mass ratio] 3.5 {ratio} Normal [facility] Comment on above: Performed By: #### R ENAL, LIPID #### [facility] [address] [place] [address] Dr. Rosina Brown HDL NORMAL > or = 60 mg/dl - LOW CARDIOVASCULAR RISK <40 mg/dl - HIGH CARDIOVASCULAR RISK Normal [facility] Comment on above: Performed By: #### R ENCANDIS, LIPID #### [facility] [address] [place] [address] Dr. Rosina Brown LDL CALC NORMAL SEE BELOW Normal [facility] Comment on above: Result Comment: <100 mg/dl OPTIMAL 100 - 129 mg/dl NEAR OR ABOVE OPTIMAL 130 - 159 mg/dl BORDERLINE HIGH 160 - 189 mg/dl HIGH >190 mg/dl VERY HIGH Performed By: #### R ENAL, LIPID #### [facility] [address] [address] [address] Rosina Brown Triglyceride [Mass/Vol] 107 mg/dL Normal <=150 [facility] Comment on above: Performed By: #### R ENAL, LIPID #### [facility] [address] [address] [address] Rosina Brown VLDL CALC 21.4 mg/dL Normal [facility] Comment on above: Performed By: #### R ENAL, LIPID #### [facility] [address] [place] [address] Dr. Rosina Brown RENAL FUNCTION PANELon 01-30 Albumin [Mass/Vol] 3.6 g/dL Normal 3.4-5.0 [facility] Comment on above: Performed By: #### R ENAL, LIPID #### [facility] [address] [place] [address] Dr. Rosina Brown Calcium [Mass/Vol] 9.3 mg/dL Normal 8.5-10.1 [facility] Comment on above: Performed By: #### R ENAL, LIPID #### [facility] [address] [place] [address] Dr. Rosina Brown Chloride [Moles/Vol] 103 mmol/L Normal 98-107 [facility] Comment on above: Performed By: #### R ENAL, LIPID #### [facility] [address] [place] [address] Dr. Rosina Brown CO2 [Moles/Vol] 26.1 mmol/L Normal 21.0-32.0 [facility] Comment on above: Performed By: #### R ENAL, LIPID #### [facility] [address] [place] [address] Dr. Rosina Brown Creatinine [Mass/Vol] 1.48 mg/dL Critically high 0.55-1.02 [facility] Comment on above: Performed By: #### R ENAL, LIPID #### [facility] [address] [place] [address] Dr. Rosina Brown EGFR-AF KAZAKH 45 mL/min/1.73m2 Critically low >=60 [facility] Comment on above: Performed By: #### R ENAL, LIPID #### [facility] [address] [place] [address] Dr. Rosina Brown EGFR-NON AF KAZAKH 37 mL/min/1.73m2 Critically low >=60 [facility] Comment on above: Performed By: #### R ENAL, LIPID #### [facility] [address] [place] [address] Dr. Rosina Brown Glucose [Mass/Vol] 196 mg/dL Critically high 74-106 [facility] Comment on above: Performed By: #### R ENCANDIS, LIPID #### [facility] [address] [place] [address] Dr. Rosina Brown Phosphate [Mass/Vol] 4.5 mg/dL Normal 2.6-4.7 [facility] Comment on above: Performed By: #### R MORALES, LIPID #### [facility] [address] [place] [address] Dr. Rosina Brown Potassium [Moles/Vol] 4.4 mmol/L Normal 3.5-5.1 [facility] Comment on above: Performed By: #### R MORALES, LIPID #### [facility] [address] [place] [address] Dr. Rosina Brown Sodium [Moles/Vol] 138 mmol/L Normal 136-145 [facility] Comment on above: Performed By: #### R MORALES, LIPID #### [facility] [address] [place] [address] Dr. Rosina Brown Urea nitrogen [Mass/Vol] 43.0 mg/dL Critically high 7.0-18 .0 [facility] Comment on above: Performed By: #### R MORALES, LIPID #### [facility] [address] [place] [address] Dr. Rosina Brown VITAMIN D 25 OHon 01-30-2023 VIT D 25-OH 10.0 ng/mL Normal [facility] Comment on above: Performed By: #### V ITAD #### [facility] [address] [place] [address] Dr. Rosina Brown VIT D RANGES SEE BELOW Normal [facility] Comment on above: Result Comment: <20 ng/mL Vit D deficient 20 - <30 ng/mL Vit D insufficient 30 - 100 ng/mL Vit D sufficient >100 ng/mL Potential Toxicity Performed By: #### V ITAD #### [facility] [address] [place] [address] Dr. Rosina Brown XR LSPINE MIN 4 VIEWSon XR LSPINE MIN 4 VIEWS EXAMINATION: XR LSPINE MIN 4 VIEWS HISTORY: Low back pain , chronic COMPARISON: No relevant comparison available. FINDINGS: BONES: Minimal left convex curvature of lumbar spine. No fracture, spondylolisthesis, bone lesion. Mild degenerative facet arthropathy L4-L5, L5-S1. Partial lumbarization of S1 (normal variant). DISC SPACES: No significant disc height narrowing, subluxation, or endplate abnormality. PARASPINOUS: Negative. No paraspinous abnormality is seen. OTHER: Negative. IMPRESSION: 1. No appreciable acute abnormality or significant degenerative degenerative disc disease. 2. Mild degenerative facet arthropathy of lower lumbar spine may contribute to patient's symptoms. Electronically authenticated by: TAHIRA PABLO Date: 2023-01-30 16:48 Normal [facility] CBC AUTO DIFFon 04-04-2022 BASO # 0.0 103/ul Normal 0.0-0.1 [facility] Comment on above: Performed By: #### C BC #### [facility] [address] [place] [address] Dr. Rosina Brown Basophils/100 WBC (Bld) 0.4 % Normal 0.2-2.0 [facility] Comment on above: Performed By: #### C BC #### [facility] [address] [place] [address] Dr. Rosina Brown EO # 0.3 103/ul Normal 0.0-0.7 [facility] Comment on above: Performed By: #### C BC #### [facility] [address] [place] [address] Dr. Rosina Brown Eosinophils/100 WBC (Bld) 3.6 % Normal 0.9-7.0 [facility] Comment on above: Performed By: #### C BC #### [facility] [address] [place] [address] Dr. Rosina Brown Erythrocyte distribution width (RBC) [Ratio] 13.9 % Normal 11.0-15.0 [facility] Comment on above: Performed By: #### C BC #### [facility] [address] [place] [address] Dr. Rosina Brown Hematocrit (Bld) [Volume fraction] 42.7 % Normal 36.0-48.0 [facility] Comment on above: Performed By: #### C BC #### [facility] [address] [place] [address] Dr. Rosina Brown Hemoglobin (Bld) [Mass/Vol] 13.4 g/dL Normal 12.0-16.0 [facility] Comment on above: Performed By: #### C BC #### [facility] [address] [place] [address] Dr. Rosina Brown IG # 0.01 10e3/ul Normal 0.00-0.03 [facility] Comment on above: Performed By: #### C BC #### [facility] [address] [place] [address] Dr. Rosina Brown IG % 0.1 % Normal 0.0-0.5 [facility] Comment on above: Performed By: #### C BC #### [facility] [address] [place] [address] Dr. Rosina Brown LYMPH # 2.3 103/ul Normal 1.2-3.8 [facility] Comment on above: Performed By: #### C BC #### [facility] [address] [place] [address] Dr. Rosina Brown Lymphocytes/100 WBC (Bld) 31.0 % Normal 20.5-60.0 [facility] Comment on above: Performed By: #### C BC #### [facility] [address] [place] [address] Dr. Rosina Brown MANUAL DIFF REQ NO Normal [facility] Comment on above: Performed By: #### C BC #### [facility] [address] [place] [address] Dr. Rosina Brown MCH (RBC) [Entitic mass] 27.7 pg Normal 26.7-34.0 [facility] Comment on above: Performed By: #### C BC #### [facility] [address] [place] [address] Dr. Rosina Brown MCHC (RBC) [Mass/Vol] 31.4 g/dL Normal 29.9-35.2 [facility] Comment on above: Performed By: #### C BC #### [facility] [address] [address] [address] Rosina Brown MCV (RBC) [Entitic vol] 88.2 fL Normal 81.0-99.0 [facility] Comment on above: Performed By: #### C BC #### [facility] [address] [address] [address] Rosina Brown MONO # 0.4 103/ul Normal 0.3-0.8 [facility] Comment on above: Performed By: #### C BC #### [facility] [address] [address] [address] Rosina Brown Monocytes/100 WBC (Bld) 5.5 % Normal 1.7-12.0 [facility] Comment on above: Performed By: #### C BC #### [facility] [address] [place] [address] Dr. Rosina Brown NEUT # 4.4 103/ul Normal 1.4-6.5 [facility] Comment on above: Performed By: #### C BC #### [facility] [address] [place] [address] Dr. Rosina Brown Neutrophils/100 WBC (Bld) 59.4 % Normal 43.0-75.0 [facility] Comment on above: Performed By: #### C BC #### [facility] [address] [address] [address] Rosina Brown Platelet mean volume (Bld) [Entitic vol] 11.2 fL Normal 9.5-13.5 [facility] Comment on above: Performed By: #### C BC #### [facility] [address] [address] [address] Rosina Brown PLT 289 103/ul Normal 150-450 [facility] Comment on above: Performed By: #### C BC #### [facility] [address] [address] [address] Rosina Brown RBC 4.84 106/ul Normal 4.20-5.40 [facility] Comment on above: Performed By: #### C BC #### [facility] [address] [place] [address] Dr. Rosina Brown WBC 7.4 103/ul Normal 4.0-11.0 [facility] Comment on above: Performed By: #### C BC #### [facility] [address] [place] [address] Dr. Rosina Brown CRPon 04-04-2022 CRP [Mass/Vol] mg/L Normal <=1.0 [facility] Comment on above: Performed By: #### P REALB, CRP, CMP #### [facility] [address] [place] [address] Dr. Rosina Brown PREALBUMINon 04-04-2022 Prealbumin [Mass/Vol] 21.9 mg/dL Normal 20.9-45.5 [facility] Comment on above: Performed By: #### P REALB, CRP, CMP #### [facility] [address] [place] [address] Dr. Rosina Brown PROF 14(COMP METB)on 022 Albumin [Mass/Vol] 3.5 g/dL Normal 3.4-5.0 [facility] Comment on above: Performed By: #### P REALB, CRP, CMP #### [facility] [address] [place] [address] Dr. Rosina Brown Albumin/Globulin [Mass ratio] 0.8 {ratio} Normal [facility] Comment on above: Performed By: #### P REALB, CRP, CMP #### [facility] [address] [place] [address] Dr. Rosina Brown ALP [Catalytic activity/Vol] 76 U/L Normal 46-116 [facility] Comment on above: Performed By: #### P REALB, CRP, CMP #### [facility] [address] [place] [address] Dr. Rosina Brown ALT [Catalytic activity/Vol] 20 U/L Normal 14-59 [facility] Comment on above: Performed By: #### P REALB, CRP, CMP #### [facility] [address] [place] [address] Dr. Rosina Brown Anion gap [Moles/Vol] 12.1 mmol/L Normal [facility] Comment on above: Performed By: #### P REALB, CRP, CMP #### [facility] [address] [address] [address] Rosina Brown AST [Catalytic activity/Vol] 17 U/L Normal 15-37 [facility] Comment on above: Performed By: #### P REALB, CRP, CMP #### [facility] [address] [address] [address] Rosina Brown Bilirubin [Mass/Vol] 0.6 mg/dL Normal 0.2-1.0 [facility] Comment on above: Performed By: #### P REALB, CRP, CMP #### [facility] [address] [place] [address] Dr. Rosina Brown Calcium [Mass/Vol] 9.6 mg/dL Normal 8.5-10.1 [facility] Comment on above: Performed By: #### P REALB, CRP, CMP #### [facility] [address] [address] [address] Rosina Brown Chloride [Moles/Vol] 103 mmol/L Normal 98-107 [facility] Comment on above: Performed By: #### P REALB, CRP, CMP #### [facility] [address] [place] [address] Dr. Rosina Brown CO2 [Moles/Vol] 28.4 mmol/L Normal 21.0-32.0 [facility] Comment on above: Performed By: #### P REALB, CRP, CMP #### [facility] [address] [address] [address] Rosina Brown Creatinine [Mass/Vol] 1.77 mg/dL Critically high 0.55-1.02 [facility] Comment on above: Performed By: #### P REALB, CRP, CMP #### [facility] [address] [address] [address] Rosina Brown EGFR-AF KAZAKH 37 mL/min/1.73m2 Critically low >=60 [facility] Comment on above: Performed By: #### P REALB, CRP, CMP #### [facility] [address] [place] [address] Dr. Rosina Brown EGFR-NON AF KAZAKH 30 mL/min/1.73m2 Critically low >=60 [facility] Comment on above: Performed By: #### P REALB, CRP, CMP #### [facility] [address] [place] [address] Dr. Rosina Brown Globulin (S) [Mass/Vol] 4.6 g/dL Normal [facility] Comment on above: Performed By: #### P REALB, CRP, CMP #### [facility] [address] [place] [address] Dr. Rosina Brown Glucose [Mass/Vol] 162 mg/dL Critically high 74-106 [facility] Comment on above: Performed By: #### P REALB, CRP, CMP #### [facility] [address] [place] [address] Dr. Rosina Brown Potassium [Moles/Vol] 4.5 mmol/L Normal 3.5-5.1 [facility] Comment on above: Performed By: #### P REALB, CRP, CMP #### [facility] [address] [place] [address] Dr. Rosina Brown Protein [Mass/Vol] 8.1 g/dL Normal 6.4-8.2 [facility] Comment on above: Performed By: #### P REALB, CRP, CMP #### [facility] [address] [place] [address] Dr. Rosina Brown Sodium [Moles/Vol] 139 mmol/L Normal 136-145 [facility] Comment on above: Performed By: #### P REALB, CRP, CMP #### [facility] [address] [place] [address] Dr. Rosina Brown Urea nitrogen [Mass/Vol] 53.0 mg/dL Critically high 7.0-18 .0 [facility] Comment on above: Performed By: #### P REALB, CRP, CMP #### [facility] [address] [place] [address] Dr. Rosina Brown Urea nitrogen/Creatinine [Mass ratio] 29.9 mg/mg Normal [facility] Comment on above: Performed By: #### P REALB, CRP, CMP #### [facility] [address] [place] [address] Dr. Rosina Brown SED RATE WESTERGRENon 2021 SED RATE 26 mm/hr Normal <=30 [facility] Comment on above: Performed By: #### R ENAL, LIPID #### [facility] [address] [place] [address] Dr. Rosina Brown US Venous, Unilat, Lower Ext Righton 03-15-2022 US Venous, Unilat, Lower Ext Right TECHNIQUE: Left lower extremity venous duplex examination was performed. HISTORY: Medial posterior calf pain for 3 months. FINDINGS: The common femoral, femoral, deep femoral, popliteal and calf veins were evaluated for deep venous thrombosis. The veins were evaluated with color Doppler imaging, compression and augmentation if possible. No sonographic evidence of deep venous thrombosis. No abnormality identified in the area of the patient's pain. IMPRESSION: No sonographic evidence of deep venous thrombosis. Report reported and signed by YUN PEREZ on 03/15/2022 1611 Normal [facility] [employer] APTTon 11-12-2018 aPTT Coag time (Bld) 25.0 s Normal 23.2-34.4 [facility] Comment on above: Performed By: #### L IP, PTT, CMPX, BH, BNP, CDP, PT, TROPI #### [address] [place] [address] Beta Hydroxybutyrateon 11-12 Beta Hydroxybutyrate 0.07 mmol/L Normal 0.02-0.27 [facility] Comment on above: Performed By: #### L IP, PTT, CMPX, BH, BNP, CDP, PT, TROPI #### [address] [place] [address] Brain Natri. Peptideon 11-12 Natriuretic peptide B mass conc (Bld) Normal [facility] Comment on above: Result Comment: Pro- BNP Reference Range: Rule Out: <300 Dove Zone: Age <50 300-450 Age 50-75 300-900 Age >75 300-1800 Usually represents mild to moderate HF but other cardiopulmonary causes cannot be ruled out. Rule In: Age <50 >450 Age 50-75 >900 Age >75 >1800 Performed By: #### L IP, PTT, CMPX, BH, BNP, CDP, PT, TROPI #### [address] [place], [place] [address] Natriuretic peptide B mass conc (Bld) 280 pg/mL Normal <300 [facility] Comment on above: Result Comment: Pro- BNP results cannot be compared to BNP results. Performed By: #### L IP, PTT, CMPX, BH, BNP, CDP, PT, TROPI #### [address] [place], [place] [address] CBC with Diffon 11-12-2018 Abs. Basophil 0.04 k/uL Normal 0.00-0.20 [facility] Comment on above: Performed By: #### L IP, PTT, CMPX, BH, BNP, CDP, PT, TROPI #### [address] [place], [facility] Abs.Imm.Granulocyte <0.03 Normal 0.00-0.30 [facility] Comment on above: Performed By: #### L IP, PTT, CMPX, BH, BNP, CDP, PT, TROPI #### [address] [place], [facility] Abs.Neutrophil (Seg) 7.23 k/uL Normal 1.50-8.10 [facility] Comment on above: Performed By: #### L IP, PTT, CMPX, BH, BNP, CDP, PT, TROPI #### [address] [place], [facility] Basophils/100 WBC (Bld) 0 % Normal 0-2 [facility] Comment on above: Performed By: #### L IP, PTT, CMPX, BH, BNP, CDP, PT, TROPI #### [address] [place], [place] [address] Eosinophils #/vol (Bld) 0.35 10*3/uL Normal 0.00-0.44 [facility] Comment on above: Performed By: #### L IP, PTT, CMPX, BH, BNP, CDP, PT, TROPI #### [address] [place], [place] [address] Eosinophils/100 WBC (Bld) 4 % Normal 1-4 [facility] Comment on above: Performed By: #### L IP, PTT, CMPX, BH, BNP, CDP, PT, TROPI #### [address] [place], [place] [address] Erythrocyte distribution width Ratio (RBC) 12.4 % Normal 11.8-14.4 [facility] Comment on above: Performed By: #### L IP, PTT, CMPX, BH, BNP, CDP, PT, TROPI #### [address] [place], [place] [address] Hematocrit Volume Fraction (Bld) 45.0 % Normal 36.3-47.1 [facility] Comment on above: Performed By: #### L IP, PTT, CMPX, BH, BNP, CDP, PT, TROPI #### [address] [place], [facility] Hemoglobin mass conc (Bld) 15.0 g/dL Normal 11.9-15.1 [facility] Comment on above: Performed By: #### L IP, PTT, CMPX, BH, BNP, CDP, PT, TROPI #### [address] [place], [place] [address] Immature granulocytes #/vol (Bld) 0 % Normal 0 [facility] Comment on above: Performed By: #### L IP, PTT, CMPX, BH, BNP, CDP, PT, TROPI #### [address] [place], [place] [address] Lymphocytes #/vol (Bld) 1.69 10*3/uL Normal 1.10-3.70 [facility] Comment on above: Performed By: #### L IP, PTT, CMPX, BH, BNP, CDP, PT, TROPI #### [address] [place] [address] Lymphocytes/100 WBC (Bld) 17 % Low 24-43 [facility] Comment on above: Performed By: #### L IP, PTT, CMPX, BH, BNP, CDP, PT, TROPI #### [address] [place] [facility] MCH Entitic mass (RBC) 30.1 pg Normal 25.2-33.5 [facility] Comment on above: Performed By: #### L IP, PTT, CMPX, BH, BNP, CDP, PT, TROPI #### [address] [place] [address] MCHC mass conc (RBC) 33.3 g/dL Normal 28.4-34.8 [facility] Comment on above: Performed By: #### L IP, PTT, CMPX, BH, BNP, CDP, PT, TROPI #### [address] [place] [facility] MCV Entitic volume (RBC) 90.4 fL Normal 82.6-102.9 [facility] Comment on above: Performed By: #### L IP, PTT, CMPX, BH, BNP, CDP, PT, TROPI #### [address] [place] [facility] Monocytes #/vol (Bld) 0.50 10*3/uL Normal 0.10-1.20 [facility] Comment on above: Performed By: #### L IP, PTT, CMPX, BH, BNP, CDP, PT, TROPI #### [address] [place] [address] Monocytes/100 WBC (Bld) 5 % Normal 3-12 M [facility] Comment on above: Performed By: #### L IP, PTT, CMPX, BH, BNP, CDP, PT, TROPI #### [address] [place] [address] Neutrophil (Seg) 74 % High 36-65 [facility] Comment on above: Performed By: #### L IP, PTT, CMPX, BH, BNP, CDP, PT, TROPI #### [address] [place] [address] NRBC Automated 0.0 per 100 WBC Normal 0.0 [facility] Comment on above: Performed By: #### L IP, PTT, CMPX, BH, BNP, CDP, PT, TROPI #### [address] [place] [address] Platelet mean volume Entitic volume (Bld) 11.4 fL Normal 8.1-13.5 [facility] Comment on above: Performed By: #### L IP, PTT, CMPX, BH, BNP, CDP, PT, TROPI #### [address] [place] [address] Platelets #/vol (Bld) 342 10*3/uL Normal 138-453 [facility] Comment on above: Performed By: #### L IP, PTT, CMPX, BH, BNP, CDP, PT, TROPI #### [address] [place] [address] RBC #/vol (Bld) 4.98 10*6/uL Normal 3.95-5.11 [facility] Comment on above: Performed By: #### L IP, PTT, CMPX, BH, BNP, CDP, PT, TROPI #### [address] [place] [address] WBC #/vol (Bld) 9.8 10*3/uL Normal 3.5-11.3 [facility] Comment on above: Performed By: #### L IP, PTT, CMPX, BH, BNP, CDP, PT, TROPI #### [address] [place] [address] Auto Diff Performed NOT REPORTED Normal [facility] Comment on above: Performed By: #### L IP, PTT, CMPX, BH, BNP, CDP, PT, TROPI #### [address] [place] [address] Platelets #/vol (Bld) NOT REPORTED Normal [facility] Comment on above: Performed By: #### L IP, PTT, CMPX, BH, BNP, CDP, PT, TROPI #### [address] [place] [address] RBC morphology finding Nom (Bld) NOT REPORTED Normal [facility] Comment on above: Performed By: #### L IP, PTT, CMPX, BH, BNP, CDP, PT, TROPI #### [address] [place] [address] WBC Morphology NOT REPORTED Normal [facility] Comment on above: Performed By: #### L IP, PTT, CMPX, BH, BNP, CDP, PT, TROPI #### [address] [place] [address] Comp Metabolic Pr/rfx MGon 0 - Glucose mass conc 619 mg/dL Critically high 70-99 [facility] Comment on above: Result Comment: RESU LTS CONFIRMED BY REPEAT TESTING Performed By: #### L IP, PTT, CMPX, BH, BNP, CDP, PT, TROPI #### [address] [place] [address] (cont.) Normal [facility] Comment on above: Result Comment: Aver age GFR for 40-49 years old: 99 mL/min/1.73sq m Chronic Kidney Disease: <60 mL/min/1.73sq m Kidney failure: <15 mL/min/1.73sq m eGFR calculated using average adult body mass. Additional eGFR calculator available at: http://www.[employer]/multiple_crcl_2012.htm Performed By: #### L IP, PTT, CMPX, BH, BNP, CDP, PT, TROPI #### [address] [place] [address] Albumin mass conc 4.1 g/dL Normal 3.5-5.2 [facility] Comment on above: Performed By: #### L IP, PTT, CMPX, BH, BNP, CDP, PT, TROPI #### [address] [place] [address] Albumin/Globulin mass ratio 1.0 {ratio} Normal 1.0-2.5 [facility] Comment on above: Performed By: #### L IP, PTT, CMPX, BH, BNP, CDP, PT, TROPI #### [address] [place] [address] Alkaline Phos 114 U/L High 35-104 [facility] Comment on above: Performed By: #### L IP, PTT, CMPX, BH, BNP, CDP, PT, TROPI #### [address] [place] [address] ALT enzyme act/vol 17 U/L Normal 5-33 [facility] Comment on above: Performed By: #### L IP, PTT, CMPX, BH, BNP, CDP, PT, TROPI #### [address] [place] [address] Anion gap molar conc 17 mmol/L Normal 9-17 [facility] Comment on above: Performed By: #### L IP, PTT, CMPX, BH, BNP, CDP, PT, TROPI #### [address] [place] [address] AST enzyme act/vol 19 U/L Normal <32 [facility] Comment on above: Performed By: #### L IP, PTT, CMPX, BH, BNP, CDP, PT, TROPI #### [address] [place] [address] Bilirubin Ql (U) 0.69 mg/dL Normal 0.3-1.2 [facility] Comment on above: Performed By: #### L IP, PTT, CMPX, BH, BNP, CDP, PT, TROPI #### [address] [place], [facility] BUN/CRE Ratio 14 Normal 9-20 [facility] Comment on above: Performed By: #### L IP, PTT, CMPX, BH, BNP, CDP, PT, TROPI #### [address] [place] [address] Calcium mass conc 9.4 mg/dL Normal 8.6-10.4 [facility] Comment on above: Performed By: #### L IP, PTT, CMPX, BH, BNP, CDP, PT, TROPI #### [address] [place] [address] Chloride molar conc 95 mmol/L Low 98-107 [facility] Comment on above: Performed By: #### L IP, PTT, CMPX, BH, BNP, CDP, PT, TROPI #### [address] [place] [address] CO2 molar conc 26 mmol/L Normal 20-31 [facility] Comment on above: Performed By: #### L IP, PTT, CMPX, BH, BNP, CDP, PT, TROPI #### [address] [place] [address] Creatinine mass conc 1.41 mg/dL High 0.50-0.90 [facility] Comment on above: Performed By: #### L IP, PTT, CMPX, BH, BNP, CDP, PT, TROPI #### [address] [place] [address] GFR, Amer 48 mL/min Low >60 [facility] Comment on above: Performed By: #### L IP, PTT, CMPX, BH, BNP, CDP, PT, TROPI #### [address] [place] [address] GFR,non Amer 40 mL/min Low >60 [facility] Comment on above: Performed By: #### L IP, PTT, CMPX, BH, BNP, CDP, PT, TROPI #### [address] [place] [address] Potassium molar conc 4.0 mmol/L Normal 3.7-5.3 [facility] Comment on above: Performed By: #### L IP, PTT, CMPX, BH, BNP, CDP, PT, TROPI #### [address] [place] [address] Protein mass conc 8.1 g/dL Normal 6.4-8.3 [facility] Comment on above: Performed By: #### L IP, PTT, CMPX, BH, BNP, CDP, PT, TROPI #### [address] [place] [address] Sodium molar conc 138 mmol/L Normal 135-144 [facility] Comment on above: Performed By: #### L IP, PTT, CMPX, BH, BNP, CDP, PT, TROPI #### [address] [place] [address] Staging: Normal [facility] Comment on above: Result Comment: Stag e 1: Some kidney damage normal GFR Stage 2: Mild kidney damage GFR 60-89 Stage 3: Moderate kidney damage GFR 30-59 Stage 4: Severe kidney damage GFR 15-29 Stage 5: Severe kidney damage GFR <15 ESRD - chronic treatment by dialysis or transplant Performed By: #### L IP, PTT, CMPX, BH, BNP, CDP, PT, TROPI #### [address] [place] [address] Urea nitrogen mass conc 20 mg/dL Normal 6-20 M [facility] Comment on above: Performed By: #### L IP, PTT, CMPX, BH, BNP, CDP, PT, TROPI #### [address] [place] [address] HCG, ,Urineon 11-12 HCG.beta subunit ( test) Ql (U) Negative Normal NEG [facility] Comment on above: Result Comment: Spec imens with hCG levels near the threshold of the test (25 mIU/mL) may give a negative or indeterminate result. In such cases, another test should be performed with a new specimen in 48-72 hours. If early is suspected clinically in this setting, correlation with quantitative serum b-hCG level is suggested. [facility] has confirmed the use of plasma for this test. This has not been cleared or approved by the U.[place]. Food and Drug Administration. The FDA has determined that such clearance is not necessary. Performed By: #### L IP, PTT, CMPX, BH, BNP, CDP, PT, TROPI #### [address] [place] [address] Lipaseon 11-12-2018 Lipase enzyme act/vol 92 U/L High 13-60 [facility] Comment on above: Performed By: #### L IP, PTT, CMPX, BH, BNP, CDP, PT, TROPI #### [address] [place] [address] PTon 11-12-2018 INR Coag RelTime (PPP) 1.0 {INR} Normal 0.9-1.2 [facility] Comment on above: Performed By: #### L IP, PTT, CMPX, BH, BNP, CDP, PT, TROPI #### [address] [place] [address] Prothrombin time (PT) Coag time (PPP) 10.3 s Normal 9.7-12.2 [facility] Comment on above: Performed By: #### L IP, PTT, CMPX, BH, BNP, CDP, PT, TROPI #### [address] [place] [address] Troponinon 11-12-2018 Troponin I.cardiac mass conc ng/mL Normal <0.03 [facility] Comment on above: Result Comment: Trop onin T results cannot be compared to Troponin-I results. Performed By: #### L IP, PTT, CMPX, BH, BNP, CDP, PT, TROPI #### [address] [place], [facility] Troponin I.cardiac mass conc Normal [facility] Comment on above: Result Comment: Refe rence Range: <0.03 Within reference range. 0.03-0.09 Possible myocardial damage. Repeat at appropriate intervals to rule out chronic elevation. >= 0.10 Indicative of myocardial damage. Patients with high levels of Biotin oral intake (i.e >5mg/day) may have falsely decreased Troponin T levels. Samples collected within 8 hours of biotin intake may require additional information for diagnosis. Performed By: #### L IP, PTT, CMPX, BH, BNP, CDP, PT, TROPI #### [address] [place] [address] Troponin I.cardiac mass conc NOT REPORTED Normal 0-14 [facility] Comment on above: Performed By: #### L IP, PTT, CMPX, BH, BNP, CDP, PT, TROPI #### [address] [place] [address] Troponin I.cardiac mass conc ng/mL Normal <0.03 [facility] Comment on above: Result Comment: Trop onin T results cannot be compared to Troponin-I results. Performed By: #### L IP, PTT, CMPX, BH, BNP, CDP, PT, TROPI #### [address] [place] [address] Troponin I.cardiac mass conc Normal [facility] Comment on above: Result Comment: Refe rence Range: <0.03 Within reference range. 0.03-0.09 Possible myocardial damage. Repeat at appropriate intervals to rule out chronic elevation. >= 0.10 Indicative of myocardial damage. Patients with high levels of Biotin oral intake (i.e >5mg/day) may have falsely decreased Troponin T levels. Samples collected within 8 hours of biotin intake may require additional information for diagnosis. Performed By: #### L IP, PTT, CMPX, BH, BNP, CDP, PT, TROPI #### [address] [place] [address] Troponin I.cardiac mass conc NOT REPORTED Normal 0-14 [facility] Comment on above: Performed By: #### L IP, PTT, CMPX, BH, BNP, CDP, PT, TROPI #### [address] [place] [address] Venous Blood Gaseson 11-12- 019 Body Temp. 37 Normal [facility] Comment on above: Performed By: #### V BG #### [address] [place] [address] pH (Bld) 7.312 [pH] Low 7.32-7.42 [facility] Comment on above: Performed By: #### V BG #### [address] [place] [address] Noah Test NOT REPORTED Normal [facility] Comment on above: Performed By: #### V BG #### [address] [place] [address] Carboxy Hgb NOT REPORTED Normal 0-5 [facility] Comment on above: Performed By: #### V BG #### [address] [place] [address] FIO2 NOT REPORTED Normal [facility] Comment on above: Performed By: #### V BG #### [address] [place] [address] HCO3 molar conc (Bld) NOT REPORTED Normal 24.0-30.0 M [facility] Comment on above: Performed By: #### V BG #### [address] [place] [address] Methemoglobin NOT REPORTED Normal 0.0-1.9 [facility] Comment on above: Performed By: #### V BG #### [address] [place] [address] Mode NOT REPORTED Normal [facility] Comment on above: Performed By: #### V BG #### [address] [place] [address] Negative Base Excess NOT REPORTED Normal 0.0-2.0 Me [facility] Comment on above: Performed By: #### V BG #### [address] [place] [address] Notification Time NOT REPORTED Normal [facility] Comment on above: Performed By: #### V BG #### [address] [place] [address] Notification: NOT REPORTED Normal [facility] Comment on above: Performed By: #### V BG #### [address] [place] [address] O2 Device/Flow/% NOT REPORTED Normal [facility] Comment on above: Performed By: #### V BG #### [address] [place] [address] Oxygen ppres (Bld) NOT REPORTED Normal 30.0-50.0 [facility] Comment on above: Performed By: #### V BG #### [address] [place] [address] Oxygen saturation in Blood NOT REPORTED Normal 60.0-85.0 [facility] Comment on above: Performed By: #### V BG #### [address] [place] [address] Oxyhemoglobin NOT REPORTED Normal 95.0-98.0 [facility] Comment on above: Performed By: #### V BG #### [address] [place] [address] pCO2 NOT REPORTED Normal 39-55 [facility] Comment on above: Performed By: #### V BG #### [address] [place] [address] Pco2 Adj'd for Temp. NOT REPORTED Normal 39.0-55.0 [facility] Comment on above: Performed By: #### V BG #### [address] [place] [address] PEEP/CPAP NOT REPORTED Normal [facility] Comment on above: Performed By: #### V BG #### [address] [place] [address] pH Adjst'd for Temp. NOT REPORTED Normal 7.320-7.420 M [facility] Comment on above: Performed By: #### V BG #### [address] [place] [address] pO2 Adj'd for Temp. NOT REPORTED Normal 30.0-50.0 [facility] Comment on above: Performed By: #### V BG #### [address] [place] [address] Positive Base Excess NOT REPORTED Normal 0.0-2.0 [facility] Comment on above: Performed By: #### V BG #### [address] [place] [address] PSV NOT REPORTED Normal [facility] Comment on above: Performed By: #### V BG #### [address] [place] [address] Pt. Position NOT REPORTED Normal [facility] Comment on above: Performed By: #### V BG #### [address] [place] [address] Set Rate NOT REPORTED Normal [facility] Comment on above: Performed By: #### V BG #### [address] [place] [address] Site Drawn NOT REPORTED Normal [facility] Comment on above: Performed By: #### V BG #### [address] [place] [address] Text for Respiratory NOT REPORTED Normal [facility] Comment on above: Performed By: #### V BG #### [address] [place] [address] Total Hb NOT REPORTED Normal 12.0-16.0 [facility] Comment on above: Performed By: #### V BG #### [address] [place] [address] Total Rate NOT REPORTED Normal [facility] Comment on above: Performed By: #### V BG #### [address] [place] [address] VT NOT REPORTED Normal [facility] Comment on above: Performed By: #### V BG #### [address] [place] [address] XR CHEST (2 VW)on 11-12-2018 XR CHEST (2 VW) EXAMINATION: TWO VIEWS OF THE CHEST 11/12/2018 9:03 am COMPARISON: None. HISTORY: ORDERING SYSTEM PROVIDED HISTORY: pain TECHNOLOGIST PROVIDED HISTORY: pain FINDINGS: There is no acute consolidation or effusion. There is no pneumothorax. The mediastinal structures are unremarkable. The upper abdomen is unremarkable. The extrathoracic soft tissues are unremarkable. There is no acute osseous abnormality. IMPRESSION: No acute cardiopulmonary process. Interpreted by: Michelle Tomas MD Signed by: Michelle Tomas MD 11/12/18 Final result Normal [facility] Vital Signs Date Time Vital Sign Value Performing Clinician Facility 12-07-2023 09:42-0500 Body height 157.5 cm Radha Quigley MD Work Phone: [facility] 12-07-2023 09:42-0500 Body mass index (BMI) [Ratio] 34.02 kg/m2 Radha Quigley MD Work Phone: [facility] 12-07-2023 09:42-0500 Body weight 84.37 kg Radha Quigley MD Work Phone: [facility] 12-07-2023 09:42-0500 Diastolic blood pressure 70 mm[Hg] Radha Quigley MD Work Phone: [facility] 12-07-2023 09:42-0500 Heart rate 67 /min Radha Quigley MD Work Phone: [facility] 12-07-2023 09:42-0500 SaO2% (BldA) [Mass fraction] 96 % Radha Quigley MD Work Phone: [facility] 12-07-2023 09:42-0500 Systolic blood pressure 104 mm[Hg] Radha Quigley MD Work Phone: [facility] 11-21-2023 14:26-0500 Body temperature 97.5 [degF] Services [facility] Work Phone: [facility] 11-21-2023 14:26-0500 Diastolic blood pressure 84 mm[Hg] Services [facility] Work Phone: [facility] 11-21-2023 14:26-0500 Heart rate 63 /min Services [facility] Work Phone: [facility] 11-21-2023 14:26-0500 Respiratory rate 18 /min Services [facility] Work Phone: [facility] 11-21-2023 14:26-0500 SaO2% (BldA) [Mass fraction] 97 % Services [facility] Work Phone: [facility] 11-21-2023 14:26-0500 Systolic blood pressure 149 mm[Hg] Services [facility] Work Phone: [facility] 11-21-2023 11:22-0500 Body height 157.48 cm Services [facility] Work Phone: [facility] 11-21-2023 05:08-0500 Body weight 90.5 kg Services [facility] Work Phone: [facility] 10-24-2023 06:30-0500 SaO2% (BldA) [Mass fraction] 100 % [facility] Comment on above: Performed By: #### [id number], CMP, 3274-8, CBCA #### [facility] ([id number]) [address], [address] [place] [address] 10-24-2023 02:13-0500 SaO2% (BldA) [Mass fraction] 86 % [facility] Comment on above: Performed By: #### [id number], CMP, 3274-8, CBCA #### [facility] ([id number]) [address], [address] [place] [address] 08-10-2023 11:50-0400 Body height 157.48 cm Nory Galdamez Other [facility] Other 08-10-2023 11:50-0400 Body mass index (BMI) [Ratio] 34.75 kg/m2 Nory Galdamez Other [facility] Other 08-10-2023 11:50-0400 Body temperature 97.8 [degF] Nory Galdamez Other [facility] Other 08-10-2023 11:50-0400 Body weight 86.18 kg Nory Galdamez Other [facility] Other 08-10-2023 11:50-0400 Diastolic blood pressure 113 mm[Hg] Nory Galdamez Other [facility] Other 08-10-2023 11:50-0400 Respiratory rate 18 /min Nory Galdamez Other [facility] Other 08-10-2023 11:50-0400 SaO2% (BldA) [Mass fraction] 98 % Nory Galdamez Other [facility] Other 08-10-2023 11:50-0400 Systolic blood pressure 197 mm[Hg] Nory Galdamez Other [facility] Other 12-13-2021 12:00-0500 Body height 157.48 cm Leonides Gann Other [facility] Other 12-13-2021 12:00-0500 Body mass index (BMI) [Ratio] 32 kg/m2 Leonides Gann Other [facility] Other 12-13-2021 12:00-0500 Body temperature 96.5 [degF] Leonides Gann Other [facility] Other 12-13-2021 12:00-0500 Body weight 79.38 kg Leonides Gann Other [facility] Other 12-13-2021 12:00-0500 Diastolic blood pressure 70 mm[Hg] Leonides Gann Other [facility] Other 12-13-2021 12:00-0500 SaO2% (BldA) [Mass fraction] 99 % Leonides Gann Other [facility] Other 12-13-2021 12:00-0500 Systolic blood pressure 110 mm[Hg] Leonides Gann Other [facility] Other 11-12-2018 11:55-0500 Respiratory rate NOT REPORTED ESPINOZA SEBASTIAN [facility] Comment on above: Performed By: #### VBG #### [facility] [address] [place] [address] Encounters Encounter Date Encounter Type Care Provider Facility Start: 02-21-2024 End: 02-21-2024 ambulatory CLYDE STANFORD Not Available Start: 12-13-2023 End: 12-13-2023 ambulatory Osorio Harpey Facility:[facility] Start: 12-13-2023 End: 12-13-2023 ambulatory Services [facility] Work Phone: [facility] Work Phone: Start: 12-13-2023 End: 12-13-2023 Discharged Recurring Services [facility] Work Phone: [facility]-Physical Therapy Julian Pinon Start: 12-07-2023 End: 12-07-2023 ambulatory RADHA QUIGLEY [facility] Start: 12-07-2023 End: 12-07-2023 Office outpatient visit 25 minutes Radha Quigley MD Work Phone: [facility] Comment on above: Hx of non-ST elevati on myocardial infarction (NSTEMI) (Primary Dx); Chronic coronary artery disease; Ischemic cardiomyopathy; Chronic HFrEF (heart failure with reduced ejection fraction) ([facility]); History of tobacco abuse; Nonrheumatic mitral valve regurgitation Start: 12-06-2023 Telephone encounter [facility] Start: 11-30-2023 Chart abstracting Radha camarillo MD Work Phone: [facility] Start: 11-08-2023 End: 11-08-2023 ambulatory JOSÉ MANUEL YANG [facility] Start: 11-07-2023 End: 11-21-2023 Evaluation and management of inpatient Osorio Lucas Facility:[facility] Start: 11-07-2023 Non-patient / Non-visit [facility] Work Phone: [facility] Work Phone: Start: 10-31-2023 End: 11-07-2023 [facility] Start: 10-29-2023 End: 11-07-2023 [facility] Start: 10-28-2023 End: 11-07-2023 [facility] Start: 10-28-2023 End: 11-07-2023 Evaluation and management of inpatient [facility] Start: 10-25-2023 End: 10-25-2023 ambulatory [facility]ANCHESKASARAISWATI [facility] Start: 10-25-2023 End: 11-07-2023 Evaluation and management of inpatient FARHAN LYMAN [facility] Start: 10-24-2023 End: 11-01-2023 Evaluation and management of inpatient LUMA Joyce IZAGUIRREM [facility] Start: 10-24-2023 End: 11-07-2023 Evaluation and management of inpatient [facility] Start: 10-24-2023 End: 11-07-2023 Evaluation and management of inpatient JOMAR Riaz QUINONES [facility] Start: 10-23-2023 End: 11-07-2023 Evaluation and management of inpatient [facility] Start: 10-22-2023 End: 11-07-2023 Evaluation and management [facility] Start: 10-21-2023 End: 11-07-2023 Evaluation and management of inpatient BARRETT SANCHEZ [facility] Start: 10-20-2023 End: 10-22-2023 ambulatory MICHELLE AGUILAR [facility] Start: 10-20-2023 End: 10-21-2023 ambulatory ISIS SEN [facility] Start: 10-20-2023 End: 10-22-2023 Emergency department patient visit MICHELLE AGUILAR [facility] Start: 10-19-2023 End: 10-19-2023 ambulatory Services [facility] Work Phone: [facility] Work Phone: Start: 10-19-2023 End: 10-19-2023 Discharged Recurring Services [facility] Work Phone: [facility] [place] Start: 08-10-2023 End: 08-10-2023 ambulatory Nory Galdamez Other [facility] Other Start: 08-10-2023 Office outpatient vi sit 25 minutes Nory Galdamez [facility] Start: 04-18-2023 End: 04-18-2023 ambulatory Enrico Amador - [facility] Facility:[facility] Start: 04-18-2023 End: 04-18-2023 ambulatory DO Marcos Garcia Work Phone: [facility] Work Phone: Start: 04-18-2023 End: 04-18-2023 Departed Referred DO Marcos Garcia Work Phone: [facility] Start: 01-30-2023 End: 01-31-2023 ambulatory KORINA PICKERING Facility:[facility] Start: 04-04-2022 End: 04-05-[address] DOCTOR ROTHMAN Facility:[facility] Start: 12-13-2021 End: 12-13-2021 ambulatory Leonides Gann Other [facility] Other Start: 12-13-2021 Office outpatient ne w 45 minutes Leonides [facility]AND[facility] Start: 11-12-2018 End: 11-12-2018 Emergency department patient visit ESPINOZA SEBASTIAN [facility] Procedures Date Procedure Procedure Detail Performing Clinician Start: 12-07-2023 Follow-up visit Follow-up ADELFO QUIGLEY Start: 10-23-2023 Microalbumin [Mass/v olume] in Urine by Test strip Radha Quigley MD Work Phone: Start: 10-21-2023 Adult depression scr eening assessment Radha Quigley MD Work Phone: Start: 11-12-2018 POCT GLUCOSE ESPINOZA ROMULO Start: 11-12-2018 Glucose quantitative blood xcpt reagent strip ESPINOZA ROMULO Start: 11-12-2018 EKG 12-LEAD ESPINOZA ROMULO Start: 11-12-2018 Troponin I.cardiac m ass conc ESPINOZA ROMULO Start: 11-12-2018 Glucose quantitative blood xcpt reagent strip ESPINOZA ROMULO Start: 11-12-2018 POCT GLUCOSE ESPINOZA ROMULO Start: 11-12-2018 Urine test visual color cmprsn meths ESPINOZA ROMULO Start: 11-12-2018 POCT GLUCOSE ESPINOZA ROMULO Start: 11-12-2018 Glucose quantitative blood xcpt reagent strip ESPINOZA ROMULO Start: 11-12-2018 BLOOD GAS, VENOUS ESPINOZA ROMULO Start: 11-12-2018 Radiologic exam ches t 2 views ESPINOZA ROMULO Start: 11-12-2018 EKG 12-LEAD ESPINOZA ROMULO Start: 11-12-2018 SALINE LOCK IV ESPINOZA MCINTYRE AN Start: 11-12-2018 INSERT PERIPHERAL IV BR HILARIO ROMULO Start: 11-12-2018 TELEMETRY MONITORING BR HILARIO ROMULO Start: 11-12-2018 VITAL SIGNS ESPINOZA ROMULO Start: 11-12-2018 Assay of lipase ESPINOZA AVITIA Start: 11-12-2018 Blood count complete auto&auto difrntl wbc ESPINOZA ROMULO Start: 11-12-2018 BRAIN NATRIURETIC PEPTIDE ESPINOZA ROMULO Start: 11-12-2018 Ketone bodies serum quantitative ESPINOZA ROMULO Start: 11-12-2018 PH, VENOUS ESPINOZA ROMULO Start: 11-12-2018 Prothrombin time ESPINOZA ROMULO Start: 11-12-2018 Thromboplastin time partial plasma/whole blood ESPINOZA ROMULO Start: 11-12-2018 Troponin I.cardiac m ass conc ESPINOZA ROMULO Plan of Treatment Date Care Activity Detail Author Start: 12-07-2024 Adult BMI Screening Adult BMI Screening [facility] Start: 12-07-2024 Tobacco Screening Tobacco Screening [facility] Start: 11-07-2024 Adult BMI Screening Adult BMI Screening [facility] Start: 10-23-2024 Urine screening for protein Urine Microalbumin [facility] Start: 10-21-2024 Depression Screening Depression Screening [facility] Start: 10-21-2024 Tobacco Screening Tobacco Screening [facility] Start: 12-07-2023 End: 12-07-2023 Patient encounter procedure 12/07/2023 10:15 AM EST Office Visit [facility] [address] [place] [id number] Radha Quigley MD [address] [place] [address] [facility] Start: 11-20-2023 [facility] Start: 11-10-2023 Referral to steel tester [facility] Start: 11-07-2023 Hospital admission [facility] Start: 11-07-2023 Referral to clinical economic analysis director [facility] Start: 06-30-2023 COVID-19 Vaccine ( season) COVID-19 Vaccine ( season) [facility] Start: 06-30-2023 COVID-19 Vaccine ( season) COVID-19 Vaccine ( season) [facility] Start: 06-30-2023 Influenza vaccination Influenza Vaccine [facility] Start: 2021 Administration of varicella zoster vaccine Zoster (Shingles) Vaccine (1 of 2) [facility] Start: 1992 Screening for malignant neoplasm of cervix Pap Smear [facility] Start: 1990 DTaP,Tdap and Td Vaccines (1 - Tdap) DTaP,Tdap and Td Vaccines (1 - Tdap) [facility] Start: 1989 Adult BMI Follow Up Plan Adult BMI Follow Up Plan [facility] Start: 1989 Diabetic foot examination Diabetic Foot Exam [facility] Start: 1971 Glaucoma screening Diabetic Ophthalmology Exam [facility] Hepatitis C virus Ig G Ab [Presence] in Serum or Plasma by Immunoassay [facility] HIV 1+2 Ab+HIV1 p24 Ag [Presence] in Serum or Plasma by Immunoassay [facility] Patient Education Heart Attack ( [place]) Pneumonia, Adult ([place]) Multiple Sclerosis, Adult ([place]) [facility] Work Phone: Patient referral [facility] Work Phone: [facility] Immunizations Immunization Date Immunization Notes Care Provider Fa jacinto 11-20-2021 COVID-19 mRNA-1273 (Moderna) DO Marcos Garcia Work Phone: [facility] 04-19-2021 COVID-19 mRNA-1273 (Moderna) DO Marcos Garcia Work Phone: [facility] 07-30-2020 influenza, seasonal, injectable Radha Quilgey MD Work Phone: [facility] 07-30-2020 influenza virus vacc ine, unspecified formulation Radha Quigley MD Work Phone: [facility] 08-30-2018 pneumococcal polysaccharide vaccine, 23 valent Radha Quigley MD Work Phone: [facility] Payers Date Payer Category Payer Medicare [id number] 2023 Self-pay [id number] 2022 Medicaid [facility] MEDICAID [facility] [place] [id number] 2022-Present [phone] [address] [place] [address] [id number]. [id number] 2018 Unknown [id number] 1971 Unknown [id number] 2.16.840.1.582535.3.579.2. 173 1971 Unknown [id number] 2.16.840.1.897748.3.579.2. 593 1971 Unknown [id number] 2.16.840.1.450323.3.579.2. 593 1971 Unknown [id number] 2.16.840.1.031450.3.579.2. 593 1971 Unknown [id number] 2.16.840.1.164937.3.579.2. 1285 1971 Unknown [id number] 2.16.840.1.067234.3.579.2. 1285 1971 Unknown [id number] 2.16.840.1.022268.3.579.2. 1285 1971 Unknown [id number] 2.16.840.1.671386.3.579.2. 1285 1971 Unknown [id number] 2.16.840.1.829434.3.579.2. 1285 1971 Unknown [id number] 2.16.840.1.588023.3.579.2. 1285 1971 Unknown [id number] 2.16.840.1.407814.3.579.2. 1285 1971 Unknown [id number] 2.16.840.1.991984.3.579.2. 1285 1971 Unknown [id number] 2.16.840.1.921423.3.579.2. 1285 1971 Unknown [id number] 2.16.840.1.050690.3.579.2. 1285 1971 Unknown [id number] 2.16.840.1.065829.3.579.2. 1285 1971 Unknown [id number] 2.16.840.1.242461.3.579.2. 1285 1971 Unknown [id number] 2.16.840.1.398868.3.579.2. 1285 1971 Unknown [id number] 2.16.840.1.167458.3.579.2. 1285 1971 Unknown [id number] 2.16.840.1.320916.3.579.2. 1285 1971 Unknown [id number] 2.16.840.1.498983.3.579.2. 1285 1971 Unknown [id number] 2.16.840.1.486736.3.579.2. 1285 1971 Unknown [id number] 2.16.840.1.301563.3.579.2. 1285 1971 Unknown [id number] 2.16.840.1.978495.3.579.2. 1285 1971 Unknown [id number] 2.16.840.1.308358.3.579.2. 1285 1971 Unknown [id number] 2.16.840.1.459294.3.579.2. 1285 1971 Unknown [id number] 2.16.840.1.315897.3.579.2. 1285 1971 Unknown [id number] 2.16.840.1.494746.3.579.2. 1285 1971 Unknown [id number] 2.16.840.1.363198.3.579.2. 1285 1971 Unknown [id number] 2.16.840.1.004895.3.579.2. 1259 1959 Unknown [id number] 1959 Unknown [id number] Medicaid [place] Advantage [id number] Private Health Insurance [facility] [id number] Unknown [id number] 2.16.840.1.166801.19 Unknown Judie BC/MOMO [id number] Unknown [id number] 2.16.840.1.807725.3.579.2. 531 Unknown [id number] 2.16.840.1.694415.3.579.2. 531 Unknown [id number] 2.16.840.1.333570.3.579.2. 531 Unknown [id number] 2.16.840.1.370988.3.579.2. 531 Social History Date Type Detail Facility Unknown if ever smoked [facility] Other Start: 10-21-2023 End: 12-07-2023 Sex Assigned At [facility] Other Start: 01-05-2022 Tobacco smoking stat us GAIS Smoker (finding) [facility] Start: 1970 Sex Assigned At Female [facility] Start: 10-21-2023 End: 11-10-2023 Tobacco smoking status [facility] Ex-smoker [facility] History of tobacco use Cigarette Smoker P [facility] Start: 10-21-2023 Tobacco use and exposure Smokeless tobacco non-user [facility] Start: 11-30-2023 End: 12-07-2023 Alcohol intake Lifetime non-drinker (finding) [facility] Start: 10-21-2023 End: 12-07-2023 History of Social function [facility] How often to you hav e a drink containing alcohol? Never [facility] How many standard drinks containing alcohol do you have on a typical day? Patient does not drink [facility] Start: 1970 Sex Assigned At Not on file P [facility] Goals Date Patient Goal Desired Activity /State Personal health goal Comment on above: Formatting of this n ote might be different from the original. Evaluation of progress towards goal: Pt is agreeable for SNF if needed. Clinical Notes 12-13-2021 to 12-07-2023 Radha Quigley MD - 12/07/2023 10:15 AM ESTPatient InstructionsTelephone Encounter - Kelly Gibbons, [facility] - 12/06/2023 8:54 AM ESTTelephone Encounter - Kelly Gibbons, [facility] - 12/06/2023 8:54 AM EST Note Date & Type Note Facility 12-07-2023 History of Presen t illness Narrative Gail Mendoza Dinh Date of visit: 12/07/2023 Date of : 1970 Age: 53 y.o. Patient Active Problem List Diagnosis MS (multiple sclerosis) ([facility] Anxiety Essential hypertension Mixed hyperlipidemia Class 2 obesity due to excess calories in adult Polyneuropathy in diabetes ([facility]) Stage 3b chronic kidney disease ([facility]) Type 2 diabetes mellitus with hyperglycemia ([facility]) Urinary, incontinence, stress female NSTEMI (non-ST elevated myocardial infarction) ([facility]) Elevated LFTs Acute on chronic systolic congestive heart failure ([facility]) Acute respiratory failure with hypoxia ([facility]) Pneumonia of both lungs due to infectious organism Allergies Allergen Reactions Penicillins Rash Current Outpatient Medications Medication Sig Dispense Refill aspirin 81 mg chewable tablet Chew 1 tablet (81 mg total) and swallow in the morning. atorvastatin (LIPITOR) 80 mg tablet Take 1 tablet (80 mg total) by mouth in the morning. bumetanide (BUMEX) 2 mg tablet Take 1 tablet (2 mg total) by mouth daily. calcium carbonate-vitamin D3 500 mg-15 mcg (600 unit) tablet Take 1 tablet by mouth in the morning and 1 tablet in the evening. Take with meals. clopidogreL (PLAVIX) 75 mg tablet Take 1 tablet (75 mg total) by mouth in the morning. FLUoxetine (PROzac) 20 mg capsule Take 1 capsule (20 mg total) by mouth in the morning. hydrALAZINE (APRESOLINE) 100 mg tablet Take 1 tablet (100 mg total) by mouth every 8 (eight) hours. insulin glargine (LANTUS, SEMGLEE) 100 unit/mL (3 mL) insulin pen Inject 35 Units under the skin every morning before breakfast. insulin lispro (HumaLOG) 100 unit/mL insulin pen Inject 3-15 Units under the skin 4 (four) times a day with meals and nightly. isosorbide dinitrate (ISORDIL) 20 mg tablet Take 1 tablet (20 mg total) by mouth 3 (three) times a day with meals. magnesium oxide (MAGOX) 400 mg tablet Take 1 tablet (400 mg total) by mouth in the morning. metoprolol succinate XL (TOPROL XL) 50 mg 24 hr tablet Take 1 tablet (50 mg total) by mouth in the morning and 1 tablet (50 mg total) before bedtime. spironolactone (ALDACTONE) 25 mg tablet Take 1 tablet (25 mg total) by mouth in the morning. insulin lispro (HumaLOG) 100 unit/mL insulin pen Inject 2-8 Units under the skin nightly. insulin lispro (HumaLOG) 100 unit/mL insulin pen Inject 4-12 Units under the skin in the morning and 4-12 Units at noon and 4-12 Units in the evening. Inject with meals. lidocaine (LIDODERM) 5 % Place 1 patch on the skin daily as needed for pain. Remove & Discard patch within 12 hours or as directed by nitroglycerin (NITROSTAT) 0.[address] 1 tablet (0.4 mg total) under the tongue every 5 (five) minutes as needed for chest pain (For chest pain). 30 tablet 3 No current facility-administered medications for this visit. Chief Complaint Patient presents with Follow-up [facility] 11/07-11/21/23, YARELIS W/NURSE History of Present Illness Patient here for follow-up visit post discharge from [facility]. Was admitted in September with NSTEMI, suspected stroke. Was diagnosed with multiple sclerosis. Underwent cardiac catheterization that showed severe multivessel coronary disease, small-vessel disease not amenable to PCI, treated medically. Patient has history of ischemic cardiomyopathy with EF 40-45%, [id number] MR, diabetes mellitus, CKD, tobacco abuse, peripheral artery disease. Patient stated that she is doing fairly well apart from occasional vertigo. No lightheadedness or syncope or presyncope. No chest pain or shortness of breath. No palpitations or orthopnea or edema. Stated that she is able to tolerate activities daily living including cleaning her home, cooking and doing her laundry with no difficulty or heart symptoms. Vitals stable. Vapes nicotine. No alcohol use or recreational drug use. Past Medical History: Diagnosis Date Anxiety CHF (congestive heart failure) [place] Depression Diabetes mellitus type 2, controlled ([facility]) Diabetic nephropathy ([facility]) Hyperlipidemia Hypertension Kidney disease, chronic, stage III (GFR 30-59 ml/min) ([facility] Multiple sclerosis ([facility]) 10/21/2023 Obesity Pneumonia Respiratory failure ([facility]) Vertigo No data recorded No data recorded No data recorded Past Surgical History: Procedure Laterality Date SECTION Coronary angiogram and left ventricular gram/pressure N/A 10/24/2023 Performed by Zachary Morillo MD at [facility] CARDIAC CATH LABS TUBAL LIGATION Family History Problem Relation Age of Onset Hypertension Mother Heart disease Father Cancer Father Hypertension Father Diabetes Father Social History Socioeconomic History Marital status: Spouse name: Not on file Number of children: Not on file Years of education: Not on file Highest education level: Not on file Occupational History Not on file Tobacco Use Smoking status: Former Types: Cigarettes Smokeless tobacco: Never Vaping Use Vaping Use: Every day Substances: Nicotine Substance and Sexual Activity Alcohol use: Never Drug use: Yes Types: Marijuana Comment: gummies Sexual activity: Not on file Other Topics Concern Caffeine Use Yes Social History Narrative Not on file Social Determinants of Health Financial Resource Strain: Not on file Food Insecurity: No Food Insecurity (12/07/2023) Hunger Screening Food Insecurity - Worry: Never True Food Insecurity - Inability: Never True Transportation Needs: Not on file Physical Activity: Not on file Stress: Not on file Social Connections: Not on file Interpersonal Safety: Not on file Housing Instability: Not on file Review of Systems Review of Systems Respiratory: Negative for cough, hemoptysis and wheezing. Gastrointestinal: Negative for abdominal pain, change in bowel habit and hematochezia. Genitourinary: Negative for dysuria and hematuria. Neurological: Positive for paresthesias and vertigo. Negative for focal weakness and headaches. CARDIOVASCULAR: Please review HPI. Physical Examination General appearance: Alert, oriented and cooperative. In no acute distress. Skin: Warm and dry to touch. Head: Normocephalic, without obvious abnormality, atraumatic. Ears, Nose, Mouth, Throat: Throat clear without erythema or exudate. Dentition intact. Eyes: Conjunctivae unremarkable, EOM intact. Neck: No JVD, No carotid bruit. Neck supple, trachea midline. Respiratory: Clear to auscultation bilaterally, no use of accessory muscles. Cardiovascular: RRR with normal S1 and S2 with no murmurs. Gastrointestinal: Soft, non-tender. Bowel sounds normal. Musculoskeletal: No peripheral edema. Neurologic: Oriented to time, person and place, affect appropriate. No focal/major motor defects noted. Psychiatric: Appropriate mood, memory and judgement. VITAL SIGNS: BP 104/70 (BP Site: Right Arm, BP Postition: Sitting) Pulse 67 Ht 157.5 cm (5' 2 ) Wt 84.4 kg (186 lb) SpO2 96% BMI 34.02 kg/m Orders Placed or Reconciled This Encounter Medications nitroglycerin (NITROSTAT) 0.4 MG SL tablet Sig: Place 1 tablet (0.4 mg total) under the tongue every 5 (five) minutes as needed for chest pain (For chest pain). Dispense: 30 tablet Refill: 3 Medications Discontinued During This Encounter Medication Reason nitroglycerin (NITROSTAT) 0.4 MG SL tablet Reorder IMPRESSIONS/PLAN 1. Hx of non-ST elevation myocardial infarction (NSTEMI) 2. Chronic coronary artery disease 3. Ischemic cardiomyopathy 4. Chronic HFrEF (heart failure with reduced ejection fraction) ([facility]) 5. History of tobacco abuse 6. Nonrheumatic mitral valve regurgitation Previous cardiac related labs and test results were reviewed and discussed with the patient. Hx of NSTEMI 09/2023 Severe multivessel CAD [facility] 09/2023: 90% distal LAD (small vessel), 70% left circumflex at bifurcation of OM2, 70% RPL - treated medically ICM with EF 40-45% TTE 09/2023 [id number]-jfjnxhbo MR Diabetes mellitus CKD History of tobacco abuse - quit 1 yr ago Vape nicotine Multiple sclerosis PAD Anemia Patient is here for routine follow-up. Stable from cardiac standpoint. Euvolemic on exam. No cardiac testing ordered today. Provided with refill on p.r.n. sublingual nitro. Counseled importance of cessation from using vape nicotine. Follow-up in 8 months or sooner if needed. Patient to call us with any cardiac questions or concerns. TODAYS ORDERS No orders of the defined types were placed in this encounter. FOLLOW UP Return in about 6 months (around 06/06/2024). PCP: PCP Not In System Referring Physician: No referring provider defined for this encounter. documented in this encounter [id number] 12-07-2023 Instructions Gypsy Floyd CMA - 12/07/2023 10:15 AM EST Are You Ready To Kick The Habit? Free Tobacco Cessation Resources [facility] Services [facility] Centers provide all employees with free tobacco cessation services that include: Counseling to understand nicotine addiction Education about medications that can help you successfully quit Assistance with developing a plan to quit Call to set up an individual appointment or find out when group classes will be held: [facility]: [phone] [facility]: [phone] [facility]: [phone] [facility]: [phone] Quit Smoking Action Plan and Resources [facility] offers an eight-week, online smoking cessation plan to all [facility] employees, regardless of whether [place] is your medical insurance provider. Go to [email or web address]/[email or web address] lness and click the Health Risk Assessment and Resources link to get started. In the [employer] menu, click Action Plans instead of Health Risk Assessment to access the Quit Smoking Action Plan. Additional smoking cessation resources are also available to all [facility] employees on the [employer] web page at [email or web address].[employer]/gautam reyes. [place] Tobacco Cessation Program If [place] is your medical insurance provider, there are more free resources available to you, including: No copays or deductibles on local tobacco cessation counseling services to help you quit Prescription assistance for tobacco cessation medications to help you quit For details about the tobacco cessation program available to [place] members, go to www.[employer] (Search: Tobacco Cessation Program). [place] Tobacco Quit Line 0-081-XOYP-NOW ( ) is a toll-free, telephonic service that helps [place] residents quit smoking and using tobacco. It is staffed by experts who tailor a quit plan for you and provide you with advice. [place] Tobacco Quit Line 9-762-RTVL-NOW ( ) is a toll-free, telephonic service that helps [place] residents quit smoking and using tobacco. It is staffed by experts who tailor a quit plan for you and provide you with advice. Two weeks of nicotine replacement therapy may be provided at no charge, if needed. Additional Resources These national organizations also offer free information and resources to help you quit tobacco: [employer]--www.cancer.org/healthy /stayawayfromtobacco [place] [employer]--www.heart.org (Search: Quit Smoking) Centers for Disease Control and Prevention--www.cdc.gov/tobacco [place] [employer]--www.lungusa.org documented in this encounter [facility] 12-06-2023 Miscellaneous Notes Left message for patient to remind them to bring their most current medication list with them to their appointment. documented in this encounter [facility] 12-06-2023 Telephone encounter Note Left message for patient to remind them to bring their most current medication list with them to their appointment. [facility] 10-20-[address] BRAIN WO CONT STR GLORIA ALERT History: Acute onset slurred speech and right-sided weakness. Stroke evaluation. Exam/Technique: Contiguous axial images are obtained of the brain without intravenous contrast. Coronal and sagittal reconstructions are reproduced and reviewed. Automatic exposure control was utilized. Comparison: None Findings: Rounded low densities are present within the superior periventricular white matter more evident on the left side. Subacute infarct or underlying mass should be further evaluated/characterized with MRI. No midline shift or intracranial blood products. Paranasal sinuses and mastoids appear normally aerated. IMPRESSION: * Geographic low density superior periventricular white matter concerning for either subacute infarcts, confluent white matter disease or underlying mass. No comparison available for further speculation. All CT scans at this facility use dose modulation, iterative reconstruction, and/or weight based dosing when appropriate to reduce radiation dose to as low as reasonably achievable. Finalized by Eglin Mayorga DO on 10/20/2023 1:36 PM [facility] 08-10-2023 Evaluation note Encounter Date Diagnosis Assessment Notes Jul, Viral URI with cough (ICD-10 - J06.9) Advised patient that COVID/Influenza A/B PCR test was negative today. Advised patient that will treat as viral URI. Supportive care as directed, increase fluids and rest, Tylenol/Motrin as directed, OTC cough/cold remedies as directed on packaging such as Cordicidin HBP, cool mist humidifier, throat lozenges. Discussed infection control practices such as good hand washing and mask wearing. Patient to follow up with PCP if symptoms persist or worsen despite treatment. Immediate eval for SOB, difficulty breathing, chest pain, fevers that do not break with antipyretic or any other concerning symptoms as reviewed on patient education handout. Patient verbalizes understanding and is agreeable to treatment plan. Patient left in stable condition. Jul, Elevated blood pressure reading (ICD-10 - R03.0) Discussed diagnosis with patient today in office. Patient denies having symptoms of chest pain, shortness of breath, chest tightness. Patient does have history of hypertension and is currently medicated. Reviewed symptoms that require immediate evaluation in the ER. Follow-up with PCP for management. Patient verbalizes understanding and is agreeable with treatment plan Jul, Contact with and (suspected) exposure to covid-19 (ICD-10 - Z20.822) [facility] Other 02-14-2022 Evaluation note* Encounter Date Diagnosis Assessment Notes Treatment Notes Treatment Clinical Notes Nov, Peripheral arterial disease (ICD-10 - I73.9) Nov, Other Nonhealing right leg wound Given her physical examination findings, the progression of the wound, she will undergo diagnostic arteriogram to look at options for revascularization. I spoke with her about this she understands the nature of the procedure and agrees to proceed. [facility] Other Evaluation noteNo assessment information available [facility] Work Phone: Evaluation note* Diagnosis Hx of non-ST elevation myocardial infarction (NSTEMI)- Primary Chronic coronary artery disease Coronary atherosclerosis of unspecified type of vessel, [place] or graft Ischemic cardiomyopathy Other specified forms of chronic ischemic heart disease Chronic HFrEF (heart failure with reduced ejection fraction) ([facility]) History of tobacco abuse Nonrheumatic mitral valve regurgitation documented [facility] this [facility] Diagnosis Onset Date Resolution Status CAD (coronary artery disease) acute Heart 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) acute Multiple sclerosis acute Right hemiplegia acute Right-sided muscle weakness acute Stage 3b chronic kidney disease (CKD) acute DM2 (diabetes mellitus, type 2) chronic HLD (hyperlipidemia) chronic Neuropathy chronic Acute kidney injury resolved Impaired mobility and activities of daily living resolved [facility] Work Phone: History general Narrative - Reported* Type Description Date Medical History Diabetes Medical History Hypertension Medical History Neuropathy Medical History Hypercholesterolemia Medical History Anxiety Surgical History tubal ligation Surgical History knee arthroscopy Surgical History Hospitalization History see above surgical histo ry [facility] [employer] Other Hospital Discharge instructions Additional Instructions -Diet: Diabetic, 1800 caloric/day, carbohydrate-consistent. [place] Healthy 3- 4gram/day sodium diet. Low potassium, 2gram/day diet. 1800mL/day fluid restriction. -Weight bearing as tolerated, with assistance as/if needed. -Blood Glucose: check before meals, and bedtime - as at home. -Elevate legs while in bed to reduce swelling. INDU wraps to legs, during the day and remove at bedtime, for swelling. -Will need outpatient cardiac MRI for further evaluation of focal apical outpouching suggestive of aneurysm versus pseudoaneurysm. You will have Outpatient Physical Therapy at [facility] ( ). The order for this has already been sent to them, and they will call you directly to schedule your evaluation date/time. If you do not hear from them by Monday, please call them directly at the phone number listed above. You have been given prescriptions for new and/or needed medications. These prescriptions are for a one-time fill only, with no re-fills. For further re-fills going forward, you will need to address with your PCP at your follow up appointment, or by calling your PCP s office prior to the prescriptions running out. NOTE: please call within 24 hours if you need to cancel or change any follow up appointments. Arrive early to all follow up appointments, bring current medication list, photo ID and any insurance card(s) to all future follow ups (listed below). Please remember to wear a mask to all appointments. If you develop any symptoms (cough, fever/chills, shortness of breath, sore throat, nausea/vomiting, etc.) please contact your provider's office to inform them prior to your appointment.[facility] Work Phone: InstructionsNot on filedocumented in this encounter [facility] filedocument[facility] Summary Purpose Family History Relationship Condition Age at Onset Recorded Date/T aspen father Heart disease Unknown Diabetes mellitus Unknown Relationship Condition Age at Onset Recorded Date/T aspen father Heart disease Unknown Diabetes mellitus Unknown father Unknown Hypertension Unknown History of stroke Unknown grandparent Diabetes mellitus Unknown Unknown Not Specified Diabetes mellitus Unknown Advance Directives Advance Directive Response Recorded Date/ Time Advance Directives No April 10 18 7:05am Latest Code Status on File Code Status Date Activated Date Inactivated Comments Full Code 10/21/2023 11:08 AM 11/07/2023 5:28 PM Code Status History Code Status Date Activated Date Inactivated Comments Full Code 10/20/2023 5:34 PM 10/21/2023 10:48 AM Healthcare Agents on File Name Relationship Healthcare Agent Relationshi p Communication Ru Gibbs Son [facility] Car e Agent Healthcare Agents on File Name Relationship Healthcare Agent Relationshi p Communication Ru Gibbs Son [facility] Car e Agent Healthcare Agents on File Name Relationship Healthcare Agent Relationshi p Communication Ru Gibbs Son [facility] Car e Agent Advance Directive Response Recorded Date/ Time Advance Directives No April 10 18 6:05am Chief Complaint and Reason for Visit Chief Complaint Encounter for hepati tis C screening test for low r Chief Complaint R shoulder pain new onset multiple sclerosis Reason for Visit CAD (coronary artery disease) Heart failure with mildly reduced ejection fraction (HFmrEF) Multiple sclerosis Right hemiplegia Right-sided muscle weakness Stage 3b chronic kidney disease (CKD) DM2 (diabetes mellitus, type 2) HLD (hyperlipidemia) Neuropathy Acute kidney injury Impaired mobility and activities of daily living Chief Complaint MS Additional Source Comments INFORMATION SOURCE (unrecogn ized section and content) DATE CREATED AUTHOR 11/16/2018 Diana Starks [facility] DATE CREATED AUTHOR AUTHOR'S ORGANIZ ATION 03/18/2022 [facility] dical Specialist DATE CREATED AUTHOR AUTHOR'S ORGANIZ ATION 02/04/2023 [facility] DATE CREATED AUTHOR AUTHOR'S ORGANIZ ATION 11/11/2023 [facility] DATE CREATED AUTHOR AUTHOR'S ORGANIZ ATION 12/11/2023 [facility] DATE CREATED AUTHOR AUTHOR'S ORGANIZ ATION 02/23/2024 [facility] dical Specialists [facility] DATE CREATED AUTHOR AUTHOR'S ORGANIZ ATION 03/06/2024 [facility] REASON FOR VISIT (unrecogniz ed section and content) Reason Comments Follow-up [facility] 11/07-11/21/23, SCHED W/NURSE Care Teams (unrecognized sec tion and content) Team Status: Inactive Member Role Status Dates Marcos Garcia DO RES Attending Provider Active Shop Teacher Relationship Specialty Start Date End Date Pcp, [place] [address] PCP - General Family Medicine 10/21/23 Shop Teacher Relationship Specialty Start Date End Date Pcp, [place] [address] PCP - General Family Medicine 10/21/23 Shop Teacher Relationship Specialty Start Date End Date Marcos Garcia MD [address] [place] [address] PCP - General Family Medicine 12/07/23 Team Status: Active Member Role Status Dates Services Family [facility] Primary Care Provider Active Team Status: Inactive Member Role Status Dates Marcos Garcia DO RES Attending Provider Active Start: October 19, 2023 End: October 19, 2023 Services [facility] Primary Care Provider Active Start: October 19, 2023 End: October 19, 2023 Team Status: Active Member Role Status Dates Services [facility] Primary Care Provider Active Start: November 07, 2023 Osorio Lucas MD Admit Provider, Othe r Provider Active Start: November 07, 2023 Ronit Alejo , MISTY Other Provider Active Star t: November 07, 2023 Lisa Dutton , MISTY Other Provider Active Start : November 07, 2023 Mattie Holland , MISTY Other Provider Active Start: J anuary 2023 Yesi Thomas RN Other Provider Active Star t: November 07, 2023 Safia Herbert , MISTY Other Provider Active Start : November 07, 2023 Essie García , MISTY Other Provider Active Start: J anuary 2023 Kevin Cohen MD Other Provider Active Start: November 07, 2023 Kelly Rodriguez APRN Other Provider Active Start: November 07, 2023 Ami Chapin , Other Provider Active Start : November 07, 2023 Chet Lomeli MD Other Provider Active Start : November 07, 2023 Nathen Lopez , Other Provider Active Start: November 07, 2023 Ta Babin MD Other Provider Active Start: November 07, 2023 Hermila Branham MD Other Provider Active Start : November 07, 2023 Stephanie Martinez APRN Other Provider Active Start: November 07, 2023 Katlyn Ríos MD Other Provider Active Start: November 07, 2023 Benjamin Rodriguez MD Other Provider Active Start: Kisha green 2023 Irvin Mcelroy MD Other Provider Active Start: November 07, 2023 Cecil López MD Other Provider Active Start: November 07, 2023 Blaine Colon DO Other Provider Active Start: November 07, 2023 Jerome Ortiz MD Other Provider Active Start: suzanne 2023 Jesus Saravia MD Other Provider Active Start: Oct Destiney Freeman , NEEDLE PUNCH MACHINE OPERATOR-C Other Provider Active St art: November 07, 2023 Nitesh Ceballos MD Other Provider Active Start: November 07, 2023 Rudy Reynoso MD Other Provider Active Start: oliverio 2023 Sean Yang MD Other Provider Active Start: Oct Keith Ahn MD Other Provider Active Start: Kisha green 2023 Carol Blackwell DO Other Provider Active Start: suzanne 2023 Hua Hooks , Other Provider Active Start : November 07, 2023 Gregorio Ray , Other Provider Active Sta rt: November 07, 2023 Nelsy Rutledge APRN Other Provider Active Start: November 07, 2023 Richard Ceballos DO Other Provider Active Start: November 07, 2023 Blaine Chris MD Other Provider Active Sta rt: November 07, 2023 Nakia David APRN Other Provider Active Start : November 07, 2023 Cori Nina APRN Other Provider Active St art: November 07, 2023 James Aggarwal MD Other Provider Active Start: J anuary 2023 Marcos Hart MD Other Provider Active S tart: November 07, 2023 Roseanne Summers APRN Other Provider Active S tart: November 07, 2023 Colin Null DO Other Provider Active Start: November 07, 2023 Tania Maya RN Other Provider Active Start: J anuary 2023 Anastasiia Retana MD Other Provider Active Start: J anuary 2023 Erika Parry MD Attending Provider, Other Provider Active Start: November 07, 2023 Efrain Edwards MD Other Provider Active Star t: November 07, 2023 Dilan Thorne MD Other Provider Active Start: November 07, 2023 Chace Brady MD Other Provider Active Start: J anuary 2023 Veronica Mohamud APRN Attending Provider Active Start: November 07, 2023 Team Status: Inactive Member Role Status [facility] Care Provider Active Start: December 13, 2023 End: December 13, 2023 Osorio Lucas MD Attending Provider Active Star t: December 13, 2023 End: December 13, 2023 Goals (unrecognized section and content) Goals may be documented in a n alternate section FOR RECORDS PERTAINING TO PATIENTS WHO ARE OR HAVE BEEN ENROLLED IN A CHEMICAL DEPENDENCY/SUBSTANCEABUSE PROGRAM, SOME INFORMATION MAY BE OMITTED. This clinical summary was aggregated from multiple sources. Caution should be exercised in using it in the provision of clinical care. This summary normalizes information from multiple sources, and as a consequence, information in this document may materially change the coding, format and clinical context of patient data. In addition, data may be omitted in some cases. CLINICAL DECISIONS SHOULD BE BASED ON THE PRIMARY CLINICAL RECORDS. [employer] provides no warranty or guarantee of the accuracy or completeness of information in this document.
[2024-03-14] MEDS: LIDOCAINE VISCOUS 2% 15 ML SOLUTION TOPICAL (16:07)
[2024-03-14] MEDS: BACITRACIN OINTMENT 28.4 GM TUBE 1 APPLIC TOPICAL (16:08)
[2024-03-14 16:10] VITALS: BP 184/88; PULSE 78; O2SAT 98
== END 2024-03-14 16:15 | disposition home or self-care (01) ==
PROVIDERS: Emergency Provider Emergency Medicine Emergency Medical Services
DX: S80.811A Abrasion, right lower leg, initial encounter (principal); G35 Multiple sclerosis; F17.210 Nicotine dependence, cigarettes, uncomplicated; E78.00 Pure hypercholesterolemia, unspecified; I10 Essential (primary) hypertension; E11.9 Type 2 diabetes mellitus without complications; Z79.899 Other long term (current) drug therapy; Z79.82 Long term (current) use of aspirin; Z79.4 Long term (current) use of insulin; W18.2XXA Fall in (into) shower or empty bathtub, initial encounter
CPT/HCPCS: 99283

== ENCOUNTER 2024-03-19 15:39 | Outpatient (OUT) | payer MEDICARE, MEDICAID, SELFPAY | END 2024-03-19 15:40 | disposition home or self-care (01) | LOC: WC 15:39 | PROVIDERS: Visit Provider Podiatrist Foot & Ankle Surgery | DX: L97.918 Non-pressure chronic ulcer of unspecified part of right lower leg with other specified severity (principal) | CPT/HCPCS: A6213; G0463 ==